=== PATIENT | female | born 1970 | race Caucasian/White ===

== ENCOUNTER 2017-10-10 21:44 | Emergency (ER) | payer MEDICARE, OTHER ==
[~2017-10-10] VITALS: Ht 149.9 cm; Wt 58.1 kg
[~2017-10-10 21:44] MED LIST: AMIODARONE HCL200 MG PO; APRISO0.375 GM PO; BENTYL10 MG PO; DICYCLOMINE HCL10 MG PO; LAMICTAL100 MG PO; LAMOTRIGINE100 MG PO; LASIX20 MG PO; LEVOTHYROXINE75 MCG PO; LEVOTHYROXINE88 MCG PO; METOCLOPRAMIDE10 MG PO; NEXIUM20 MG PO; OMEPRAZOLE40 MG PO; PANTOPRAZOLE SO40 MG PO; ZOFRAN8 MG PO; [UNRECOGNIZED DRUG - REMARK]
--- OUTSIDE RECORDS SUMMARY | 2017-10-10 21:47 | XMS REPORT ---
[facility] Address Unknown Phone Unavailable Care Team Providers Care Pathology Manager Name Role Phone MELODY HASSAN Unavailable Unavailable Problems This patient has no known problems. Allergies, Adverse Reactions, Alerts This patient has no known allergies or adverse reactions. Medications This patient has no known medications. Results Test Description Test Time Test Comments Text Results Atomic Results Result Comments CHEST 2 VIEWS [place] [address] Patient Name: JIGNESH WAYNE MR #: [id number] : 1970 Age/Sex: 47/F Req #: [id number] Adm Physician: Ordered by: MELODY HASSAN MD Report #: [id number] Location: ER Room/Bed: Procedure: [id number] DX/CHEST 2 VIEWS Exam Date: Exam Time: REPORT STATUS: Signed CHEST 2 VIEWS, Technique: CHEST 2 VIEWS Comparison: 11/24/2016 Clinical history: S H/O DOWN'S W/MARTHA DEFECTS REPAIRED , CHF SOB DISCUSSION: See below IMPRESSION: 1. Lines/tubes: Stable left chest wall dual-lead pacer, upper abdominal epicardial device. 2. Stable enlarged cardiomediastinal silhouette post sternotomy. 3. Diffuse opacities, likely edema. No significant effusion. Signed by: Dr Ghada Lara MD on 04/08/2017 12:02 AM Dictated By: GHADA LARA MD Transcribed By: BRETT on 04/08/171 COPY TO: MELODY HASSAN MD CT ABDOMEN/PELVIS WO [place] [address] Patient Name: JIGNESH WAYNE MR #: [id number] : 1970 Age/Sex: 47/F Req # : [id number] Adm Physician: Ordered by: MELODY HASSAN MD Report #: [id number] Location: ER Room/Bed: Procedure: [id number] CT/CT ABDOMEN/PELVIS WO Exam Date: 04/08/17 Exam Time: 2330 REPORT STATUS: Signed EXAM: CT ABDOMEN/PELVIS WO DATE: 9:42 PM INDICATION: S ABD PAIN LLQ H/O CROHN'S/DOWN'S SYND COMPARISON: 09/22/2016 contrast enhanced study TECHNIQUE: The abdomen and pelvis were scanned using a multidetector helical scanner. Coronal and sagittal reformations were obtained. Routine protocol performed. IV Contrast : None FINDINGS: Lack of IV contrast decreases sensitivity in evaluating abdominal and pelvic organs. In addition, image quality mildly degraded by streak artifact from electronic abdominal device. LOWER THORAX: Cardiomegaly with right ventricular lead seen and epicardial lead from intra- abdominal device. Nonspecific groundglass opacity which could be due to edema. Possible mosaic attenuation. LIVER/BILIARY: No masses. No ductal dilatation. GALLBLADDER: Surgically absent SPLEEN: Unremarkable PANCREAS: Unremarkable ADRENALS: No nodules KIDNEYS: No hydronephrosis or stone disease. GI TRACT: No distention, wall thickening or evidence of obstruction. Moderate stool is seen throughout the colon and rectum. VESSELS: No significant atherosclerotic calcification PERITONEUM/ RETROPERITONEUM: No free air or fluid LYMPH NODES: No lymphadenopathy REPRODUCTIVE ORGANS/BLADDER: Unremarkable BONES: No suspicious bone lesions. IMPRESSION: Moderate stool burden. Otherwise negative for acute abnormality to explain symptoms. Signed by: Dr Ghada Lara MD on 04/08 12:20 AM Dictated By: GHADA LARA MD Transcribed By: BRETT on 04/08/1719 COPY TO: MELODY HASSAN MD
== END 2017-10-10 22:01 | disposition home or self-care (01) ==
LOC: ER 21:44
DX: R05 Cough (principal); J20.9 Acute bronchitis, unspecified; K50.90 Crohn's disease, unspecified, without complications; K21.9 Gastro-esophageal reflux disease without esophagitis; Q90.9 Down syndrome, unspecified; Q21.8 Other congenital malformations of cardiac septa
CPT/HCPCS: 99282

== ENCOUNTER 2017-10-17 14:49 | Inpatient (IN) | payer MEDICARE, OTHER ==
[~2017-10-17] VITALS: Ht 129.5 cm; Wt 48.6 kg
--- OUTSIDE RECORDS SUMMARY | 2017-10-17 14:52 | XMS REPORT | Continuity of Care Document ---
Author Author [facility] Organization [facility] Address [address] [place] [address] Phone Unavailable Care Team Providers Care Epic Director Name Role Phone ANASTACIO CARROLL MD PCP Insurance Providers Guarantor Camilo,Jignesh Jorge Address [address] [place] [address] Payer Medicare A & B Policy Number [id number] Subscriber's Name Jignesh Camilo Relationship 18 Self / Same As Patient Group Name [id number] Effective Date 12 Payer Policy Number [id number] Subscriber's Name Jignesh Camilo Relationship 18 Self / Same As Patient Effective Date 09 Advance Directives Directive Response Recorded Date/Time Does the patient have an advance directive? No 11/24/16 4:41pm If yes, is advance directive on file with [facility]? No 11/24/16 4:41pm If not on file with [facility] will patient provide a copy? Yes 04/07/17 10:40pm Problems Medical Problem Onset Date Status CHF (congestive heart failure) Unknown Colitis Unknown Congenital heart defect Unknown Down syndrome Unknown Peripheral cyanosis Unknown UTI (urinary tract infection) Unknown Medications Current Home Medications Medication Dose Units Route Directions Days Qty Instructions Start Date Amiodarone Hcl 200 Mg Tablet 200 Mg Oral Daily Dicyclomine Hcl 10 Mg Capsule 10 Mg Oral Three Times A Day Furosemide (Lasix) 20 Mg Tablet 20 Mg Oral Daily 30 Tab Lamotrigine 100 Mg Tablet 100 Mg Oral Daily 30 Tab Levothyroxine Sodium 88 Mcg Tablet 88 Mcg Oral Daily 30 Tab Metoclopramide Hcl 10 Mg Tablet 10 Mg Oral Four Times Daily for Nausea Pantoprazole Sodium (Protonix) 40 Mg Tablet.dr 40 Mg Oral Daily Past Home Medications Medication Directions Ordered Status Crohns Medications , Discontinued Dicyclomine Hcl (Bentyl) 10 Mg Capsule, 10 Mg Oral As Needed Discontinued Esomeprazole Magnesium (Nexium) 20 Mg Capsule.dr, 20 Mg Oral Daily Discontinued Lamotrigine (Lamictal) 100 Mg Tab, 100 Mg Oral Daily Discontinued Levothyroxine Sodium 75 Mcg Tablet, 75 Mcg Oral Daily Discontinued Ondansetron Hcl (Zofran) 8 Mg Tablet, 8 Mg Oral As Needed Discontinued Social History Social History Problem Response Recorded Date/Time Onset Date Status Hx Psychiatric Problems No 11/24/2016 4:41pm Not Applicable Not Applicable Hx Eating Disorder No 11/24/2016 4:41pm Not Applicable Not Applicable Hx Substance Use Disorder No 11/24/2016 4:41pm Not Applicable Not Applicable Hx Depression No 11/24/2016 4:41pm Not Applicable Not Applicable Hx Alcohol Use No 11/24/2016 4:41pm Not Applicable Not Applicable Hx Substance Use Treatment No 11/24/2016 4:41pm Not Applicable Not Applicable Hx Physical Abuse No 11/24/2016 4:41pm Not Applicable Not Applicable Smoking Status Start Date Stop Date Never Smoker Hospital Discharge Instructions No hospital discharge instruction information available. Plan of Care Discharge Date 10/10/17 10:01pm Disposition HOME, SELF-CARE Condition at Discharge Stable Instructions/Education Provided Bronchitis (Acute) - Adult Forms Provided Work/School Excuse Prescriptions See Medication Section Additional Instructions/Education TAKE ALL MEDICATION PRESCRIBED Functional Status No functional status information available. Allergies, Adverse Reactions, Alerts No known allergies. Immunizations No immunization information available. Vital Signs Acute Vital Signs Vital Response Date/Time Height 4 ft 11 in 10/10/2017 9:48pm Weight 128 lb 10/10/2017 9:48pm Body Mass Index 25.9 kg/m^2 10/10/2017 9:48pm Results Laboratory Results Test Name Result Units Flags Reference Collection Date/Time Result Date/ Time Comments White Blood Count 7.44 x10e3/uL 4.8-10.8 04/07/2017 9:45pm 04/07/2017 9 :58pm Red Blood Count 5.04 x10e6/uL 3.6-5.1 04/07/2017 9:45pm 04/07/2017 9: 58pm Hemoglobin 16.1 g/dL H 12.0-16.0 04/07/2017 9:45pm 04/07/2017 9:58pm Hematocrit 47.2 % H 34.2-44.1 04/07/2017 9:45pm 04/07/2017 9:58pm Mean Corpuscular Volume 93.7 fL 81-99 04/07/2017 9:45pm 04/07/2017 9: 58pm Mean Corpuscular Hemoglobin 31.9 pg 28-32 04/07/2017 9:45pm 04/07/2017 9:58pm Mean Corpuscular Hemoglobin Concent 34.1 g/dL 31-35 04/07/2017 9:45pm 04/07/2017 9:58pm Red Cell Distribution Width 17.0 % H 11.7-14.4 04/07/2017 9:45pm 2016 9:58pm Platelet Count 182 x10e3/uL 140-360 04/07/2017 9:45pm 04/07/2017 9: 58pm Neutrophils (%) (Auto) 83.0 % H 38.7-80.0 04/07/2017 9:45pm 04/07/2017 9 :58pm Lymphocytes (%) (Auto) 9.7 % L 18.0-39.1 04/07/2017 9:45pm 04/07/2017 9: 58pm Monocytes (%) (Auto) 5.5 % 4.4-11.3 04/07/2017 9:45pm 04/07/2017 9: 58pm Eosinophils (%) (Auto) 0.3 % 0.0-6.0 04/07/2017 9:45pm 04/07/2017 9: 58pm Basophils (%) (Auto) 1.2 % H 0.0-1.0 04/07/2017 9:45pm 04/07/2017 9: 58pm IM GRANULOCYTES % 0.3 % 0.0-1.0 04/07/2017 9:45pm 04/07/2017 9:58pm Neutrophils # (Auto) 6.2 2.1-6.9 04/07/2017 9:45pm 04/07/2017 9:58pm Lymphocytes # (Auto) 0.7 L 1.0-3.2 04/07/2017 9:45pm 04/07/2017 9: 58pm Monocytes # (Auto) 0.4 0.2-0.8 04/07/2017 9:45pm 04/07/2017 9:58pm Eosinophils # (Auto) 0.0 0.0-0.4 04/07/2017 9:45pm 04/07/2017 9:58pm Basophils # (Auto) 0.1 0.0-0.1 04/07/2017 9:45pm 04/07/2017 9:58pm Absolute Immature Granulocyte (auto 0.02 x10e3/uL 0-0.1 04/07/2017 9: 45pm 04/07/2017 9:58pm Prothrombin Time 12.9 seconds 11.9-14.5 04/07/2017 9:45pm 04/07/2017 10 :05pm Prothromb Time International Ratio 0.93 04/07/2017 9:45pm 2016 10:05pm Oral Anticoagulant Therapy INR Values: 1. Low Intensity Therapy 1.5 - 2.0 2. Moderate Intensity Therapy 2.0 - 3.0 3. High Intensity Therapy(1) 2.5 - 3.5 4. High Intensity Therapy(2) 3.0 - 4.0 5. Panic Value INR > 5.0 Activated Partial Thromboplast Time 27.7 seconds 23.8-35.5 04/07/2017 9: 45pm 04/07/2017 10:06pm Urine Color YELLOW YELLOW 04/07/2017 8:09pm 04/07/2017 9:39pm Urine Clarity HAZY CLEAR 04/07/2017 8:09pm 04/07/2017 9:39pm Urine Specific Eddy 1.025 1.010-1.025 04/07/2017 8:09pm 2016 9:39pm Urine pH 5 5 - 7 04/07/2017 8:09pm 04/07/2017 9:39pm Urine Leukocyte Esterase TRACE H NEGATIVE 04/07/2017 8:09pm 2016 9:39pm Urine Nitrite NEGATIVE NEGATIVE 04/07/2017 8:0904/07/2017 9:39pm Urine Protein 2+ H NEGATIVE 04/07/2017 8:0904/07/2017 9:39pm Urine Glucose (UA) NEGATIVE NEGATIVE 04/07/2017 8:09pm 04/07/2017 9: 39pm Urine Ketones NEGATIVE NEGATIVE 04/07/2017 8:09pm 04/07/2017 9:39pm Urine Urobilinogen 1 mg/dL 0.2 - 1 04/07/2017 8:09pm 04/07/2017 9:39pm Urine Bilirubin 1+ H NEGATIVE 04/07/2017 8:0904/07/2017 9:39pm Urine Blood 4+ H NEGATIVE 04/07/2017 8:04/07/2017 9:39pm Urine WBC 6-10 /HPF H 0-04/07/2017 8:0904/07/2017 9:42pm Urine RBC >50 /HPF H 0-5 04/07/2017 8:09pm 04/07/2017 9:42pm Urine Bacteria MODERATE /HPF H NONE 04/07/2017 8:0904/07/2017 9:42pm Urine Epithelial Cells FEW /LPF NONE 04/07/2017 8:0904/07/2017 9: 42pm Urine Yeast FEW H NONE 04/07/2017 8:0904/07/2017 9:42pm Sodium Level 139 mmol/L 136-145 04/07/2017 9:45pm 04/07/2017 10:32pm Potassium Level 4.1 mmol/L 3.5-5.1 04/07/2017 9:45pm 04/07/2017 10: 32pm Chloride Level 105 mmol/L 98-107 04/07/2017 9:45pm 04/07/2017 10:32pm Carbon Dioxide Level 23 mmol/L 22-29 04/07/2017 9:45pm 04/07/2017 10: 32pm Anion Gap 15.1 mmol/L 8-04/07/2017 9:45pm 04/07/2017 10:32pm Blood Urea Nitrogen 16 mg/dL 7-04/07/2017 9:45pm 04/07/2017 10:32pm Creatinine 1.54 mg/dL H 0.57-1.11 04/07/2017 9:45pm 04/07/2017 10:32pm BUN/Creatinine Ratio 10 -25 04/07/2017 9:4504/07/2017 10:32pm Estimat Glomerular Filtration Rate 36 ML/MIN L 60- 04/07/2017 9:45 10:32pm Ranges were taken from the National Kidney Disease Education Program and the National Kidney Foundation literature. Reference ranges: 60 or greater: Normal 16-59 (for 3 consecutive months): Chronic kidney disease 15 or less: Kidney failure Glucose Level 128 mg/dL H 74-118 04/07/2017 9:45pm 04/07/2017 10:32pm Calcium Level 9.2 mg/dL 8.4-10.2 04/07/2017 9:4504/07/2017 10:32pm Magnesium Level 2.0 MG/DL 1.3-2.1 04/07/2017 9:4504/07/2017 10:32pm Total Bilirubin 0.5 mg/dL 0.2-1.2 04/07/2017 9:4504/07/2017 10:32pm Aspartate Amino Transf (AST/SGOT) 21 IU/L 5-34 04/07/2017 9:452016 10:32pm Alanine Aminotransferase (ALT/SGPT) 17 IU/L 0-55 04/07/2017 9:45 10:32pm Total Protein 8.8 g/dL H 6.5-8.1 04/07/2017 9:4504/07/2017 10:32pm Albumin 3.5 g/dL 3.5-5.0 04/07/2017 9:4504/07/2017 10:32pm Globulin 5.3 g/dL H 2.3-3.5 04/07/2017 9:4504/07/2017 10:32pm Albumin/Globulin Ratio 0.7 L 0.8-2.0 04/07/2017 9:4504/07/2017 10: 32pm Alkaline Phosphatase 146 IU/L 40-150 04/07/2017 9:45pm 04/07/2017 10: 32pm B-Type Natriuretic Peptide 418.1 pg/mL H 0-100 04/07/2017 9:45pm 2016 10:32pm Creatine Kinase 25 IU/L L 29-168 04/07/2017 9:4504/07/2017 10:32pm Creatine Kinase MB 1.50 ng/mL 0.00-5.00 04/07/2017 9:45pm 04/07/2017 10 :32pm Troponin I 0.047 ng/mL 0-0.300 04/07/2017 9:45pm 04/07/2017 10:32pm Lipase 13 U/L 8-78 04/07/2017 9:45pm 04/07/2017 10:32pm Human Chorionic Gonadotropin, Qual NEGATIVE NEGATIVE 04/07/2017 9: 45pm 04/07/2017 10:09pm Microbiology Results Procedure Source Organism/Result Collection Date/Time Result Date/Time Result Status Blood Culture Blood NO GROWTH AFTER 5 DAYS, FINAL REPORT 04/07/2017 9:45pm 04/12/2017 9:51pm Final Procedures Procedure Status Date Provider(s) X-ray of chest, two views Active 04/07/[address] of abdomen and pelvis without contrast Active 04/07/17 MELODY HASSAN MD Encounters Encounter Location Arrival/Admit Date Discharge/Depart Date Attending Provider Departed Emergency Room [facility] 10/10/17 9:44pm 10:01pm GUI LOVE MD Departed Emergency Room [facility] 04/07/17 7:22pm 1:12am MELODY HASSAN MD
[2017-10-17] MEDS ORDERED: ALBUTEROL/IPRATROPIUM 3 ML NEB NEB ONE (15:30)
[2017-10-17 15:34] LABS: BASOPHILS # (AUTO) 0.1 (0.0-0.1); BASOPHILS % 0.9 % (0.0-1.0); EOSINOPHILS % 0.1 % (0.0-6.0); HEMATOCRIT 43.2 % (34.2-44.1); HEMOGLOBIN 14.7 g/dL (12.0-16.0); LYMPHOCYTES # (AUTO) 0.6 (1.0-3.2); LYMPHOCYTES % 7.2 % (18.0-39.1); MEAN CORPUSCULAR HEMOGLOBIN 32.2 pg (28-32); MEAN CORPUSCULAR VOLUME 94.5 fL (81-99); MONOCYTES # (AUTO) 0.4 (0.2-0.8); MONOCYTES % 4.6 % (4.4-11.3); NEUTROPHILS # (AUTO) 6.7 (2.1-6.9); NEUTROPHILS % 86.2 % (38.7-80.0); PLATELET COUNT 189 x10e3/uL (140-360); RED BLOOD COUNT 4.57 x10e6/uL (3.6-5.1); RED CELL DISTRIBUTION WIDTH 14.7 % (11.7-14.4)
[2017-10-17 15:49] LABS: ALBUMIN/GLOBULIN RATIO 0.7 (0.8-2.0); ANION GAP 17.1 mmol/L (8-16); CALCIUM 8.8 mg/dL (8.4-10.2); CREATININE, SERUM 1.54 mg/dL (0.57-1.11); POTASSIUM 3.1 mmol/L (3.5-5.1)
[2017-10-17] MEDS ORDERED: SODIUM CHLORIDE 0.9% 500ML 500 ML IV ONE (16:15)
--- NOTE | 2017-10-17 16:33 | Diagnostic Imaging Report ---
EXAMINATION: CHEST 2 VIEWS INDICATION: \S\COUGH \[id number] \S\1545 COMPARISON: Chest radiograph 04/07/2017 FINDINGS: PA and lateral views TUBES and LINES: Left chest wall cardiac pacer with lead tips overlying the right atrium and right ventricle. Partially visualized epicardial lead. LUNGS: Lungs are moderately inflated. Interstitial edema. PLEURA: No pleural effusion or pneumothorax. HEART AND MEDIASTINUM: Stable enlargement of the cardiac silhouette. BONES AND SOFT TISSUES: No acute osseous lesion. Median sternotomy wires. The inferior most wire is broken. Soft tissues are unremarkable. UPPER ABDOMEN: No free air under the diaphragm. Cholecystectomy clips. IMPRESSION: Cardiogenic interstitial edema. Signed by: DR. Yuri Virk MD on 10/17/2017 4:30 PM
[2017-10-17 16:39] LABS: BILIRUBIN,URINE 1+ (NEGATIVE); CLARITY,URINE SL CLOUDY (CLEAR); COLOR,URINE YELLOW (YELLOW); KETONES,URINE NEGATIVE (NEGATIVE); LEUKOCYTE ESTERASE ,URINE NEGATIVE (NEGATIVE); NITRITE,URINE NEGATIVE (NEGATIVE); PROTEIN,URINE DIPSTICK 3+ (NEGATIVE); URINE UROBILINOGEN 4 mg/dL (0.2 - 1)
[2017-10-17 16:43] LABS: RBC,URINE 21-50 /HPF (0-5)
[2017-10-17 16:44] LABS: AMORPHOUS SEDIMENT,URINE FEW (FEW); BACTERIA,URINE FEW /HPF; EPITHELIAL CELLS,URINE MODERATE /LPF
[2017-10-17] MEDS ORDERED: POTASSIUM CHLORIDE 20 MEQ TAB CR PO ONE (17:00)
[2017-10-17] MEDS ORDERED: NITROGLYCERIN 0.4 MG SUBL SL ONE (17:15)
[2017-10-17] MEDS ORDERED: FUROSEMIDE INJ 10 MG/ML 4 ML VIAL IV ONE (17:15)
[2017-10-17] MEDS ORDERED: ASPIRIN 81 MG CHEW TAB PO ONE (17:30)
[2017-10-17 18:10] LABS: CREATINE KINASE MB 1.7 ng/mL (0-5.0)
[2017-10-17 18:15] VITALS: BP 118/86
[2017-10-17 19:40] VITALS: BP 118/86
[2017-10-17 20:00] VITALS: BP 111/73
--- NOTE | 2017-10-17 20:50 | History and Physical ---
CHIEF COMPLAINT: Patient had an episode of generalized weakness lasting for few minutes this morning. HISTORY OF PRESENT MEDICAL ILLNESS: History with the help of mother and father at bedside and patient had severe cerebral palsy. As per mother, she was showering patient this morning. At that time, patient had episode of generalized weakness, where she was almost passed out for about 4-5 minutes. Then, patient came back to her baseline. Also, patient was complaining of cough for last almost 5-6 days and hence, patient was brought into emergency room. In the emergency room, patient was evaluated by emergency room doctor and was found to have CHF. Patient was admitted for further care and treatment. At the present, patient lying comfortably in bed at her baseline. PAST MEDICAL HISTORY 1. Down syndrome. 2. VSD and ASD, status post pacemaker placement, congenital heart disease. 3. AFib. 4. CHF. 5. Crohn's disease. 6. Acid reflux. 7. Hypothyroidism. 8. Mood disorder. MEDICATIONS: As listed in chart. ALLERGIES: NO KNOWN DRUG ALLERGIES. SURGICAL HISTORY: Cholecystectomy. SOCIAL HISTORY: No smoking. No alcohol. No illicit drug use. Lives with family. REVIEW OF SYSTEMS: As per HPI. PHYSICAL EXAMINATION GENERAL: Patient is alert, awake, oriented times 2, in no apparent distress, lying in bed. VITALS: Temperature is 97, pulse is 70 per minute, respirations 20, blood pressure 110/70, saturation is 97% on room air. HEENT: No cyanosis, no icterus, no pallor. Normocephalic, atraumatic. PERRLA. NECK: Soft and supple. No JVD. LUNGS: Air entry bilaterally equal. Bibasilar rales. HEART: S1, S2. No gallop. No rub. ABDOMEN: Soft, nontender. Bowel sounds present. MORTGAGE LOAN OFFICER: Alert, awake. EXTREMITIES: Thighs obese . LABS: On admission, white count 7.8, hemoglobin 14.7, hematocrit 43.2, platelets 189,000. Sodium 139, potassium 3.1, chloride 104, bicarb 21, BUN 12, creatinine 1.5, glucose 152. BNP 740. UA shows RBC 21-50, WBC 11-20, bacteria few. Chest x-ray shows cardiogenic interstitial edema. EKG shows electronic ventricular pacemaker. ASSESSMENT 1. Syncope. 2. Urinary tract infection. 3. Congestive heart failure exacerbation. 4. History of down syndrome. 5. Congenital heart disease. 6. Hypothyroidism. PLAN: Admit patient to med/tele. Oxygen, neb treatments. Lasix 40 mg IV q.12. Rocephin 1 g IV daily. Cardiology consultation Dr. Pérez. Ultrasound of renal. Echo. Further care and treatment while the patient is in the hospital. Discussed with family at bedside in detail. Job#: [id number] CQ
[2017-10-17] MEDS: ACETAMINOPHEN 325 MG TAB PO PRN (21:58)
[2017-10-17] MEDS: CEFTRIAXONE SOD 1 GM VIAL IV SCH (21:58)
[2017-10-17 22:02] VITALS: BP 111/73
[2017-10-18] VITALS (8 sets, daily range): BP systolic 110–140; BP diastolic 70–85
[2017-10-18 06:07] LABS: BASOPHILS # (AUTO) 0.1 (0.0-0.1); BASOPHILS % 1.2 % (0.0-1.0); EOSINOPHILS % 0.3 % (0.0-6.0); HEMATOCRIT 43.5 % (34.2-44.1); HEMOGLOBIN 14.4 g/dL (12.0-16.0); LYMPHOCYTES % 12.5 % (18.0-39.1); MEAN CORPUSCULAR HEMOGLOBIN 32.1 pg (28-32); MEAN CORPUSCULAR HGB CONC 33.1 g/dL (31-35); MEAN CORPUSCULAR VOLUME 97.1 fL (81-99); MONOCYTES # (AUTO) 0.5 (0.2-0.8); NEUTROPHILS % 79.3 % (38.7-80.0); PLATELET COUNT 179 x10e3/uL (140-360); RED BLOOD COUNT 4.48 x10e6/uL (3.6-5.1); RED CELL DISTRIBUTION WIDTH 15.1 % (11.7-14.4)
[2017-10-18 06:33] LABS: CREATINE KINASE MB 1.5 ng/mL (0-5.0)
--- NOTE | 2017-10-18 06:33 | Diagnostic Imaging Report ---
EXAM: CHEST SINGLE (PORTABLE), AP 1 view INDICATION: Congestive heart failure COMPARISON: AP view of the chest October 17, 2017 FINDINGS: LINES/TUBES: Stable position of left approach cardiac device. Partially visualized subxiphoid pacer. LUNGS: Pulmonary edema. PLEURA: No effusions or pneumothorax. HEART AND MEDIASTINUM: Stable cardiomegaly and vascular congestion. BONES AND SOFT TISSUES: No acute findings. Stable median sternotomy wires. IMPRESSION: No interval change. Signed by: Dr. Ronda Cervantes M.D. on 10/18/2017 6:29 AM
[2017-10-18 06:34] LABS: ALBUMIN 2.9 g/dL (3.5-5.0); ALBUMIN/GLOBULIN RATIO 0.6 (0.8-2.0); ANION GAP 15.5 mmol/L (8-16); CALCIUM 8.8 mg/dL (8.4-10.2); CREATININE, SERUM 1.35 mg/dL (0.57-1.11); POTASSIUM 3.5 mmol/L (3.5-5.1)
[2017-10-18] MEDS: FUROSEMIDE INJ 10 MG/ML 4 ML VIAL IV SCH ×2 (08:04→16:38)
[2017-10-18] MEDS: LEVOTHYROXINE SODIUM 88 MCG TAB PO SCH (08:04)
[2017-10-18] MEDS: PANTOPRAZOLE SOD 40 MG TABEC PO SCH (08:05)
[2017-10-18] MEDS: LAMOTRIGINE 100 MG TAB PO SCH (08:05)
[2017-10-18] MEDS ORDERED: AMIODARONE HCL 200 MG TAB PO SCH (09:00)
[2017-10-18] MEDS ORDERED: LEVOTHYROXINE SODIUM 88 MCG TAB PO SCH (09:00)
[2017-10-18] MEDS: ACETAMINOPHEN 325 MG TAB PO PRN (11:40)
[2017-10-18] MEDS ORDERED: DIGOXIN INJ 0.25 MG/ML 2 ML AMP IV ONE (13:30)
[2017-10-18] MEDS: BENZONATATE 100 MG CAP PO SCH ×2 (14:00→21:02)
[2017-10-18 14:01] LABS: CREATINE KINASE MB 1.7 ng/mL (0-5.0)
--- NOTE | 2017-10-18 14:02 | Diagnostic Imaging Report ---
Lumbar Spine Radiographs: 3 views HISTORY: Low back pain. COMPARISON: CT abdomen and pelvis 03/28/2017 DISCUSSION: Some of the osseous structures are partially obscured by stool and bowel gas. L2 and L3 are partially obscured by the device pack on the frontal view. There are five non-rib bearing lumbar vertebral bodies. The alignment of the spine is within normal limits. Age-indeterminate mild T12 compression deformity with approximately 15-20% loss of height. No displaced fracture or additional compression deformity is identified. Moderate to large amount stool in the ascending colon. Gaseous distention of colon with the distal transverse colon measuring 8.5 cm in diameter. No abnormally distended air filled loops of small bowel. Cholecystectomy clips. Epicardial lead with intra-abdominal device. A surgical clip projects over the pelvis. Disc Spaces: The disc spaces are well maintained. Facets: The facet joints are unremarkable. IMPRESSION: Age-indeterminate mild T12 compression deformity with approximately 15-20% loss of height. Gaseous distention of colon. Moderate to large amount of stool in the ascending colon. Signed by: DR. Yuri Virk MD on 10/18/2017 1:58 PM
--- NOTE | 2017-10-18 20:01 | Consultation ---
DATE OF CONSULTATION: CARDIOLOGY CONSULTATION ATTENDING PHYSICIAN: Dr. Brennon Carroll. ORE BUYER: Dr. Guzman. CLINICAL HISTORY: This is a 47-year-old white woman with history of Down's syndrome, with tetralogy of Fallot, and AV canal defect, status post permanent pacemaker and with history of atrial fibrillation and atrial flutter, maintained on amiodarone, who was admitted via the emergency room because of possible aspiration and syncope. According to the family, the patient was taking a bath after having had a cough of 5 or 6 days. During the bath, she suddenly became unresponsive straightening her legs and became deadweight. Nevertheless, she was later reported to hear of mother yelling at her. With the help of both parents, she was able to come out of the bathroom, and after 5 or 6 minutes, she returned to baseline, was able to put her clothes on. She was then brought to the emergency room and suspected to have congestive heart failure. According to the mother, she had submerged under the bath water momentarily. The chest x-ray in the emergency room had shown interstitial pulmonary edema. Her previous echocardiogram showed ejection fraction to be in the normal range at around 50%-65%. She has a pacemaker. PAST MEDICAL HISTORY: Also remarkable for hypothyroidism, Crohn's disease, and acid reflux. MEDICATIONS: Medications at home include; 1. Amiodarone 200 mg p.o. daily. 2. Lamotrigine 100 mg p.o. daily. 3. Levothyroxine 88 mcg p.o. daily. 4. Pantoprazole 40 mg p.o. daily. 5. Metoclopramide. 6. Lasix 20 mg p.o. daily. 7. Bentyl. ALLERGIES: NONE KNOWN. PERSONAL/SOCIAL HISTORY: Denies smoking, drinking, or drug abuse. PAST SURGICAL HISTORY: Cholecystectomy. REVIEW OF SYSTEMS: Noncontributory. PHYSICAL EXAMINATION VITAL SIGNS: Stable with blood pressure in the range of 110/70. CARDIAC: Jugular veins were not distended. S1 and S2 were regular. There is a 2/6 systolic murmur. LUNGS: Show minimal crackles. ABDOMEN: Soft. Bowel sounds are present. EXTREMITIES: No cyanosis, clubbing, or edema. IMPRESSION 1. Syncope or near syncope of undetermined etiology, consider cardiac arrhythmias, also consider seizure disorder. 2. Persistent atrial fibrillation and atrial flutter, status post permanent pacemaker, on amiodarone. 3. 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 4. Hypothyroidism. 5. Borderline left ventricular ejection fraction in the range of 50%-65%. 6. History of Crohn's disease. 7. Hypothyroidism. RECOMMENDATION: Review echocardiogram. Treatment for possible aspiration. Consider discontinuing amiodarone since she is not converting to sinus rhythm. She can probably be managed with rate control, particularly since she has a pacemaker. Thank you very much. Job#: [id number] DIANE cc:DR. BRENNON CARROLL
[2017-10-18] MEDS: CEFTRIAXONE SOD 1 GM VIAL IV SCH (21:02)
[2017-10-19] VITALS (7 sets, daily range): BP systolic 107–153; BP diastolic 65–92
[2017-10-19] MEDS: ACETAMINOPHEN 325 MG TAB PO PRN (05:10)
[2017-10-19] MEDS: LEVOTHYROXINE SODIUM 88 MCG TAB PO SCH (05:10)
[2017-10-19] MEDS: FUROSEMIDE INJ 10 MG/ML 4 ML VIAL IV SCH (10:06)
[2017-10-19] MEDS: DIGOXIN 0.125 MG TAB PO SCH (10:08)
[2017-10-19] MEDS: BENZONATATE 100 MG CAP PO SCH ×3 (10:08→21:17)
[2017-10-19] MEDS: PANTOPRAZOLE SOD 40 MG TABEC PO SCH (10:08)
[2017-10-19] MEDS: LAMOTRIGINE 100 MG TAB PO SCH (10:08)
[2017-10-19] MEDS: POLYETHYLENE GLYCOL 3350 17 GM PACK PO SCH (12:07)
[2017-10-19] MEDS: FLUCONAZOLE 100 MG TAB PO SCH (12:07)
[2017-10-19] MEDS ORDERED: POTASSIUM CHLORIDE 20 MEQ TAB CR PO ONE (13:00)
--- NOTE | 2017-10-19 13:00 | Cardiology Report ---
DATE OF STUDY: October 18, 2017 ECHOCARDIOGRAM M-MODE: Dilated left atrium. Normal left ventricular wall thickness and contractility. Sclerosis of the mitral valve annulus. Normal aortic valve. Pacemaker. No pericardial effusion. SECTOR SCAN: Moderately dilated left atrium. Normal left ventricular wall thickness and contractility. Ejection fraction is approximately 60%. Mitral annulus is moderately sclerotic. Pacemaker is present. Normal tricuspid and aortic valves. No pericardial effusion. CARDIAC DOPPLER STUDY WITH COLOR: There is 2+ pulmonic and mitral regurgitation. Trace tricuspid regurgitation. Pulmonary artery systolic pressure estimated at 33 mmHg. CONCLUSIONS 1. Left ventricular ejection fraction is approximately 60%. 2. Moderate mitral regurgitation with dilated left atrium. 3. Pacemaker with trace tricuspid regurgitation and moderate pulmonic regurgitation. 4. Sclerosis of the mitral valve annulus. Job#: [id number] MH cc:ANASTACIO CARROLL M.D.
[2017-10-19] MEDS ORDERED: METOLAZONE 5 MG TAB PO ONE (13:15)
--- NOTE | 2017-10-19 13:26 | Consultation ---
DATE OF CONSULTATION: PULMONARY CONSULTATION REASON FOR CONSULTATION: Cough. HPI: Ms. Camilo is a 47-year-old female, well known to me from previous admission. She has Down syndrome. She has followed up in the office in the past. She is not able to communicate. The source of history is the mother. She has history of cerebral palsy and Down syndrome. According to the mother, she was showering the patient this morning, and she became unresponsive, and her head also went under water. However, she took the head out. She has been complaining of cough for almost 7 to 8 days. It is a dry cough. She denies any nausea, vomiting or diarrhea. REVIEW OF SYSTEMS: Unable to elicit from the patient, as patient has cerebral palsy and Down syndrome and she is unable to communicate. PAST MEDICAL HISTORY: Down syndrome, VSD, ASD, pacemaker, congenital heart disease, AFib, Crohn disease, hypothyroidism. FAMILY AND SOCIAL HISTORY: She lives with her mother. She does not smoke and does not drink. PHYSICAL EXAMINATION VITAL SIGNS: Temperature 96.6, pulse of 60, blood pressure 130/82. Respiratory rate 18. O2 sat 98%. HEENT: Head is atraumatic and normocephalic. NECK: Supple. She has web neck. Oral mucosa is dry. Oropharynx is clear. CHEST: Clear to auscultation bilaterally with no wheezing. HEART: S1, S2 audible. ABDOMEN: Soft. EXTREMITIES: No clubbing, cyanosis or edema. NEUROLOGIC: Awake and alert, but cannot communicate. LABS: White count of 7000, hemoglobin 14.4, platelets 179. Chemistry: Sodium 137, potassium 3.5, chloride 103, BUN 12, creatinine 1.35. Chest x-ray which was done in the emergency room is showing cardiomegaly and increased congestion. No focal infiltrate. ASSESSMENT AND PLAN: Ms. Camilo is a 47-year-old female with cerebral palsy and Down syndrome here with sudden onset of unresponsiveness. Patient's head had been under water, question of aspiration and pulmonary edema. Patient had started having cough before this event as well. Possibly has reactive airway disease as well. PLAN 1. I will start the patient on nebulizer treatment. 2. Also start Pulmicort nebs. 3. Will hold off on the antibiotics for now. I do not think there is any focal infiltrate or pneumonia. 4. Diuretics have been started by cardiology. Case discussed with Dr. Guzman. 5. Also, the case was discussed with the patient's mother at bedside in detail. Job#: [id number] BYRON
[2017-10-19] MEDS: LEVALBUTEROL HCL SOLN NEBU 1.25 MG/3 ML NEB INH SCH ×2 (13:50→19:29)
--- NOTE | 2017-10-19 14:21 | Consultation ---
DATE OF CONSULTATION: NEUROLOGY CONSULTATION HISTORY OF PRESENT ILLNESS: Ms. Camilo is a 47-year-old right hand dominant woman with an extensive past medical history, admitted to [facility] on October 17, 2017 following a possible syncopal event. On October 17, 2017, the patient was standing in the tub while her mother was washing her. Suddenly, the patient dropped to the floor of tub. Her mother described the patient as " weight." Ms. Camilo became cyanotic, and appeared to struggle to breathe. Her eyes had a glazed appearance. Ms. Camilo's mother does not believe the patient fully lost consciousness. Together with her , Ms. Camilo's mother helped her from the bathtub. She lay on the floor for approximately 5 to 6 minutes. After that time past, the patient returned to her neurological baseline. EMS was notified and Ms. Camilo was transported to the emergency center at [facility] for further evaluation. Ms. Sandras mother does not report stiffening or shaking of the extremities associated with the above event. There was no tongue biting, no bladder or bowel incontinence, no foaming saliva. There is no gaze or head deviation. Upon arrival in the emergency Center, the patient was afebrile with a blood pressure of 102/66 mmHg and a pulse of 66 beats per minute. The documentation of the patient's general physical and neurological examinations is unavailable for review at this time. No neuroimaging studies were performed in the emergency center. However, Ms. Camilo was found to have an exacerbation of her underlying congestive heart failure. She was admitted to [facility] under observation status for further evaluation and treatment. Patient's mother does not endorse a history of known seizures. There is no prior history of head trauma or central nervous system infection. There is no family history of seizures. Ms. Camilo's mother does report the patient experienced similar symptoms approximately 2 years ago after her second cataract surgery. At that time, she was told the patient's symptoms were due to sedation. Ms. Camilo has had a cough for the past week. Her mother reports the cough is nonproductive. As far as she knows, there has been no shortness of breath or wheezing. REVIEW OF SYSTEMS: Cough, possible syncopal event. Otherwise 12-point review of systems is negative. 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 PAST SURGICAL HISTORY: Bilateral cataract surgeries, pacemaker placement and battery exchange multiple times, foot surgery, esophagogastroduodenoscopy. PAST HOSPITALIZATIONS: Surgeries and procedures as listed, myocardial infarction, gastritis, multiple other hospitalizations. FAMILY HISTORY: The patient's paternal grandparents are . Both were alcoholics. Their medical histories are unknown. The patient's maternal grandfather is from high blood pressure and heart disease. The patient's maternal grandmother is . She had hypertension. The patient's father is . He was an alcoholic as well. His medical history is unknown. Ms. Camilo's mother is alive. She has high blood pressure and diabetes. Ms. Camilo has 2 siblings, a sister and a brother. Both are alive and healthy. The patient has no children. Multiple maternal relatives (aunts and uncles) have high blood pressure. SOCIAL HISTORY: Ms. Camilo is single. She is a high school graduate (special education). 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 There is no known current or prior tobacco, alcohol, or recreational drug use. HOME MEDICATIONS: Amiodarone 200 mg by mouth daily, dicyclomine 10 mg by mouth three times daily, Lasix 20 mg by mouth daily, lamotrigine 100 mg by mouth daily, levothyroxine 88 mcg by mouth daily, metoclopramide 10 mg by mouth 4 times daily, pantoprazole 40 mg by mouth daily. HOSPITAL MEDICATIONS: Digoxin 0.25 mg by mouth every morning, Tessalon Perles 100 mg by mouth three times daily, pantoprazole 40 mg by mouth daily, lamotrigine 100 mg by mouth daily, levothyroxine 88 mcg by mouth every morning, acetaminophen 650 mg by mouth every 6 hours as needed for pain or fever, ceftriaxone 1 gram IV daily, MiraLAX 17 grams by mouth daily, Colace 100 mg by mouth twice daily, fluconazole 100 mg by mouth daily, Lasix 40 mg intravenously daily. ALLERGIES: Unknown antibiotic. No known food allergies. No known allergies to latex. No known allergies to iodine or other contrast materials. PHYSICAL EXAMINATION VITAL SIGNS: Height 51 inches, weight 107 pounds, BMI 29.0 kg per meter squared. Blood pressure 107/72 mmHg, pulse 60 beats per minute, respiratory rate 20 breaths per minute, oxygen saturation 98% on 2 liters by nasal cannula. GENERAL: The patient is awake and alert, does not appear distressed. HEENT: Normocephalic, atraumatic. Pupils are surgical. Moist mucous membranes. Facial features typical of Down syndrome. NECK: Supple. No appreciable thyromegaly. No appreciable carotid bruits. CARDIOVASCULAR: S1, S2 regular rate and rhythm. Holosystolic murmur. RESPIRATORY: Clear to auscultation bilaterally. No wheezes, rhonchi or rales. EXTREMITIES: The skin is warm and dry. No clubbing, cyanosis or edema. The posterior tibial and dorsalis pedis pulses are 2+ and symmetric. SKIN: No rashes or lesions. NEUROLOGIC: Memory/Attention: The patient is awake and alert. Verbalization is very limited. Cranial Nerves: Cranial nerve 1-not tested. Cranial nerve 2, 3, 4, and 6-pupils are surgical, extraocular movements intact, no nystagmus. Cranial nerve 5-sensation is grossly intact to light touch in the bilateral V1 through V3 distributions. Strength of the temporalis and masseter muscles appears to be within normal limits. Cranial nerve 7-the face is symmetric as are all facial movements. Strength appears to be within normal limits. Cranial nerve 8-hearing is grossly intact to bilaterally. Cranial nerve 9, 10-the soft palate elevates equally and symmetrically. Cranial nerve 11-normal strength of the bilateral sternocleidomastoid and trapezius muscles. Cranial nerve 12-the tongue protrudes midline and moves symmetrically from [id number]. Strength: Bulk is diminished. Normal functional movements of both arms and both legs. Tone is mildly diminished throughout. DTRs: Deep tendon reflexes are 2+ and symmetric at the triceps, biceps, brachioradialis. Deep tendon reflexes cannot be elicited at the patellas and Achilles. Plantar responses are flexor bilaterally. Sensation: Sensation is grossly intact to light touch in both arms and both legs. Cerebellar: Unable to assess due to the patient's inability to follow instructions. Gait: Deferred. Speech: Very limited spontaneous verbalization. Involuntary Movements: None. Pronator Drift: As per motor exam. LABORATORY DATA: Sodium 137, potassium 3.5, chloride 103, dioxide 22, anion gap 15.5, BUN 12, creatinine 1.35, estimated GFR 42, BUN to creatinine ratio 9, glucose 118, calcium 8.8, total bilirubin 0.7, AST 15, ALT 211. Alkaline phosphatase 124, total protein 7.5, albumin 2.9, globulin is 4.6. Albumin to globulin ratio 0.6. Creatinine kinase 53, 54, 49. CK-MB 1.70, 1.50, 1.70. Troponin I 0.035, 0.027, 0.056. B-natriuretic peptide 741.5. Lactic acid 28.2. The CBC with differential and platelets reveals a white blood cell count of 7.61 with 79.3% neutrophils, 12.5% lymphocytes, 6.0% monocytes, 0.3% eosinophils and 1.2% basophils. Hemoglobin and hematocrit are 14.4 and 43.5, respectively. The platelet count is 179. From October 17, 2017, urinalysis revealed a specific gravity 1.030, 3+ protein, 4+ blood, 1+ bilirubin, 4+ urobilinogen, 21 to 50 red blood cells, 11 to 20 white blood cells, moderate epithelials cells, few urine bacteria, 1 to 5 coarse granular casts. Blood cultures drawn on 10/17/2017 show no growth after 24 hours. A urine culture collected on 10/17/2017 reveals a yeast species, 10,000 to 50,000 CFU per mL. DIAGNOSTIC STUDIES: Chest x-ray 10/17/2017: Cardiogenic interstitial edema. Chest x-ray 10/18/2017: No interval change. Lumbar spine x-ray 10/18/2017: Age indeterminate mild T12 compression deformity with approximately 15% to 20% loss of height. Gaseous distention of colon. Moderate to large amount of stool in the ascending colon. ASSESSMENT AND PLAN: Ms. Camilo is a 47-year-old right hand dominant woman with an extensive past medical history as detailed above, admitted to [facility] on October 17, 2017 with syncopal event versus possible generalized atonic seizure (i.e. drop attack). Patient's neurological examination is detailed above. Ms. Camilo's blood work and other diagnostic studies have been reviewed and are documented above. The event described by Ms. Camilo's mother is more compatible with a syncopal event than a seizure. There was no noted stiffening or shaking of the arms or legs, no tongue biting, no bladder or bowel incontinence, no foaming saliva, and no gaze or head deviation. However, Ms. Camilo's mother reports it took approximately 5 to 6 minutes before the patient returned to her neurological baseline and was able to stand with assistance from her parents and dress. This prolonged period is atypical of a syncopal event, but more typical of a seizure. In addition, the patient has had a respiratory illness for the past week. Illness is known to lower the seizure threshold. Lastly, Ms. Camilo has experienced similar symptoms previously. This information in its totality is suspicious for a seizure. RECOMMENDATIONS ARE FOLLOWS 1. The ideal imaging modality for evaluation for seizure is an MRI of the brain without contrast. However, the patient's mother and I feel Ms. Camilo will be unable to tolerate an EMR study. Therefore a CT of the brain without contrast will be ordered to evaluate for structural anomalies of the brain which could predispose the patient to seizures. 2. Routine EEG of the brain to evaluate for abnormal electrical activity which would predispose the patient to seizures. 3. Defer treatment of the remaining medical comorbidities to the primary and other services. Thank you for this consultation. I will continue to follow the patient while she remains in the hospital. TIME SPENT: 70 minutes. Job#: [id number] RAMILA MCGINNIS
--- NOTE | 2017-10-19 15:50 | Diagnostic Imaging Report ---
Exam: Head CT without contrast History: Leg weakness, possible seizure Comparison studies: None Technique: Axial images were obtained from the skull base to the vertex. Coronal and sagittal images reconstructed from the axial data. Intravenous contrast: None Findings: Scalp: No abnormalities. Bones: No fractures, blastic or lytic lesions. Brain sulci: Mildly prominent. Ventricles: Mild compensatory dilatation. No hydrocephalus. Extra-axial spaces: No masses, no fluid collection. Parenchyma: No mass, acute hemorrhage or acute cortical vascular insults. 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 Sellar/suprasellar region: No abnormalities. Craniocervical junction: Patent foramen magnum. No Chiari one malformation. Incidental findings: Nonspecific secretions in the left maxillary sinus. Chronic inflammatory changes in the right mastoids. IMPRESSION: 1. No acute intracranial abnormalities. 2. Mild generalized volume loss. 3. 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 4. Secretions in the left maxillary sinus could be correlated for sinusitis. Signed by: Dr. Hong Van M.D. on 10/19/2017 3:46 PM
[2017-10-19] MEDS: DOCUSATE SODIUM 100 MG CAP PO SCH (17:25)
[2017-10-19] MEDS: BUDESONIDE 0.5MG/2 ML NEB INH SCH (19:29)
[2017-10-19] MEDS: CEFTRIAXONE SOD 1 GM VIAL IV SCH (21:17)
[2017-10-20] VITALS (8 sets, daily range): BP systolic 110–135; BP diastolic 59–88
[2017-10-20] MEDS: LEVALBUTEROL HCL SOLN NEBU 1.25 MG/3 ML NEB INH SCH ×4 (00:20→19:00)
[2017-10-20] MEDS: LEVOTHYROXINE SODIUM 88 MCG TAB PO SCH (06:03)
[2017-10-20] MEDS: GUAIFENESIN 200 MG/10 ML UDC PO PRN ×3 (06:03→23:44)
[2017-10-20 07:19] LABS: BASOPHILS # (AUTO) 0.1 (0.0-0.1); BASOPHILS % 1.1 % (0.0-1.0); EOSINOPHILS # (AUTO) 0.1 (0.0-0.4); EOSINOPHILS % 1.3 % (0.0-6.0); LYMPHOCYTES # (AUTO) 0.7 (1.0-3.2); LYMPHOCYTES % 8.7 % (18.0-39.1); MEAN CORPUSCULAR HEMOGLOBIN 31.3 pg (28-32); MEAN CORPUSCULAR HGB CONC 33.3 g/dL (31-35); MEAN CORPUSCULAR VOLUME 93.8 fL (81-99); MONOCYTES # (AUTO) 0.6 (0.2-0.8); MONOCYTES % 7.3 % (4.4-11.3); NEUTROPHILS # (AUTO) 6.8 (2.1-6.9); NEUTROPHILS % 81.1 % (38.7-80.0); PLATELET COUNT 210 x10e3/uL (140-360); RED BLOOD COUNT 5.12 x10e6/uL (3.6-5.1); RED CELL DISTRIBUTION WIDTH 14.6 % (11.7-14.4)
[2017-10-20 07:47] LABS: ALBUMIN 2.9 g/dL (3.5-5.0); ALBUMIN/GLOBULIN RATIO 0.6 (0.8-2.0); ANION GAP 15.1 mmol/L (8-16); CALCIUM 9.2 mg/dL (8.4-10.2); CREATININE, SERUM 1.51 mg/dL (0.57-1.11); POTASSIUM 4.1 mmol/L (3.5-5.1)
[2017-10-20] MEDS: BUDESONIDE 0.5MG/2 ML NEB INH SCH ×2 (08:17→19:00)
[2017-10-20] MEDS: PANTOPRAZOLE SOD 40 MG TABEC PO SCH (08:54)
[2017-10-20] MEDS: FLUCONAZOLE 100 MG TAB PO SCH (08:54)
[2017-10-20] MEDS: BENZONATATE 100 MG CAP PO SCH ×3 (08:54→20:29)
[2017-10-20] MEDS: LAMOTRIGINE 100 MG TAB PO SCH (08:54)
[2017-10-20] MEDS: DOCUSATE SODIUM 100 MG CAP PO SCH ×2 (08:54→15:04)
[2017-10-20] MEDS: FUROSEMIDE 20 MG TAB PO SCH (08:54)
[2017-10-20] MEDS: POLYETHYLENE GLYCOL 3350 17 GM PACK PO SCH (08:54)
[2017-10-20] MEDS: DIGOXIN 0.125 MG TAB PO SCH (08:54)
[2017-10-20] MEDS ORDERED: FUROSEMIDE INJ 10 MG/ML 4 ML VIAL IV SCH (09:00)
[2017-10-20] MEDS: CEFTRIAXONE SOD 1 GM VIAL IV SCH (20:29)
[2017-10-20] MEDS ORDERED: POLYETHYLENE GLYCOL 3350 17 GM PACK PO ONE (23:00)
[2017-10-21] VITALS: BP 120/80
[2017-10-21] MEDS: LEVALBUTEROL HCL SOLN NEBU 1.25 MG/3 ML NEB INH SCH ×3 (01:00→13:00)
[2017-10-21 04:00] VITALS: BP 118/71
[2017-10-21] MEDS: LEVOTHYROXINE SODIUM 88 MCG TAB PO SCH (06:23)
[2017-10-21 07:24] LABS: ANION GAP 15.9 mmol/L (8-16); CALCIUM 9.4 mg/dL (8.4-10.2); CREATININE, SERUM 1.54 mg/dL (0.57-1.11); POTASSIUM 3.9 mmol/L (3.5-5.1)
[2017-10-21 07:51] VITALS: BP 127/73
[2017-10-21 08:05] VITALS: BP 127/73
[2017-10-21] MEDS: BUDESONIDE 0.5MG/2 ML NEB INH SCH (08:30)
[2017-10-21] MEDS: DIGOXIN 0.125 MG TAB PO SCH (08:50)
[2017-10-21] MEDS: PANTOPRAZOLE SOD 40 MG TABEC PO SCH (08:50)
[2017-10-21] MEDS: FUROSEMIDE 20 MG TAB PO SCH (08:50)
[2017-10-21] MEDS: LAMOTRIGINE 100 MG TAB PO SCH (08:50)
[2017-10-21] MEDS: FLUCONAZOLE 100 MG TAB PO SCH (08:50)
[2017-10-21] MEDS: BENZONATATE 100 MG CAP PO SCH (08:50)
[2017-10-21] MEDS: DOCUSATE SODIUM 100 MG CAP PO SCH (08:50)
[2017-10-21] MEDS ORDERED: POLYETHYLENE GLYCOL 3350 17 GM PACK PO SCH (09:00)
[2017-10-21] MEDS: ACETAMINOPHEN 325 MG TAB PO PRN (11:09)
[2017-10-21 13:24] VITALS: BP 110/62
--- NOTE | 2017-10-21 15:46 | Diagnostic Imaging Report ---
PROCEDURE:X-RAY ABDOMEN - KUB COMPARISON:Patients [facility], CT, CT ABDOMEN/PELVIS WO, 04/07/2017, 23:30. INDICATIONS:CONSTIPATION/COUGH/BACK PAIN FINDINGS: There are no dilated small bowel loops. There is a moderate volume of stool within the rectum. There is moderate dilatation of the descending colon and sigmoid. There are no calcifications projected over the renal shadows, expected course of the ureters or bladder. There are no acute osseous abnormalities. Left-sided pacemaker partially visualized. A battery pack also projected on the midabdomen. CONCLUSION: Moderate dilatation of descending colon and sigmoid may be related to fecal impaction. Christel Jenkins M.D. Dictated by: Christel Jenkins M.D. on 10/21/2017 at 15:49 Electronically approved by: Christel Jenkins M.D. on 10/21/2017 at 15:49
== END 2017-10-21 14:53 | disposition home or self-care (01) | DRG 101 ==
LOC: ER 14:51 → IMCU 17:50 → OBSVTOIN 10-19 12:01 → MED/SURG 10-19 12:46
PROVIDERS: ADMIT Internal Medicine; ATTEND Internal Medicine
DX: R56.9 Unspecified convulsions (principal); I48.1 Persistent atrial fibrillation; K50.90 Crohn's disease, unspecified, without complications; B37.49 Other urogenital candidiasis; I48.92 Unspecified atrial flutter; I50.22 Chronic systolic (congestive) heart failure; Q90.9 Down syndrome, unspecified; E03.9 Hypothyroidism, unspecified; G80.9 Cerebral palsy, unspecified; Z95.0 Presence of cardiac pacemaker; K21.9 Gastro-esophageal reflux disease without esophagitis; Z79.52 Long term (current) use of systemic steroids; E87.6 Hypokalemia; Q24.9 Congenital malformation of heart, unspecified; R07.82 Intercostal pain; K59.00 Constipation, unspecified; I25.2 Old myocardial infarction; R13.12 Dysphagia, oropharyngeal phase
CPT/HCPCS: 36415; 80048; 80053; 85025; 94640; 95812; 99285; G0378; J0696; J1160; J1940; J7040

== ENCOUNTER 2018-03-08 07:48 | Observation (INO) | payer MEDICARE, OTHER ==
[~2018-03-08] VITALS: Ht 160 cm; Wt 44.6 kg
[2018-03-08 09:18] LABS: BASOPHILS % 0.4 % (0.0-1.0); HEMATOCRIT 41.8 % (34.2-44.1); HEMOGLOBIN 14.2 g/dL (12.0-16.0); LYMPHOCYTES # (AUTO) 0.5 (1.0-3.2); LYMPHOCYTES % 10.5 % (18.0-39.1); MEAN CORPUSCULAR HEMOGLOBIN 33.2 pg (28-32); MEAN CORPUSCULAR VOLUME 97.7 fL (81-99); MONOCYTES # (AUTO) 0.3 (0.2-0.8); MONOCYTES % 6.4 % (4.4-11.3); NEUTROPHILS % 82.3 % (38.7-80.0); PLATELET COUNT 111 x10e3/uL (140-360); RED BLOOD COUNT 4.28 x10e6/uL (3.6-5.1); RED CELL DISTRIBUTION WIDTH 14.9 % (11.7-14.4)
[2018-03-08 09:26] LABS: CLARITY,URINE HAZY (CLEAR); COLOR,URINE AMBER (YELLOW); LEUKOCYTE ESTERASE ,URINE NEGATIVE (NEGATIVE); NITRITE,URINE NEGATIVE (NEGATIVE); PROTEIN,URINE DIPSTICK 3+ (NEGATIVE)
[2018-03-08 09:27] LABS: BILIRUBIN,URINE 1+ (NEGATIVE); KETONES,URINE NEGATIVE (NEGATIVE); URINE UROBILINOGEN 1 mg/dL (0.2 - 1)
--- NOTE | 2018-03-08 09:37 | Diagnostic Imaging Report ---
PROCEDURE: X-RAY CHEST, TWO VIEWS COMPARISON: Abdominal radiograph 10/19/2017. INDICATIONS: HEART PALPITATIONS, COUGH FINDINGS: The lungs are reasonably well inflated. Patchy perihilar predominant opacities bilaterally. No large pleural effusion or pneumothorax. Left subclavian approach and pliable cardiac device projects over the left lower chest wall. Leads project over the expected regions of the right atrium and right ventricle. Additional coronary device lead is partially visualized. Median sternotomy wires. Borderline cardiomegaly. No acute osseous abnormality. Interval T12 vertebroplasty with cement. CONCLUSION: Cardiomegaly with perihilar predominant interstitial and alveolar opacities likely reflective of edema, though the differential diagnosis includes multifocal pneumonia in the appropriate clinical setting. Dictated by: Hong Bruce M.D. on 03/08/2018 at 9:46 Electronically approved by: Hong Bruce M.D. on 03/08/2018 at 9:46
[2018-03-08 09:39] LABS: RBC,URINE >50 /HPF (0-5)
[2018-03-08 09:41] LABS: BACTERIA,URINE MODERATE /HPF; EPITHELIAL CELLS,URINE MODERATE /LPF
[2018-03-08 09:43] LABS: PARTIAL THROMBOPLASTIN TIME 32.8 seconds (23.8-35.5)
[2018-03-08 09:49] LABS: ALBUMIN 3.3 g/dL (3.5-5.0); ALBUMIN/GLOBULIN RATIO 0.7 (0.8-2.0); ANION GAP 17.7 mmol/L (8-16); CALCIUM 8.9 mg/dL (8.4-10.2); CREATININE, SERUM 1.35 mg/dL (0.57-1.11); POTASSIUM 3.7 mmol/L (3.5-5.1)
[2018-03-08 09:51] LABS: B-TYPE NATRIURETIC PEPTIDE2 827.3 pg/mL (0-100)
[2018-03-08 09:55] LABS: CREATINE KINASE MB 0.6 ng/mL (0-5.0)
[2018-03-08 10:01] LABS: INR 1.05; PROTHROMBIN TIME 14.6 seconds (11.9-14.5)
[2018-03-08] MEDS ORDERED: FUROSEMIDE INJ 10 MG/ML 4 ML VIAL IV ONE (10:45)
[2018-03-08] MEDS ORDERED: SODIUM CHLORIDE FLUSH 10 ML SYR INJ PRN (11:30)
[2018-03-08] MEDS ORDERED: VITAMIN D400 UNIT PO (11:54)
[2018-03-08] MEDS ORDERED: OMEPRAZOLE40 MG PO (11:54)
[2018-03-08] MEDS: CEFTRIAXONE SOD 1 GM VIAL IV SCH (12:41)
[2018-03-08 14:20] LABS: LYMPHOCYTES % (MANUAL) 4 % (19-48); MONOCYTES % (MANUAL) 1 % (3.4-9.0); NEUTROPHILS % (MANUAL) 94 % (40-74); PLATELET ESTIMATE SLIGHTLY DECREASED; PLATELET MORPHOLOGY COMMENT FEW LARGE; RBC MORPHOLOGY COMMENT NORMAL
[2018-03-08 14:26] VITALS: BP 102/69
[2018-03-08 14:28] VITALS: BP 102/69
[2018-03-08 15:00] VITALS: BP 102/69
[2018-03-08] MEDS: AZITHROMYCIN 250 MG TAB PO SCH (15:02)
--- NOTE | 2018-03-08 15:49 | History and Physical ---
CHIEF COMPLAINT: Cough, chest congestion, trouble breathing since yesterday morning. HISTORY OF PRESENT MEDICAL ILLNESS: History obtained with the help of mother at bedside. Patient has Down syndrome. A 48-year-old pleasant white female with a past medical history of multiple medical problems, was admitted at [facility] this morning with above complaints. As per mother, since yesterday morning, patient started having cough, chest congestion, and trouble breathing and hence, patient was brought in to ER this morning. In the emergency room, patient was seen by emergency room doctor, diagnosed with CHF exacerbation and pneumonia, and admitted for further care and treatment. Patient was given IV Lasix, IV Rocephin in the hospital ER. At present, patient lying comfortably in bed, in no apparent distress. As per mother, no chest pain. No nausea, vomiting, diarrhea. No abdominal pain. No loss of consciousness. No palpitations. No headaches. No hematemesis. No melena. No hematuria. No fever. No witnessed seizures. PAST MEDICAL HISTORY 1. Down syndrome. 2. 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 3. CHF. 4. Acid reflux. 5. Hypothyroidism. 6. Mood disorder. 7. Atrial fibrillation. ALLERGIES: NO KNOWN DRUG ALLERGIES. MEDICATIONS: As listed in chart. FAMILY HISTORY: Noncontributory. PAST SURGICAL HISTORY: Cardiac surgery in childhood. REVIEW OF SYSTEMS: As per HPI. PHYSICAL EXAMINATION GENERAL: Patient is alert, awake, obeys all my commands, in no apparent distress, lying in bed. VITAL SIGNS: Temperature is 98, pulse is 60 per minute, respiratory rate is 18 per minute, blood pressure is 129/86, saturation is 96% on 2 L oxygen. HEENT: No cyanosis, no icterus, no pallor. Normocephalic, atraumatic. PERRLA. NECK: Soft and supple. No JVD or lymphadenopathy. LUNGS: Air entry bilaterally decreased. Bibasilar rales. HEART: S1, S2. No murmur, gallop, rub. ABDOMEN: Soft, nontender. Bowel sounds present. [employer]: Alert, awake, moves extremities. LABS: On admission to ER, white count 4.8, hemoglobin 14.2, hematocrit 41.8, platelets 111. Sodium 137, potassium 3.7, chloride 105, bicarb 18, BUN 15, creatinine 1.35, glucose 112. LFTs noted. Chest x-ray shows cardiomegaly with perihilar predominant interstitial and linear opacities, likely reflective of edema, could be underlying multifocal pneumonia. EKG, paced rhythm. ASSESSMENT 1. Congestive heart failure exacerbation with possible pneumonia. 2. History of Down syndrome. 3. Congenital heart disease. 4. Mood disorder. 5. Hypothyroidism. PLAN: Admit patient to IMCU or [facility] floor. Lasix 40 mg IV b.i.d., Rocephin 1 g IV piggyback daily. Pulmonary consultation, Dr. Tinsley. Cardiology consultation, Dr. Pérez. Echo, oxygen, and neb treatments. Further care and treatment depending on clinical course while the patient is in the hospital. Prognosis and condition, guarded. Discussed with mother at bedside in detail. Job#: [id number] LPA
[2018-03-08 16:50] VITALS: BP 104/66
[2018-03-08] MEDS ORDERED: FUROSEMIDE INJ 10 MG/ML 4 ML VIAL IV SCH (17:00)
[2018-03-08 17:54] LABS: CREATINE KINASE MB 0.6 ng/mL (0-5.0)
--- NOTE | 2018-03-08 18:44 | Consultation ---
DATE OF CONSULTATION: March 08, 2018 PULMONARY CONSULTATION A patient of Dr. Gibson, Dr. Pérez. A charming but unfortunate 48-year-old woman admitted with cough and shortness of breath of several days' duration. History of Down syndrome, history of Tetralogy of Fallot repaired in the past, history of sick sinus syndrome with pacemaker, history of atrial flutter, hypothyroidism, cough. NO KNOWN ALLERGIES. Medications include lamotrigine, vitamin D, Levoxyl and Prilosec. According to record, she has a mood disorder. Nonsmoker, no alcohol. PHYSICAL EXAMINATION GENERAL: She is a slight, small white female with Down facies. HEAD: Normocephalic. LUNGS: Bilateral rales. HEART: Irregular rhythm, systolic murmur. ABDOMEN: Nontender. EXTREMITIES: Nonedematous. Chest x-ray is suggestive of early pulmonary edema. Patient is afebrile. No history of productive cough. T-max is 99.7. There is no history of vomiting. The plan is for diuresis. Continue with therapy of possible atypical infection with Zithromax, therapy of heart failure with diuretics. Defer to Dr. Pérez. Thank you for this kind referral. Job#: [id number] ABNER
[2018-03-08 20:00] VITALS: BP 122/67
[2018-03-08 23:53] VITALS: BP 134/79
[2018-03-09] VITALS (7 sets, daily range): BP systolic 92–118; BP diastolic 57–78
[2018-03-09] MEDS: BENZONATATE 100 MG CAP PO PRN ×2 (00:30→21:31)
[2018-03-09] MEDS: ACETAMINOPHEN 325 MG TAB PO PRN (00:30)
[2018-03-09] MEDS: LEVOTHYROXINE SODIUM 100 MCG TAB PO SCH (05:18)
[2018-03-09 05:30] LABS: BASOPHILS % 0.7 % (0.0-1.0); EOSINOPHILS % 0.2 % (0.0-6.0); HEMATOCRIT 39.7 % (34.2-44.1); HEMOGLOBIN 13.7 g/dL (12.0-16.0); LYMPHOCYTES # (AUTO) 0.8 (1.0-3.2); LYMPHOCYTES % 17.9 % (18.0-39.1); MEAN CORPUSCULAR HEMOGLOBIN 32.9 pg (28-32); MEAN CORPUSCULAR HGB CONC 34.5 g/dL (31-35); MEAN CORPUSCULAR VOLUME 95.4 fL (81-99); MONOCYTES # (AUTO) 0.3 (0.2-0.8); MONOCYTES % 6.9 % (4.4-11.3); NEUTROPHILS # (AUTO) 3.2 (2.1-6.9); NEUTROPHILS % 73.8 % (38.7-80.0); PLATELET COUNT 102 x10e3/uL (140-360); RED BLOOD COUNT 4.16 x10e6/uL (3.6-5.1); RED CELL DISTRIBUTION WIDTH 14.6 % (11.7-14.4)
[2018-03-09 06:16] LABS: CREATINE KINASE MB 0.7 ng/mL (0-5.0)
[2018-03-09 06:32] LABS: ANION GAP 16.8 mmol/L (8-16); CALCIUM 8.6 mg/dL (8.4-10.2); CREATININE, SERUM 1.5 mg/dL (0.57-1.11)
[2018-03-09 06:35] LABS: POTASSIUM 2.8 mmol/L (3.5-5.1)
--- NOTE | 2018-03-09 06:37 | Diagnostic Imaging Report ---
EXAMINATION: CHEST SINGLE (PORTABLE) INDICATION: Congestive heart failure COMPARISON: 03/08/2018 FINDINGS: TUBES and LINES: The pacemaker is intact. LUNGS: Lungs are not well inflated. There is perihilar interstitial opacities, consistent with interstitial edema. PLEURA: No pleural effusion or pneumothorax. HEART AND MEDIASTINUM: Cardiac size is moderately enlarged. Midline sternotomy wires are stable BONES AND SOFT TISSUES: No acute osseous lesion. Soft tissues are unremarkable. UPPER ABDOMEN: No free air under the diaphragm. IMPRESSION: Findings compatible with cardiogenic pulmonary edema Signed by: Dr. Joshua Guzman M.D. on 03/09/2018 6:34 AM
[2018-03-09] MEDS: ALBUTEROL/IPRATROPIUM 3 ML NEB NEB PRN ×2 (07:00)
[2018-03-09] MEDS ORDERED: POTASSIUM CHLORIDE 20MEQ/100ML 100 ML IV ONE ×2 (08:15→10:15)
[2018-03-09] MEDS: HEPARIN SOD (PORCINE) 5,000 UNIT/ML VIAL SC SCH ×2 (08:48→21:30)
[2018-03-09] MEDS: FUROSEMIDE INJ 10 MG/ML 4 ML VIAL IV SCH (08:48)
[2018-03-09] MEDS: LAMOTRIGINE 100 MG TAB PO SCH (08:48)
[2018-03-09] MEDS: FAMOTIDINE 20 MG TAB PO SCH ×2 (08:48→16:30)
[2018-03-09] MEDS: PANTOPRAZOLE SOD 40 MG TABEC PO SCH (08:48)
[2018-03-09] MEDS: AZITHROMYCIN 250 MG TAB PO SCH (08:48)
[2018-03-09] MEDS ORDERED: SODIUM CHLORIDE 0.9% 500ML 500 ML IV ONE (09:00)
[2018-03-09] MEDS ORDERED: SODIUM CHLORIDE 0.9% 1000ML 500 ML IV SCH (09:00)
[2018-03-09] MEDS ORDERED: LEVOTHYROXINE SODIUM 88 MCG TAB PO SCH (09:00)
[2018-03-09 10:03] LABS: LYMPHOCYTES % (MANUAL) 13 % (19-48); MONOCYTES % (MANUAL) 10 % (3.4-9.0); NEUTROPHILS % (MANUAL) 75 % (40-74); PLATELET ESTIMATE SLIGHTLY DECREASED; PLATELET MORPHOLOGY COMMENT NORMAL; RBC MORPHOLOGY COMMENT NORMAL
--- NOTE | 2018-03-09 11:03 | Consultation ---
DATE OF CONSULTATION: CARDIOLOGY CONSULTATION ATTENDING PHYSICIAN: Dr. Vences Thank you so much for asking me to see this nice lady again in consultation. Miss Camilo is a 48-year-old woman with Down's syndrome and repair of tetralogy of Fallot. CHIEF COMPLAINT: She was brought to the emergency room by her mother when she was having cough and low-grade fevers at home. HISTORY OF PRESENT ILLNESS: The patient's mother was suspicious that she might have a reaction to the flu vaccine that she had last week. PAST MEDICAL HISTORY: Significant for trisomy 21 Down's syndrome. She had AV canal defect repair, probably tetralogy of Fallot, in 1977. She had permanent pacemaker implant in 1977. Pacing was converted to dual-chamber pacing in 1998 with generator replacements in 2005 and 2013. Colonoscopy showed Crohn's disease by Dr. Garrett Arnold in July of 2013. She had cataract surgery in March 2016 with an unresponsive episode afterwards likely due to anesthesia. She had EGD and dilatation of an esophageal stricture in September of 2016. MEDICATIONS: Regular medications at home include: 1. Levothyroxine 75 mcg daily. 2. Lamictal 100 mg once a day. 3. Pantoprazole 40 mg twice a day. 4. Amiodarone 400 mg 1/2 tablet once daily. 5. She usually does not use furosemide although has used it in the past. FAMILY HISTORY: Negative. Both parents are alive. PHYSICAL EXAMINATION: GENERAL: Exam at this time shows a short, young lady who looks much younger than her stated age. Awake, wearing a mask and coughing. She is responsive but does not speak. VITALS: Blood pressure is 111/72. Afebrile at this time. HEENT: Relatively unremarkable except for Down's facies. NECK: No jugular venous distention. No bruits. THORAX: Healed midline sternotomy and a 2/6 systolic murmur. LUNGS: Faint crackles. ABDOMEN: Normal bowel sounds. EXTREMITIES: No cyanosis, clubbing or edema. EKG shows ventricular pacing and atrial flutter. BUN 22, creatinine 1.5. Chest x-ray suggests perihilar fullness, but could be a little misleading as the patient does not take a deep breath when asked to do so for imaging. ASSESSMENT 1. Congestive heart failure with previous tetralogy repair and mitral regurgitation, not using furosemide at home. 2. Trisomy 21 Down's syndrome. 3. Urinary tract infection. 4. Crohn's disease. PLAN: Agree with diuresis and broad-spectrum antibiotics. Will follow her closely with you. Thank you for asking me to see her consultation. Job#: [id number] cc:Sarah SPRINGER MD
[2018-03-09] MEDS: CEFTRIAXONE SOD 1 GM VIAL IV SCH (11:30)
[2018-03-09] MEDS ORDERED: POTASSIUM CHLORIDE 20MEQ/15ML UDC NG PRN (13:45)
[2018-03-09 16:39] LABS: CREATINE KINASE MB 1.2 ng/mL (0-5.0)
--- NOTE | 2018-03-09 17:15 | Diagnostic Imaging Report ---
EXAM: CT Chest without contrast 03/09/2018 5:00 AM INDICATION: Pneumonia versus CHF COMPARISON: Chest radiograph 03/09/18 and lumbar spine radiographs 10/18/17. TECHNIQUE: Chest was scanned utilizing a multidetector helical scanner from the lung apex through the level of the adrenal glands without administration of IV contrast. Coronal and sagittal reformations were obtained. Routine protocol was performed. IV CONTRAST: None. RADIATION DOSE: Total DLP: 372.9 mGy*cm Estimated effective dose: (DLP x 0.014 x size factor) mSv COMPLICATIONS: None FINDINGS: LINES/ TUBES: Left sided pacemaker with leads in the right atrium and right ventricle. Epicardial lead is partially seen from an intra-abdominal device. LUNGS AND AIRWAYS: The central airways are patent. Diffuse mild bronchial wall thickening. There are diffuse bilateral groundglass opacities with areas of intralobular septal thickening. Scattered areas are spared from the ground glass opacities. There may be mosaic attenuation. Linear opacities in the middle lobe, likely atelectasis. No evidence of lobar consolidation. Diffuse opacities, streak artifact from pacemaker, and motion artifact limits evaluation for lung nodule. PLEURA: The pleural spaces are clear. HEART AND MEDIASTINUM: The thyroid gland is not well visualized. Subcentimeter mediastinal lymph nodes, without lymphadenopathy. Four chamber cardiomegaly. No pericardial effusion. 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 UPPER ABDOMEN: Limited non-contrast views of the upper abdomen were performed demonstrating post cholecystectomy changes and an upper abdominal pacer device. The partially visualized liver, spleen, adrenal glands and kidneys are unremarkable. BONES: Severe T12 compression deformity with loss of greater than 75 percent of vertebral body height with findings of interval vertebral augmentation at this level. The vertebral body height loss at this level has increased compared to lumbar spine radiograph on 10/18/17 when there was mild height loss. Degenerative changes of the visualized spine. Status post median sternotomy. IMPRESSION: Diffuse ground glass opacities with interlobular septal thickening, suggestive of pulmonary edema in the setting of cardiomegaly. However atypical infection can have a similar appearance. No evidence of lobar pneumonia. Consider follow-up imaging to assess for resolution. Progression of vertebral body height loss at T12 (currently greater than 75% of vertebral body height loss), compared to radiograph on 10/18/17, with interval vertebral augmentation at this level. 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 Signed by: Dr. Talita Lehman MD on 03/09/2018 5:12 PM
[2018-03-09 18:21] LABS: CALCIUM 8.7 mg/dL (8.4-10.2); CREATININE, SERUM 1.62 mg/dL (0.57-1.11)
[2018-03-10] VITALS (7 sets, daily range): BP systolic 104–122; BP diastolic 56–68
[2018-03-10] MEDS: ACETAMINOPHEN 325 MG TAB PO PRN (05:06)
[2018-03-10] MEDS: LEVOTHYROXINE SODIUM 100 MCG TAB PO SCH (05:06)
[2018-03-10 05:35] LABS: ALBUMIN 2.9 g/dL (3.5-5.0); ALBUMIN/GLOBULIN RATIO 0.7 (0.8-2.0); ANION GAP 16.5 mmol/L (8-16); CALCIUM 8.9 mg/dL (8.4-10.2); CREATININE, SERUM 1.45 mg/dL (0.57-1.11); POTASSIUM 3.5 mmol/L (3.5-5.1)
[2018-03-10] MEDS: FAMOTIDINE 20 MG TAB PO SCH ×2 (07:45→16:20)
[2018-03-10] MEDS: HEPARIN SOD (PORCINE) 5,000 UNIT/ML VIAL SC SCH ×2 (08:35→21:55)
[2018-03-10] MEDS: FUROSEMIDE INJ 10 MG/ML 4 ML VIAL IV SCH (08:41)
[2018-03-10] MEDS: AZITHROMYCIN 250 MG TAB PO SCH (08:41)
[2018-03-10] MEDS: LAMOTRIGINE 100 MG TAB PO SCH (08:41)
[2018-03-10] MEDS: PANTOPRAZOLE SOD 40 MG TABEC PO SCH (08:41)
[2018-03-10] MEDS: CEFTRIAXONE SOD 1 GM VIAL IV SCH (11:45)
[2018-03-10] MEDS: BENZONATATE 100 MG CAP PO PRN (21:58)
[2018-03-11] VITALS: BP 106/96
[2018-03-11 04:00] VITALS: BP 114/72
[2018-03-11 04:26] VITALS: BP 114/72
[2018-03-11 05:17] LABS: ANION GAP 18.2 mmol/L (8-16); CALCIUM 8.8 mg/dL (8.4-10.2); CREATININE, SERUM 1.31 mg/dL (0.57-1.11); POTASSIUM 3.2 mmol/L (3.5-5.1)
[2018-03-11] MEDS: LEVOTHYROXINE SODIUM 100 MCG TAB PO SCH (06:00)
[2018-03-11 07:19] VITALS: BP 122/74
[2018-03-11] MEDS ORDERED: POTASSIUM CHLORIDE 20 MEQ TAB CR PO STA (08:05)
[2018-03-11] MEDS: AZITHROMYCIN 250 MG TAB PO SCH (09:08)
[2018-03-11] MEDS: LAMOTRIGINE 100 MG TAB PO SCH (09:08)
[2018-03-11] MEDS: FAMOTIDINE 20 MG TAB PO SCH (09:08)
[2018-03-11] MEDS: FUROSEMIDE INJ 10 MG/ML 4 ML VIAL IV SCH (09:08)
[2018-03-11] MEDS: PANTOPRAZOLE SOD 40 MG TABEC PO SCH (09:08)
[2018-03-11] MEDS: HEPARIN SOD (PORCINE) 5,000 UNIT/ML VIAL SC SCH (09:09)
[2018-03-11] MEDS: CEFTRIAXONE SOD 1 GM VIAL IV SCH (09:30)
--- NOTE | 2018-05-15 02:03 | Discharge Summary ---
CHIEF COMPLAINT: Acute pulmonary edema, hypoxemia. FINAL DIAGNOSES: 1. Congestive heart failure with exacerbation, improving. 2. Pneumonia. 3. Down's syndrome. DISPOSITION: Home. This is a 48-year-old, historian of Down syndrome, seen in the ER due to issues of cough, chest congestion and trouble breathing. The patient was reviewed and evaluated in the emergency room. Diagnostic studies were performed. Findings were showing presence of congestive heart failure with exacerbation along with pneumonia. She does have history of Down syndrome as mentioned. She has also history of congenital heart disease. She does have a pacemaker. She has congestive heart failure, acid reflux, hypothyroidism, mood disorder and atrial fibrillation. As mentioned with evaluation and care in the emergency room, she was admitted for care with issues of congestive heart failure exacerbation with possible pneumonia, history Down syndrome, congenital heart disease, mood disorder, and hypothyroidism. She will be admitted to [facility]. Further cardiac history and presentation, she was being reviewed by Dr. 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 Tinsley regarding issues of possible pneumonia with her cough and shortness of breath and he states that the chest x-rays suggestive of early pulmonary edema, continue diuresis, continue treatment for atypical infection with Zithromax. She was receiving care in [facility]. She was on a cardiac diet, receiving respiratory treatment. She was on Lasix, starting her on ceftriaxone 1 gram IV q.24, Zithromax 500 mg IV daily. Her daily medications were continuing as well. Other chemistries were showing sodium 134, potassium is 2.8, BUN 22, creatinine 1.50, glucose 116, and CBC stable. She was showing urinary tract infection evidence. She was receiving heparin 5000 units q.12, also receiving potassium replenishment. She was responding to treatment. She was in no acute distress. CT of chest was showing evidence consistent with congestive heart failure. It was noted that she does have home O2 as recommended by Dr. Tinsley that when she is discharged as she have followup chest x-ray in 4 to 6 weeks. Followup potassium was 3.5. Continue to make good progress with her medications and care. Discharge planning was being entertained and she was able to be released home on 03/11/2018 in good condition. EKGs just showing pacemaker capture. Echocardiogram reveals an ejection fraction in 50% and 55%. No evidence of pericardial effusion. With her discharge, she will continue on her current diet. No equipment or supplies necessary. No drains or Foleys were needed. Activity level was directed by myself. She will be receiving vitamin D3 daily 400 units, lamotrigine 100 mg daily, levothyroxine sodium 100 mcg daily, omeprazole 40 mg daily. The patient will be following up with me in my office within 3 to 5 days. Mother was instructed to feel free to contact me my office at anytime for any questions or concerns that she might have about her daughter. Dictated by: CHRISTIN Jacobs ANASTACIO CARROLL MD Job#: [id number] FREIDA
== END 2018-03-11 10:02 | disposition home or self-care (01) ==
LOC: ER 07:48 → ERHOLD 11:39 → IMCU 16:50
PROVIDERS: ADMIT Internal Medicine; ATTEND Internal Medicine
DX: I50.9 Heart failure, unspecified (principal); N18.9 Chronic kidney disease, unspecified; Q90.9 Down syndrome, unspecified; Z87.74 Personal history of (corrected) congenital malformations of heart and circulatory system; I08.1 Rheumatic disorders of both mitral and tricuspid valves; I48.91 Unspecified atrial fibrillation; I48.92 Unspecified atrial flutter; K21.9 Gastro-esophageal reflux disease without esophagitis; E03.9 Hypothyroidism, unspecified; F39 Unspecified mood [affective] disorder; Z95.0 Presence of cardiac pacemaker; K50.90 Crohn's disease, unspecified, without complications; N39.0 Urinary tract infection, site not specified; R09.02 Hypoxemia
CPT/HCPCS: 36415 ×4; 71045; 71046; 71250; 80048 ×2; 80053 ×2; 81001; 82550 ×2; 82553 ×2; 83605; 83880; 84484 ×2; 85025 ×2; 85610; 85730; 87040; 87086; 92526 ×2; 92610; 93005; 93306; 94640 ×2; 97116; 97161; 99284; G0378 ×4; G8978; G8979; G8980; G8996; G8997; J0696 ×4; J1644 ×3; J1940 ×4; J3480; J7040; S0164 ×3

== ENCOUNTER 2018-09-20 18:49 | Emergency (ER) | payer OTHER, MEDICARE ==
[~2018-09-20] VITALS: Ht 160 cm; Wt 44.5 kg
[2018-09-20 19:31] LABS: BASOPHILS # (AUTO) 0.1 (0.0-0.1); BASOPHILS % 0.6 % (0.0-1.0); EOSINOPHILS % 0.2 % (0.0-6.0); HEMOGLOBIN 14.6 g/dL (12.0-16.0); LYMPHOCYTES # (AUTO) 0.8 (1.0-3.2); LYMPHOCYTES % 9.2 % (18.0-39.1); MEAN CORPUSCULAR HEMOGLOBIN 31.2 pg (28-32); MEAN CORPUSCULAR VOLUME 91.9 fL (81-99); MONOCYTES # (AUTO) 0.7 (0.2-0.8); MONOCYTES % 8.3 % (4.4-11.3); NEUTROPHILS # (AUTO) 6.6 (2.1-6.9); NEUTROPHILS % 81.3 % (38.7-80.0); PLATELET COUNT 101 x10e3/uL (140-360); RED BLOOD COUNT 4.68 x10e6/uL (3.6-5.1); RED CELL DISTRIBUTION WIDTH 18.1 % (11.7-14.4)
[2018-09-20 19:50] LABS: ALBUMIN 2.5 g/dL (3.5-5.0); ALBUMIN/GLOBULIN RATIO 0.5 (0.8-2.0); CALCIUM 9.1 mg/dL (8.4-10.2); CREATININE, SERUM 1.29 mg/dL (0.57-1.11)
[2018-09-20 20:00] LABS: INR 1.03; PARTIAL THROMBOPLASTIN TIME 31.1 seconds (23.8-35.5)
[2018-09-20] MEDS ORDERED: POTASSIUM CHLORIDE 20MEQ/15ML UDC PO NR (20:30)
[2018-09-20 20:43] VITALS: BP 118/75
== END 2018-09-20 20:55 | disposition home or self-care (01) ==
LOC: ER 18:49
DX: E87.6 Hypokalemia (principal); D69.6 Thrombocytopenia, unspecified; Q90.9 Down syndrome, unspecified; I50.9 Heart failure, unspecified; Z95.810 Presence of automatic (implantable) cardiac defibrillator; Q24.9 Congenital malformation of heart, unspecified; E03.9 Hypothyroidism, unspecified; Z98.1 Arthrodesis status
CPT/HCPCS: 36415; 80053; 85025; 85610; 85730; 86850; 86900; 99283

== ENCOUNTER → 2018-09-20 | Outpatient (CLI) | payer OTHER, MEDICARE ==
[~2018-09-20] MED LIST changes: +VITAMIN D400 UNIT PO
--- NOTE | 2018-09-20 12:41 | Diagnostic Imaging Report ---
EXAM: SINUSES (PARANASAL)MIN 3VIEWS DATE: 09/20/2018 9:47 AM INDICATION:Cough COMPARISON: None FINDINGS: 6 views of the paranasal sinuses shows no opacification or fluid level in the maxillary antra, sphenoid sinus or ethmoid sinuses. Frontal sinuses are hypoplastic. Evaluation is somewhat compromised by inability to position fully. No evidence for bony destruction. IMPRESSION: No sinus opacification or fluid level on the views obtained. Positioning was apparently difficult. If more detailed evaluation is required, CT of the sinuses may be helpful. Signed by: Dr. Nathan Lamas M.D. on 09/20/2018 12:37 PM
--- NOTE | 2018-09-20 13:30 | Diagnostic Imaging Report ---
EXAM: CHEST 2 VIEWS, PA and lateral DATE: 09/20/2018 Time stamp on exam: 10:21 AM INDICATION: Cough COMPARISON: 03/09/2018 FINDINGS: LINES/TUBES: Left chest wall dual lead cardiac device unchanged. There is also an epicardial lead from a generator situated over the anterior abdominal wall. LUNGS: Mild pulmonary vascular congestion is present but improved compared to the prior study PLEURA: No effusions or pneumothorax. HEART AND MEDIASTINUM: Cardiomegaly with diffuse left atrial enlargement. BONES AND SOFT TISSUES: Vertebroplasty cement within a compressed vertebral body segment IMPRESSION: Cardiac enlargement with pulmonary vascular congestion. Signed by: Dr. Iraj Torres DO on 09/20/2018 1:26 PM
== END ==
LOC: RAD 09:21
PROVIDERS: ATTEND Internal Medicine
DX: R05 Cough (principal)
CPT/HCPCS: 70220; 71046

== ENCOUNTER 2019-04-02 13:27 | Inpatient (IN) | payer MEDICARE, OTHER ==
[~2019-04-02] VITALS: Ht 149.9 cm; Wt 44.9 kg
[2019-04-02] MEDS ORDERED: SODIUM CHLORIDE 0.9% 1000ML 1,000 ML IV STA (13:41)
[2019-04-02] MEDS ORDERED: CEFTRIAXONE SOD 1 GM VIAL IV ONE (14:00)
[2019-04-02] MEDS ORDERED: CEFTRIAXONE SOD 1 GM/NS 50 ML 50 ML IV ONE (14:30)
[2019-04-02 14:43] LABS: BASOPHILS # (AUTO) 0.1 (0.0-0.1); BASOPHILS % 1.9 % (0.0-1.0); EOSINOPHILS # (AUTO) 0.1 (0.0-0.4); EOSINOPHILS % 1.7 % (0.0-6.0); HEMATOCRIT 41.1 % (34.2-44.1); HEMOGLOBIN 12.9 g/dL (12.0-16.0); LYMPHOCYTES # (AUTO) 0.6 (1.0-3.2); LYMPHOCYTES % 16.6 % (18.0-39.1); MEAN CORPUSCULAR HEMOGLOBIN 31.3 pg (28-32); MEAN CORPUSCULAR HGB CONC 31.4 g/dL (31-35); MEAN CORPUSCULAR VOLUME 99.8 fL (81-99); MONOCYTES # (AUTO) 0.2 (0.2-0.8); NEUTROPHILS # (AUTO) 2.7 (2.1-6.9); NEUTROPHILS % 74.5 % (38.7-80.0); PLATELET COUNT 157 x10e3/uL (140-360); RED BLOOD COUNT 4.12 x10e6/uL (3.6-5.1); RED CELL DISTRIBUTION WIDTH 19.4 % (11.7-14.4)
[2019-04-02 14:48] LABS: INR 0.95; PARTIAL THROMBOPLASTIN TIME 28.7 seconds (23.8-35.5); PROTHROMBIN TIME 13.2 seconds (11.9-14.5)
[2019-04-02 14:59] LABS: ALBUMIN/GLOBULIN RATIO 0.8 (0.8-2.0); CALCIUM 8.7 mg/dL (8.4-10.2); CREATININE, SERUM 1.31 mg/dL (0.57-1.11)
--- NOTE | 2019-04-02 14:59 | Diagnostic Imaging Report ---
EXAMINATION: CHEST SINGLE (PORTABLE) INDICATION: ^ERMD ORDER ^[id number] ^[id number] ^Y COMPARISON: 09/20/2018 FINDINGS: AP view TUBES and LINES: Stable dual-lead left chest wall cardiac device. Stable stimulator device. LUNGS: Lungs are well inflated. Diffuse opacification of the bilateral lungs. PLEURA: No significant pleural effusion or pneumothorax. HEART AND MEDIASTINUM: The cardiomediastinal silhouette is enlarged. Median sternotomy wires are again seen. BONES AND SOFT TISSUES: No acute osseous lesion. Evidence of vertebroplasty. Soft tissues are unremarkable. UPPER ABDOMEN: No free air under the diaphragm. Right upper quadrant surgical clips. IMPRESSION: Enlarged cardiomediastinal silhouette. Diffuse opacification of the bilateral lungs, representing severe pulmonary edema. Underlying pneumonia cannot be excluded. Signed by: Dr. Jhon Pro MD on 04/02/2019 2:55 PM
[2019-04-02 15:01] LABS: CREATINE KINASE MB 3.7 ng/mL (0-5.0)
[2019-04-02 15:16] LABS: BILIRUBIN,URINE NEGATIVE (NEGATIVE); CLARITY,URINE SL CLOUDY (CLEAR); COLOR,URINE YELLOW (YELLOW); KETONES,URINE NEGATIVE (NEGATIVE); LEUKOCYTE ESTERASE ,URINE NEGATIVE (NEGATIVE); NITRITE,URINE NEGATIVE (NEGATIVE); PROTEIN,URINE DIPSTICK 2+ (NEGATIVE); URINE UROBILINOGEN 0.2 mg/dL (0.2 - 1)
[2019-04-02 15:26] LABS: AMORPHOUS SEDIMENT,URINE FEW (FEW); BACTERIA,URINE MODERATE /HPF; EPITHELIAL CELLS,URINE FEW /LPF; MUCUS,URINE FEW (RARE); RBC,URINE 21-50 /HPF (0-5)
[2019-04-02 17:18] VITALS: BP 122/87
[2019-04-02] MEDS ORDERED: LASIX20 MG PO (17:22)
[2019-04-02 17:30] VITALS: BP 122/87
--- NOTE | 2019-04-02 17:50 | NUR ---
pt arrived to unit resp even and unlabored at this time no distress noted, pt has mother at bedside. pt unable to give history received from mother, pt has 02at 2LNC, bed in lowest position, bed rails up X2, call light in reach. pt and family member oriented to room.
[2019-04-02] MEDS ORDERED: LEVALBUTEROL HCL SOLN NEBU 1.25 MG/3 ML NEB INH PRN (18:15)
[2019-04-02] MEDS ORDERED: DOCUSATE SODIUM 100 MG CAP PO PRN (18:15)
[2019-04-02] MEDS ORDERED: ACETAMINOPHEN 325 MG TAB PO PRN (18:15)
[2019-04-02] MEDS: CEFTRIAXONE SOD 1 GM/NS 50 ML 50 ML IV SCH (18:15)
[2019-04-02] MEDS ORDERED: ONDANSETRON HCL INJ 2MG/ML 2ML 2 MG/ML VIAL IV PRN (18:15)
[2019-04-02] MEDS ORDERED: GUAIFENESIN/DEXTROMETHORPHAN LIQD 5 ML UDC NG PRN (18:15)
--- NOTE | 2019-04-02 19:44 | NUR ---
REPORT GIVEN TO ONCOMING NURSE, PT STABLE AT THIS TIME.
[2019-04-02 19:50] LABS: CREATININE,URINE RANDOM 122.42 mg/dL (47-110)
--- NOTE | 2019-04-02 19:50 | NUR ---
Patient received lying in bed. Mother at bedside. AAO x 1. Patient had no complaints of pain. No signs of respiratory distress. Fall precautions implemented. Patient/mother instructed to call for assistance when needed. Call light within reach.
[2019-04-02 20:04] VITALS: BP 127/62
[2019-04-02] MEDS ORDERED: SODIUM CHLORIDE 0.9% 50ML 50 ML ONE (20:16)
[2019-04-02] MEDS ORDERED: SODIUM CHLORIDE 0.9% 250ML 250 ML ONE (20:17)
[2019-04-02] MEDS: AZITHROMYCIN 500MG/NS 250 ML 250 ML IV SCH (20:20)
--- NOTE | 2019-04-02 20:30 | NUR ---
Purewick placed on patient before Lasix administration.
[2019-04-02] MEDS: FUROSEMIDE INJ 10 MG/ML 4 ML VIAL IV SCH (20:32)
[2019-04-02 21:00] VITALS: BP 127/62
[2019-04-02] MEDS: IPRATROPIUM BROMIDE 0.02% 2.5 ML NEB NEB SCH (21:20)
--- NOTE | 2019-04-02 22:36 | History and Physical ---
PRESENTING COMPLAINT: Worsening shortness of breath for 1 day. HISTORY OF PRESENT ILLNESS: A 49-year-old female with past history of multiple medical problems including congenital heart disease, chronic CHF, and Down syndrome, was admitted from ER. The patient was brought to ER from home. Her mother is at bedside, told that the patient was reasonably well until yesterday. Evening, the patient started worsening shortness of breath. She had mild nonproductive cough. The patient did not have any fever. No yellowish sputum or hemoptysis. The patient also did not have any chest pain or palpitation along with this symptom. The patient felt nasal congestion along with this symptom. She was brought to the ER today by her mother. The patient was recently admitted at [facility] for similar problem as per the patient's mother's statement. The patient was discharged with furosemide, which she was taking at home as per mother's statement. The patient is now lying in bed without any acute distress. She also uses oxygen at home as needed as per the patient's mother's statement. REVIEW OF SYSTEMS: CONSTITUTIONAL: No fever, chills, or rigor. EYES AND ENT: Nasal congestion. No earache. No sore throat. CARDIOVASCULAR: No chest pain. No palpitation. PULMONARY: Shortness of breath and dry cough as per HPI. No hemoptysis. GI: No abdominal pain, nausea, vomiting, passage of bloody stool or black stool. No diarrhea. : No dysuria. No hematuria. MUSCULOSKELETAL/SKIN/LYMPHORETICULAR: No joint pain. Left leg trace ankle edema. No skin rash. No swelling. NEUROLOGICAL: No loss of consciousness, seizure, or headache. PAST MEDICAL HISTORY: 1. 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 2. Atrial fibrillation, status post permanent pacemaker. 3. Chronic diastolic CHF. 4. Down syndrome. 5. Hypertension. 6. Hypothyroidism. 7. Hyperlipidemia. 8. GERD/gastritis. 9. Mood disorder. PAST SURGICAL HISTORY: The patient had surgery in childhood for congenital VSD and ASD as per report, also T12 vertebroplasty at [facility] for vertebral fractures status post fall in 2018. ALLERGIES: NO KNOWN MEDICATION ALLERGIES. HOME MEDICATIONS: As per med reconciliation sheet. SOCIAL HISTORY: The patient lives at home with her mother. Her mother is at bedside. FAMILY HISTORY: No positive family history of CAD or stroke. PHYSICAL EXAMINATION: VITAL SIGNS: Today at presentation, BP 130/103, pulse 87, temp 98.5, respirations 14, SpO2 93% on 2 L of oxygen via nasal cannula. GENERAL: Alert, not in acute distress now. Moderate shortness of breath, better since came to ER today. HEENT: NC/AT. Pupils equally reacting bilaterally. Nasal congestion with scanty, watery discharge. No conjunctival congestion. Oral mucosa moist. NECK: No JVD. No carotid bruit. No lymphadenopathy. HEART: S1, S2, regular. No murmurs. LUNGS: Air entry equal on both sides. Rales present over both bases. No rhonchi. ABDOMEN: Soft, nontender. No palpable mass. Bowel sounds active in all quadrants. EXTREMITIES: Trace ankle edema on left lower extremity. No edema on the right lower extremity. No cyanosis. NEUROLOGICAL: Muscle strength symmetric on both sides. LABORATORY AND DIAGNOSTIC DATA: EKG; atrial fibrillation with ventricular rate of 117 beats per minute, right bundle-branch block, left axis deviation, LVH by voltage criteria, inverted T in lateral leads due to reciprocal change. Intervals within normal limits. X-ray chest, single view, lungs are well inflated, diffuse opacification of the bilateral lungs. No significant pleural effusion or pneumothorax. Mediastinal shadow enlarged. Median sternotomy was noted. No acute osseous lesion. Evidence of vertebroplasty. Soft tissue unremarkable. Upper abdomen free of air under the diaphragm. CBC; WBC 3.6, hemoglobin 12.9, hematocrit 41.1, platelets 157, MCV 99, RDW 19, neutrophils 74, lymphocytes 16. PT 13.2, INR 0.95, PTT 28.7. Chemistry panel; sodium 141, potassium 4.0, chloride 106, CO2 24, anion gap 10, glucose 84, BUN 14, creatinine 1.31, calcium 8.7, total bilirubin 0.9, AST 22, ALT 8, alk phos 129, CK 58. Troponin 0.046. BNP 1049. Total protein 7.0, albumin 3.0, globulin 4.0. Urinalysis; protein 2+, negative for glucose and ketone, blood 3+, nitrite negative, leukocyte esterase negative, rbc's 21 to 50, wbc's 6 to 10. Urine bacteria moderate. Influenza screening negative. Blood culture and urine culture in progress. ASSESSMENT AND PLAN: 1. Shortness of breath, likely secondary to pulmonary edema. The patient has chronic diastolic congestive heart failure. The patient has acute exacerbation likely. She was recently hospitalized at [facility] as per mother's statement. She was compliant with her diuretics. In spite of that, she had this symptom. We will start the patient on IV furosemide. Her BNP level is higher than 1000. We would follow linux network systems administrator's recommendation. Continue the patient on telemetry. 2. Chronic atrial fibrillation with rapid ventricular rate. The patient was not on any anticoagulation. We would continue the patient on aspirin for now. 3. Bilateral lung densities, likely secondary to pulmonary edema. Early pneumonia cannot be excluded. Though the patient is afebrile, she does not have any leukocytosis. The patient was given a dose of ceftriaxone from the ER. We would continue ceftriaxone for now. Follow the culture report or send sputum for culture. Influenza screening is negative. 4. Hypertension. Continue regular medication. 5. Hyperlipidemia. Continue regular medication. 6. Hypothyroidism. Continue regular medication. 7. Left lower extremity asymmetric mild edema. We would ask for a venous Doppler. 8. Down syndrome with mood disorder. Continue the patient on regular medication. 9. Microscopic hematuria. The patient did not have any history of bleeding. We would check the urine culture report. The patient had mild elevation of the creatinine. We would ask for a renal ultrasound and requested Nephrology consult. 10. Deep vein thrombosis prophylaxis. Keep the patient on subcu Lovenox. Discharge plan would depend upon the patient's response to treatment. 11. Advance directive. The patient is full code for now. MD JEOVANY Rust/AFTAB /[id number]
[2019-04-03] VITALS (8 sets, daily range): BP systolic 98–144; BP diastolic 63–88
[2019-04-03] MEDS: IPRATROPIUM BROMIDE 0.02% 2.5 ML NEB NEB SCH ×4 (01:00→19:40)
--- NOTE | 2019-04-03 03:59 | Diagnostic Imaging Report ---
EXAM: CT ABDOMEN/PELVIS WITHOUT CONTRAST INDICATION: Microscopic hematuria, NEEMA. COMPARISON: CT Abdomen/Pelvis 04/07/2017. TECHNIQUE: The abdomen and pelvis were scanned using a multidetector helical scanner. Coronal and sagittal reformations were obtained. Renal stone protocol was performed. IV CONTRAST: None. RADIATION DOSE: Total DLP: 228.9 mGy*cm Estimated effective dose: (DLP x 0.014 x size factor) mSv COMPLICATIONS: None FINDINGS: Lack of IV contrast decreases sensitivity in evaluating abdominal and pelvic organs. In addition, image quality in the upper abdomen is moderately degraded by streak artifact from electronic abdominal device. LOWER THORAX: Cardiomegaly. Partially seen pacemaker leads. Epicardial lead originates from the abdominal pacer. Small right pleural effusion and trace left effusion with multifocal groundglass opacities and smooth interlobular septal thickening. LIVER/BILIARY: No evidence of mass. No ductal dilatation. GALLBLADDER: Status post cholecystectomy. SPLEEN: Unremarkable PANCREAS: Limited evaluation secondary to streak artifact. Fatty atrophy. ADRENALS: No nodules KIDNEYS: No hydronephrosis or stone disease. GI TRACT: Limited evaluation secondary to streak artifact and motion. No evidence of bowel obstruction or wall thickening. The appendix is not clearly visualized, however there are no secondary signs of appendicitis in the right lower quadrant. VESSELS: Unremarkable, limited evaluation. PERITONEUM/RETROPERITONEUM: No free air. Small volume ascites in the pelvis. LYMPH NODES: No lymphadenopathy REPRODUCTIVE ORGANS/BLADDER: Unremarkable BONES/SOFT TISSUES: Severe wedge compression deformity at T12 with vertebral augmentation changes, and associated 3 mm of bony retropulsion. Focal kyphosis centered at T12. Diffuse anasarca. IMPRESSION: No CT evidence of nephrolithiasis. Findings of pulmonary alveolar edema, small right and trace left pleural effusion. Diffuse anasarca. Small volume ascites. Signed by: Dr. Talita Lehman MD on 04/03/2019 3:56 AM
[2019-04-03] MEDS: LEVOTHYROXINE SODIUM 100 MCG TAB PO SCH (05:22)
[2019-04-03 05:57] LABS: BASOPHILS # (AUTO) 0.1 (0.0-0.1); BASOPHILS % 1.2 % (0.0-1.0); EOSINOPHILS % 0.4 % (0.0-6.0); HEMOGLOBIN 13.1 g/dL (12.0-16.0); LYMPHOCYTES # (AUTO) 0.6 (1.0-3.2); LYMPHOCYTES % 11.6 % (18.0-39.1); MEAN CORPUSCULAR HEMOGLOBIN 31.4 pg (28-32); MEAN CORPUSCULAR VOLUME 98.3 fL (81-99); MONOCYTES # (AUTO) 0.3 (0.2-0.8); MONOCYTES % 5.3 % (4.4-11.3); NEUTROPHILS # (AUTO) 4.1 (2.1-6.9); NEUTROPHILS % 80.7 % (38.7-80.0); PLATELET COUNT 141 x10e3/uL (140-360); RED BLOOD COUNT 4.17 x10e6/uL (3.6-5.1); RED CELL DISTRIBUTION WIDTH 19.2 % (11.7-14.4)
[2019-04-03 06:24] LABS: ALBUMIN 2.7 g/dL (3.5-5.0); ALBUMIN/GLOBULIN RATIO 0.7 (0.8-2.0); ANION GAP 14.1 mmol/L (8-16); CALCIUM 8.3 mg/dL (8.4-10.2); CREATININE, SERUM 1.23 mg/dL (0.57-1.11); PHOSPHORUS 3.6 MG/DL (2.3-4.7); POTASSIUM 4.1 mmol/L (3.5-5.1)
--- NOTE | 2019-04-03 07:00 | NUR ---
Shift report given to oncoming nurse.
--- NOTE | 2019-04-03 07:11 | NUR ---
PT ASLEEP RESP TIAN AND UNLABORED A THIS TIME NO DISTRESS NOTED AT THIS TIME, PT FAMILT MEMBER AT BEDSIDE, NO C/O PAIN WHEN ASKED,SPENCER LIGHT IN REACH.
[2019-04-03] MEDS: PANTOPRAZOLE SOD 40 MG TABEC PO SCH (09:48)
[2019-04-03] MEDS: CHOLECALCIFEROL 400 UNIT TAB PO SCH (09:48)
[2019-04-03] MEDS: LAMOTRIGINE 100 MG TAB PO SCH (09:48)
[2019-04-03] MEDS: FUROSEMIDE INJ 10 MG/ML 4 ML VIAL IV SCH ×2 (09:48→20:25)
--- NOTE | 2019-04-03 11:36 | Consultation ---
DATE OF CONSULTATION: Pulmonary Consultation REASON FOR CONSULT: Shortness of breath. HISTORY OF PRESENT ILLNESS: Ms. Camilo is a 49-year-old female. She has a history of congestive heart failure and Down syndrome. She came in with shortness of breath going on for the last few days, progressively getting worse, associated with cough. No fever. No yellow phlegm. The shortness of breath was constant, getting worse on exertion, getting somewhat better with rest. She was recently admitted to [facility] for same problems. She was discharged on Lasix. Currently, the leg swelling is also a concern. REVIEW OF SYSTEMS: GENERAL: Denies any fever or chills. HEAD: Denies any head trauma. ENT: Denies any earache. CVS: Denies any chest pain. RESPIRATORY: Shortness of breath. Rest of the review of systems are negative. [place] [facility] [place] The patient does not give any history. PAST MEDICAL HISTORY: Congenital heart disease, VSD and ASD, history of surgery in the past, chronic heart failure, atrial fibrillation, Down syndrome, hypertension, and hyperlipidemia. PAST SURGICAL HISTORY: Had a surgery in childhood for congenital VSD and ASD. Last echocardiogram was done here in February of 2018 showed LVH, EF 50% to 60%, left atrium markedly dilated, [id number] mitral regurgitation. MEDICATIONS: The patient has received the antibiotics and Lasix has been started. PHYSICAL EXAMINATION: VITAL SIGNS: Temperature 98.9, pulse of 76, blood pressure 136/80, respiratory rate of 18, and O2 saturation 97%. HEENT: Head is atraumatic and normocephalic. NECK: Supple. CHEST: Crackles on the bases. HEART: S1 andS2 audible. ABDOMEN: Soft. EXTREMITIES: Pedal edema, right more than the left. NEUROLOGIC: She is awake, but noncommunicative. LABORATORY DATA: White count of 5,000, hemoglobin 13.1, and platelets 141. Chemistry; sodium 140, potassium 4.1, and creatinine 1.23. BNP was 1049.1. Chest x-ray showed enlarged cardiac silhouette and bilateral infiltrates suggesting pulmonary edema. She also had a CT abdomen and pelvis in the emergency room, which showed anasarca, small volume ascites, and small right effusion. ASSESSMENT/PLAN: Ms. Camilo is a 49-year-old female admitted with shortness of breath. The patient has history of VSD and ASD repair and came in with congestive heart failure. Previous echo showing LA enlargement. BNP is higher. Current problem: 1. Xrnsr-ls-vdniwil heart failure. 2. Chronic atrial fibrillation. 3. Hypertension. 4. Hypothyroidism. 5. Lower extremity edema. PLAN: 1. We will continue the patient on diuretics as ordered. Cardiology consultation. 2. Agree with antibiotics for possibility of infection. 3. Lovenox subcutaneous for DVT prophylaxis. Oxygen as needed to keep the O2 saturation more than or equal to 92%. Venous Dopplers to rule out DVT. Discussed with the patient's mom at bedside. MD MARYLU Avitia/AFTAB /[id number]
--- NOTE | 2019-04-03 13:31 | Consultation ---
DATE OF CONSULTATION: 04/03/2019 Cardiology Consultation Thank you so much for asking me to see this nice lady again in consultation. Ms. Camilo is an unfortunate 49-year-old woman with Down syndrome, severe mental retardation, and congenital heart disease. CHIEF COMPLAINT: She is brought to the hospital with a complaint of shortness of breath. HISTORY OF PRESENT ILLNESS: The patient cannot give me any history of course, both the mother at the bedside says that she was hospitalized at [facility] about a month ago with similar shortness of breath complaints and was re-established on Lasix. She tells me that she had a Cardiolite performed there and evidently did not suggest coronary artery disease, but that she visited the dentist in the last 10 days and then had several teeth removed and has had facial swelling. 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 She had permanent pacemaker implanted at the same time in 1977 that was converted to dual-chamber pacing in 1998, generator replacement in 2005 and January 2014. She had colonoscopy by Dr. Garrett Arnold in 2013 suggesting Crohn disease. She has had problems with anesthesia and she had a cataract surgery in March of 2016. She had a prolonged unresponsive episode. She had dilatation of esophageal stricture in 2016. MEDICATIONS: Recent home medications include levothyroxine 100 mcg daily, Lamictal 100 mg daily, pantoprazole 40 mg twice a day, furosemide, and Toprol-XL 25 mg daily. REVIEW OF SYSTEMS: Not available. PHYSICAL EXAMINATION: GENERAL: At this time shows a very short, mentally retarded woman, reported 4 feet 11 inches tall and 199 pounds. VITAL SIGNS: Blood pressure 120/80, pulse is 100 and irregularly irregular. HEAD, EYES, EARS, NOSE, AND THROAT: Remarkable for Down syndrome facies. THORAX: Healed midline sternotomy. Heart sounds S1 and S2 are equal. Irregularly irregular. There is 1/6 systolic murmur. LUNGS: Relatively clear. ABDOMEN: Protuberant. EXTREMITIES: Have trace edema in the left leg. There is rash in the left arm. PERINENT LABORATORY STUDIES: Show BNP 1049. Creatinine 1.23. Urinalysis shows protein, 21 to 50 red cells, 6 to 10 white cells. Influenza screen is negative. ASSESSMENT: 1. Exacerbation of congestive heart failure. 2. Congenital heart disease, status post repair of tetralogy of Fallot at age 8. 3. Down syndrome with severe mental retardation. 4. Mild renal insufficiency. 5. Chronic atrial fibrillation. PLAN: We will diurese her and review venous Doppler scan of the legs. We did not use anticoagulation in recent years due to her previous GI bleeding and diagnosis of Crohn disease in 2013. Recommended some supportive and comfort care. Thank you for asking me to see her in consultation. MD SARAI Doe/MODL /[id number] cc: MD Don Avitia MD
[2019-04-03] MEDS: CEFTRIAXONE SOD 1 GM/NS 50 ML 50 ML IV SCH (17:06)
[2019-04-03] MEDS: ENOXAPARIN 30 MG/0.3 ML SYR SC SCH (17:06)
--- NOTE | 2019-04-03 19:14 | NUR ---
WALKING ROUNDS PERFORMED, RECEIVED PT LAYING SEMI FOWLERS IN BED, AAOX1, RR EVEN AND NON-LABORED, O2 BY NC AT 2L. NO S/SX OF DISTRESS NOTED. LEFT PT LAYING SEMI FOWLERS IN BED, BED IN LOW LOCKED POSITION, SIDE RAILS UPX2, CALL LIGHT AND PHONE WITHIN REACH. FAMILY AT BEDSIDE.
--- NOTE | 2019-04-03 19:21 | NUR ---
Report given to oncoming nurse, pt stable
--- NOTE | 2019-04-03 19:52 | NUR ---
RT REPORTS THAT PATIENT AND PATIENT FAMILY REFUSING NEB TREATMENTS AT THIS TIME. REPORTS PATIENT FEELS VERY TIRED. WILL ATTEMPT LATER.
--- NOTE | 2019-04-03 20:07 | Consultation ---
DATE OF CONSULTATION: Nephrology Consultation REASON FOR CONSULT: Chronic kidney disease. HISTORY OF PRESENT ILLNESS: Ms. Camilo is a 49-year-old female with Down syndrome and the following problem list: 1. Chronic kidney disease, stage 1 to stage 2. 2. Mental retardation. 3. Congenital heart disease. 4. Atherosclerotic cardiovascular disease. 5. Status post aortocoronary artery bypass. 6. History of tetralogy of Fallot with AV canal defect repair. 7. Status post permanent pacemaker implantable device, converted to dual-chamber pacemaker. 8. Complications of anesthesia. 9. History of dilatation of esophageal stricture. The patient is barely verbal, not a historian. She was interviewed in the room in the presence of her stepfather. MEDICATIONS: Per medication list noted and reviewed. Levothyroxine, Lamictal, pantoprazole, furosemide, and Toprol. REVIEW OF SYSTEMS: Unobtainable. The patient is very sleepy, apparently had a large meal and is falling asleep. She did not obey commands or response to any questions. PHYSICAL FINDINGS: GENERAL: Female with Down syndrome features, on oxygen, in no acute distress. VITAL SIGNS: Blood pressure 120/87 and heart rate 98 per minute. SHEENT: Features of Down syndrome. She is petite. Head is normocephalic and atraumatic. Conjunctiva anicteric. NECK: Short. Supple. LUNGS: Bilaterally clear to auscultation. HEART: Normal heart sounds. No additional sounds. ABDOMEN: Soft and nontender. EXTREMITIES: No edema. LABORATORY FINDINGS: Noted and reviewed. ASSESSMENT AND PLAN: 1. Acute kidney injury on chronic kidney disease, stage 1 to stage 2. The patient's serum creatinine is table, probably in her baseline range, possibly secondary to nephrosclerosis. The patient had a recent admission to [facility] and had probably undergone workup over there that can be reviewed. She had a CAT scan of the abdomen that did not show any renal abnormality at this point in time. 2. Volume overload, further management per Cardiology. 3. Disposition. Discussed in detail with the patient's stepfather. All his questions were answered to his satisfaction until he had none. We will follow this patient with you. MD ABBEY Lomeli/MODL /[id number]
[2019-04-03] MEDS: AZITHROMYCIN 500MG/NS 250 ML 250 ML IV SCH (20:25)
[2019-04-04] VITALS (7 sets, daily range): BP systolic 105–175; BP diastolic 62–74
[2019-04-04] MEDS: IPRATROPIUM BROMIDE 0.02% 2.5 ML NEB NEB SCH ×4 (01:07→19:40)
[2019-04-04] MEDS: IPRATROPIUM BROMIDE 0.06% 42 MCG NASPR NS SCH ×3 (04:50→17:00)
[2019-04-04 05:58] LABS: ANION GAP 12.5 mmol/L (8-16); CALCIUM 8.1 mg/dL (8.4-10.2); CREATININE, SERUM 1.35 mg/dL (0.57-1.11); POTASSIUM 3.5 mmol/L (3.5-5.1)
[2019-04-04 06:12] LABS: THYROID STIMULATING HORMONE 27.758 uIU/mL (0.350-4.940)
[2019-04-04] MEDS: LEVOTHYROXINE SODIUM 100 MCG TAB PO SCH (06:27)
--- NOTE | 2019-04-04 07:15 | NUR ---
The pt. was received form the off-going nurse asleep and in no apparent distress. The parent is art the bedside.
[2019-04-04] MEDS: PANTOPRAZOLE SOD 40 MG TABEC PO SCH (07:30)
[2019-04-04] MEDS: FUROSEMIDE INJ 10 MG/ML 4 ML VIAL IV SCH ×2 (09:24→21:18)
[2019-04-04] MEDS: LAMOTRIGINE 100 MG TAB PO SCH (09:24)
[2019-04-04] MEDS: CHOLECALCIFEROL 400 UNIT TAB PO SCH (09:24)
--- NOTE | 2019-04-04 10:52 | Diagnostic Imaging Report ---
Chest, 1 view, 04/04/2019. History: CHF. Comparison: 04/02/2019. Findings: The cardiomediastinal silhouette and pulmonary vasculature are prominent with hazy bilateral pulmonary opacities, slightly decreased compared to prior exam. Left subclavian dual-lead pacer is unchanged in position. There are no acute osseous or soft tissue abnormalities. Impression: Slight improvement in CHF. Signed by: Gustavo Mosher on 04/04/2019 10:48 AM
[2019-04-04] MEDS ORDERED: ONDANSETRON HCL 4 MG ORAL DISINTEGRATING TAB PO PRN (15:00)
[2019-04-04] MEDS ORDERED: POTASSIUM CHLORIDE 20 MEQ TAB CR PO ONE (16:58)
--- NOTE | 2019-04-04 17:31 | NUR ---
RD Recommendation for Physician: -Recommend cardiac diet Plan of Care: RD following, monitoring for tolerance and adequacy Nutrition reason for involvement: Diagnosis - CHF Primary Diagnose(s): CHF exacerbation PMH: CHF, congenital heart disease, afib, Down Syndrome with mental retardation, HTN, hypothyroid, HLD, GERD Ht: 59 in Wt:99 lb BMI: 19.99 kg/m2 IBW:[address] Assessment: (04/04/19) Chart reviewed. Labs and meds reviewed. Pt is a 49 year old female admitted with CHF exacerbation. Spoke to family member who stated that pt has a good appetite and has been eating >50% of her meals. Per documentation, pt consumed 50% of breakfast, 0% lunch, and 100% of dinner yesterday. No N/V/D/C reported and no chewing/swallowing issues. Will continue to monitor. Current Diet: Renal Diet Malnutrition Evaluation (04/04/19) The patient does not meet criteria for a specified degree of malnutrition at this time. Will re-evaluate at follow-up as appropriate. Diet Education Needs Assessment: Family member was not interested in receiving diet education for the patient. Nutrition Care Level: Low Signed: Sarah Selby, RD, LD
[2019-04-04] MEDS: CEFTRIAXONE SOD 1 GM/NS 50 ML 50 ML IV SCH (17:54)
[2019-04-04] MEDS: ENOXAPARIN 30 MG/0.3 ML SYR SC SCH (17:54)
[2019-04-04] MEDS ORDERED: SODIUM CHLORIDE 0.9% 250ML 250 ML ONE (18:50)
[2019-04-04] MEDS: AZITHROMYCIN 500MG/NS 250 ML 250 ML IV SCH (21:00)
[2019-04-05] MEDS: IPRATROPIUM BROMIDE 0.02% 2.5 ML NEB NEB SCH ×2 (01:15→07:00)
[2019-04-05 04:00] VITALS: BP 137/84
[2019-04-05] MEDS: LEVOTHYROXINE SODIUM 100 MCG TAB PO SCH (05:21)
[2019-04-05 05:39] LABS: ALBUMIN 2.9 g/dL (3.5-5.0); ALBUMIN/GLOBULIN RATIO 0.8 (0.8-2.0); ANION GAP 14.8 mmol/L (8-16); CALCIUM 8.6 mg/dL (8.4-10.2); CREATININE, SERUM 1.47 mg/dL (0.57-1.11); POTASSIUM 3.8 mmol/L (3.5-5.1)
[2019-04-05 06:40] LABS: BASOPHILS # (AUTO) 0.1 (0.0-0.1); BASOPHILS % 1.4 % (0.0-1.0); EOSINOPHILS % 0.9 % (0.0-6.0); HEMATOCRIT 40.4 % (34.2-44.1); HEMOGLOBIN 12.7 g/dL (12.0-16.0); LYMPHOCYTES # (AUTO) 0.7 (1.0-3.2); MEAN CORPUSCULAR HEMOGLOBIN 31.1 pg (28-32); MEAN CORPUSCULAR HGB CONC 31.4 g/dL (31-35); MONOCYTES # (AUTO) 0.2 (0.2-0.8); MONOCYTES % 5.6 % (4.4-11.3); NEUTROPHILS # (AUTO) 3.3 (2.1-6.9); NEUTROPHILS % 76.9 % (38.7-80.0); PLATELET COUNT 139 x10e3/uL (140-360); RED BLOOD COUNT 4.08 x10e6/uL (3.6-5.1); RED CELL DISTRIBUTION WIDTH 18.7 % (11.7-14.4)
--- NOTE | 2019-04-05 07:15 | NUR ---
PT ASLEEP RESP EVEN AND UNLABORED A THIS TIME NO DISTRESS NOTED AT THIS TIME, PT FAMILY MEMBER AT BEDSIDE, PT AROUSAL TO TOUCH, NO C/O PAIN WHEN ASKED,CALL LIGHT IN REACH.
--- NOTE | 2019-04-05 07:16 | NUR ---
BEDSIDE SHIFT REPORT GIVEN TO ONCOMING NURSE.PT RESTING IN BED WITH NO S/S OF DISTRESS.CALL LIGHT WITHIN EASY REACH.
[2019-04-05] MEDS: PANTOPRAZOLE SOD 40 MG TABEC PO SCH (07:30)
[2019-04-05 08:20] VITALS: BP 101/71
[2019-04-05] MEDS: LAMOTRIGINE 100 MG TAB PO SCH (09:00)
[2019-04-05] MEDS: CHOLECALCIFEROL 400 UNIT TAB PO SCH (09:00)
[2019-04-05 11:46] VITALS: BP 101/71
[2019-04-05 12:36] VITALS: BP 108/66
[2019-04-05] MEDS ORDERED: FUROSEMIDE 40 MG TAB PO SCH (18:00)
== END 2019-04-05 13:17 | disposition home or self-care (01) | DRG 291 ==
LOC: ER 13:27 → ERHOLD 15:52 → MED/SURG2 17:05
PROVIDERS: ADMIT Internal Medicine; ATTEND Internal Medicine
DX: I13.0 Hypertensive heart and chronic kidney disease with heart failure and stage 1 through stage 4 chronic kidney disease, or unspecified chronic kidney disease (principal); J18.9 Pneumonia, unspecified organism; J96.01 Acute respiratory failure with hypoxia; I50.33 Acute on chronic diastolic (congestive) heart failure; I48.20 Chronic atrial fibrillation, unspecified; F72 Severe intellectual disabilities; N17.9 Acute kidney failure, unspecified; N39.0 Urinary tract infection, site not specified; Q28.9 Congenital malformation of circulatory system, unspecified; K50.90 Crohn's disease, unspecified, without complications; E03.9 Hypothyroidism, unspecified; R31.29 Other microscopic hematuria; N18.2 Chronic kidney disease, stage 2 (mild); Q90.9 Down syndrome, unspecified; K21.9 Gastro-esophageal reflux disease without esophagitis; F39 Unspecified mood [affective] disorder; Z95.810 Presence of automatic (implantable) cardiac defibrillator; K44.9 Diaphragmatic hernia without obstruction or gangrene; Z95.1 Presence of aortocoronary bypass graft; Z98.890 Other specified postprocedural states
CPT/HCPCS: 36415; 71045; 74176; 80048; 80053; 81001; 81025; 82550; 82553; 82570; 83605; 83735; 83880; 83935; 84100; 84300; 84443; 84484; 85025; 85379; 85610; 85730; 87040; 87086; 87400; 93005; 93970; 94640; 99284; J0456; J0696; J1650; J1940; J7030; J7050

== ENCOUNTER 2019-12-23 18:30 | Emergency (ER) | payer MEDICARE, OTHER ==
[~2019-12-23] VITALS: Ht 132.1 cm; Wt 42.2 kg
[2019-12-23] MEDS ORDERED: AZITHROMYCIN250 MG PO (19:22)
[2019-12-23] MEDS ORDERED: DECADRON6 MG PO (19:24)
[2019-12-23] MEDS ORDERED: ACETAMINOPHEN 325 MG TAB PO ONE (19:30)
[2019-12-23 20:33] VITALS: BP 113/58
--- OUTSIDE RECORDS SUMMARY | 2019-12-23 21:39 | XMS REPORT | Continuity of Care Document ---
Author Author [facility] t Organization [facility] Address [address] [place] [address] Phone Unavailable Care Team Providers Care Carbonation Tester Name Role Phone ANASTACIO VENCES MD PCP ANASTACIO VENCES Attphys Unavailable SWEET, A LAIRD Attphys Unavailable ANASTACIO VENCES Admphys Unavailable Payers Payer Name Policy Type Policy Number Effective Date Expiration Date Jorge Smyth [id number] 2018 00:00:00 [facility] Medicare A & B [id number] 2012 00:00:00 [facility] Problems Condition Name Condition Details Condition Category Status Onset Date Resolution Date Last Treatment Date Treating Clinician Comments Source Congestive heart failure CHF (congestive heart failure) Problem Active [facility] Non-specific colitis Colitis Problem Active 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 Down syndrome Down syndrome Problem Active [facility] Peripheral cyanosis Peripheral cyanosis Problem Active [facility] Urinary tract infection UTI (urinary tract infection) Problem Active [facility] Back pain Back pain Problem Active [facility] Allergies, Adverse Reactions, Alerts Allergy Name Allergy Type Status Severity Reaction(s) Onset Date Inacti ve Date Treating Clinician Comments Source No Known Allergies DA Active U 2018-10-19 00:00:00 [facility] No Known Allergies DA Active U 2017-11-16 00:00:00 [facility] Medications Ordered Medication Name Filled Medication Name Start Date Stop Da te Current Medication? Ordering Clinician Indication Dosage Frequency Signature (SIG) Comments Components Source Cholecalciferol (Vitamin D3) (Vitamin D) 400 Unit Caps ule Cholecalciferol (Vitamin D3) (Vitamin D) 400 Unit Capsule Yes [address] [facility] Furosemide (Lasix) 20 Mg Tablet Furosemide (Lasix) 20 Mg Tablet Yes [address] [facility] Lamotrigine 100 Mg Tablet Lamotrigine 100 Mg Tablet Yes [address] [facility] Levothyroxine Sodium 88 Mcg Tablet Levothyroxine Sodium 88 Mcg Tablet Yes [address] [facility] Omeprazole 40 Mg Capsule. Omeprazole 40 Mg Capsule. Yes 40 Daily [facility] Amiodarone Hcl 200 Mg Tablet, 200 Mg Oral Amiodarone H cl 200 Mg Tablet, 200 Mg Oral 2018-03-08 00:00:[address] [facility] Dicyclomine Hcl 10 Mg Capsule, 10 Mg Oral Dicyclomine Hcl 10 Mg Capsule, 10 Mg Oral 2018-03-08 00:00:00 No [address] [facility] Furosemide (Lasix) 20 Mg Tablet, 20 Mg Oral Furosemide (Lasix) 20 Mg Tablet, 20 Mg Oral 2018-03-08 00:00:[address] [facility] Metoclopramide Hcl 10 Mg Tablet, 10 Mg Oral Metoclopra mide Hcl 10 Mg Tablet, 10 Mg Oral 2018-03-08 00:00:00 No 10 Four Times Daily for Nausea [facility] Pantoprazole Sodium (Protonix) 40 Mg Tablet., 40 Mg Oral Pantoprazole Sodium (Protonix) 40 Mg Tablet., 40 Mg Oral 2018-03-08 00:00:00 No 40 Daily [facility] Crohns Medications , Crohns Medications , 2016-11-25 00:00:00 No [facility] Dicyclomine Hcl (Bentyl) 10 Mg Capsule, 10 Mg Oral Dic yclomine Hcl (Bentyl) 10 Mg Capsule, 10 Mg Oral 2016-03-13 00:00:00 No [address] [facility] Lamotrigine (Lamictal) 100 Mg Tab, 100 Mg Oral Lamotri gine (Lamictal) 100 Mg Tab, 100 Mg Oral 2016-03-13 00:00:[address] [facility] Levothyroxine Sodium 75 Mcg Tablet, 75 Mcg Oral Levoth yroxine Sodium 75 Mcg Tablet, 75 Mcg Oral 2016-03-13 00:00:[address] No [address] [facility] Ondansetron Hcl (Zofran) 8 Mg Tablet, 8 Mg Oral Ondans etron Hcl (Zofran) 8 Mg Tablet, 8 Mg Oral 2016-03-13 00:00:00 No [address] [facility] Esomeprazole Magnesium (Nexium) 20 Mg Capsule., 20 M g Oral Esomeprazole Magnesium (Nexium) 20 Mg Capsule., 20 Mg Oral 2014-04-26 00:00:[address] [facility] Procedures Procedure Date / Time Performed Performing Clinician [facility] e [facility] of abdomen and pelvis without contrast 2019-04-02 00:00:[address] [facility] X-ray of chest, two views 2018-09-20 00:00:00 ANASTACIO VENCES [facility] Encounters Start Date/Time End Date/Time Encounter Type Admission Type Attendi [facility] Facility Care Department Encounter ID Source 2019-04-02 15:52:00 2019-04-05 13:17:00 Discharged Inpatient 1 ANASTACIO VENCES [facility] [id number] [facility] 2018-09-20 18:49:00 2018-09-20 20:55:00 Departed Emergency Room [facility] [id number] [facility] 2018-09-20 09:21:00 2018-09-20 09:21:00 Registered Clinic 3 ANASTACIO CARRILLO [facility] [id number] [facility] 2018-03-08 11:39:00 2018-03-11 10:02:00 Discharged Inpatient (obs) 1 GLEN, ANASTACIO [facility] [id number] [facility] 2017-10-19 12:01:00 2017-10-21 14:53:00 Discharged Inpatient 1 ANASTACIO VENCES [facility] [id number] [facility] 2017-10-10 21:44:00 2017-10-10 22:01:00 Departed Emergency Room [facility] [id number] [facility] 2017-04-07 19:22:00 2017-04-08 01:12:00 Departed Emergency Room ER MELODY HASSAN [facility] [id number] [facility] Results Test Description Test Time Test Comments Results Result Comments Source GLUBED 2019-06-01 12:08:00 Test Item GLUBED (test code = GLUBED) 146 mg/dL 74-106 H Performed by certified abrasive coating machine operator at [facility] CBC W/AUTO [id number] 10:30:00* Test Item Value Reference Range Interpretation Comments WHITE BLOOD CELL (test code = WBC) 6.9 K/mm3 4.5-12.5 N RED BLOOD CELL (test code = RBC) 3.98 mill/mm3 3.7-5.2 N HEMOGLOBIN (test code = HGB) 12.5 gram/dL 11.5-15.5 N HEMATOCRIT (test code = HCT) 39.4 % 36.0-46.0 N MEAN CELL VOLUME (test code = MCV) 99.0 fL 80-98 H MEAN CELL HGB (test code = MCH) 31.4 picogram 27.0-33.0 N MEAN CELL HGB CONCETRATION (test code = MCHC) 31.7 gram/dL 33.0-36. 0 L RED CELL DISTRIBUTION WIDTH (test code = RDW) 18.8 % 11.6-16. 2 H RED CELL DISTRIBUTION WIDTH SD (test code = RDW-SD) 68.5 fL 37 .0-51.0 H PLATELET COUNT (test code = PLT) 189 K/mm3 150-450 N MEAN PLATELET VOLUME (test code = MPV) 12.2 fL 6.7-11.0 H NEUTROPHIL % (test code = NT%) 84.5 % 39.0-69.0 H IMMATURE GRANULOCYTE % (test code = IG%) 0.4 % 0.0-5.0 N LYMPHOCYTE % (test code = LY%) 7.6 % 25.0-55.0 L MONOCYTE % (test code = MO%) 5.3 % 0.0-10.0 N EOSINOPHIL % (test code = EO%) 0.9 % 0.0-5.0 N BASOPHIL % (test code = BA%) 1.3 % 0.0-1.0 H NUCLEATED RBC % (test code = NRBC%) 0.0 % 0-0 N NEUTROPHIL # (test code = NT#) 5.79 K/mm3 1.8-7.7 N IMMATURE GRANULOCYTE # (test code = IG#) 0.03 x10 3/uL 0-0.03 N LYMPHOCYTE # (test code = LY#) 0.52 K/mm3 1.0-5.0 L MONOCYTE # (test code = MO#) 0.36 K/mm3 0-0.8 N EOSINOPHIL # (test code = EO#) 0.06 K/mm3 0.0-0.5 N BASOPHIL # (test code = BA#) 0.09 K/mm3 0.0-0.2 N NUCLEATED RBC # (test code = NRBC#) 0.00 K/mm3 0.0-0.1 N - XR ABDOMEN AP 1 [id number] 09:04:00 FAX: Anastacio Puckett MD [phone] [place]: St: [facility] FAX: Liliana Moon MD FAX: Elly Duncan NP [phone] Name: JIGNESH WAYNE [facility] : 1970 Age/S: 49/F [address] Unit #: [id number] Loc: V.[address] [place] [place] [address] Phys: Elly To CARDING MACHINE FEEDER Acct: [id number] Dis Date: Status: ADM IN PH ONE #: [phone] Exam Date: 06/01/2019 0839 FAX #: [phone] Reason: n/v EXAMS: CPT CODE: [id number] XR ABDOMEN AP 1 V 36873 HISTORY: n/v TECHNIQUE: AP abdomen x-ray COMPARISON: Abdominal radiograph May 25, 2019 FINDINGS: There is a copious am ount of stool in the ascending and transverse colon which may represent co nstipation. No abnormal intra-abdominal calcifications or mass eff ect. Postsurgical changes of cholecystectomy are noted. There is a lso a gastric pacemaker which is stable in position. Vertebr oplasty changes in the spine appears similar to the previous study. IMPRESSION: Constipation. Locati on: [facility] at 090 4 Reported and signed by: Sekou Alanis MD C C: Anastacio Vences MD; Liliana Lyons MD; Elly To NP Technologist: Dorota Solis(R); RT GUMARO(R) [facility] Date/Time/By: 06/01/2019 (903) : By: [email or web address] Orig Print D/T: S: 06/01/2019 (0908) PAGE 1 Signed Report [id number] 08:56:00* Test Item Value Reference Range Interpretation Comments GLUBED (test code = GLUBED) 97 mg/dL 74-106 N Performed by certified abrasive coating machine operator at [facility] BASIC METABOLIC [id number] 05:04:00* Test Item Value Reference Range Interpretation Comments SODIUM (test code = NA) 137 mmol/L 136-145 N POTASSIUM (test code = K) 3.6 mmol/L 3.5-5.1 N CHLORIDE (test code = CL) 96.0 mmol/L 98-107 L CARBON DIOXIDE (test code = CO2) 35.0 mmol/L 21-32 H ANION GAP (test code = GAP) 9.6 10-20 L GLUCOSE (test code = GLU) 101 mg/dL 74-106 N BLOOD UREA NITROGEN (test code = BUN) 22 mg/dL 7-18 H GLOMERULAR FILTRATION RATE (test code = GFR) 53 mL/min >=60 Estimated GFR by using Modified MDRD formula.Chronic kidney disease is defined as either kidney damageor GFR <60 mL/min/1.73 m2 for >3 months. CREATININE (test code = CREAT) 1.10 mg/dL 0.55-1.02 H Note change in reference range due to change in reagent. BUN/CREATININE RATIO (test code = BUN/CREA) 20.0 10-20 N CALCIUM (test code = CA) 9.4 mg/dL 8.5-10.1 N [id number] 03:26:00* Test Item Value Reference Range Interpretation Comments GLUBED (test code = GLUBED) 102 mg/dL 74-106 N Performed by certified abrasive coating machine operator at [facility] [id number] 20:01:00* Test Item Value Reference Range Interpretation Comments GLUBED (test code = GLUBED) 126 mg/dL 74-106 H Performed by certified abrasive coating machine operator at [facility] [id number] 16:18:00* Test Item Value Reference Range Interpretation Comments GLUBED (test code = GLUBED) 118 mg/dL 74-106 H Performed by certified abrasive coating machine operator [facility]~ - XR CHEST 1 [id number] 13:15:00 FAX: Anastacio Puckett MD [phone] [place]: B St: [facility] FAX: Liliana Moon MD FAX: Elly Duncan NP [phone] Name: JIGNESH WAYNE [facility] : 1970 Age/S: 49/F [address] [facility] Unit #: [id number] Loc: [address] [place] [address] Phys: Elly To NP Acct: [id number] Dis Date: Status: ADM IN PH ONE #: [phone] Exam Date: 05/31/2019 1214 FAX #: [phone] Reason: pulm edema EXAMS: CPT CODE: [id number] XR CHEST 1 V [id number] REASON FOR EXAM: pulm edema Exam Order Date: 05/31/2019 10:54 AM Ordering M.DLisa: Elly To NP PROCEDURE: - XR CHEST 1 V COMPARISON: Chest x-ray May 30, 2019 FINDINGS: Airspace opacities are once again seen in both lungs. These opacities appear to have slightly improved from the prior exam. Sternotomy wires, cardiomegaly, and left subclavian dual-lead pacemaker are unchanged from the previous exam. Vertebroplasty changes are again seen in the lum bar spine. Gastric pacemaker is present. IMPRESSION: Cardiomegaly with pulmonary edema may represent CHF. Compared to the prior exam the lungs are better aerated. Location: [facility]. at 1315 Reported and signed by: Sekou Alanis MD CC: Anastacio Vences MD; Liliana Lyons MD; Elly To NP Technologist: RT MUSA(Katarina) Trnscrd Date/Time/By: 05/31/2019 (3843) : By: [email or web address] Orig Print D/T: S: 05/31/2019 (3643) PAGE 1 Signed Report GLUBED 2019-05-31 11:33:00* Test Item Value Reference Range Interpretation Comments GLUBED (test code = GLUBED) 127 mg/dL 74-106 H Performed by certified abrasive coating machine operator [facility]~ [id number] 08:09:00* Test Item Value Reference Range Interpretation Comments GLUBED (test code = GLUBED) 101 mg/dL 74-106 N Performed by certified abrasive coating machine operator [facility] [id number] 01:58:00* Test Item Value Reference Range Interpretation Comments GLUBED (test code = GLUBED) 83 mg/dL 74-106 N Performed by certified abrasive coating machine operator at [facility] [id number] 22:20:00* Test Item Value Reference Range Interpretation Comments GLUBED (test code = GLUBED) 116 mg/dL 74-106 H Performed by certified abrasive coating machine operator at [facility] [id number] 22:19:00* Test Item Value Reference Range Interpretation Comments GLUBED (test code = GLUBED) 104 mg/dL 74-106 N Performed by certified abrasive coating machine operator at [facility] [id number] 20:36:00* Test Item Value Reference Range Interpretation Comments GLUBED (test code = GLUBED) 108 mg/dL 74-106 H Performed by certified abrasive coating machine operator at [facility] - XR CHEST 1 [id number] 15:44:00 FAX: Anastacio Puckett MD [phone] [place]: St: ADM FAX: Liliana Moon MD FAX: Elly Duncan NP [phone] Name: JIGNESH WAYNE [facility] : 1970 Age/S: 49/F [address] [facility] Unit #: [id number] Loc: V.[address] [place] [address] Phys: Elly To NP Acct: [id number] Dis Date: Status: ADM IN ONE #: [phone] Exam Date: 05/30/2019 1505 FAX #: [phone] Reason: sob EXAMS: CPT CODE: [id number] XR CHEST 1 V 26788 REASON FOR EXAM: sob EXAM ORDER DATE: 05/30/2019 12:00 AM Or dering: Elly To NP Attending:Liliana Lyons MD Location:[facility] PROCEDURE: - XR CHEST 1 V COMPARISON: 05/26/2019 FINDINGS: Portable AP frontal view of the chest obtained at 3:05 PM shows diffuse airspace opacity. There is no evidence of effusion. The heart size is minimally enlarged. Pulmonary vasculatures are mildly conge sted. Stable appearance of the left subclavian pacemaker. IMPRE SSION: Persistent congestive heart failure with pulmonary edema Elec tronically Signed by Sarah Marie on 05/30/2019 at 1544 Reported and signed by: Omid Marie M.D. CC: Anastacio Vences MD; Liliana Klein MD; Elly To NP Technologist: KRISTIN HADLEY, RT(R); Madeline MARTINEZ Trnscrd Date/Time/By: 05/30/2019 (1980) : By: Raine Orig Print D/T: S: 05/30/2019 (4032) PAGE 1 Signed Report MAGNESIUM 2019-05-30 11:20:00* Test Item Value Reference Range Interpretation Comments MAGNESIUM (test code = MAG) 1.8 mg/dL 1.8-2.4 N [id number] 08:17:00* Test Item Value Reference Range Interpretation Comments GLUBED (test code = GLUBED) 96 mg/dL 74-106 N Performed by certified abrasive coating machine operator at [facility] BASIC METABOLIC [id number] 07:41:00* Test Item Value Reference Range Interpretation Comments SODIUM (test code = NA) 140 mmol/L 136-145 N POTASSIUM (test code = K) 3.4 mmol/L 3.5-5.1 L CHLORIDE (test code = CL) 103.0 mmol/L 98-107 N CARBON DIOXIDE (test code = CO2) 28.0 mmol/L 21-32 N ANION GAP (test code = GAP) 12.4 10-20 N GLUCOSE (test code = GLU) 113 mg/dL 74-106 H BLOOD UREA NITROGEN (test code = BUN) 20 mg/dL 7-18 H GLOMERULAR FILTRATION RATE (test code = GFR) 59 mL/min >=60 Estimated GFR by using Modified MDRD formula.Chronic kidney disease is defined as either kidney damageor GFR <60 mL/min/1.73 m2 for >3 months. CREATININE (test code = CREAT) 1.00 mg/dL 0.55-1.02 N Note change in reference range due to change in reagent. BUN/CREATININE RATIO (test code = BUN/CREA) 20.0 10-20 N CALCIUM (test code = CA) 9.2 mg/dL 8.5-10.1 N [id number] 07:41:00* Test Item Value Reference Range Interpretation Comments DIGOXIN (test code = DIG) 0.9 ng/mL 0.90-2.0 N NO TE: Spironolactone interference may cause a decrease inreported Digoxin results of 11-30 %. BASIC METABOLIC [id number] 07:27:00* Test Item Value Reference Range Interpretation Comments SODIUM (test code = NA) 140 mmol/L 136-145 N POTASSIUM (test code = K) 3.4 mmol/L 3.5-5.1 L CHLORIDE (test code = CL) 103.0 mmol/L 98-107 N CARBON DIOXIDE (test code = CO2) mmol/L 21-32 ANION GAP (test code = GAP) 10-20 GLUCOSE (test code = GLU) mg/dL 74-106 BLOOD UREA NITROGEN (test code = BUN) mg/dL 7-18 GLOMERULAR FILTRATION RATE (test code = GFR) mL/min >=60 CREATININE (test code = CREAT) mg/dL 0.55-1.02 BUN/CREATININE RATIO (test code = BUN/CREA) 10-20 CALCIUM (test code = CA) mg/dL 8.5-10.1 [id number] 07:27:00* Test Item Value Reference Range Interpretation Comments DIGOXIN (test code = DIG) ng/mL 0.90-2.0 CBC W/AUTO [id number] 06:52:00* Test Item Value Reference Range Interpretation Comments WHITE BLOOD CELL (test code = WBC) 8.5 K/mm3 4.5-12.5 N RED BLOOD CELL (test code = RBC) 3.97 mill/mm3 3.7-5.2 N HEMOGLOBIN (test code = HGB) 12.5 gram/dL 11.5-15.5 N HEMATOCRIT (test code = HCT) 38.5 % 36.0-46.0 N MEAN CELL VOLUME (test code = MCV) 97.0 fL 80-98 N MEAN CELL HGB (test code = MCH) 31.5 picogram 27.0-33.0 N MEAN CELL HGB CONCETRATION (test code = MCHC) 32.5 gram/dL 33.0-36. 0 L RED CELL DISTRIBUTION WIDTH (test code = RDW) 19.1 % 11.6-16. 2 H RED CELL DISTRIBUTION WIDTH SD (test code = RDW-SD) 67.7 fL 37 .0-51.0 H PLATELET COUNT (test code = PLT) 172 K/mm3 150-450 N MEAN PLATELET VOLUME (test code = MPV) 11.6 fL 6.7-11.0 H NEUTROPHIL % (test code = NT%) 84.2 % 39.0-69.0 H IMMATURE GRANULOCYTE % (test code = IG%) 0.4 % 0.0-5.0 N LYMPHOCYTE % (test code = LY%) 5.9 % 25.0-55.0 L MONOCYTE % (test code = MO%) 7.0 % 0.0-10.0 N EOSINOPHIL % (test code = EO%) 1.8 % 0.0-5.0 N BASOPHIL % (test code = BA%) 0.7 % 0.0-1.0 N NUCLEATED RBC % (test code = NRBC%) 0.0 % 0-0 N NEUTROPHIL # (test code = NT#) 7.13 K/mm3 1.8-7.7 N IMMATURE GRANULOCYTE # (test code = IG#) 0.03 x10 3/uL 0-0.03 N LYMPHOCYTE # (test code = LY#) 0.50 K/mm3 1.0-5.0 L MONOCYTE # (test code = MO#) 0.59 K/mm3 0-0.8 N EOSINOPHIL # (test code = EO#) 0.15 K/mm3 0.0-0.5 N BASOPHIL # (test code = BA#) 0.06 K/mm3 0.0-0.2 N NUCLEATED RBC # (test code = NRBC#) 0.00 K/mm3 0.0-0.1 N MANUAL DIFF REQUIRED (test code = MDIFF) NO CBC W/AUTO [id number] 06:51:00* Test Item Value Reference Range Interpretation Comments WHITE BLOOD CELL (test code = WBC) K/mm3 4.5-12.5 RED BLOOD CELL (test code = RBC) mill/mm3 3.7-5.2 HEMOGLOBIN (test code = HGB) 12.5 gram/dL 11.5-15.5 N HEMATOCRIT (test code = HCT) 38.5 % 36.0-46.0 N MEAN CELL VOLUME (test code = MCV) fL 80-98 MEAN CELL HGB (test code = MCH) picogram 27.0-33.0 MEAN CELL HGB CONCETRATION (test code = MCHC) gram/dL 33.0-36. 0 RED CELL DISTRIBUTION WIDTH (test code = RDW) % 11.6-16. 2 RED CELL DISTRIBUTION WIDTH SD (test code = RDW-SD) fL 37 .0-51.0 PLATELET COUNT (test code = PLT) K/mm3 150-450 MEAN PLATELET VOLUME (test code = MPV) fL 6.7-11.0 NEUTROPHIL % (test code = NT%) % 39.0-69.0 IMMATURE GRANULOCYTE % (test code = IG%) % 0.0-5.0 LYMPHOCYTE % (test code = LY%) % 25.0-55.0 MONOCYTE % (test code = MO%) % 0.0-10.0 EOSINOPHIL % (test code = EO%) % 0.0-5.0 BASOPHIL % (test code = BA%) % 0.0-1.0 NEUTROPHIL # (test code = NT#) K/mm3 1.8-7.7 LYMPHOCYTE # (test code = LY#) K/mm3 1.0-5.0 MONOCYTE # (test code = MO#) K/mm3 0-0.8 EOSINOPHIL # (test code = EO#) K/mm3 0.0-0.5 BASOPHIL # (test code = BA#) K/mm3 0.0-0.2 [id number] 03:49:00* Test Item Value Reference Range Interpretation Comments GLUBED (test code = GLUBED) 110 mg/dL 74-106 H Performed by certified abrasive coating machine operator at [facility] [id number] 19:36:00* Test Item Value Reference Range Interpretation Comments GLUBED (test code = GLUBED) 111 mg/dL 74-106 H Performed by certified abrasive coating machine operator at [facility] [id number] 16:40:00* Test Item Value Reference Range Interpretation Comments GLUBED (test code = GLUBED) 109 mg/dL 74-106 H Performed by certified abrasive coating machine operator at [facility] [id number] 12:12:00* Test Item Value Reference Range Interpretation Comments GLUBED (test code = GLUBED) 132 mg/dL 74-106 H Performed by certified abrasive coating machine operator at [facility] [id number] 08:16:00* Test Item Value Reference Range Interpretation Comments GLUBED (test code = GLUBED) 112 mg/dL 74-106 H Performed by certified abrasive coating machine operator [facility]~ [id number] 05:42:00* Test Item Value Reference Range Interpretation Comments GLUBED (test code = GLUBED) 94 mg/dL 74-106 N Performed by certified abrasive coating machine operator at [facility] BASIC METABOLIC [id number] 05:40:00* Test Item Value Reference Range Interpretation Comments SODIUM (test code = NA) 141 mmol/L 136-145 N POTASSIUM (test code = K) 3.6 mmol/L 3.5-5.1 N CHLORIDE (test code = CL) 104.0 mmol/L 98-107 N CARBON DIOXIDE (test code = CO2) 29.0 mmol/L 21-32 N ANION GAP (test code = GAP) 11.6 10-20 N GLUCOSE (test code = GLU) 107 mg/dL 74-106 H BLOOD UREA NITROGEN (test code = BUN) 24 mg/dL 7-18 H GLOMERULAR FILTRATION RATE (test code = GFR) 44 mL/min >=60 Estimated GFR by using Modified MDRD formula.Chronic kidney disease is defined as either kidney damageor GFR <60 mL/min/1.73 m2 for >3 months. CREATININE (test code = CREAT) 1.30 mg/dL 0.55-1.02 H Note change in reference range due to change in reagent. BUN/CREATININE RATIO (test code = BUN/CREA) 18.5 10-20 N CALCIUM (test code = CA) 9.1 mg/dL 8.5-10.1 N BASIC METABOLIC [id number] 05:34:00* Test Item Value Reference Range Interpretation Comments SODIUM (test code = NA) 141 mmol/L 136-145 N POTASSIUM (test code = K) 3.6 mmol/L 3.5-5.1 N CHLORIDE (test code = CL) 104.0 mmol/L 98-107 N CARBON DIOXIDE (test code = CO2) mmol/L 21-32 ANION GAP (test code = GAP) 10-20 GLUCOSE (test code = GLU) mg/dL 74-106 BLOOD UREA NITROGEN (test code = BUN) mg/dL 7-18 GLOMERULAR FILTRATION RATE (test code = GFR) mL/min >=60 CREATININE (test code = CREAT) mg/dL 0.55-1.02 BUN/CREATININE RATIO (test code = BUN/CREA) 10-20 CALCIUM (test code = CA) mg/dL 8.5-10.1 CBC W/AUTO [id number] 05:11:00* Test Item Value Reference Range Interpretation Comments WHITE BLOOD CELL (test code = WBC) 5.9 K/mm3 4.5-12.5 N RED BLOOD CELL (test code = RBC) 3.85 mill/mm3 3.7-5.2 N HEMOGLOBIN (test code = HGB) 12.2 gram/dL 11.5-15.5 N HEMATOCRIT (test code = HCT) 37.4 % 36.0-46.0 N MEAN CELL VOLUME (test code = MCV) 97.1 fL 80-98 N MEAN CELL HGB (test code = MCH) 31.7 picogram 27.0-33.0 N MEAN CELL HGB CONCETRATION (test code = MCHC) 32.6 gram/dL 33.0-36. 0 L RED CELL DISTRIBUTION WIDTH (test code = RDW) 18.8 % 11.6-16. 2 H RED CELL DISTRIBUTION WIDTH SD (test code = RDW-SD) 66.4 fL 37 .0-51.0 H PLATELET COUNT (test code = PLT) 152 K/mm3 150-450 N MEAN PLATELET VOLUME (test code = MPV) 11.2 fL 6.7-11.0 H NEUTROPHIL % (test code = NT%) 78.1 % 39.0-69.0 H IMMATURE GRANULOCYTE % (test code = IG%) 0.7 % 0.0-5.0 N LYMPHOCYTE % (test code = LY%) 7.8 % 25.0-55.0 L MONOCYTE % (test code = MO%) 10.0 % 0.0-10.0 N EOSINOPHIL % (test code = EO%) 2.4 % 0.0-5.0 N BASOPHIL % (test code = BA%) 1.0 % 0.0-1.0 N NUCLEATED RBC % (test code = NRBC%) 0.0 % 0-0 N NEUTROPHIL # (test code = NT#) 4.59 K/mm3 1.8-7.7 N IMMATURE GRANULOCYTE # (test code = IG#) 0.04 x10 3/uL 0-0.03 H LYMPHOCYTE # (test code = LY#) 0.46 K/mm3 1.0-5.0 L MONOCYTE # (test code = MO#) 0.59 K/mm3 0-0.8 N EOSINOPHIL # (test code = EO#) 0.14 K/mm3 0.0-0.5 N BASOPHIL # (test code = BA#) 0.06 K/mm3 0.0-0.2 N NUCLEATED RBC # (test code = NRBC#) 0.00 K/mm3 0.0-0.1 N MANUAL DIFF REQUIRED (test code = MDIFF) NO CBC W/AUTO [id number] 05:10:00* Test Item Value Reference Range Interpretation Comments WHITE BLOOD CELL (test code = WBC) K/mm3 4.5-12.5 RED BLOOD CELL (test code = RBC) mill/mm3 3.7-5.2 HEMOGLOBIN (test code = HGB) 12.2 gram/dL 11.5-15.5 N HEMATOCRIT (test code = HCT) 37.4 % 36.0-46.0 N MEAN CELL VOLUME (test code = MCV) fL 80-98 MEAN CELL HGB (test code = MCH) picogram 27.0-33.0 MEAN CELL HGB CONCETRATION (test code = MCHC) gram/dL 33.0-36. 0 RED CELL DISTRIBUTION WIDTH (test code = RDW) % 11.6-16. 2 RED CELL DISTRIBUTION WIDTH SD (test code = RDW-SD) fL 37 .0-51.0 PLATELET COUNT (test code = PLT) K/mm3 150-450 MEAN PLATELET VOLUME (test code = MPV) fL 6.7-11.0 NEUTROPHIL % (test code = NT%) % 39.0-69.0 IMMATURE GRANULOCYTE % (test code = IG%) % 0.0-5.0 LYMPHOCYTE % (test code = LY%) % 25.0-55.0 MONOCYTE % (test code = MO%) % 0.0-10.0 EOSINOPHIL % (test code = EO%) % 0.0-5.0 BASOPHIL % (test code = BA%) % 0.0-1.0 NEUTROPHIL # (test code = NT#) K/mm3 1.8-7.7 LYMPHOCYTE # (test code = LY#) K/mm3 1.0-5.0 MONOCYTE # (test code = MO#) K/mm3 0-0.8 EOSINOPHIL # (test code = EO#) K/mm3 0.0-0.5 BASOPHIL # (test code = BA#) K/mm3 0.0-0.2 [id number] 19:42:00* Test Item Value Reference Range Interpretation Comments GLUBED (test code = GLUBED) 123 mg/dL 74-106 H Performed by certified abrasive coating machine operator at [facility] [id number] 18:51:00* Test Item Value Reference Range Interpretation Comments GLUBED (test code = GLUBED) 153 mg/dL 74-106 H Performed by certified abrasive coating machine operator at [facility] [id number] 18:40:00* Test Item Value Reference Range Interpretation Comments GLUBED (test code = GLUBED) 134 mg/dL 74-106 H Performed by certified abrasive coating machine operator at [facility] [id number] 15:42:00* Test Item Value Reference Range Interpretation Comments MAGNESIUM (test code = MAG) 2.3 mg/dL 1.8-2.4 N JOHN ADVISED NURSE [id number] V.LAB.RAVEN 05/28/19 [id number] 08:39:00 * Test Item Value Reference Range Interpretation Comments GLUBED (test code = GLUBED) 125 mg/dL 74-106 H Performed by certified abrasive coating machine operator at [facility] BASIC METABOLIC [id number] 05:12:00* Test Item Value Reference Range Interpretation Comments SODIUM (test code = NA) 140 mmol/L 136-145 N POTASSIUM (test code = K) 3.3 mmol/L 3.5-5.1 L CHLORIDE (test code = CL) 102.0 mmol/L 98-107 N CARBON DIOXIDE (test code = CO2) 29.0 mmol/L 21-32 N ANION GAP (test code = GAP) 12.3 10-20 N GLUCOSE (test code = GLU) 108 mg/dL 74-106 H BLOOD UREA NITROGEN (test code = BUN) 32 mg/dL 7-18 H GLOMERULAR FILTRATION RATE (test code = GFR) 30 mL/min >=60 Estimated GFR by using Modified MDRD formula.Chronic kidney disease is defined as either kidney damageor GFR <60 mL/min/1.73 m2 for >3 months. CREATININE (test code = CREAT) 1.80 mg/dL 0.55-1.02 H Note change in reference range due to change in reagent. BUN/CREATININE RATIO (test code = BUN/CREA) 17.8 10-20 N CALCIUM (test code = CA) 9.4 mg/dL 8.5-10.1 N BASIC METABOLIC [id number] 04:56:00* Test Item Value Reference Range Interpretation Comments SODIUM (test code = NA) 140 mmol/L 136-145 N POTASSIUM (test code = K) 3.3 mmol/L 3.5-5.1 L CHLORIDE (test code = CL) 102.0 mmol/L 98-107 N CARBON DIOXIDE (test code = CO2) mmol/L 21-32 ANION GAP (test code = GAP) 10-20 GLUCOSE (test code = GLU) mg/dL 74-106 BLOOD UREA NITROGEN (test code = BUN) mg/dL 7-18 GLOMERULAR FILTRATION RATE (test code = GFR) mL/min >=60 CREATININE (test code = CREAT) mg/dL 0.55-1.02 BUN/CREATININE RATIO (test code = BUN/CREA) 10-20 CALCIUM (test code = CA) mg/dL 8.5-10.1 CBC W/AUTO [id number] 04:52:00* Test Item Value Reference Range Interpretation Comments WHITE BLOOD CELL (test code = WBC) 7.2 K/mm3 4.5-12.5 N RED BLOOD CELL (test code = RBC) 4.27 mill/mm3 3.7-5.2 N HEMOGLOBIN (test code = HGB) 13.4 gram/dL 11.5-15.5 N HEMATOCRIT (test code = HCT) 41.1 % 36.0-46.0 N MEAN CELL VOLUME (test code = MCV) 96.3 fL 80-98 N MEAN CELL HGB (test code = MCH) 31.4 picogram 27.0-33.0 N MEAN CELL HGB CONCETRATION (test code = MCHC) 32.6 gram/dL 33.0-36. 0 L RED CELL DISTRIBUTION WIDTH (test code = RDW) 18.6 % 11.6-16. 2 H RED CELL DISTRIBUTION WIDTH SD (test code = RDW-SD) 66.1 fL 37 .0-51.0 H PLATELET COUNT (test code = PLT) 163 K/mm3 150-450 N MEAN PLATELET VOLUME (test code = MPV) 11.3 fL 6.7-11.0 H NEUTROPHIL % (test code = NT%) 80.1 % 39.0-69.0 H IMMATURE GRANULOCYTE % (test code = IG%) 0.4 % 0.0-5.0 N LYMPHOCYTE % (test code = LY%) 7.2 % 25.0-55.0 L MONOCYTE % (test code = MO%) 9.4 % 0.0-10.0 N EOSINOPHIL % (test code = EO%) 1.8 % 0.0-5.0 N BASOPHIL % (test code = BA%) 1.1 % 0.0-1.0 H NUCLEATED RBC % (test code = NRBC%) 0.0 % 0-0 N NEUTROPHIL # (test code = NT#) 5.77 K/mm3 1.8-7.7 N IMMATURE GRANULOCYTE # (test code = IG#) 0.03 x10 3/uL 0-0.03 N LYMPHOCYTE # (test code = LY#) 0.52 K/mm3 1.0-5.0 L MONOCYTE # (test code = MO#) 0.68 K/mm3 0-0.8 N EOSINOPHIL # (test code = EO#) 0.13 K/mm3 0.0-0.5 N BASOPHIL # (test code = BA#) 0.08 K/mm3 0.0-0.2 N NUCLEATED RBC # (test code = NRBC#) 0.00 K/mm3 0.0-0.1 N CBC W/AUTO [id number] 04:51:00* Test Item Value Reference Range Interpretation Comments WHITE BLOOD CELL (test code = WBC) K/mm3 4.5-12.5 RED BLOOD CELL (test code = RBC) mill/mm3 3.7-5.2 HEMOGLOBIN (test code = HGB) 13.4 gram/dL 11.5-15.5 N HEMATOCRIT (test code = HCT) 41.1 % 36.0-46.0 N MEAN CELL VOLUME (test code = MCV) fL 80-98 MEAN CELL HGB (test code = MCH) picogram 27.0-33.0 MEAN CELL HGB CONCETRATION (test code = MCHC) gram/dL 33.0-36. 0 RED CELL DISTRIBUTION WIDTH (test code = RDW) % 11.6-16. 2 RED CELL DISTRIBUTION WIDTH SD (test code = RDW-SD) fL 37 .0-51.0 PLATELET COUNT (test code = PLT) K/mm3 150-450 MEAN PLATELET VOLUME (test code = MPV) fL 6.7-11.0 NEUTROPHIL % (test code = NT%) % 39.0-69.0 IMMATURE GRANULOCYTE % (test code = IG%) % 0.0-5.0 LYMPHOCYTE % (test code = LY%) % 25.0-55.0 MONOCYTE % (test code = MO%) % 0.0-10.0 EOSINOPHIL % (test code = EO%) % 0.0-5.0 BASOPHIL % (test code = BA%) % 0.0-1.0 NEUTROPHIL # (test code = NT#) K/mm3 1.8-7.7 LYMPHOCYTE # (test code = LY#) K/mm3 1.0-5.0 MONOCYTE # (test code = MO#) K/mm3 0-0.8 EOSINOPHIL # (test code = EO#) K/mm3 0.0-0.5 BASOPHIL # (test code = BA#) K/mm3 0.0-0.2 [id number] 03:09:00* Test Item Value Reference Range Interpretation Comments GLUBED (test code = GLUBED) 98 mg/dL 74-106 N Performed by certified abrasive coating machine operator at [facility] [id number] 21:11:00* Test Item Value Reference Range Interpretation Comments GLUBED (test code = GLUBED) 93 mg/dL 74-106 N Performed by certified abrasive coating machine operator at [facility] [id number] 15:51:00* Test Item Value Reference Range Interpretation Comments GLUBED (test code = GLUBED) 64 mg/dL 74-106 L Performed by certified abrasive coating machine operator at [facility] - XR SWLW MARY W/C [id number] 14:17:00 FAX: Anastacio Puckett MD [phone] [place]: St: ADM FAX: Bhumika Forbes MD [phone] FAX: Titus Saucedo Name: JIGNESH WAYNE [facility] : 1970 Age/S: 49/F [address] [facility] Unit #: [id number] Loc: V.S17 [place] [address] Phys: Titus Saucedo Acct: [id number] Dis Date: Status: ADM IN ONE #: [phone] Exam Date: 05/27/2019 1155 FAX #: [phone] Reason: DYSPHASIA EXAMS: CPT CODE: [id number] XR SWLW FUNC W/C V 03536 HISTORY: Dysph agia. Location: [facility]. This study was performed in con cert with the speech pathologist. Varying grades of barium were ad ministered. Aspiration with thin liquids. IMPRESSI ON: Aspiration with thin liquids. For detail ed evaluation please see the accompanying sheet provided by the speech t herapist. Fluoroscopy time utilized was 86.4 seconds and 10 images obtai ondina. at 141 7 Reported and signed by: Rell Sahni M.D. CC: Anastacio Vences MD; Bhumika Adame MD; Titus Saucedo Technologist: Gretel Araiza RT(R) Trnscrd Date/Time/By: 05/27/2019 (1924) : By: [email or web address] Orig Print D/T: S: 05/27/2019 (9433) PAGE 1 Signed Report [id number] 13:05:00* Test Item Value Reference Range Interpretation Comments GLUBED (test code = GLUBED) 76 mg/dL 74-106 N Performed by certified abrasive coating machine operator at [facility] [id number] 09:48:00* Test Item Value Reference Range Interpretation Comments GLUBED (test code = GLUBED) 70 mg/dL 74-106 L Performed by certified abrasive coating machine operator at [facility] [id number] 09:48:00* Test Item Value Reference Range Interpretation Comments GLUBED (test code = GLUBED) 65 mg/dL 74-106 L Performed by certified abrasive coating machine operator at [facility] COMPREHENSIVE METABOLIC [id number] 04:23:00* Test Item Value Reference Range Interpretation Comments SODIUM (test code = NA) 136 mmol/L 136-145 N POTASSIUM (test code = K) 3.6 mmol/L 3.5-5.1 N CHLORIDE (test code = CL) 98.0 mmol/L 98-107 N CARBON DIOXIDE (test code = CO2) 28.0 mmol/L 21-32 N ANION GAP (test code = GAP) 13.6 10-20 N GLUCOSE (test code = GLU) 64 mg/dL 74-106 L BLOOD UREA NITROGEN (test code = BUN) 28 mg/dL 7-18 H GLOMERULAR FILTRATION RATE (test code = GFR) 30 mL/min >=60 Estimated GFR by using Modified MDRD formula.Chronic kidney disease is defined as either kidney damageor GFR <60 mL/min/1.73 m2 for >3 months. CREATININE (test code = CREAT) 1.80 mg/dL 0.55-1.02 H Note change in reference range due to change in reagent. BUN/CREATININE RATIO (test code = BUN/CREA) 15.6 10-20 N TOTAL PROTEIN (test code = PROT) 7.0 gram/dL 6.4-8.2 N ALBUMIN (test code = ALB) 2.8 g/dL 3.4-5.0 L GLOBULIN (test code = GLOB) 4.2 gram/dL 2.7-4.2 N ALBUMIN/GLOBULIN RATIO (test code = A/G) 0.7 0.75-1.50 L CALCIUM (test code = CA) 9.1 mg/dL 8.5-10.1 N BILIRUBIN TOTAL (test code = BILT) 1.50 mg/dL 0.0-1.0 H SGOT/AST (test code = AST) 21 IUnit/L 15-37 N SGPT/ALT (test code = ALT) 14 IUnit/L 12-78 N ALKALINE PHOSPHATASE TOTAL (test code = ALKP) 154 IUnit/L 45-117 H Note change in reference range due to change in reagent. [id number] 04:23:00* Test Item Value Reference Range Interpretation Comments PHOSPHORUS (test code = PHOS) 3.0 mg/dL 2.5-4.9 N [id number] 04:23:00* Test Item Value Reference Range Interpretation Comments MAGNESIUM (test code = MAG) 2.4 mg/dL 1.8-2.4 N CALCIUM [id number] 04:23:00* Test Item Value Reference Range Interpretation Comments CALCIUM IONIZED (test code = CARYN) 1.20 mmol/L 1.12-1.32 N COMPREHENSIVE METABOLIC [id number] 04:18:00* Test Item Value Reference Range Interpretation Comments SODIUM (test code = NA) 136 mmol/L 136-145 N POTASSIUM (test code = K) 3.6 mmol/L 3.5-5.1 N CHLORIDE (test code = CL) 98.0 mmol/L 98-107 N CARBON DIOXIDE (test code = CO2) mmol/L 21-32 ANION GAP (test code = GAP) 10-20 GLUCOSE (test code = GLU) mg/dL 74-106 BLOOD UREA NITROGEN (test code = BUN) mg/dL 7-18 GLOMERULAR FILTRATION RATE (test code = GFR) mL/min >=60 CREATININE (test code = CREAT) mg/dL 0.55-1.02 BUN/CREATININE RATIO (test code = BUN/CREA) 10-20 TOTAL PROTEIN (test code = PROT) gram/dL 6.4-8.2 ALBUMIN (test code = ALB) 2.8 g/dL 3.4-5.0 L GLOBULIN (test code = GLOB) gram/dL 2.7-4.2 ALBUMIN/GLOBULIN RATIO (test code = A/G) 0.75-1.50 CALCIUM (test code = CA) mg/dL 8.5-10.1 BILIRUBIN TOTAL (test code = BILT) mg/dL 0.0-1.0 SGOT/AST (test code = AST) IUnit/L 15-37 SGPT/ALT (test code = ALT) IUnit/L 12-78 ALKALINE PHOSPHATASE TOTAL (test code = ALKP) IUnit/L 45-117 [id number] 04:18:00* Test Item Value Reference Range Interpretation Comments PHOSPHORUS (test code = PHOS) mg/dL 2.5-4.9 [id number] 04:18:00* Test Item Value Reference Range Interpretation Comments MAGNESIUM (test code = MAG) mg/dL 1.8-2.4 CALCIUM [id number] 04:18:00* Test Item Value Reference Range Interpretation Comments CALCIUM IONIZED (test code = CARYN) 1.20 mmol/L 1.12-1.32 N COMPREHENSIVE METABOLIC [id number] 04:17:00* Test Item Value Reference Range Interpretation Comments SODIUM (test code = NA) mmol/L 136-145 POTASSIUM (test code = K) mmol/L 3.5-5.1 CHLORIDE (test code = CL) mmol/L 98-107 CARBON DIOXIDE (test code = CO2) mmol/L 21-32 ANION GAP (test code = GAP) 10-20 GLUCOSE (test code = GLU) mg/dL 74-106 BLOOD UREA NITROGEN (test code = BUN) mg/dL 7-18 GLOMERULAR FILTRATION RATE (test code = GFR) mL/min >=60 CREATININE (test code = CREAT) mg/dL 0.55-1.02 BUN/CREATININE RATIO (test code = BUN/CREA) 10-20 TOTAL PROTEIN (test code = PROT) gram/dL 6.4-8.2 ALBUMIN (test code = ALB) g/dL 3.4-5.0 GLOBULIN (test code = GLOB) gram/dL 2.7-4.2 ALBUMIN/GLOBULIN RATIO (test code = A/G) 0.75-1.50 CALCIUM (test code = CA) mg/dL 8.5-10.1 BILIRUBIN TOTAL (test code = BILT) mg/dL 0.0-1.0 SGOT/AST (test code = AST) IUnit/L 15-37 SGPT/ALT (test code = ALT) IUnit/L 12-78 ALKALINE PHOSPHATASE TOTAL (test code = ALKP) IUnit/L 45-117 [id number] 04:17:00* Test Item Value Reference Range Interpretation Comments PHOSPHORUS (test code = PHOS) mg/dL 2.5-4.9 [id number] 04:17:00* Test Item Value Reference Range Interpretation Comments MAGNESIUM (test code = MAG) mg/dL 1.8-2.4 CALCIUM [id number] 04:17:00* Test Item Value Reference Range Interpretation Comments CALCIUM IONIZED (test code = CARYN) 1.20 mmol/L 1.12-1.32 N CBC W/AUTO [id number] 04:11:00* Test Item Value Reference Range Interpretation Comments WHITE BLOOD CELL (test code = WBC) 6.8 K/mm3 4.5-12.5 N RED BLOOD CELL (test code = RBC) 4.02 mill/mm3 3.7-5.2 N HEMOGLOBIN (test code = HGB) 12.6 gram/dL 11.5-15.5 N HEMATOCRIT (test code = HCT) 40.2 % 36.0-46.0 N MEAN CELL VOLUME (test code = MCV) 100.0 fL 80-98 H MEAN CELL HGB (test code = MCH) 31.3 picogram 27.0-33.0 N MEAN CELL HGB CONCETRATION (test code = MCHC) 31.3 gram/dL 33.0-36. 0 L RED CELL DISTRIBUTION WIDTH (test code = RDW) 18.9 % 11.6-16. 2 H RED CELL DISTRIBUTION WIDTH SD (test code = RDW-SD) 69.6 fL 37 .0-51.0 H PLATELET COUNT (test code = PLT) 141 K/mm3 150-450 L MEAN PLATELET VOLUME (test code = MPV) 11.7 fL 6.7-11.0 H NEUTROPHIL % (test code = NT%) 86.0 % 39.0-69.0 H IMMATURE GRANULOCYTE % (test code = IG%) 0.3 % 0.0-5.0 N LYMPHOCYTE % (test code = LY%) 4.9 % 25.0-55.0 L MONOCYTE % (test code = MO%) 6.3 % 0.0-10.0 N EOSINOPHIL % (test code = EO%) 1.6 % 0.0-5.0 N BASOPHIL % (test code = BA%) 0.9 % 0.0-1.0 N NUCLEATED RBC % (test code = NRBC%) 0.0 % 0-0 N NEUTROPHIL # (test code = NT#) 5.85 K/mm3 1.8-7.7 N IMMATURE GRANULOCYTE # (test code = IG#) 0.02 x10 3/uL 0-0.03 N LYMPHOCYTE # (test code = LY#) 0.33 K/mm3 1.0-5.0 L MONOCYTE # (test code = MO#) 0.43 K/mm3 0-0.8 N EOSINOPHIL # (test code = EO#) 0.11 K/mm3 0.0-0.5 N BASOPHIL # (test code = BA#) 0.06 K/mm3 0.0-0.2 N NUCLEATED RBC # (test code = NRBC#) 0.00 K/mm3 0.0-0.1 N MANUAL DIFF REQUIRED (test code = MDIFF) NO [id number] 03:24:00* Test Item Value Reference Range Interpretation Comments GLUBED (test code = GLUBED) 71 mg/dL 74-106 L Performed by certified abrasive coating machine operator at [facility] [id number] 21:07:00* Test Item Value Reference Range Interpretation Comments GLUBED (test code = GLUBED) 68 mg/dL 74-106 L Performed by certified abrasive coating machine operator at [facility] [id number] 18:01:00* Test Item Value Reference Range Interpretation Comments GLUBED (test code = GLUBED) 66 mg/dL 74-106 L Performed by certified abrasive coating machine operator at [facility] - XR CHEST 1 [id number] 07:49:00 FAX: Anastacio Puckett MD [phone] [place]: B St: ADM FAX: Bhumika Forbes MD [phone] FAX: Titus Saucedo Name: JIGNESH WAYNENAHOMIMadeline [facility] : 1970 Age/S: 49/F [address] Unit #: [id number] Loc: V.S17 [place] [address] Phys: Titus Saucedo Acct: [id number] Dis Date: Status: ADM IN PH ONE #: [phone] Exam Date: 05/26/2019 0559 FAX #: [phone] Reason: pulmonary edema, resp failure EXAMS: CPT CODE: [id number] XR CHEST 1 V 02125 CLINICAL HISTO RY: pulmonary edema, respiratory failure TECHNIQUE: AP chest x-ray COMPARISON: Previous day IMPRESSION: No significant interval change. Right chest tube with without pneu mothorax. Patchy bibasilar airspace consolidation. No pleural effusion. Cardiomegaly. Cardiac pacemaker. ET and NG tubes have been removed. Righ t central venous catheter remains in place. LOCATION: [facility] Electronical ly Signed by Daniela Maria D.O. on 05/26/2019 at 0749 Report ed and signed by: Daniela Maria D.O. CC: Anastacio Vences MD; Imer Adame MD; Titus Saucedo Technologist: VICKY Wu Trnscrd Date/Time/By: 05/26/2019 (0749) : By: [email or web address] Orig Print D/T: S: 05/26/2019 (0752) PAGE 1 Signed Report [id number] 07:25:00* Test Item Value Reference Range Interpretation Comments VANCOMYCIN (test code = VANCO) 12.3 UG/ML 5.0-45.0 N COMPREHENSIVE METABOLIC [id number] 02:56:00* Test Item Value Reference Range Interpretation Comments SODIUM (test code = NA) 130 mmol/L 136-145 L POTASSIUM (test code = K) 4.7 mmol/L 3.5-5.1 N CHLORIDE (test code = CL) 91.0 mmol/L 98-107 L CARBON DIOXIDE (test code = CO2) 31.0 mmol/L 21-32 N ANION GAP (test code = GAP) 12.7 10-20 N GLUCOSE (test code = GLU) 127 mg/dL 74-106 H BLOOD UREA NITROGEN (test code = BUN) 28 mg/dL 7-18 H GLOMERULAR FILTRATION RATE (test code = GFR) 25 mL/min >=60 Estimated GFR by using Modified MDRD formula.Chronic kidney disease is defined as either kidney damageor GFR <60 mL/min/1.73 m2 for >3 months. CREATININE (test code = CREAT) 2.10 mg/dL 0.55-1.02 H Note change in reference range due to change in reagent. BUN/CREATININE RATIO (test code = BUN/CREA) 13.3 10-20 N TOTAL PROTEIN (test code = PROT) 7.3 gram/dL 6.4-8.2 N ALBUMIN (test code = ALB) 3.1 g/dL 3.4-5.0 L GLOBULIN (test code = GLOB) 4.2 gram/dL 2.7-4.2 N ALBUMIN/GLOBULIN RATIO (test code = A/G) 0.7 0.75-1.50 L CALCIUM (test code = CA) 9.1 mg/dL 8.5-10.1 N BILIRUBIN TOTAL (test code = BILT) 1.70 mg/dL 0.0-1.0 H SGOT/AST (test code = AST) 23 IUnit/L 15-37 N SGPT/ALT (test code = ALT) 17 IUnit/L 12-78 N ALKALINE PHOSPHATASE TOTAL (test code = ALKP) 165 IUnit/L 45-117 H Note change in reference range due to change in reagent. [id number] 02:56:00* Test Item Value Reference Range Interpretation Comments PHOSPHORUS (test code = PHOS) 5.5 mg/dL 2.5-4.9 H [id number] 02:56:00* Test Item Value Reference Range Interpretation Comments MAGNESIUM (test code = MAG) 2.8 mg/dL 1.8-2.4 H CALCIUM [id number] 02:56:00* Test Item Value Reference Range Interpretation Comments CALCIUM IONIZED (test code = CARYN) 1.16 mmol/L 1.12-1.32 N COMPREHENSIVE METABOLIC [id number] 02:47:00* Test Item Value Reference Range Interpretation Comments SODIUM (test code = NA) 130 mmol/L 136-145 L POTASSIUM (test code = K) 4.7 mmol/L 3.5-5.1 N CHLORIDE (test code = CL) 91.0 mmol/L 98-107 L CARBON DIOXIDE (test code = CO2) 31.0 mmol/L 21-32 N ANION GAP (test code = GAP) 12.7 10-20 N GLUCOSE (test code = GLU) 127 mg/dL 74-106 H BLOOD UREA NITROGEN (test code = BUN) 28 mg/dL 7-18 H GLOMERULAR FILTRATION RATE (test code = GFR) 25 mL/min >=60 Estimated GFR by using Modified MDRD formula.Chronic kidney disease is defined as either kidney damageor GFR <60 mL/min/1.73 m2 for >3 months. CREATININE (test code = CREAT) 2.10 mg/dL 0.55-1.02 H Note change in reference range due to change in reagent. BUN/CREATININE RATIO (test code = BUN/CREA) 13.3 10-20 N TOTAL PROTEIN (test code = PROT) 7.3 gram/dL 6.4-8.2 N ALBUMIN (test code = ALB) 3.1 g/dL 3.4-5.0 L GLOBULIN (test code = GLOB) 4.2 gram/dL 2.7-4.2 N ALBUMIN/GLOBULIN RATIO (test code = A/G) 0.7 0.75-1.50 L CALCIUM (test code = CA) 9.1 mg/dL 8.5-10.1 N BILIRUBIN TOTAL (test code = BILT) 1.70 mg/dL 0.0-1.0 H SGOT/AST (test code = AST) 23 IUnit/L 15-37 N SGPT/ALT (test code = ALT) 17 IUnit/L 12-78 N ALKALINE PHOSPHATASE TOTAL (test code = ALKP) 165 IUnit/L 45-117 H Note change in reference range due to change in reagent. [id number] 02:47:00* Test Item Value Reference Range Interpretation Comments PHOSPHORUS (test code = PHOS) 5.5 mg/dL 2.5-4.9 H [id number] 02:47:00* Test Item Value Reference Range Interpretation Comments MAGNESIUM (test code = MAG) 2.8 mg/dL 1.8-2.4 H CALCIUM [id number] 02:47:00* Test Item Value Reference Range Interpretation Comments CALCIUM IONIZED (test code = CARYN) mmol/L 1.12-1.32 COMPREHENSIVE METABOLIC [id number] 02:35:00* Test Item Value Reference Range Interpretation Comments SODIUM (test code = NA) 130 mmol/L 136-145 L POTASSIUM (test code = K) 4.7 mmol/L 3.5-5.1 N CHLORIDE (test code = CL) 91.0 mmol/L 98-107 L CARBON DIOXIDE (test code = CO2) mmol/L 21-32 ANION GAP (test code = GAP) 10-20 GLUCOSE (test code = GLU) mg/dL 74-106 BLOOD UREA NITROGEN (test code = BUN) mg/dL 7-18 GLOMERULAR FILTRATION RATE (test code = GFR) mL/min >=60 CREATININE (test code = CREAT) mg/dL 0.55-1.02 BUN/CREATININE RATIO (test code = BUN/CREA) 10-20 TOTAL PROTEIN (test code = PROT) gram/dL 6.4-8.2 ALBUMIN (test code = ALB) g/dL 3.4-5.0 GLOBULIN (test code = GLOB) gram/dL 2.7-4.2 ALBUMIN/GLOBULIN RATIO (test code = A/G) 0.75-1.50 CALCIUM (test code = CA) mg/dL 8.5-10.1 BILIRUBIN TOTAL (test code = BILT) mg/dL 0.0-1.0 SGOT/AST (test code = AST) IUnit/L 15-37 SGPT/ALT (test code = ALT) IUnit/L 12-78 ALKALINE PHOSPHATASE TOTAL (test code = ALKP) IUnit/L 45-117 [id number] 02:35:00* Test Item Value Reference Range Interpretation Comments PHOSPHORUS (test code = PHOS) mg/dL 2.5-4.9 [id number] 02:35:00* Test Item Value Reference Range Interpretation Comments MAGNESIUM (test code = MAG) mg/dL 1.8-2.4 CALCIUM [id number] 02:35:00* Test Item Value Reference Range Interpretation Comments CALCIUM IONIZED (test code = CARYN) mmol/L 1.12-1.32 CBC W/AUTO [id number] 02:22:00* Test Item Value Reference Range Interpretation Comments WHITE BLOOD CELL (test code = WBC) 5.6 K/mm3 4.5-12.5 N RED BLOOD CELL (test code = RBC) 3.55 mill/mm3 3.7-5.2 L HEMOGLOBIN (test code = HGB) 11.3 gram/dL 11.5-15.5 L HEMATOCRIT (test code = HCT) 35.2 % 36.0-46.0 L MEAN CELL VOLUME (test code = MCV) 99.2 fL 80-98 H MEAN CELL HGB (test code = MCH) 31.8 picogram 27.0-33.0 N MEAN CELL HGB CONCETRATION (test code = MCHC) 32.1 gram/dL 33.0-36. 0 L RED CELL DISTRIBUTION WIDTH (test code = RDW) 18.8 % 11.6-16. 2 H RED CELL DISTRIBUTION WIDTH SD (test code = RDW-SD) 69.0 fL 37 .0-51.0 H PLATELET COUNT (test code = PLT) 106 K/mm3 150-450 L MEAN PLATELET VOLUME (test code = MPV) 11.6 fL 6.7-11.0 H NEUTROPHIL % (test code = NT%) 86.9 % 39.0-69.0 H IMMATURE GRANULOCYTE % (test code = IG%) 0.4 % 0.0-5.0 N LYMPHOCYTE % (test code = LY%) 6.2 % 25.0-55.0 L MONOCYTE % (test code = MO%) 4.4 % 0.0-10.0 N EOSINOPHIL % (test code = EO%) 1.2 % 0.0-5.0 N BASOPHIL % (test code = BA%) 0.9 % 0.0-1.0 N NUCLEATED RBC % (test code = NRBC%) 0.0 % 0-0 N NEUTROPHIL # (test code = NT#) 4.89 K/mm3 1.8-7.7 N IMMATURE GRANULOCYTE # (test code = IG#) 0.02 x10 3/uL 0-0.03 N LYMPHOCYTE # (test code = LY#) 0.35 K/mm3 1.0-5.0 L MONOCYTE # (test code = MO#) 0.25 K/mm3 0-0.8 N EOSINOPHIL # (test code = EO#) 0.07 K/mm3 0.0-0.5 N BASOPHIL # (test code = BA#) 0.05 K/mm3 0.0-0.2 N NUCLEATED RBC # (test code = NRBC#) 0.00 K/mm3 0.0-0.1 N [id number] 21:25:00* Test Item Value Reference Range Interpretation Comments GLUBED (test code = GLUBED) 110 mg/dL 74-106 H Performed by certified abrasive coating machine operator at [facility] [id number] 18:00:00* Test Item Value Reference Range Interpretation Comments GLUBED (test code = GLUBED) 118 mg/dL 74-106 H Performed by certified abrasive coating machine operator at [facility] ARTERIAL BLOOD [id number] 17:12:00* Test Item Value Reference Range Interpretation Comments ARTERIAL BLOOD GAS PH (test code = PHA) 7.44 7.35-7.45 N ARTERIAL BLOOD GAS PCO2 (test code = PCO2A) 38.9 mm Hg 35-45 N ARTERIAL BLOOD GAS PO2 (test code = PO2A) 131.8 mmHg 80-100 H BICARBONATE TOTAL HCO3 (test code = HCO3) 25.5 mmol/L 23.0-27.0 N BASE EXCESS (test code = MATEO) 1.3 mmol/L -3.0-5.0 N ABG O2 SATURATION (test code = SATA) 98.6 % 90.0-98.0 H ABG TYPE (test code = TYPEA) Arterial FIO2 (test code = FIO2A) 40.0 ABG VENT MODE (test code = MODEA) CPAP ABG PEEP (test code = PEEPA) 5.0 cmH2O ABG PRESSURE SUPPORT (test code = PSABG) 10 cmH2O ABG SITE (test code = SITEA) ARTERIAL LINE MODIFIED ALLENS (test code = MODALL) Unable CHECK PERFORMED HEMATOCRIT (test code = HCT/ABG) 35 % 35-47 N TOTAL HGB (test code = THB) 11.8 gram/dL 11.5-15.5 N HGB O2 SAT (test code = HBOSAT) 97.7 % 94.00-98.00 N CARBOXYHEMOGLOBIN (test code = HOHGBT) 0.7 %totalHg 0.5-1.5 N METHEMOGLOBIN (test code = METHGB) 0.2 % 0.0-1.50 N O2 CONTENT (test code = O2CT) 16.4 % vol 18.0-22.0 L CORTISOL [id number] 14:41:00* Test Item Value Reference Range Interpretation Comments CORTISOL BASELINE (test code = CORTBA) 9.04 mcg/dL The Baseline cortisol level should exceed 5 ug/dL. - XR CHEST 1 [id number] 14:28:00 FAX: Anastacio Puckett MD [phone] [place]: St: ADM FAX: Bhumika Forbes MD [phone] FAX: Kae Maria MD Name: JIGNESH WAYNE [facility] : 1970 Age/S: 49/F [address] Unit #: [id number] Loc: V.7 [place] [address] Phys: Kae Maria MD Acct: [id number] Dis Date: Status: ADM IN ONE #: [phone] Exam Date: 05/25/2019 1354 FAX #: [phone] Reason: EVALUATE CHEST TUBE REMOVAL EXAMS: CPT CODE: [id number] XR CHEST 1 V 94457 CLINICAL HISTO RY: Respiratory failure, EVALUATE CHEST TUBE REMOVAL TECHNIQUE: A P chest x-ray COMPARISON: Same date, 8 hours earlier. IMPRESSION: No significant interval change. Right chest tu be with without pneumothorax. Patchy bibasilar airspace consolidation. N o pleural effusion. Cardiomegaly. Cardiac pacemaker. ET tube, NG tube, a nd right central venous catheter. LOCATION: [place] at 1428 Reported and signed by: Daniela Maria D.O. CC: Anastacio Vences MD; Bhumika Adame MD; Kae Maria MD Technologist: Dorota Solis(R); Gretel ODONNELL(R) Trnscrd Date/Time/By: 05/25/2019 (3170) : By: [email or web address] Orig P rint D/T: S: 05/25/2019 (4341) PAGE 1 Signed Report [id number] 11:58:00* Test Item Value Reference Range Interpretation Comments GLUBED (test code = GLUBED) 137 mg/dL 74-106 H Performed by certified abrasive coating machine operator at [facility] [id number] 11:58:00* Test Item Value Reference Range Interpretation Comments GLUBED (test code = GLUBED) 141 mg/dL 74-106 H Performed by certified abrasive coating machine operator at [facility] - XR ABDOMEN AP 1 [id number] 10:13:00 FAX: Anastacio Puckett MD [phone] [place]: St: ADM FAX: Bhumika Forbes MD [phone] FAX: Titus Saucedo Name: JIGNESH WAYNE [facility] : 1970 Age/S: 49/F [address] Unit #: [id number] Loc: V.S[address] [place] [address] Phys: Titus Saucedo Acct: [id number] Dis Date: Status: ADM IN ONE #: [phone] Exam Date: 05/25/2019 1011 FAX #: [phone] Reason: constipation EXAMS: CPT CODE: [id number] XR ABDOMEN AP 1 V 67101 HISTORY: cons tipation TECHNIQUE: AP abdomen x-ray COMPARISON: N one FINDINGS: Proximal colon fecal retention. Nonobstructed bowel gas pattern. No intra-abdominal mass effect. No abnormal calcifications are observed. Right upper quadrant surgical clips. T12 vertebroplasty. IMPRESSION: Proximal colon fecal retention. Nonobstructive bowel gas pattern. LOCA TION: LP at 1013 Reported and signed by: Dainela aguilar D.O. CC: Anastacio Vences MD; Bhumika Adame MD; Titus Saucedo Technologist: Dorota Solis(R); Gretel Araiza RT(R) Trnscrd Date/Time/By: 05/25/2019 (1013) : By: [email or web address] Orig Print D/T: S: (1016) PAGE 1 Signed Rep ort - XR CHEST 1 [id number] 08:06:00 FAX: Anastacio Puckett MD [phone] [place]: St: ADM FAX: Bhumika Forbes MD [phone] FAX: Titus Saucedo --------- Name: JIGNESH WAYNE [facility] : 1970 Age/S: 49/F [address] it #: [id number] Loc: V.S17 [place] [address] Phys: Titus Saucedo Acct: [id number] Dis Date: Status: ADM IN PH ONE #: [phone] Exam Date: 05/25/2019 0515 FAX #: [phone] Reason: pulmonary edema, resp failure EXAMS: CPT CODE: [id number] XR CHEST 1 V 13167 CLINICAL HISTO RY: pulmonary edema, respiratory failure TECHNIQUE: AP chest x-ray COMPARISON: Previous day. IMPRESSION: No significant interval change. Right chest tube with without pne umothorax. Patchy bibasilar airspace consolidation. No pleural effusion. Cardiomegaly. Cardiac pacemaker. ET tube, NG tube, and right central ve nous catheter. LOCATION: LP at 0806 Reported and signed by: Daniela Maria D.O. CC: Anastacio Vences MD; Bhumika Adame MD; Titus Saucedo Technologist: [facility] KIRK LEONIE RT(R) Trnscrd Date/Time/By: 2019 (0806) : By: [email or web address] Orig Print D/T: S: 05/25/2019 (0810) PAGE 1 Signed Report [id number] 05:29:00* Test Item Value Reference Range Interpretation Comments GLUBED (test code = GLUBED) 75 mg/dL 74-106 N Performed by certified abrasive coating machine operator at [facility] [id number] 05:29:00* Test Item Value Reference Range Interpretation Comments GLUBED (test code = GLUBED) 69 mg/dL 74-106 L Performed by certified abrasive coating machine operator at [facility] ARTERIAL BLOOD [id number] 05:19:00* Test Item Value Reference Range Interpretation Comments ARTERIAL BLOOD GAS PH (test code = PHA) 7.54 7.35-7.45 H ARTERIAL BLOOD GAS PCO2 (test code = PCO2A) 30.8 mm Hg 35-45 L ARTERIAL BLOOD GAS PO2 (test code = PO2A) 92.5 mmHg 80-100 N BICARBONATE TOTAL HCO3 (test code = HCO3) 25.7 mmol/L 23.0-27.0 N BASE EXCESS (test code = MATEO) 3.7 mmol/L -3.0-5.0 N ABG O2 SATURATION (test code = SATA) 97.1 % 90.0-98.0 N ABG TYPE (test code = TYPEA) Arterial FIO2 (test code = FIO2A) 40.0 ABG VENT MODE (test code = MODEA) Assist Control ABG VENT RESP RATE (test code = RRA) 16.0 per min ABG TIDAL VOLUME (test code = TVA) 300.0 mL ABG PEEP (test code = PEEPA) 5.0 cmH2O ABG SITE (test code = SITEA) ARTERIAL LINE MODIFIED ALLENS (test code = MODALL) Unable CHECK PERFORMED SODIUM (test code = NA/ABG) 126.0 mEq/L 135-148 L POTASSIUM (test code = K/ABG) 3.5 mEq/L 3.5-4.5 N CHLORIDE (test code = CL/ABG) 88 mEq/L 98-106 L GLUCOSE (test code = GLU/ABG) 181 mg/dL 74-99 H HEMATOCRIT (test code = HCT/ABG) 36 % 35-47 N IONIZED CALCIUM (test code = CAIABG) 1.08 mmol/L 1.1-1.37 L TOTAL HGB (test code = THB) 12.4 gram/dL 11.5-15.5 N HGB O2 SAT (test code = HBOSAT) 95.8 % 94.00-98.00 N CARBOXYHEMOGLOBIN (test code = HOHGBT) 1.0 %totalHg 0.5-1.5 N METHEMOGLOBIN (test code = METHGB) 0.3 % 0.0-1.50 N O2 CONTENT (test code = O2CT) 16.8 % vol 18.0-22.0 L FLUID [id number] 02:05:00* Test Item Value Reference Range Interpretation Comments FLUID LDH (test code = LDHFL) 241 IUnit/L SPECIMEN COMMENTS: send from pleural fluidPLEURAL FLD TOTAL [id number] 02:05:00* Test Item Value Reference Range Interpretation Comments PLEURAL FLD TOTAL PROTEIN (test code = PROTPL) 4.2 gram/dL SPECIMEN COMMENTS: send from pleural fluidCOMPREHENSIVE METABOLIC PANEL 2019-05-25 01:53:00* Test Item Value Reference Range Interpretation Comments SODIUM (test code = NA) 132 mmol/L 136-145 L POTASSIUM (test code = K) 3.7 mmol/L 3.5-5.1 N CHLORIDE (test code = CL) 88.0 mmol/L 98-107 L CARBON DIOXIDE (test code = CO2) mmol/L 21-32 ANION GAP (test code = GAP) 10-20 GLUCOSE (test code = GLU) mg/dL 74-106 BLOOD UREA NITROGEN (test code = BUN) mg/dL 7-18 GLOMERULAR FILTRATION RATE (test code = GFR) mL/min >=60 CREATININE (test code = CREAT) mg/dL 0.55-1.02 BUN/CREATININE RATIO (test code = BUN/CREA) 10-20 TOTAL PROTEIN (test code = PROT) gram/dL 6.4-8.2 ALBUMIN (test code = ALB) g/dL 3.4-5.0 GLOBULIN (test code = GLOB) gram/dL 2.7-4.2 ALBUMIN/GLOBULIN RATIO (test code = A/G) 0.75-1.50 CALCIUM (test code = CA) mg/dL 8.5-10.1 BILIRUBIN TOTAL (test code = BILT) mg/dL 0.0-1.0 SGOT/AST (test code = AST) IUnit/L 15-37 SGPT/ALT (test code = ALT) IUnit/L 12-78 ALKALINE PHOSPHATASE TOTAL (test code = ALKP) IUnit/L 45-117 [id number] 01:53:00* Test Item Value Reference Range Interpretation Comments PHOSPHORUS (test code = PHOS) mg/dL 2.5-4.9 [id number] 01:53:00* Test Item Value Reference Range Interpretation Comments MAGNESIUM (test code = MAG) mg/dL 1.8-2.4 CALCIUM [id number] 01:53:00* Test Item Value Reference Range Interpretation Comments CALCIUM IONIZED (test code = CARYN) 1.17 mmol/L 1.12-1.32 N COMPREHENSIVE METABOLIC [id number] 01:53:00* Test Item Value Reference Range Interpretation Comments SODIUM (test code = NA) 132 mmol/L 136-145 L POTASSIUM (test code = K) 3.7 mmol/L 3.5-5.1 N CHLORIDE (test code = CL) 88.0 mmol/L 98-107 L CARBON DIOXIDE (test code = CO2) 34.0 mmol/L 21-32 H ANION GAP (test code = GAP) 13.7 10-20 N GLUCOSE (test code = GLU) 110 mg/dL 74-106 H BLOOD UREA NITROGEN (test code = BUN) 29 mg/dL 7-18 H GLOMERULAR FILTRATION RATE (test code = GFR) 28 mL/min >=60 Estimated GFR by using Modified MDRD formula.Chronic kidney disease is defined as either kidney damageor GFR <60 mL/min/1.73 m2 for >3 months. CREATININE (test code = CREAT) 1.90 mg/dL 0.55-1.02 H Note change in reference range due to change in reagent. BUN/CREATININE RATIO (test code = BUN/CREA) 15.3 10-20 N TOTAL PROTEIN (test code = PROT) 6.9 gram/dL 6.4-8.2 N ALBUMIN (test code = ALB) 3.1 g/dL 3.4-5.0 L GLOBULIN (test code = GLOB) 3.8 gram/dL 2.7-4.2 N ALBUMIN/GLOBULIN RATIO (test code = A/G) 0.8 0.75-1.50 N CALCIUM (test code = CA) 8.9 mg/dL 8.5-10.1 N BILIRUBIN TOTAL (test code = BILT) 1.40 mg/dL 0.0-1.0 H SGOT/AST (test code = AST) 17 IUnit/L 15-37 N SGPT/ALT (test code = ALT) 19 IUnit/L 12-78 N ALKALINE PHOSPHATASE TOTAL (test code = ALKP) 168 IUnit/L 45-117 H Note change in reference range due to change in reagent. [id number] 01:53:00* Test Item Value Reference Range Interpretation Comments PHOSPHORUS (test code = PHOS) 6.5 mg/dL 2.5-4.9 H [id number] 01:53:00* Test Item Value Reference Range Interpretation Comments MAGNESIUM (test code = MAG) 2.4 mg/dL 1.8-2.4 N CALCIUM [id number] 01:53:00* Test Item Value Reference Range Interpretation Comments CALCIUM IONIZED (test code = CARYN) 1.17 mmol/L 1.12-1.32 N COMPREHENSIVE METABOLIC [id number] 01:46:00* Test Item Value Reference Range Interpretation Comments SODIUM (test code = NA) mmol/L 136-145 POTASSIUM (test code = K) mmol/L 3.5-5.1 CHLORIDE (test code = CL) mmol/L 98-107 CARBON DIOXIDE (test code = CO2) mmol/L 21-32 ANION GAP (test code = GAP) 10-20 GLUCOSE (test code = GLU) mg/dL 74-106 BLOOD UREA NITROGEN (test code = BUN) mg/dL 7-18 GLOMERULAR FILTRATION RATE (test code = GFR) mL/min >=60 CREATININE (test code = CREAT) mg/dL 0.55-1.02 BUN/CREATININE RATIO (test code = BUN/CREA) 10-20 TOTAL PROTEIN (test code = PROT) gram/dL 6.4-8.2 ALBUMIN (test code = ALB) g/dL 3.4-5.0 GLOBULIN (test code = GLOB) gram/dL 2.7-4.2 ALBUMIN/GLOBULIN RATIO (test code = A/G) 0.75-1.50 CALCIUM (test code = CA) mg/dL 8.5-10.1 BILIRUBIN TOTAL (test code = BILT) mg/dL 0.0-1.0 SGOT/AST (test code = AST) IUnit/L 15-37 SGPT/ALT (test code = ALT) IUnit/L 12-78 ALKALINE PHOSPHATASE TOTAL (test code = ALKP) IUnit/L 45-117 [id number] 01:46:00* Test Item Value Reference Range Interpretation Comments PHOSPHORUS (test code = PHOS) mg/dL 2.5-4.9 [id number] 01:46:00* Test Item Value Reference Range Interpretation Comments MAGNESIUM (test code = MAG) mg/dL 1.8-2.4 CALCIUM [id number] 01:46:00* Test Item Value Reference Range Interpretation Comments CALCIUM IONIZED (test code = CARYN) 1.17 mmol/L 1.12-1.32 N CBC W/AUTO [id number] 01:37:00* Test Item Value Reference Range Interpretation Comments WHITE BLOOD CELL (test code = WBC) 5.5 K/mm3 4.5-12.5 N RED BLOOD CELL (test code = RBC) 3.59 mill/mm3 3.7-5.2 L HEMOGLOBIN (test code = HGB) 11.3 gram/dL 11.5-15.5 L HEMATOCRIT (test code = HCT) 34.6 % 36.0-46.0 L MEAN CELL VOLUME (test code = MCV) 96.4 fL 80-98 N MEAN CELL HGB (test code = MCH) 31.5 picogram 27.0-33.0 N MEAN CELL HGB CONCETRATION (test code = MCHC) 32.7 gram/dL 33.0-36. 0 L RED CELL DISTRIBUTION WIDTH (test code = RDW) 18.4 % 11.6-16. 2 H RED CELL DISTRIBUTION WIDTH SD (test code = RDW-SD) 64.8 fL 37 .0-51.0 H PLATELET COUNT (test code = PLT) 103 K/mm3 150-450 L MEAN PLATELET VOLUME (test code = MPV) 11.7 fL 6.7-11.0 H NEUTROPHIL % (test code = NT%) 82.8 % 39.0-69.0 H IMMATURE GRANULOCYTE % (test code = IG%) 0.5 % 0.0-5.0 N LYMPHOCYTE % (test code = LY%) 8.9 % 25.0-55.0 L MONOCYTE % (test code = MO%) 5.6 % 0.0-10.0 N EOSINOPHIL % (test code = EO%) 1.1 % 0.0-5.0 N BASOPHIL % (test code = BA%) 1.1 % 0.0-1.0 H NUCLEATED RBC % (test code = NRBC%) 0.0 % 0-0 N NEUTROPHIL # (test code = NT#) 4.54 K/mm3 1.8-7.7 N IMMATURE GRANULOCYTE # (test code = IG#) 0.03 x10 3/uL 0-0.03 N LYMPHOCYTE # (test code = LY#) 0.49 K/mm3 1.0-5.0 L MONOCYTE # (test code = MO#) 0.31 K/mm3 0-0.8 N EOSINOPHIL # (test code = EO#) 0.06 K/mm3 0.0-0.5 N BASOPHIL # (test code = BA#) 0.06 K/mm3 0.0-0.2 N NUCLEATED RBC # (test code = NRBC#) 0.00 K/mm3 0.0-0.1 N [id number] 20:43:00* Test Item Value Reference Range Interpretation Comments GLUBED (test code = GLUBED) 162 mg/dL 74-106 H Performed by certified abrasive coating machine operator at [facility] BASIC METABOLIC [id number] 19:07:00* Test Item Value Reference Range Interpretation Comments SODIUM (test code = NA) 133 mmol/L 136-145 L POTASSIUM (test code = K) 3.7 mmol/L 3.5-5.1 N CHLORIDE (test code = CL) 89.0 mmol/L 98-107 L CARBON DIOXIDE (test code = CO2) 34.0 mmol/L 21-32 H ANION GAP (test code = GAP) 13.7 10-20 N GLUCOSE (test code = GLU) 176 mg/dL 74-106 H BLOOD UREA NITROGEN (test code = BUN) 27 mg/dL 7-18 H GLOMERULAR FILTRATION RATE (test code = GFR) 26 mL/min >=60 Estimated GFR by using Modified MDRD formula.Chronic kidney disease is defined as either kidney damageor GFR <60 mL/min/1.73 m2 for >3 months. CREATININE (test code = CREAT) 2.00 mg/dL 0.55-1.02 H Note change in reference range due to change in reagent. BUN/CREATININE RATIO (test code = BUN/CREA) 13.5 10-20 N CALCIUM (test code = CA) 9.3 mg/dL 8.5-10.1 N [id number] 19:07:00* Test Item Value Reference Range Interpretation Comments PHOSPHORUS (test code = PHOS) 6.1 mg/dL 2.5-4.9 H [id number] 19:07:00* Test Item Value Reference Range Interpretation Comments MAGNESIUM (test code = MAG) 2.3 mg/dL 1.8-2.4 N BASIC METABOLIC [id number] 18:58:00* Test Item Value Reference Range Interpretation Comments SODIUM (test code = NA) 133 mmol/L 136-145 L POTASSIUM (test code = K) 3.7 mmol/L 3.5-5.1 N CHLORIDE (test code = CL) 89.0 mmol/L 98-107 L CARBON DIOXIDE (test code = CO2) mmol/L 21-32 ANION GAP (test code = GAP) 10-20 GLUCOSE (test code = GLU) mg/dL 74-106 BLOOD UREA NITROGEN (test code = BUN) mg/dL 7-18 GLOMERULAR FILTRATION RATE (test code = GFR) mL/min >=60 CREATININE (test code = CREAT) mg/dL 0.55-1.02 BUN/CREATININE RATIO (test code = BUN/CREA) 10-20 CALCIUM (test code = CA) mg/dL 8.5-10.1 [id number] 18:58:00* Test Item Value Reference Range Interpretation Comments PHOSPHORUS (test code = PHOS) mg/dL 2.5-4.9 [id number] 18:58:00* Test Item Value Reference Range Interpretation Comments MAGNESIUM (test code = MAG) mg/dL 1.8-2.4 [id number] 16:52:00* Test Item Value Reference Range Interpretation Comments GLUBED (test code = GLUBED) 205 mg/dL 74-106 H Performed by certified abrasive coating machine operator at [facility] TOTAL [id number] 13:24:00* Test Item Value Reference Range Interpretation Comments TOTAL PROTEIN (test code = PROT) 7.2 gram/dL 6.4-8.2 N LACTIC DEHYDROGENASE(LDH)2019-05-24 13:24:00* Test Item Value Reference Range Interpretation Comments LACTIC DEHYDROGENASE(LDH) (test code = LDH) 247 IUnit/L 84-246 H COMPREHENSIVE METABOLIC [id number] 12:58:00* Test Item Value Reference Range Interpretation Comments SODIUM (test code = NA) 132 mmol/L 136-145 L POTASSIUM (test code = K) 3.9 mmol/L 3.5-5.1 N CHLORIDE (test code = CL) 87.0 mmol/L 98-107 L CARBON DIOXIDE (test code = CO2) 34.0 mmol/L 21-32 H ANION GAP (test code = GAP) 14.9 10-20 N GLUCOSE (test code = GLU) 129 mg/dL 74-106 H BLOOD UREA NITROGEN (test code = BUN) 28 mg/dL 7-18 H GLOMERULAR FILTRATION RATE (test code = GFR) 25 mL/min >=60 Estimated GFR by using Modified MDRD formula.Chronic kidney disease is defined as either kidney damageor GFR <60 mL/min/1.73 m2 for >3 months. CREATININE (test code = CREAT) 2.10 mg/dL 0.55-1.02 H Note change in reference range due to change in reagent. BUN/CREATININE RATIO (test code = BUN/CREA) 13.3 10-20 N TOTAL PROTEIN (test code = PROT) 7.2 gram/dL 6.4-8.2 N ALBUMIN (test code = ALB) 3.6 g/dL 3.4-5.0 N GLOBULIN (test code = GLOB) 3.6 gram/dL 2.7-4.2 N ALBUMIN/GLOBULIN RATIO (test code = A/G) 1.0 0.75-1.50 N CALCIUM (test code = CA) 9.3 mg/dL 8.5-10.1 N BILIRUBIN TOTAL (test code = BILT) 1.70 mg/dL 0.0-1.0 H SGOT/AST (test code = AST) 24 IUnit/L 15-37 N SGPT/ALT (test code = ALT) 20 IUnit/L 12-78 N ALKALINE PHOSPHATASE TOTAL (test code = ALKP) 173 IUnit/L 45-117 H Note change in reference range due to change in reagent. BILIRUBIN [id number] 12:58:00* Test Item Value Reference Range Interpretation Comments BILIRUBIN DIRECT (test code = BILD) 0.93 mg/dL 0.0-0.20 H COMPREHENSIVE METABOLIC [id number] 12:44:00* Test Item Value Reference Range Interpretation Comments SODIUM (test code = NA) 132 mmol/L 136-145 L POTASSIUM (test code = K) 3.9 mmol/L 3.5-5.1 N CHLORIDE (test code = CL) 87.0 mmol/L 98-107 L CARBON DIOXIDE (test code = CO2) mmol/L 21-32 ANION GAP (test code = GAP) 10-20 GLUCOSE (test code = GLU) mg/dL 74-106 BLOOD UREA NITROGEN (test code = BUN) mg/dL 7-18 GLOMERULAR FILTRATION RATE (test code = GFR) mL/min >=60 CREATININE (test code = CREAT) mg/dL 0.55-1.02 BUN/CREATININE RATIO (test code = BUN/CREA) 10-20 TOTAL PROTEIN (test code = PROT) gram/dL 6.4-8.2 ALBUMIN (test code = ALB) g/dL 3.4-5.0 GLOBULIN (test code = GLOB) gram/dL 2.7-4.2 ALBUMIN/GLOBULIN RATIO (test code = A/G) 0.75-1.50 CALCIUM (test code = CA) mg/dL 8.5-10.1 BILIRUBIN TOTAL (test code = BILT) mg/dL 0.0-1.0 SGOT/AST (test code = AST) 24 IUnit/L 15-37 N SGPT/ALT (test code = ALT) IUnit/L 12-78 ALKALINE PHOSPHATASE TOTAL (test code = ALKP) IUnit/L 45-117 BILIRUBIN [id number] 12:44:00* Test Item Value Reference Range Interpretation Comments BILIRUBIN DIRECT (test code = BILD) mg/dL 0.0-0.20 [id number] 12:35:00* Test Item Value Reference Range Interpretation Comments VANCOMYCIN (test code = VANCO) 7.5 UG/ML 5.0-45.0 N COMPREHENSIVE METABOLIC [id number] 12:31:00* Test Item Value Reference Range Interpretation Comments SODIUM (test code = NA) 132 mmol/L 136-145 L POTASSIUM (test code = K) 3.9 mmol/L 3.5-5.1 N CHLORIDE (test code = CL) 87.0 mmol/L 98-107 L CARBON DIOXIDE (test code = CO2) mmol/L 21-32 ANION GAP (test code = GAP) 10-20 GLUCOSE (test code = GLU) mg/dL 74-106 BLOOD UREA NITROGEN (test code = BUN) mg/dL 7-18 GLOMERULAR FILTRATION RATE (test code = GFR) mL/min >=60 CREATININE (test code = CREAT) mg/dL 0.55-1.02 BUN/CREATININE RATIO (test code = BUN/CREA) 10-20 TOTAL PROTEIN (test code = PROT) gram/dL 6.4-8.2 ALBUMIN (test code = ALB) g/dL 3.4-5.0 GLOBULIN (test code = GLOB) gram/dL 2.7-4.2 ALBUMIN/GLOBULIN RATIO (test code = A/G) 0.75-1.50 CALCIUM (test code = CA) mg/dL 8.5-10.1 BILIRUBIN TOTAL (test code = BILT) mg/dL 0.0-1.0 SGOT/AST (test code = AST) IUnit/L 15-37 SGPT/ALT (test code = ALT) IUnit/L 12-78 ALKALINE PHOSPHATASE TOTAL (test code = ALKP) IUnit/L 45-117 BILIRUBIN [id number] 12:31:00* Test Item Value Reference Range Interpretation Comments BILIRUBIN DIRECT (test code = BILD) mg/dL 0.0-0.20 [id number] 10:07:00* Test Item Value Reference Range Interpretation Comments GLUBED (test code = GLUBED) 146 mg/dL 74-106 H Performed by certified abrasive coating machine operator at [facility] ACUTE HEPATITIS [id number] 06:49:00* Test Item Value Reference Range Interpretation Comments AB HEPATITIS A IGM (test code = HAVMAB) Negative Negative AG HEPAT B SURF (test code = HBSAG) Negative Negative HEPATITIS B CORE ANTIBODY,IGM (test code = HBCMAB) Negative Neg ative AB HEPATITIS C (test code = HCVAB) 0.1 0.0-0.9 INFCE Result Units: s/co ratio Negative: < 0.8 Indeterminate: 0.8 - 0.9 Positive: > 0.9 The CDC recommends that a positive HCV antibody result be followed up with a HCV Nucleic Acid Amplification test (825714).Performed At: [facility] [address] [id number] Ron Corona MD Ph:[phone] RECOLLECTING SPECIMEN DUE TO NOT BEING LABELEDRETICULOCYTE [id number] 06:49:00* Test Item Value Reference Range Interpretation Comments RETICULOCYTE COUNT (test code = RETICT) 2.3 % 0.5-2.0 H RETIC COUNT ABSOLUTE (test code = RET#) 0.079 mill/mm3 0.016-0.095 N IMMATURE RETICULOCYTE FRACTION (test code = IRF) 33.0 % 3.0-1 5.9 H Values above normal range indicate an increase in RBCcellular response from bone marrow. RETICULOCYTE HGB EQUIVALENT (test code = RETHE) 36.0 pg 28.2-3 5.7 H RET-He is a direct estimate of recent functionalavailability of iron in the cell, therefore, decreasedRET-He is indicative of iron deficiency. [id number] 06:49:00* Test Item Value Reference Range Interpretation Comments HAPTOGLOBIN (test code = HAPT) 39 mg/dL 42-296 A Please note reference interval changePerformed At: [facility] [address] [id number] Echevarria MD Ph:[phone] - XR CHEST 1 [id number] 06:21:00 FAX: Anastacio Puckett MD [phone] [place]: [address] St: ADM FAX: Bhumika Forbes MD [phone] FAX: Titus Saucedo Name: JIGNESH WAYNE [facility] : 1970 Age/S: 49/F [address] [facility] Unit #: [id number] Loc: V.S17 [place] [address] Phys: Titus Saucedo Acct: [id number] Dis Date: Status: ADM IN ONE #: [phone] Exam Date: 05/24/2019520 FAX #: [phone] Reason: pulmonary edema, resp failure EXAMS: CPT CODE: [id number] XR CHEST 1 V 02142 CLINICAL HISTO RY: pulmonary edema, respiratory failure TECHNIQUE: AP chest x-ray COMPARISON: Previous day. IMPRESSION: No significant interval change. Right chest tube with tiny apical pneumothorax. Patchy bibasilar airspace consolidation. No pleural effus ion. Cardiomegaly. Cardiac pacemaker. ET tube, NG tube, and right centra l venous catheter. LOCATION: LP at 0621 Reported and signed by: Daniela Maria D.O. CC: Anastacio Vences MD; Bhumika Adame MD; Titus Saucedo Technologist: VICKY Wu Trnscrd Date/Time/By: 05/24/2019 (06) : By: [email or web address] Orig Print D/T: S: 05/24/2019 (99) PAGE 1 Signed Report B-TYPE NATRIURETIC [id number] 06:09:00* Test Item Value Reference Range Interpretation Comments B-TYPE NATRIURETIC PEPTIDE (test code = BNP) 450.54 pgram/mL 0-100 H Has Patient received Natrecor? NOT3 [id number] 06:09:00* Test Item Value Reference Range Interpretation Comments T3 FREE (test code = T3F) 1.1 pg/mL 2.0-4.4 L Pe rformed At: [facility] [address] [place], [place] [id number] Ron Corona MD Ph:[phone] CBC W/AUTO [id number] 05:40:00* Test Item Value Reference Range Interpretation Comments WHITE BLOOD CELL (test code = WBC) 7.5 K/mm3 4.5-12.5 N RED BLOOD CELL (test code = RBC) 4.08 mill/mm3 3.7-5.2 N HEMOGLOBIN (test code = HGB) 12.9 gram/dL 11.5-15.5 N HEMATOCRIT (test code = HCT) 38.8 % 36.0-46.0 N MEAN CELL VOLUME (test code = MCV) 95.1 fL 80-98 N MEAN CELL HGB (test code = MCH) 31.6 picogram 27.0-33.0 N MEAN CELL HGB CONCETRATION (test code = MCHC) 33.2 gram/dL 33.0-36. 0 N RED CELL DISTRIBUTION WIDTH (test code = RDW) 17.8 % 11.6-16. 2 H RED CELL DISTRIBUTION WIDTH SD (test code = RDW-SD) 61.2 fL 37 .0-51.0 H PLATELET COUNT (test code = PLT) 122 K/mm3 150-450 L MEAN PLATELET VOLUME (test code = MPV) 11.8 fL 6.7-11.0 H NEUTROPHIL % (test code = NT%) 85.0 % 39.0-69.0 H IMMATURE GRANULOCYTE % (test code = IG%) 0.5 % 0.0-5.0 N LYMPHOCYTE % (test code = LY%) 8.3 % 25.0-55.0 L MONOCYTE % (test code = MO%) 4.8 % 0.0-10.0 N EOSINOPHIL % (test code = EO%) 0.5 % 0.0-5.0 N BASOPHIL % (test code = BA%) 0.9 % 0.0-1.0 N NUCLEATED RBC % (test code = NRBC%) 0.0 % 0-0 N NEUTROPHIL # (test code = NT#) 6.38 K/mm3 1.8-7.7 N IMMATURE GRANULOCYTE # (test code = IG#) 0.04 x10 3/uL 0-0.03 H LYMPHOCYTE # (test code = LY#) 0.62 K/mm3 1.0-5.0 L MONOCYTE # (test code = MO#) 0.36 K/mm3 0-0.8 N EOSINOPHIL # (test code = EO#) 0.04 K/mm3 0.0-0.5 N BASOPHIL # (test code = BA#) 0.07 K/mm3 0.0-0.2 N NUCLEATED RBC # (test code = NRBC#) 0.00 K/mm3 0.0-0.1 N [id number] 03:32:00* Test Item Value Reference Range Interpretation Comments GLUBED (test code = GLUBED) 143 mg/dL 74-106 H Performed by certified abrasive coating machine operator at [facility] AB HEPATITIS [id number] 03:06:00* Test Item Value Reference Range Interpretation Comments AB HEPATITIS C (test code = HCVAB) 0.1 0.0-0.9 INFCE Result Units: s/co ratio Negative: < 0.8 Indeterminate: 0.8 - 0.9 Positive: > 0.9 The CDC recommends that a positive HCV antibody result be followed up with a HCV Nucleic Acid Amplification test ([id number]).Performed At: [facility] [id number] Kyle L MD Ph:[phone] COMPREHENSIVE METABOLIC [id number] 01:46:00* Test Item Value Reference Range Interpretation Comments SODIUM (test code = NA) 136 mmol/L 136-145 N POTASSIUM (test code = K) 3.4 mmol/L 3.5-5.1 L CHLORIDE (test code = CL) 90.0 mmol/L 98-107 L CARBON DIOXIDE (test code = CO2) 35.0 mmol/L 21-32 H ANION GAP (test code = GAP) 14.4 10-20 N GLUCOSE (test code = GLU) 116 mg/dL 74-106 H BLOOD UREA NITROGEN (test code = BUN) 30 mg/dL 7-18 H GLOMERULAR FILTRATION RATE (test code = GFR) 25 mL/min >=60 Estimated GFR by using Modified MDRD formula.Chronic kidney disease is defined as either kidney damageor GFR <60 mL/min/1.73 m2 for >3 months. CREATININE (test code = CREAT) 2.10 mg/dL 0.55-1.02 H Note change in reference range due to change in reagent. BUN/CREATININE RATIO (test code = BUN/CREA) 14.3 10-20 N TOTAL PROTEIN (test code = PROT) 7.2 gram/dL 6.4-8.2 N ALBUMIN (test code = ALB) 3.4 g/dL 3.4-5.0 N GLOBULIN (test code = GLOB) 3.8 gram/dL 2.7-4.2 N ALBUMIN/GLOBULIN RATIO (test code = A/G) 0.9 0.75-1.50 N CALCIUM (test code = CA) 9.5 mg/dL 8.5-10.1 N BILIRUBIN TOTAL (test code = BILT) 1.80 mg/dL 0.0-1.0 H SGOT/AST (test code = AST) 35 IUnit/L 15-37 N SGPT/ALT (test code = ALT) 25 IUnit/L 12-78 N ALKALINE PHOSPHATASE TOTAL (test code = ALKP) 200 IUnit/L 45-117 H Note change in reference range due to change in reagent. [id number] 01:46:00* Test Item Value Reference Range Interpretation Comments PHOSPHORUS (test code = PHOS) 4.4 mg/dL 2.5-4.9 N [id number] 01:46:00* Test Item Value Reference Range Interpretation Comments MAGNESIUM (test code = MAG) 2.1 mg/dL 1.8-2.4 N CALCIUM [id number] 01:46:00* Test Item Value Reference Range Interpretation Comments CALCIUM IONIZED (test code = CARYN) 1.20 mmol/L 1.12-1.32 N COMPREHENSIVE METABOLIC [id number] 01:45:00* Test Item Value Reference Range Interpretation Comments SODIUM (test code = NA) 136 mmol/L 136-145 N POTASSIUM (test code = K) 3.4 mmol/L 3.5-5.1 L CHLORIDE (test code = CL) 90.0 mmol/L 98-107 L CARBON DIOXIDE (test code = CO2) 35.0 mmol/L 21-32 H ANION GAP (test code = GAP) 14.4 10-20 N GLUCOSE (test code = GLU) 116 mg/dL 74-106 H BLOOD UREA NITROGEN (test code = BUN) 30 mg/dL 7-18 H GLOMERULAR FILTRATION RATE (test code = GFR) 25 mL/min >=60 Estimated GFR by using Modified MDRD formula.Chronic kidney disease is defined as either kidney damageor GFR <60 mL/min/1.73 m2 for >3 months. CREATININE (test code = CREAT) 2.10 mg/dL 0.55-1.02 H Note change in reference range due to change in reagent. BUN/CREATININE RATIO (test code = BUN/CREA) 14.3 10-20 N TOTAL PROTEIN (test code = PROT) 7.2 gram/dL 6.4-8.2 N ALBUMIN (test code = ALB) 3.4 g/dL 3.4-5.0 N GLOBULIN (test code = GLOB) 3.8 gram/dL 2.7-4.2 N ALBUMIN/GLOBULIN RATIO (test code = A/G) 0.9 0.75-1.50 N CALCIUM (test code = CA) 9.5 mg/dL 8.5-10.1 N BILIRUBIN TOTAL (test code = BILT) 1.80 mg/dL 0.0-1.0 H SGOT/AST (test code = AST) 35 IUnit/L 15-37 N SGPT/ALT (test code = ALT) 25 IUnit/L 12-78 N ALKALINE PHOSPHATASE TOTAL (test code = ALKP) 200 IUnit/L 45-117 H Note change in reference range due to change in reagent. [id number] 01:45:00* Test Item Value Reference Range Interpretation Comments PHOSPHORUS (test code = PHOS) 4.4 mg/dL 2.5-4.9 N [id number] 01:45:00* Test Item Value Reference Range Interpretation Comments MAGNESIUM (test code = MAG) 2.1 mg/dL 1.8-2.4 N CALCIUM [id number] 01:45:00* Test Item Value Reference Range Interpretation Comments CALCIUM IONIZED (test code = CARYN) mmol/L 1.12-1.32 COMPREHENSIVE METABOLIC [id number] 01:35:00* Test Item Value Reference Range Interpretation Comments SODIUM (test code = NA) 136 mmol/L 136-145 N POTASSIUM (test code = K) 3.4 mmol/L 3.5-5.1 L CHLORIDE (test code = CL) 90.0 mmol/L 98-107 L CARBON DIOXIDE (test code = CO2) mmol/L 21-32 ANION GAP (test code = GAP) 10-20 GLUCOSE (test code = GLU) mg/dL 74-106 BLOOD UREA NITROGEN (test code = BUN) mg/dL 7-18 GLOMERULAR FILTRATION RATE (test code = GFR) mL/min >=60 CREATININE (test code = CREAT) mg/dL 0.55-1.02 BUN/CREATININE RATIO (test code = BUN/CREA) 10-20 TOTAL PROTEIN (test code = PROT) gram/dL 6.4-8.2 ALBUMIN (test code = ALB) g/dL 3.4-5.0 GLOBULIN (test code = GLOB) gram/dL 2.7-4.2 ALBUMIN/GLOBULIN RATIO (test code = A/G) 0.75-1.50 CALCIUM (test code = CA) mg/dL 8.5-10.1 BILIRUBIN TOTAL (test code = BILT) mg/dL 0.0-1.0 SGOT/AST (test code = AST) IUnit/L 15-37 SGPT/ALT (test code = ALT) IUnit/L 12-78 ALKALINE PHOSPHATASE TOTAL (test code = ALKP) IUnit/L 45-117 [id number] 01:35:00* Test Item Value Reference Range Interpretation Comments PHOSPHORUS (test code = PHOS) mg/dL 2.5-4.9 [id number] 01:35:00* Test Item Value Reference Range Interpretation Comments MAGNESIUM (test code = MAG) mg/dL 1.8-2.4 CALCIUM [id number] 01:35:00* Test Item Value Reference Range Interpretation Comments CALCIUM IONIZED (test code = CARYN) mmol/L 1.12-1.32 CBC W/AUTO [id number] 01:20:00* Test Item Value Reference Range Interpretation Comments WHITE BLOOD CELL (test code = WBC) 7.3 K/mm3 4.5-12.5 N RED BLOOD CELL (test code = RBC) 4.15 mill/mm3 3.7-5.2 N HEMOGLOBIN (test code = HGB) 13.0 gram/dL 11.5-15.5 N HEMATOCRIT (test code = HCT) 38.1 % 36.0-46.0 N MEAN CELL VOLUME (test code = MCV) 91.8 fL 80-98 N MEAN CELL HGB (test code = MCH) 31.3 picogram 27.0-33.0 N MEAN CELL HGB CONCETRATION (test code = MCHC) 34.1 gram/dL 33.0-36. 0 N RED CELL DISTRIBUTION WIDTH (test code = RDW) 18.1 % 11.6-16. 2 H RED CELL DISTRIBUTION WIDTH SD (test code = RDW-SD) 60.2 fL 37 .0-51.0 H PLATELET COUNT (test code = PLT) 123 K/mm3 150-450 L MEAN PLATELET VOLUME (test code = MPV) 12.0 fL 6.7-11.0 H NEUTROPHIL % (test code = NT%) 84.1 % 39.0-69.0 H IMMATURE GRANULOCYTE % (test code = IG%) 0.4 % 0.0-5.0 N LYMPHOCYTE % (test code = LY%) 8.4 % 25.0-55.0 L MONOCYTE % (test code = MO%) 5.9 % 0.0-10.0 N EOSINOPHIL % (test code = EO%) 0.4 % 0.0-5.0 N BASOPHIL % (test code = BA%) 0.8 % 0.0-1.0 N NUCLEATED RBC % (test code = NRBC%) 0.0 % 0-0 N NEUTROPHIL # (test code = NT#) 6.14 K/mm3 1.8-7.7 N IMMATURE GRANULOCYTE # (test code = IG#) 0.03 x10 3/uL 0-0.03 N LYMPHOCYTE # (test code = LY#) 0.61 K/mm3 1.0-5.0 L MONOCYTE # (test code = MO#) 0.43 K/mm3 0-0.8 N EOSINOPHIL # (test code = EO#) 0.03 K/mm3 0.0-0.5 N BASOPHIL # (test code = BA#) 0.06 K/mm3 0.0-0.2 N NUCLEATED RBC # (test code = NRBC#) 0.00 K/mm3 0.0-0.1 N MANUAL DIFF REQUIRED (test code = MDIFF) NO [id number] 21:09:00* Test Item Value Reference Range Interpretation Comments GLUBED (test code = GLUBED) 124 mg/dL 74-106 H Performed by certified abrasive coating machine operator at [facility] [id number] 15:48:00* Test Item Value Reference Range Interpretation Comments GLUBED (test code = GLUBED) 180 mg/dL 74-106 H Performed by certified abrasive coating machine operator at [facility] - XR CHEST 1 [id number] 14:58:00 FAX: Anastacio Puckett MD [phone] [place]: St: ADM FAX: Bhumika Forbes MD [phone] FAX: Kae Maria MD Name: JIGNESH WAYNE [facility] : 1970 Age/S: 49/F [address] [facility] Unit #: [id number] Loc: [address] [address] Phys: Kae Maria MD Acct: [id number] Dis Date: Status: ADM IN [facility] #: [phone] Exam Date: 05/23/2019 1434 FAX #: [phone] Reason: CHEST TUEB PLACEMENT EXAMS: CPT CODE: [id number] XR CHEST 1 V 29444 REASON FOR EXAM: CHEST TUEB PLACEMENT Exam Order Date: 05/23/2019 12:00 AM Ordering MCandace: Kae Maria MD PROCEDURE: - XR CHEST 1 V COMPARISON: Chest x-ray earlier today at 5:23 AM FINDINGS/ IMPRESSION: Interval placement of right sided chest tube. The right lung is better aerated from the previous exam and the right hemidiaphragm is now able to be visualized. Remaining lines and tubes and hardware are unchanged. Left lung and enlarged cardiac me diastinal silhouette are unchanged. Musculoskeletal findings are stable in appearance. Prior cholecystectomy. Location: [facility] at 1458 Reported and signed by: Sekou Alanis MD CC: Anastacio Vences MD; Bhumika Adame MD; Kae Maria MD Technologist: Shana Solis(R) Trnscrd Date/Time/By: 05/23/2019 (6877) : By: [email or web address] Orig Print D/T: S: 05/23/2019 (1503) PAGE 1 Signed Report [id number] 09:03:00* Test Item Value Reference Range Interpretation Comments GLUBED (test code = GLUBED) 130 mg/dL 74-106 H Performed by certified abrasive coating machine operator at [facility] - XR CHEST 1 [id number] 06:40:00 FAX: Anastacio Puckett MD [phone] [place]: St: ADM FAX: Bhumika Forbes MD [phone] FAX: Titus Saucedo Name: JIGNESH WAYNE [facility] : 1970 Age/S: 49/F [address] [facility] Unit #: [id number] Loc: V.[address] [place] [address] Phys: Titus Saucedo Acct: [id number] Dis Date: Status: ADM IN ONE #: [phone] Exam Date: 05/23/2019522 FAX #: [phone] Reason: pulmonary edema, resp failure EXAMS: CPT CODE: [id number] XR CHEST 1 V 73911 CLINICAL HISTO RY: pulmonary edema, respiratory failure TECHNIQUE: AP chest x-ray COMPARISON: Previous day. IMPRESSION: No significant interval change. Patchy bilateral airspace consoli dation and pleural effusion, greater on the right. Cardiomegaly. Cardiac pacemaker. ET tube, NG tube, and right central venous catheter. LOCATION: [facility] at 0640 Reported and signed by: Daniela Maria D.O. CC: Anastacio Vences MD; Jorge Adame MD; Titus Saucedo Technologist: VICKY GARCIA JR Trnscrd Date/Time/By: 05/23/2019 (0640) : By: [email or web address] Orig Print D/T: S: 05/23/2019 (0643) PAGE 1 Signed Report CBC W/AUTO DIFF 2019-05-23 04:40:00* Test Item Value Reference Range Interpretation Comments WHITE BLOOD CELL (test code = WBC) 7.6 K/mm3 4.5-12.5 N RED BLOOD CELL (test code = RBC) 4.01 mill/mm3 3.7-5.2 N HEMOGLOBIN (test code = HGB) 12.8 gram/dL 11.5-15.5 N HEMATOCRIT (test code = HCT) 38.4 % 36.0-46.0 N MEAN CELL VOLUME (test code = MCV) 96.0 fL 80-98 N MEAN CELL HGB (test code = MCH) 31.4 picogram 27.0-33.0 N MEAN CELL HGB CONCETRATION (test code = MCHC) 32.7 gram/dL 33.0-36. 0 L RED CELL DISTRIBUTION WIDTH (test code = RDW) 18.4 % 11.6-16. 2 H RED CELL DISTRIBUTION WIDTH SD (test code = RDW-SD) 63.1 fL 37 .0-51.0 H PLATELET COUNT (test code = PLT) 116 K/mm3 150-450 L MEAN PLATELET VOLUME (test code = MPV) 11.8 fL 6.7-11.0 H NEUTROPHIL % (test code = NT%) 84.2 % 39.0-69.0 H IMMATURE GRANULOCYTE % (test code = IG%) 0.3 % 0.0-5.0 N LYMPHOCYTE % (test code = LY%) 8.3 % 25.0-55.0 L MONOCYTE % (test code = MO%) 5.4 % 0.0-10.0 N EOSINOPHIL % (test code = EO%) 0.7 % 0.0-5.0 N BASOPHIL % (test code = BA%) 1.1 % 0.0-1.0 H NUCLEATED RBC % (test code = NRBC%) 0.3 % 0-0 H NEUTROPHIL # (test code = NT#) 6.39 K/mm3 1.8-7.7 N IMMATURE GRANULOCYTE # (test code = IG#) 0.02 x10 3/uL 0-0.03 N LYMPHOCYTE # (test code = LY#) 0.63 K/mm3 1.0-5.0 L MONOCYTE # (test code = MO#) 0.41 K/mm3 0-0.8 N EOSINOPHIL # (test code = EO#) 0.05 K/mm3 0.0-0.5 N BASOPHIL # (test code = BA#) 0.08 K/mm3 0.0-0.2 N NUCLEATED RBC # (test code = NRBC#) 0.02 K/mm3 0.0-0.1 N MANUAL DIFF REQUIRED (test code = MDIFF) NO COMPREHENSIVE METABOLIC [id number] 04:36:00* Test Item Value Reference Range Interpretation Comments SODIUM (test code = NA) 136 mmol/L 136-145 RESU LT VERIFIED BY REPEAT ANALYSIS POTASSIUM (test code = K) 3.2 mmol/L 3.5-5.1 L CHLORIDE (test code = CL) 95.0 mmol/L 98-107 L CARBON DIOXIDE (test code = CO2) 29.0 mmol/L 21-32 N ANION GAP (test code = GAP) 15.2 10-20 N GLUCOSE (test code = GLU) 102 mg/dL 74-106 N BLOOD UREA NITROGEN (test code = BUN) 31 mg/dL 7-18 H GLOMERULAR FILTRATION RATE (test code = GFR) 24 mL/min >=60 Estimated GFR by using Modified MDRD formula.Chronic kidney disease is defined as either kidney damageor GFR <60 mL/min/1.73 m2 for >3 months. CREATININE (test code = CREAT) 2.20 mg/dL 0.55-1.02 H Note change in reference range due to change in reagent. BUN/CREATININE RATIO (test code = BUN/CREA) 14.1 10-20 N TOTAL PROTEIN (test code = PROT) 6.4 gram/dL 6.4-8.2 N ALBUMIN (test code = ALB) 3.0 g/dL 3.4-5.0 L GLOBULIN (test code = GLOB) 3.4 gram/dL 2.7-4.2 N ALBUMIN/GLOBULIN RATIO (test code = A/G) 0.9 0.75-1.50 N CALCIUM (test code = CA) 8.8 mg/dL 8.5-10.1 N BILIRUBIN TOTAL (test code = BILT) 2.30 mg/dL 0.0-1.0 H SGOT/AST (test code = AST) 56 IUnit/L 15-37 H SGPT/ALT (test code = ALT) 30 IUnit/L 12-78 N ALKALINE PHOSPHATASE TOTAL (test code = ALKP) 165 IUnit/L 45-117 H Note change in reference range due to change in reagent. [id number] 04:36:00* Test Item Value Reference Range Interpretation Comments PHOSPHORUS (test code = PHOS) 3.6 mg/dL 2.5-4.9 N [id number] 04:36:00* Test Item Value Reference Range Interpretation Comments MAGNESIUM (test code = MAG) 2.0 mg/dL 1.8-2.4 N CALCIUM [id number] 04:36:00* Test Item Value Reference Range Interpretation Comments CALCIUM IONIZED (test code = CARYN) 1.17 mmol/L 1.12-1.32 N COMPREHENSIVE METABOLIC [id number] 04:35:00* Test Item Value Reference Range Interpretation Comments SODIUM (test code = NA) 136 mmol/L 136-145 RESU LT VERIFIED BY REPEAT ANALYSIS POTASSIUM (test code = K) 3.2 mmol/L 3.5-5.1 L CHLORIDE (test code = CL) 95.0 mmol/L 98-107 L CARBON DIOXIDE (test code = CO2) mmol/L 21-32 ANION GAP (test code = GAP) 10-20 GLUCOSE (test code = GLU) mg/dL 74-106 BLOOD UREA NITROGEN (test code = BUN) mg/dL 7-18 GLOMERULAR FILTRATION RATE (test code = GFR) mL/min >=60 CREATININE (test code = CREAT) mg/dL 0.55-1.02 BUN/CREATININE RATIO (test code = BUN/CREA) 10-20 TOTAL PROTEIN (test code = PROT) gram/dL 6.4-8.2 ALBUMIN (test code = ALB) g/dL 3.4-5.0 GLOBULIN (test code = GLOB) gram/dL 2.7-4.2 ALBUMIN/GLOBULIN RATIO (test code = A/G) 0.75-1.50 CALCIUM (test code = CA) mg/dL 8.5-10.1 BILIRUBIN TOTAL (test code = BILT) mg/dL 0.0-1.0 SGOT/AST (test code = AST) IUnit/L 15-37 SGPT/ALT (test code = ALT) IUnit/L 12-78 ALKALINE PHOSPHATASE TOTAL (test code = ALKP) IUnit/L 45-117 [id number] 04:35:00* Test Item Value Reference Range Interpretation Comments PHOSPHORUS (test code = PHOS) mg/dL 2.5-4.9 [id number] 04:35:00* Test Item Value Reference Range Interpretation Comments MAGNESIUM (test code = MAG) mg/dL 1.8-2.4 CALCIUM [id number] 04:35:00* Test Item Value Reference Range Interpretation Comments CALCIUM IONIZED (test code = CARYN) 1.17 mmol/L 1.12-1.32 N COMPREHENSIVE METABOLIC [id number] 04:23:00* Test Item Value Reference Range Interpretation Comments SODIUM (test code = NA) mmol/L 136-145 POTASSIUM (test code = K) mmol/L 3.5-5.1 CHLORIDE (test code = CL) mmol/L 98-107 CARBON DIOXIDE (test code = CO2) mmol/L 21-32 ANION GAP (test code = GAP) 10-20 GLUCOSE (test code = GLU) mg/dL 74-106 BLOOD UREA NITROGEN (test code = BUN) mg/dL 7-18 GLOMERULAR FILTRATION RATE (test code = GFR) mL/min >=60 CREATININE (test code = CREAT) mg/dL 0.55-1.02 BUN/CREATININE RATIO (test code = BUN/CREA) 10-20 TOTAL PROTEIN (test code = PROT) gram/dL 6.4-8.2 ALBUMIN (test code = ALB) g/dL 3.4-5.0 GLOBULIN (test code = GLOB) gram/dL 2.7-4.2 ALBUMIN/GLOBULIN RATIO (test code = A/G) 0.75-1.50 CALCIUM (test code = CA) mg/dL 8.5-10.1 BILIRUBIN TOTAL (test code = BILT) mg/dL 0.0-1.0 SGOT/AST (test code = AST) IUnit/L 15-37 SGPT/ALT (test code = ALT) IUnit/L 12-78 ALKALINE PHOSPHATASE TOTAL (test code = ALKP) IUnit/L 45-117 [id number] 04:23:00* Test Item Value Reference Range Interpretation Comments PHOSPHORUS (test code = PHOS) mg/dL 2.5-4.9 [id number] 04:23:00* Test Item Value Reference Range Interpretation Comments MAGNESIUM (test code = MAG) mg/dL 1.8-2.4 CALCIUM [id number] 04:23:00* Test Item Value Reference Range Interpretation Comments CALCIUM IONIZED (test code = CARYN) 1.17 mmol/L 1.12-1.32 N CBC W/AUTO [id number] 04:20:00* Test Item Value Reference Range Interpretation Comments WHITE BLOOD CELL (test code = WBC) K/mm3 4.5-12.5 RED BLOOD CELL (test code = RBC) mill/mm3 3.7-5.2 HEMOGLOBIN (test code = HGB) 12.8 gram/dL 11.5-15.5 N HEMATOCRIT (test code = HCT) 38.4 % 36.0-46.0 N MEAN CELL VOLUME (test code = MCV) fL 80-98 MEAN CELL HGB (test code = MCH) picogram 27.0-33.0 MEAN CELL HGB CONCETRATION (test code = MCHC) gram/dL 33.0-36. 0 RED CELL DISTRIBUTION WIDTH (test code = RDW) % 11.6-16. 2 RED CELL DISTRIBUTION WIDTH SD (test code = RDW-SD) fL 37 .0-51.0 PLATELET COUNT (test code = PLT) K/mm3 150-450 MEAN PLATELET VOLUME (test code = MPV) fL 6.7-11.0 NEUTROPHIL % (test code = NT%) % 39.0-69.0 IMMATURE GRANULOCYTE % (test code = IG%) % 0.0-5.0 LYMPHOCYTE % (test code = LY%) % 25.0-55.0 MONOCYTE % (test code = MO%) % 0.0-10.0 EOSINOPHIL % (test code = EO%) % 0.0-5.0 BASOPHIL % (test code = BA%) % 0.0-1.0 NEUTROPHIL # (test code = NT#) K/mm3 1.8-7.7 LYMPHOCYTE # (test code = LY#) K/mm3 1.0-5.0 MONOCYTE # (test code = MO#) K/mm3 0-0.8 EOSINOPHIL # (test code = EO#) K/mm3 0.0-0.5 BASOPHIL # (test code = BA#) K/mm3 0.0-0.2 [id number] 04:04:00* Test Item Value Reference Range Interpretation Comments GLUBED (test code = GLUBED) 100 mg/dL 74-106 N Performed by certified abrasive coating machine [facility]~ - CT CHEST W/O [id number] 03:08:00 Name: JIGNESH WAYNE [facility] : 1970 Age/S: 49 / F [address] Unit #: [id number] [place] [address] Phys: Taylor Altamirano [employer] Acct: [id number] Dis Date: Status: ADM IN PHONE #: [phone] Exam Date: 05/23/2019 0214 FAX #: [phone] Reason: SOB EXAMS: CPT CODE: [id number] CT CHEST W/O CONTRAST 43571 LOCATION: T18 EXAM: CT CHEST WITHOUT CONTRAST INDICATION: SOB COMPARISON: Chest x-ray May 22, 2019 TECHNIQUE: Helically acquired axial CT images of the chest were obtained. No intravenous contrast was given. Up-to-date CT equipment and radiation dose reduction techniques were utilized. Automatic exposure control was utilized. FINDINGS: Limited views of the inferior neck soft tissues are normal. Mild cardiomegaly is noted. No pericardial effusion is seen. No mediastinal or hilar adenopathy is seen. Endotracheal tube in place with tip above the calderon. NG tube tip and side port within stomach. Mild interstitial pulmonary edema present. There is moderate right pleural e ffusion with compressive atelectasis. Extensive subcutaneous edema throughout the peripheral soft tissues present. Bones are intact. IMPRESSION: Fluid overload with moderate dependent right pleural effusion, mild interstitial edema and subcutaneous edema throughout the peripheral soft tissues. ET and NG tube in satisfactory position. B ibasilar subsegmental atelectasis with right lower lobe compressive atel ectasis. a t 0308 Reported and signed by: Fady Fisher M.D. CC: Anastacio Vences MD; Bhumika Adame MD; Taylor Altamirano NP Technologist:Umesh Reed, RT(R)(CT) CTDI: DLP: Trnscb Date/Time: 05/23/2019 ( 307) [email or web address] Orig Print D/T: S: 05/23/2019 (0311) PAGE 1 Signed Report GLUBED 2019-05-22 21:36:00* Test Item Value Reference Range Interpretation Comments GLUBED (test code = GLUBED) 86 mg/dL 74-106 N Performed by certified abrasive coating machine [facility] T[facility] SPEC~ [id number] 15:46:00* Test Item Value Reference Range Interpretation Comments GLUBED (test code = GLUBED) 75 mg/dL 74-106 N Performed by certified abrasive coating machine operator at [facility] - US ABDOMEN [id number] 13:25:00 Name: JIGNESH WAYNE [facility] : 1970 Age/S: 49 / F [address] Unit #: [id number] Loc: [facility] [place] [address] Phys: Alana Cardona MD Acct: [id number] Dis Date: Status: ADM IN PHONE #: [phone] Exam Date: 05/22/2019 1242 FAX #: [phone] Reason: thrmobocytopenia r/o cirrhosis/splenomegaly EXAMS: CPT CODE: [id number] US ABDOMEN COMPLETE 13127 HISTORY: Thrombocytopenia. COMPARISON: CT scan from November 16, 2017. Location: TH. The liver is normal in echogenicity and texture. No discrete parenchymal mass or lesions. The liver measured 12 cm in length. The contour appears smooth. No mass. Small perihepatic fluid. No intra or extrahepatic biliary ductal dilatation. CBD is normal at 6.7 mm Main portal vein is patent with hepatopedal flow and normal spectral waveform. Patient is post cholecystectomy. No ascites. Kidneys are free from hydronephrosis and calyceal stones. Normal echogenicity and texture. Right kidney measured 8.5 cm in length. Left kidney measured 9.6 cm in length. Spleen is not enlarged at 9.2 cm in length. Visualized portions of the IVC, aorta and pancreas are normal however imaged incompletely. IMPRESSION: The liver does not appear cirrhotic. Echogenicity and texture is normal. No parenchymal mass. No splenomegaly at 9.2 cm in length. No large ascites. Small perihepatic fluid. Patient is post cholecystectomy. Unremarkable kidneys. at 1323 Reported and signed by: Rell Sahni M.D. CC: Jorge Vences MD; Bhumika Adame MD; Alana Cardona MD Technologist: ADRIENNE SOLORZANO [facility] Date/Time: 05/22/2019 (8714) t.SDR. TH4 Orig Print D/T: S: 05/22/2019 (1365) Probe: PAGE 1 Signed Report BILIRUBIN DIRECT AND [id number] 11:09:00* Test Item Value Reference Range Interpretation Comments BILIRUBIN TOTAL (test code = BILT) 1.70 mg/dL 0.0-1.0 H BILIRUBIN DIRECT (test code = BILD) 0.92 mg/dL 0.0-0.20 H BILIRUBIN INDIRECT (test code = BILIND) 0.78 mg/dL LACTIC DEHYDROGENASE(LDH)2019-05-22 11:09:00* Test Item Value Reference Range Interpretation Comments LACTIC DEHYDROGENASE(LDH) (test code = LDH) 249 IUnit/L 84-246 H FE W/TOTAL IRON BINDING CAP.2019-05-22 11:09:00* Test Item Value Reference Range Interpretation Comments SERUM IRON (test code = IRON) 43 ug/dL 50-175 L TOTAL IRON BINDING CAPACITY (test code = TIBC) 250 mcg/dL 250-450 N IRON SATURATION (test code = FESAT) 17.20 % 13-45 N VITAMIN [id number] 11:09:00* Test Item Value Reference Range Interpretation Comments VITAMIN B12 (test code = VITB12) 358 pg/mL 193-986 N FOLIC [id number] 11:09:00* Test Item Value Reference Range Interpretation Comments FOLIC ACID (test code = FOL) 7.8 ng/mL 3.10-17.50 N [id number] 11:09:00* Test Item Value Reference Range Interpretation Comments FERRITIN (test code = MICHELLE) 31 ng/mL 8-388 N BILIRUBIN DIRECT AND [id number] 11:01:00* Test Item Value Reference Range Interpretation Comments BILIRUBIN TOTAL (test code = BILT) 1.70 mg/dL 0.0-1.0 H BILIRUBIN DIRECT (test code = BILD) 0.92 mg/dL 0.0-0.20 H BILIRUBIN INDIRECT (test code = BILIND) 0.78 mg/dL LACTIC DEHYDROGENASE(LDH)2019-05-22 11:01:00* Test Item Value Reference Range Interpretation Comments LACTIC DEHYDROGENASE(LDH) (test code = LDH) 249 IUnit/L 84-246 H FE W/TOTAL IRON BINDING CAP.2019-05-22 11:01:00* Test Item Value Reference Range Interpretation Comments SERUM IRON (test code = IRON) 43 ug/dL 50-175 L TOTAL IRON BINDING CAPACITY (test code = TIBC) 250 mcg/dL 250-450 N IRON SATURATION (test code = FESAT) 17.20 % 13-45 N VITAMIN [id number] 11:01:00* Test Item Value Reference Range Interpretation Comments VITAMIN B12 (test code = VITB12) pg/mL 193-986 FOLIC [id number] 11:01:00* Test Item Value Reference Range Interpretation Comments FOLIC ACID (test code = FOL) 7.8 ng/mL 3.10-17.50 N [id number] 11:01:00* Test Item Value Reference Range Interpretation Comments FERRITIN (test code = MICHELLE) 31 ng/mL 8-388 N RETICULOCYTE [id number] 09:59:00* Test Item Value Reference Range Interpretation Comments RETICULOCYTE COUNT (test code = RETICT) 2.3 % 0.5-2.0 H RETIC COUNT ABSOLUTE (test code = RET#) 0.079 mill/mm3 0.016-0.095 N IMMATURE RETICULOCYTE FRACTION (test code = IRF) 33.0 % 3.0-1 5.9 H Values above normal range indicate an increase in RBCcellular response from bone marrow. RETICULOCYTE HGB EQUIVALENT (test code = RETHE) 36.0 pg 28.2-3 5.7 H RET-He is a direct estimate of recent functionalavailability of iron in the cell, therefore, decreasedRET-He is indicative of iron deficiency. [id number] 09:59:00* Test Item Value Reference Range Interpretation Comments HAPTOGLOBIN (test code = HAPT) mg/dL CBC W/AUTO [id number] 09:47:00* Test Item Value Reference Range Interpretation Comments WHITE BLOOD CELL (test code = WBC) 3.7 K/mm3 4.5-12.5 L RED BLOOD CELL (test code = RBC) 3.66 mill/mm3 3.7-5.2 L HEMOGLOBIN (test code = HGB) 11.6 gram/dL 11.5-15.5 N HEMATOCRIT (test code = HCT) 36.0 % 36.0-46.0 N MEAN CELL VOLUME (test code = MCV) 98.4 fL 80-98 H MEAN CELL HGB (test code = MCH) 31.7 picogram 27.0-33.0 N MEAN CELL HGB CONCETRATION (test code = MCHC) 32.2 gram/dL 33.0-36. 0 L RED CELL DISTRIBUTION WIDTH (test code = RDW) 18.6 % 11.6-16. 2 H RED CELL DISTRIBUTION WIDTH SD (test code = RDW-SD) 66.2 fL 37 .0-51.0 H PLATELET COUNT (test code = PLT) 101 K/mm3 150-450 L MEAN PLATELET VOLUME (test code = MPV) 11.4 fL 6.7-11.0 H NEUTROPHIL % (test code = NT%) 71.7 % 39.0-69.0 H IMMATURE GRANULOCYTE % (test code = IG%) 0.5 % 0.0-5.0 N LYMPHOCYTE % (test code = LY%) 20.5 % 25.0-55.0 L MONOCYTE % (test code = MO%) 4.9 % 0.0-10.0 N EOSINOPHIL % (test code = EO%) 0.8 % 0.0-5.0 N BASOPHIL % (test code = BA%) 1.6 % 0.0-1.0 H NUCLEATED RBC % (test code = NRBC%) 1.1 % 0-0 H NEUTROPHIL # (test code = NT#) 2.66 K/mm3 1.8-7.7 N IMMATURE GRANULOCYTE # (test code = IG#) 0.02 x10 3/uL 0-0.03 N LYMPHOCYTE # (test code = LY#) 0.76 K/mm3 1.0-5.0 L MONOCYTE # (test code = MO#) 0.18 K/mm3 0-0.8 N EOSINOPHIL # (test code = EO#) 0.03 K/mm3 0.0-0.5 N BASOPHIL # (test code = BA#) 0.06 K/mm3 0.0-0.2 N NUCLEATED RBC # (test code = NRBC#) 0.04 K/mm3 0.0-0.1 N MANUAL DIFF REQUIRED (test code = MDIFF) NO, ONLY SCAN NEEDED DIFFERENTIAL [id number] 09:47:00* Test Item Value Reference Range Interpretation Comments STAIN ACCEPTABILITY (test code = STN ACCEPTABLE) STAIN ACCEPTABLE ANISOCYTOSIS (test code = ANISO) 1+ MACROCYTOSIS (test code = MACR) 1+ PLATELET ESTIMATE (test code = PLTEST) DECREASED PLATELET MORPHOLOGY (test code = PLTMORPH) NORMAL [id number] 08:55:00* Test Item Value Reference Range Interpretation Comments PHOSPHORUS (test code = PHOS) 3.3 mg/dL 2.5-4.9 N [id number] 08:55:00* Test Item Value Reference Range Interpretation Comments MAGNESIUM (test code = MAG) 2.2 mg/dL 1.8-2.4 N B-TYPE NATRIURETIC [id number] 08:51:00* Test Item Value Reference Range Interpretation Comments B-TYPE NATRIURETIC PEPTIDE (test code = BNP) 1602.08 pgram/mL 0-100 H [id number] 08:50:00* Test Item Value Reference Range Interpretation Comments PHOSPHORUS (test code = PHOS) mg/dL 2.5-4.9 [id number] 08:50:00* Test Item Value Reference Range Interpretation Comments MAGNESIUM (test code = MAG) 2.2 mg/dL 1.8-2.4 N T3 [id number] 08:40:00* Test Item Value Reference Range Interpretation Comments T3 UPTAKE (test code = T3UP) 39.0 % 30.0-40.0 N T4 [id number] 08:40:00* Test Item Value Reference Range Interpretation Comments T4 FREE (test code = T4F) 1.20 ng/dL 0.76-1.46 N BASIC METABOLIC [id number] 08:34:00* Test Item Value Reference Range Interpretation Comments SODIUM (test code = NA) 141 mmol/L 136-145 N POTASSIUM (test code = K) 3.1 mmol/L 3.5-5.1 L CHLORIDE (test code = CL) 98.0 mmol/L 98-107 N CARBON DIOXIDE (test code = CO2) 33.0 mmol/L 21-32 H ANION GAP (test code = GAP) 13.1 10-20 N GLUCOSE (test code = GLU) 80 mg/dL 74-106 N BLOOD UREA NITROGEN (test code = BUN) 31 mg/dL 7-18 H GLOMERULAR FILTRATION RATE (test code = GFR) 26 mL/min >=60 Estimated GFR by using Modified MDRD formula.Chronic kidney disease is defined as either kidney damageor GFR <60 mL/min/1.73 m2 for >3 months. CREATININE (test code = CREAT) 2.00 mg/dL 0.55-1.02 H Note change in reference range due to change in reagent. BUN/CREATININE RATIO (test code = BUN/CREA) 15.5 10-20 N CALCIUM (test code = CA) 8.7 mg/dL 8.5-10.1 N BILIRUBIN [id number] 08:34:00* Test Item Value Reference Range Interpretation Comments BILIRUBIN DIRECT (test code = BILD) 0.96 mg/dL 0.0-0.20 H [id number] 08:34:00* Test Item Value Reference Range Interpretation Comments LIPASE (test code = LIP) 39 U/L 73.0-393.0 L BASIC METABOLIC [id number] 08:33:00* Test Item Value Reference Range Interpretation Comments SODIUM (test code = NA) 141 mmol/L 136-145 N POTASSIUM (test code = K) 3.1 mmol/L 3.5-5.1 L CHLORIDE (test code = CL) 98.0 mmol/L 98-107 N CARBON DIOXIDE (test code = CO2) mmol/L 21-32 ANION GAP (test code = GAP) 10-20 GLUCOSE (test code = GLU) mg/dL 74-106 BLOOD UREA NITROGEN (test code = BUN) mg/dL 7-18 GLOMERULAR FILTRATION RATE (test code = GFR) mL/min >=60 CREATININE (test code = CREAT) mg/dL 0.55-1.02 BUN/CREATININE RATIO (test code = BUN/CREA) 10-20 CALCIUM (test code = CA) mg/dL 8.5-10.1 BILIRUBIN [id number] 08:33:00* Test Item Value Reference Range Interpretation Comments BILIRUBIN DIRECT (test code = BILD) mg/dL 0.0-0.20 [id number] 08:33:00* Test Item Value Reference Range Interpretation Comments LIPASE (test code = LIP) U/L 73.0-393.0 CBC W/AUTO [id number] 08:11:00* Test Item Value Reference Range Interpretation Comments WHITE BLOOD CELL (test code = WBC) 3.7 K/mm3 4.5-12.5 L RED BLOOD CELL (test code = RBC) 3.66 mill/mm3 3.7-5.2 L HEMOGLOBIN (test code = HGB) 11.6 gram/dL 11.5-15.5 N HEMATOCRIT (test code = HCT) 36.0 % 36.0-46.0 N MEAN CELL VOLUME (test code = MCV) 98.4 fL 80-98 H MEAN CELL HGB (test code = MCH) 31.7 picogram 27.0-33.0 N MEAN CELL HGB CONCETRATION (test code = MCHC) 32.2 gram/dL 33.0-36. 0 L RED CELL DISTRIBUTION WIDTH (test code = RDW) 18.6 % 11.6-16. 2 H RED CELL DISTRIBUTION WIDTH SD (test code = RDW-SD) 66.2 fL 37 .0-51.0 H PLATELET COUNT (test code = PLT) 101 K/mm3 150-450 L MEAN PLATELET VOLUME (test code = MPV) 11.4 fL 6.7-11.0 H NEUTROPHIL % (test code = NT%) 71.7 % 39.0-69.0 H IMMATURE GRANULOCYTE % (test code = IG%) 0.5 % 0.0-5.0 N LYMPHOCYTE % (test code = LY%) 20.5 % 25.0-55.0 L MONOCYTE % (test code = MO%) 4.9 % 0.0-10.0 N EOSINOPHIL % (test code = EO%) 0.8 % 0.0-5.0 N BASOPHIL % (test code = BA%) 1.6 % 0.0-1.0 H NUCLEATED RBC % (test code = NRBC%) 1.1 % 0-0 H NEUTROPHIL # (test code = NT#) 2.66 K/mm3 1.8-7.7 N IMMATURE GRANULOCYTE # (test code = IG#) 0.02 x10 3/uL 0-0.03 N LYMPHOCYTE # (test code = LY#) 0.76 K/mm3 1.0-5.0 L MONOCYTE # (test code = MO#) 0.18 K/mm3 0-0.8 N EOSINOPHIL # (test code = EO#) 0.03 K/mm3 0.0-0.5 N BASOPHIL # (test code = BA#) 0.06 K/mm3 0.0-0.2 N NUCLEATED RBC # (test code = NRBC#) 0.04 K/mm3 0.0-0.1 N MANUAL DIFF REQUIRED (test code = MDIFF) NO, ONLY SCAN NEEDED DIFFERENTIAL [id number] 08:11:00* Test Item Value Reference Range Interpretation Comments STAIN ACCEPTABILITY (test code = STN ACCEPTABLE) CABOT RINGS (test code = CAB) MORPHOLOGY COMMENT (test code = MOC) PLATELET ESTIMATE (test code = PLTEST) PLATELET MORPHOLOGY (test code = PLTMORPH) CBC W/AUTO [id number] 08:11:00* Test Item Value Reference Range Interpretation Comments WHITE BLOOD CELL (test code = WBC) 3.7 K/mm3 4.5-12.5 L RED BLOOD CELL (test code = RBC) 3.66 mill/mm3 3.7-5.2 L HEMOGLOBIN (test code = HGB) 11.6 gram/dL 11.5-15.5 N HEMATOCRIT (test code = HCT) 36.0 % 36.0-46.0 N MEAN CELL VOLUME (test code = MCV) 98.4 fL 80-98 H MEAN CELL HGB (test code = MCH) 31.7 picogram 27.0-33.0 N MEAN CELL HGB CONCETRATION (test code = MCHC) 32.2 gram/dL 33.0-36. 0 L RED CELL DISTRIBUTION WIDTH (test code = RDW) 18.6 % 11.6-16. 2 H RED CELL DISTRIBUTION WIDTH SD (test code = RDW-SD) 66.2 fL 37 .0-51.0 H PLATELET COUNT (test code = PLT) 101 K/mm3 150-450 L MEAN PLATELET VOLUME (test code = MPV) 11.4 fL 6.7-11.0 H NEUTROPHIL % (test code = NT%) 71.7 % 39.0-69.0 H IMMATURE GRANULOCYTE % (test code = IG%) 0.5 % 0.0-5.0 N LYMPHOCYTE % (test code = LY%) 20.5 % 25.0-55.0 L MONOCYTE % (test code = MO%) 4.9 % 0.0-10.0 N EOSINOPHIL % (test code = EO%) 0.8 % 0.0-5.0 N BASOPHIL % (test code = BA%) 1.6 % 0.0-1.0 H NUCLEATED RBC % (test code = NRBC%) 1.1 % 0-0 H NEUTROPHIL # (test code = NT#) 2.66 K/mm3 1.8-7.7 N IMMATURE GRANULOCYTE # (test code = IG#) 0.02 x10 3/uL 0-0.03 N LYMPHOCYTE # (test code = LY#) 0.76 K/mm3 1.0-5.0 L MONOCYTE # (test code = MO#) 0.18 K/mm3 0-0.8 N EOSINOPHIL # (test code = EO#) 0.03 K/mm3 0.0-0.5 N BASOPHIL # (test code = BA#) 0.06 K/mm3 0.0-0.2 N NUCLEATED RBC # (test code = NRBC#) 0.04 K/mm3 0.0-0.1 N MANUAL DIFF REQUIRED (test code = MDIFF) NO, ONLY SCAN NEEDED DIFFERENTIAL [id number] 08:11:00* Test Item Value Reference Range Interpretation Comments STAIN ACCEPTABILITY (test code = STN ACCEPTABLE) CABOT RINGS (test code = CAB) MORPHOLOGY COMMENT (test code = MOC) PLATELET ESTIMATE (test code = PLTEST) PLATELET MORPHOLOGY (test code = PLTMORPH) CBC W/AUTO [id number] 08:11:00* Test Item Value Reference Range Interpretation Comments WHITE BLOOD CELL (test code = WBC) 3.7 K/mm3 4.5-12.5 L RED BLOOD CELL (test code = RBC) 3.66 mill/mm3 3.7-5.2 L HEMOGLOBIN (test code = HGB) 11.6 gram/dL 11.5-15.5 N HEMATOCRIT (test code = HCT) 36.0 % 36.0-46.0 N MEAN CELL VOLUME (test code = MCV) 98.4 fL 80-98 H MEAN CELL HGB (test code = MCH) 31.7 picogram 27.0-33.0 N MEAN CELL HGB CONCETRATION (test code = MCHC) 32.2 gram/dL 33.0-36. 0 L RED CELL DISTRIBUTION WIDTH (test code = RDW) 18.6 % 11.6-16. 2 H RED CELL DISTRIBUTION WIDTH SD (test code = RDW-SD) 66.2 fL 37 .0-51.0 H PLATELET COUNT (test code = PLT) 101 K/mm3 150-450 L MEAN PLATELET VOLUME (test code = MPV) 11.4 fL 6.7-11.0 H NEUTROPHIL % (test code = NT%) 71.7 % 39.0-69.0 H IMMATURE GRANULOCYTE % (test code = IG%) 0.5 % 0.0-5.0 N LYMPHOCYTE % (test code = LY%) 20.5 % 25.0-55.0 L MONOCYTE % (test code = MO%) 4.9 % 0.0-10.0 N EOSINOPHIL % (test code = EO%) 0.8 % 0.0-5.0 N BASOPHIL % (test code = BA%) 1.6 % 0.0-1.0 H NUCLEATED RBC % (test code = NRBC%) 1.1 % 0-0 H NEUTROPHIL # (test code = NT#) 2.66 K/mm3 1.8-7.7 N IMMATURE GRANULOCYTE # (test code = IG#) 0.02 x10 3/uL 0-0.03 N LYMPHOCYTE # (test code = LY#) 0.76 K/mm3 1.0-5.0 L MONOCYTE # (test code = MO#) 0.18 K/mm3 0-0.8 N EOSINOPHIL # (test code = EO#) 0.03 K/mm3 0.0-0.5 N BASOPHIL # (test code = BA#) 0.06 K/mm3 0.0-0.2 N NUCLEATED RBC # (test code = NRBC#) 0.04 K/mm3 0.0-0.1 N MANUAL DIFF REQUIRED (test code = MDIFF) NO, ONLY SCAN NEEDED DIFFERENTIAL [id number] 08:11:00* Test Item Value Reference Range Interpretation Comments STAIN ACCEPTABILITY (test code = STN ACCEPTABLE) MORPHOLOGY COMMENT (test code = MOC) PLATELET ESTIMATE (test code = PLTEST) PLATELET MORPHOLOGY (test code = PLTMORPH) CBC W/AUTO [id number] 08:11:00* Test Item Value Reference Range Interpretation Comments WHITE BLOOD CELL (test code = WBC) 3.7 K/mm3 4.5-12.5 L RED BLOOD CELL (test code = RBC) 3.66 mill/mm3 3.7-5.2 L HEMOGLOBIN (test code = HGB) 11.6 gram/dL 11.5-15.5 N HEMATOCRIT (test code = HCT) 36.0 % 36.0-46.0 N MEAN CELL VOLUME (test code = MCV) 98.4 fL 80-98 H MEAN CELL HGB (test code = MCH) 31.7 picogram 27.0-33.0 N MEAN CELL HGB CONCETRATION (test code = MCHC) 32.2 gram/dL 33.0-36. 0 L RED CELL DISTRIBUTION WIDTH (test code = RDW) 18.6 % 11.6-16. 2 H RED CELL DISTRIBUTION WIDTH SD (test code = RDW-SD) 66.2 fL 37 .0-51.0 H PLATELET COUNT (test code = PLT) 101 K/mm3 150-450 L MEAN PLATELET VOLUME (test code = MPV) 11.4 fL 6.7-11.0 H NEUTROPHIL % (test code = NT%) 71.7 % 39.0-69.0 H IMMATURE GRANULOCYTE % (test code = IG%) 0.5 % 0.0-5.0 N LYMPHOCYTE % (test code = LY%) 20.5 % 25.0-55.0 L MONOCYTE % (test code = MO%) 4.9 % 0.0-10.0 N EOSINOPHIL % (test code = EO%) 0.8 % 0.0-5.0 N BASOPHIL % (test code = BA%) 1.6 % 0.0-1.0 H NUCLEATED RBC % (test code = NRBC%) 1.1 % 0-0 H NEUTROPHIL # (test code = NT#) 2.66 K/mm3 1.8-7.7 N IMMATURE GRANULOCYTE # (test code = IG#) 0.02 x10 3/uL 0-0.03 N LYMPHOCYTE # (test code = LY#) 0.76 K/mm3 1.0-5.0 L MONOCYTE # (test code = MO#) 0.18 K/mm3 0-0.8 N EOSINOPHIL # (test code = EO#) 0.03 K/mm3 0.0-0.5 N BASOPHIL # (test code = BA#) 0.06 K/mm3 0.0-0.2 N NUCLEATED RBC # (test code = NRBC#) 0.04 K/mm3 0.0-0.1 N MANUAL DIFF REQUIRED (test code = MDIFF) NO, ONLY SCAN NEEDED DIFFERENTIAL [id number] 08:11:00* Test Item Value Reference Range Interpretation Comments STAIN ACCEPTABILITY (test code = STN ACCEPTABLE) CABOT RINGS (test code = CAB) MORPHOLOGY COMMENT (test code = MOC) PLATELET ESTIMATE (test code = PLTEST) PLATELET MORPHOLOGY (test code = PLTMORPH) CBC W/AUTO [id number] 08:10:00* Test Item Value Reference Range Interpretation Comments WHITE BLOOD CELL (test code = WBC) K/mm3 4.5-12.5 RED BLOOD CELL (test code = RBC) mill/mm3 3.7-5.2 HEMOGLOBIN (test code = HGB) 11.6 gram/dL 11.5-15.5 N HEMATOCRIT (test code = HCT) 36.0 % 36.0-46.0 N MEAN CELL VOLUME (test code = MCV) fL 80-98 MEAN CELL HGB (test code = MCH) picogram 27.0-33.0 MEAN CELL HGB CONCETRATION (test code = MCHC) gram/dL 33.0-36. 0 RED CELL DISTRIBUTION WIDTH (test code = RDW) % 11.6-16. 2 RED CELL DISTRIBUTION WIDTH SD (test code = RDW-SD) fL 37 .0-51.0 PLATELET COUNT (test code = PLT) K/mm3 150-450 MEAN PLATELET VOLUME (test code = MPV) fL 6.7-11.0 NEUTROPHIL % (test code = NT%) % 39.0-69.0 IMMATURE GRANULOCYTE % (test code = IG%) % 0.0-5.0 LYMPHOCYTE % (test code = LY%) % 25.0-55.0 MONOCYTE % (test code = MO%) % 0.0-10.0 EOSINOPHIL % (test code = EO%) % 0.0-5.0 BASOPHIL % (test code = BA%) % 0.0-1.0 NEUTROPHIL # (test code = NT#) K/mm3 1.8-7.7 LYMPHOCYTE # (test code = LY#) K/mm3 1.0-5.0 MONOCYTE # (test code = MO#) K/mm3 0-0.8 EOSINOPHIL # (test code = EO#) K/mm3 0.0-0.5 BASOPHIL # (test code = BA#) K/mm3 0.0-0.2 - XR CHEST 1 [id number] 07:16:00 FAX: Anastacio Puckett MD [phone] [place]: St: ADM FAX: Bhumika Forbes MD [phone] FAX: Titus Saucedo Name: JIGNESH WAYNE [facility] : 1970 Age/S: 49/F [address] Unit #: [id number] Loc: [facility] [address] Phys: Titus Saucedo Acct: [id number] Dis Date: Status: ADM IN ONE #: [phone] Exam Date: 05/22/2019 0505 FAX #: [phone] Reason: pulmonary edema, resp failure EXAMS: CPT CODE: [id number] XR CHEST 1 V 45019 HISTORY: Pulmo nary edema and respiratory failure. COMPARISON: Previous day. Location: TH. ET tube is low-lying but above the calderon. NG tube is in good position within the gastric antrum. Left ICD is unch anged. Right central line is unchanged with tip projected over the SVC. Dense right lung infiltrate. Left lung is clear with dependent changes. Cardiomegaly. IMPRESSION: Dense right natalia ng infiltrate is unchanged. Bibasal dependent changes. Electronical ly Signed by Sarah Sahni on 05/22/2019 at 0716 Rep orted and signed by: Rell Sahni M.D. CC: Anastacio Vences MD; Bhumika Adame MD; Titus Saucedo Technologist: Maurilio Armijo RT(R); TRICE SWIFT RT(R) Trnscrd Date/Time/By: 05/22/2019 (0716) : By: tBonifacio [email or web address] Orig Print D/T: S: 05/22/2019 (0719) BRADLEY PETERSON 1 Signed Report LACTIC [id number] 06:16:00* Test Item Value Reference Range Interpretation Comments LACTIC ACID (test code = LACT) 0.9 mmol/L 0.4-1.9 N [id number] 04:08:00* Test Item Value Reference Range Interpretation Comments GLUBED (test code = GLUBED) 61 mg/dL 74-106 L Performed by certified abrasive coating machine operator at [facility] LACTIC [id number] 02:36:00* Test Item Value Reference Range Interpretation Comments LACTIC ACID (test code = LACT) 2.4 mmol/L 0.4-1.9 HH Results called to [id number] by [email or web address] 05/22/19 0236Critical results verified and read back by Nurse? Y URINALYSIS [id number] 01:56:00* Test Item Value Reference Range Interpretation Comments UA COLOR (test code = COLU) Light-Yellow YELLOW UA APPEARANCE (test code = APPU) CLEAR CLEAR UA GLUCOSE DIPSTICK (test code = DGLUU) NEGATIVE mg/dL NEGATIVE UA BILIRUBIN DIPSTICK (test code = BILU) NEGATIVE mg/dL NEGATIVE UA KETONE DIPSTICK (test code = KETU) NEGATIVE mg/dL NEGATIVE UA SPECIFIC GRAVITY (test code = SGU) 1.007 1.001-1.035 UA BLOOD DIPSTICK (test code = MANJU) 0.2 mg/dL (2+) mg/dL NEGATIVE A UA PH DIPSTICK (test code = JESSIE) 6.0 5.0-8.0 UA PROTEIN DIPSTICK (test code = PROU) 30 (1+) mg/dL NEGATIVE A UA UROBILINIOGEN DIPSTICK (test code = URO) Normal mg/dL NEGATIVE UA NITRITE DIPSTICK (test code = NAVDEEP) NEGATIVE NEGATIVE UA LEUKOCYTE ESTERASE W REFLEX (test code = LEUUR) NEGATIVE Dino/uL NEGATIVE UA WBC (test code = WBCU) 6-10 per HPF 0-5 A UA RBC (test code = RBCU) 11-20 #/HPF 0-5 A UA EPITHELIAL CELLS (test code = EPIU) FEW per HPF FEW UA BACTERIA (test code = BACU) MODERATE #/HPF NONE A UA HYALINE CAST (test code = HYALU) 11-20 #/LPF 0-5 A UA MUCUS (test code = MUCU) FEW #/LPF FEW Urine Source? CatheterB-TYPE NATRIURETIC [id number] 00:08:00* Test Item Value Reference Range Interpretation Comments B-TYPE NATRIURETIC PEPTIDE (test code = BNP) 2544.20 pgram/mL 0-100 H Has Patient received Natrecor? NO- XR CHEST 1 [id number] 23:55:00 FAX: Anastacio Puckett MD [phone] [place]: St: ADM FAX: Bhumika Forbes MD [phone] FAX: Titus Saucedo --------- Name: JIGNESH WAYNE [facility] : 1970 Age/S: 49/F [address] it #: [id number] Loc: [id number] [place] [address] Phys: Titus Saucedo Acct: [id number] Dis Date: Status: ADM IN ONE #: [phone] Exam Date: 05/21/2019 2340 FAX #: [phone] Reason: S/P INTUBATION AND IJ AND NG EXAMS: CPT CODE: [id number] XR CHEST 1 V 60120 LOCATION: Q15 HISTORY: 49-year-old female who is status post intubation, and nikia tral line placement. COMMENT: A frontal chest radiograph is obtained at 11:34 p.m., and compared to study of earlier thi s evening. Since prior study the patient has been intubated. The e ndotracheal tube tip lies just above the calderon, and could be pulled back 2 cm. Nasogastric tube is well within the stomach. R ight IJ central line is in the superior vena cava. Otherwise the a ppearance of the chest is unchanged. IMPRESSION: This patient's endotracheal tube is in the airway but just above the calderon, and could be pulled back 2 cm. The right IJ central li ne is in the superior vena cava, and the nasogastric tube is well within the stomach. at 2559 Reported and signed by: Danielito Villalta M.D. CC: Anastacio Vences MD; Bhumika Adame MD; Titus Saucedo Technologist: Maurilio Armijo RT(R); TRICE SWIFT RT(R) Trnscrd Date/Time/By: 05/21/2019 (8379) : By: Jens [email or web address] Orig Print D/T: S: 05/21/2019 (0797) PAG E 1 Signed Report ARTERIAL BLOOD [id number] 23:47:00* Test Item Value Reference Range Interpretation Comments ARTERIAL BLOOD GAS PH (test code = PHA) 7.31 7.35-7.45 L ARTERIAL BLOOD GAS PCO2 (test code = PCO2A) 49.5 mm Hg 35-45 H ARTERIAL BLOOD GAS PO2 (test code = PO2A) 101.6 mmHg 80-100 H BICARBONATE TOTAL HCO3 (test code = HCO3) 24.4 mmol/L 23.0-27.0 N BASE EXCESS (test code = MATEO) -2.3 mmol/L -3.0-5.0 N ABG O2 SATURATION (test code = SATA) 96.6 % 90.0-98.0 N ABG TYPE (test code = TYPEA) Arterial FIO2 (test code = FIO2A) 100.0 ABG VENT MODE (test code = MODEA) Assist Control ABG VENT RESP RATE (test code = RRA) 16.0 per min ABG TIDAL VOLUME (test code = TVA) 240.0 mL ABG PEEP (test code = PEEPA) 10.0 cmH2O ABG SITE (test code = SITEA) ARTERIAL LINE MODIFIED ALLENS (test code = MODALL) Unable CHECK PERFORMED SODIUM (test code = NA/ABG) 136.0 mEq/L 135-148 N POTASSIUM (test code = K/ABG) 3.0 mEq/L 3.5-4.5 L CHLORIDE (test code = CL/ABG) 97 mEq/L 98-106 L GLUCOSE (test code = GLU/ABG) 180 mg/dL 74-99 H HEMATOCRIT (test code = HCT/ABG) 43 % 35-47 N IONIZED CALCIUM (test code = CAIABG) 1.10 mmol/L 1.1-1.37 N TOTAL HGB (test code = THB) 14.6 gram/dL 11.5-15.5 N HGB O2 SAT (test code = HBOSAT) 94.9 % 94.00-98.00 N CARBOXYHEMOGLOBIN (test code = HOHGBT) 1.3 %totalHg 0.5-1.5 N METHEMOGLOBIN (test code = METHGB) 0.5 % 0.0-1.50 N O2 CONTENT (test code = O2CT) 19.6 % vol 18.0-22.0 N PROTHROMBIN [id number] 23:44:00* Test Item Value Reference Range Interpretation Comments PROTHROMBIN TIME PATIENT (test code = PTP) 15.6 seconds 9.0-14.0 H INTERNATIONAL NORMAL RATIO (test code = INR) 1.3 0.8-1.2 H The therapeutic range for oral anticoagulant therapy formost indications is an international normalized ratio (INR)of between 2.0 and 3.0. The recommended therapeutic INRrange for various clinical situations is listed below: Clinical Situation INR range Pulmonary e mbolism treatment (2.0-3.0)Venous thrombosis treatmentVenous thrombosis prophylaxis (high risk surgery)Prevention of systemic embolism from: Acute myocardial infarction Valvular heart disease Atrial fibrillation Mechanical prosthetic heart valves (2.5-3.5) IS PATIENT ON ANTICOAGULANTS? NTHROMBOPLASTIN TIME [id number] 23:44:00* Test Item Value Reference Range Interpretation Comments THROMBOPLASTIN TIME PARTIAL (test code = PTT) 27.5 seconds 25.0-36. 5 N IS PATIENT ON ANTICOAGULANTS? NBASIC METABOLIC [id number] 23:44:00* Test Item Value Reference Range Interpretation Comments SODIUM (test code = NA) 138 mmol/L 136-145 N POTASSIUM (test code = K) 4.0 mmol/L 3.5-5.1 N CHLORIDE (test code = CL) 96.0 mmol/L 98-107 L CARBON DIOXIDE (test code = CO2) 27.0 mmol/L 21-32 N ANION GAP (test code = GAP) 19.0 10-20 N GLUCOSE (test code = GLU) 214 mg/dL 74-106 H BLOOD UREA NITROGEN (test code = BUN) 32 mg/dL 7-18 H RESULT VERIFIED BY REPEAT ANALYSIS GLOMERULAR FILTRATION RATE (test code = GFR) 21 mL/min >=60 Estimated GFR by using Modified MDRD formula.Chronic kidney disease is defined as either kidney damageor GFR <60 mL/min/1.73 m2 for >3 months. CREATININE (test code = CREAT) 2.40 mg/dL 0.55-1.02 H Note change in reference range due to change in reagent. BUN/CREATININE RATIO (test code = BUN/CREA) 13.3 10-20 N CALCIUM (test code = CA) 8.5 mg/dL 8.5-10.1 N [id number] 23:44:00* Test Item Value Reference Range Interpretation Comments PHOSPHORUS (test code = PHOS) 6.3 mg/dL 2.5-4.9 H [id number] 23:44:00* Test Item Value Reference Range Interpretation Comments MAGNESIUM (test code = MAG) 2.6 mg/dL 1.8-2.4 H CALCIUM [id number] 23:44:00* Test Item Value Reference Range Interpretation Comments CALCIUM IONIZED (test code = CARYN) 1.16 mmol/L 1.12-1.32 N CBC W/AUTO [id number] 23:41:00* Test Item Value Reference Range Interpretation Comments WHITE BLOOD CELL (test code = WBC) 5.0 K/mm3 4.5-12.5 N RED BLOOD CELL (test code = RBC) 4.33 mill/mm3 3.7-5.2 N HEMOGLOBIN (test code = HGB) 13.5 gram/dL 11.5-15.5 N HEMATOCRIT (test code = HCT) 44.9 % 36.0-46.0 N MEAN CELL VOLUME (test code = MCV) 103.7 fL 80-98 H MEAN CELL HGB (test code = MCH) 31.2 picogram 27.0-33.0 N MEAN CELL HGB CONCETRATION (test code = MCHC) 30.1 gram/dL 33.0-36. 0 L RED CELL DISTRIBUTION WIDTH (test code = RDW) 19.7 % 11.6-16. 2 H RED CELL DISTRIBUTION WIDTH SD (test code = RDW-SD) 75.1 fL 37 .0-51.0 H PLATELET COUNT (test code = PLT) 123 K/mm3 150-450 L MEAN PLATELET VOLUME (test code = MPV) 11.5 fL 6.7-11.0 H NEUTROPHIL % (test code = NT%) 73.1 % 39.0-69.0 H IMMATURE GRANULOCYTE % (test code = IG%) 1.2 % 0.0-5.0 N LYMPHOCYTE % (test code = LY%) 17.3 % 25.0-55.0 L MONOCYTE % (test code = MO%) 5.8 % 0.0-10.0 N EOSINOPHIL % (test code = EO%) 0.8 % 0.0-5.0 N BASOPHIL % (test code = BA%) 1.8 % 0.0-1.0 H NUCLEATED RBC % (test code = NRBC%) 0.8 % 0-0 H NEUTROPHIL # (test code = NT#) 3.63 K/mm3 1.8-7.7 N IMMATURE GRANULOCYTE # (test code = IG#) 0.06 x10 3/uL 0-0.03 H LYMPHOCYTE # (test code = LY#) 0.86 K/mm3 1.0-5.0 L MONOCYTE # (test code = MO#) 0.29 K/mm3 0-0.8 N EOSINOPHIL # (test code = EO#) 0.04 K/mm3 0.0-0.5 N BASOPHIL # (test code = BA#) 0.09 K/mm3 0.0-0.2 N NUCLEATED RBC # (test code = NRBC#) 0.04 K/mm3 0.0-0.1 N MANUAL DIFF REQUIRED (test code = MDIFF) NO BASIC METABOLIC [id number] 23:38:00* Test Item Value Reference Range Interpretation Comments SODIUM (test code = NA) 138 mmol/L 136-145 N POTASSIUM (test code = K) 4.0 mmol/L 3.5-5.1 N CHLORIDE (test code = CL) 96.0 mmol/L 98-107 L CARBON DIOXIDE (test code = CO2) 27.0 mmol/L 21-32 N ANION GAP (test code = GAP) 19.0 10-20 N GLUCOSE (test code = GLU) 214 mg/dL 74-106 H BLOOD UREA NITROGEN (test code = BUN) 32 mg/dL 7-18 H RESULT VERIFIED BY REPEAT ANALYSIS GLOMERULAR FILTRATION RATE (test code = GFR) 21 mL/min >=60 Estimated GFR by using Modified MDRD formula.Chronic kidney disease is defined as either kidney damageor GFR <60 mL/min/1.73 m2 for >3 months. CREATININE (test code = CREAT) 2.40 mg/dL 0.55-1.02 H Note change in reference range due to change in reagent. BUN/CREATININE RATIO (test code = BUN/CREA) 13.3 10-20 N CALCIUM (test code = CA) 8.5 mg/dL 8.5-10.1 N [id number] 23:38:00* Test Item Value Reference Range Interpretation Comments PHOSPHORUS (test code = PHOS) 6.3 mg/dL 2.5-4.9 H [id number] 23:38:00* Test Item Value Reference Range Interpretation Comments MAGNESIUM (test code = MAG) 2.6 mg/dL 1.8-2.4 H CALCIUM [id number] 23:38:00* Test Item Value Reference Range Interpretation Comments CALCIUM IONIZED (test code = CARYN) mmol/L 1.12-1.32 LACTIC [id number] 23:36:00* Test Item Value Reference Range Interpretation Comments LACTIC ACID (test code = LACT) 6.3 mmol/L 0.4-1.9 HH Results called to [id number] by [email or web address] 05/21/19 2336Critical results verified and read back by Nurse? Y BASIC METABOLIC [id number] 23:25:00* Test Item Value Reference Range Interpretation Comments SODIUM (test code = NA) 138 mmol/L 136-145 N POTASSIUM (test code = K) 4.0 mmol/L 3.5-5.1 N CHLORIDE (test code = CL) 96.0 mmol/L 98-107 L CARBON DIOXIDE (test code = CO2) mmol/L 21-32 ANION GAP (test code = GAP) 10-20 GLUCOSE (test code = GLU) mg/dL 74-106 BLOOD UREA NITROGEN (test code = BUN) mg/dL 7-18 GLOMERULAR FILTRATION RATE (test code = GFR) mL/min >=60 CREATININE (test code = CREAT) mg/dL 0.55-1.02 BUN/CREATININE RATIO (test code = BUN/CREA) 10-20 CALCIUM (test code = CA) 8.5 mg/dL 8.5-10.1 N [id number] 23:25:00* Test Item Value Reference Range Interpretation Comments PHOSPHORUS (test code = PHOS) mg/dL 2.5-4.9 [id number] 23:25:00* Test Item Value Reference Range Interpretation Comments MAGNESIUM (test code = MAG) mg/dL 1.8-2.4 CALCIUM [id number] 23:25:00* Test Item Value Reference Range Interpretation Comments CALCIUM IONIZED (test code = CARYN) mmol/L 1.12-1.32 CBC W/AUTO [id number] 23:23:00* Test Item Value Reference Range Interpretation Comments WHITE BLOOD CELL (test code = WBC) K/mm3 4.5-12.5 RED BLOOD CELL (test code = RBC) mill/mm3 3.7-5.2 HEMOGLOBIN (test code = HGB) 13.5 gram/dL 11.5-15.5 N HEMATOCRIT (test code = HCT) 44.9 % 36.0-46.0 N MEAN CELL VOLUME (test code = MCV) fL 80-98 MEAN CELL HGB (test code = MCH) picogram 27.0-33.0 MEAN CELL HGB CONCETRATION (test code = MCHC) gram/dL 33.0-36. 0 RED CELL DISTRIBUTION WIDTH (test code = RDW) % 11.6-16. 2 RED CELL DISTRIBUTION WIDTH SD (test code = RDW-SD) fL 37 .0-51.0 PLATELET COUNT (test code = PLT) K/mm3 150-450 MEAN PLATELET VOLUME (test code = MPV) fL 6.7-11.0 NEUTROPHIL % (test code = NT%) % 39.0-69.0 IMMATURE GRANULOCYTE % (test code = IG%) % 0.0-5.0 LYMPHOCYTE % (test code = LY%) % 25.0-55.0 MONOCYTE % (test code = MO%) % 0.0-10.0 EOSINOPHIL % (test code = EO%) % 0.0-5.0 BASOPHIL % (test code = BA%) % 0.0-1.0 NEUTROPHIL # (test code = NT#) K/mm3 1.8-7.7 LYMPHOCYTE # (test code = LY#) K/mm3 1.0-5.0 MONOCYTE # (test code = MO#) K/mm3 0-0.8 EOSINOPHIL # (test code = EO#) K/mm3 0.0-0.5 BASOPHIL # (test code = BA#) K/mm3 0.0-0.2 - [facility] [id number] 16:12:00 Name: JIGNESH WAYNE [facility] : 1970 Age/S: 49 / F [address] Unit #: [id number] Loc: [place] [address] Phys: Bhumika Adame MD Acct: [id number] Dis Date: Status: ADM IN PHONE #: [phone] Exam Date: 05/21/2019 1500 FAX #: [phone] Reason: NEEMA EXAMS: CPT CODE: [id number] US RETROPERITONEAL COM 16116 HISTORY: Acute kidney insufficiency. COMPARISON: CT abdomen and pelvis from November 16, 2017. Bilateral renal ultrasound: Location: [facility]. Both kidneys are free from hydronephrosis and calyceal stones with normal echogenicity and texture. Global atrophy on the right. No perinephric collections. Right kidney measured 7.8 x 2.8 x 3 cm. Left kidney measured 9.2 x 4 x 4.1 cm. Decompressed urinary bladder is nondiagnostic. IMPRESSION: No hydronephrosis or calyceal stones on either side. Normal echogenicity and texture. Global cortical atrophy on the right. Decompressed urinary bladder is nondiagnostic. Electronically Signed by Sarah Sahni on at 1612 Reported and signed by: Pato Grubbs CC: Anastacio Vences MD; Bhumika Adame MD T echnologist: ADRIENNE SOLORZANO Trnscb Date/ Time: 05/21/2019 (1612) [email or web address] Orig Print D/T: S: 04/25 (5394) Probe: PAGE 1 Sig ondina Report URINALYSIS [id number] 11:06:00 * Test Item Value Reference Range Interpretation Comments UA COLOR (test code = COLU) YELLOW YELLOW UA APPEARANCE (test code = APPU) Cloudy CLEAR A UA GLUCOSE DIPSTICK (test code = DGLUU) NEGATIVE mg/dL NEGATIVE UA BILIRUBIN DIPSTICK (test code = BILU) NEGATIVE mg/dL NEGATIVE UA KETONE DIPSTICK (test code = KETU) NEGATIVE mg/dL NEGATIVE UA SPECIFIC GRAVITY (test code = SGU) 1.008 1.001-1.035 UA BLOOD DIPSTICK (test code = MANJU) 0.5 mg/dL (2+) mg/dL NEGATIVE A UA PH DIPSTICK (test code = JESSIE) 6.5 5.0-8.0 UA PROTEIN DIPSTICK (test code = PROU) 50 (1+) mg/dL NEGATIVE A UA UROBILINIOGEN DIPSTICK (test code = URO) 2.0 (1+) mg/dL NEGATIVE A UA NITRITE DIPSTICK (test code = NAVDEEP) NEGATIVE NEGATIVE UA LEUKOCYTE ESTERASE W REFLEX (test code = LEUUR) 75 Dino/uL (1+) Dino/uL NEGATIVE A UA WBC (test code = WBCU) 6-10 per HPF 0-5 A UA RBC (test code = RBCU) 21-50 #/HPF 0-5 UA EPITHELIAL CELLS (test code = EPIU) FEW per HPF FEW UA BACTERIA (test code = BACU) MANY #/HPF NONE A UA MUCUS (test code = MUCU) FEW #/LPF FEW Urine Source? Clean CatchSAMPLE TO BE COLLECTED BY NURSEURINALYSIS COMPLETE 2019-05-21 10:54:00* Test Item Value Reference Range Interpretation Comments UA COLOR (test code = COLU) YELLOW YELLOW UA APPEARANCE (test code = APPU) Cloudy CLEAR A UA GLUCOSE DIPSTICK (test code = DGLUU) NEGATIVE mg/dL NEGATIVE UA BILIRUBIN DIPSTICK (test code = BILU) NEGATIVE mg/dL NEGATIVE UA KETONE DIPSTICK (test code = KETU) NEGATIVE mg/dL NEGATIVE UA SPECIFIC GRAVITY (test code = SGU) 1.008 1.001-1.035 UA BLOOD DIPSTICK (test code = MANJU) 0.5 mg/dL (2+) mg/dL NEGATIVE A UA PH DIPSTICK (test code = JESSIE) 6.5 5.0-8.0 UA PROTEIN DIPSTICK (test code = PROU) 50 (1+) mg/dL NEGATIVE A UA UROBILINIOGEN DIPSTICK (test code = URO) 2.0 (1+) mg/dL NEGATIVE A UA NITRITE DIPSTICK (test code = NAVDEEP) NEGATIVE NEGATIVE UA LEUKOCYTE ESTERASE W REFLEX (test code = LEUUR) 75 Dino/uL (1+) Dino/uL NEGATIVE A UA WBC (test code = WBCU) per HPF 0-5 UA RBC (test code = RBCU) per HPF 0-5 UA EPITHELIAL CELLS (test code = EPIU) per HPF Few UA BACTERIA (test code = BACU) per HPF NONE Urine Source? Clean CatchSAMPLE TO BE COLLECTED BY NURSECPK-MB [id number] 09:50:00* Test Item Value Reference Range Interpretation Comments CREATINE KINASE (CK) (test code = CK) 59 IUnit/L 26-208 N CKMB (test code = CKMBT) 1.7 ng/mL 0-6.0 N RELATIVE % INDEX (test code = REL%) 2.88 % 0.00-2.50 H "If the total CK is elevated, the CKMB Fraction must beinterpreted as a Relative % Index, Normal is less than 2.5%"NOTE: Relative % Index is not valid with a normal total CK. - XR CHEST 1 [id number] 08:43:00 FAX: Anastacio Puckett MD [phone] [place]: St: ADM FAX: Bhumika Forbes MD [phone] FAX: Tyrel Escobar MD [phone] Name: JIGNESH WAYNE [facility] : 1970 Age/S: 49/F [address] Unit #: [id number] Loc: [place] [address] Phys: Tyrel Guzman MD Acct: [id number] Dis Date: Status: ADM IN PH ONE #: [phone] Exam Date: 05/21/2019 0738 FAX #: [phone] Reason: chf EXAMS: CPT CODE: [id number] XR CHEST 1 V 84822 EXAM: Chest x- ray, one view; INFORMATION: CHF; elevated troponin, shortness of b reath; IMPRESSION: 1. No significant change compared wi yesterday's study. 2. Persistent pulmonary edema, right worse than l eft. 3. Persistent moderate cardiomegaly. Location [facility]: at 0843 Reported and signed by: Ari Flores M.D. CC: Anastacio Irvin MD; Bhumika Adame MD; Tyrel Guzman MD Technologist: April Bray T(R); Danielito ODONNELL(R) Trnscrd Date/Time/By: 05/21/2019 (0843) : By: LanaGRW Orig Print D/T: S: 05/21/2019 (0846) PAGE 1 Signed Report COMPREHENSIVE METABOLIC [id number] 06:58:00* Test Item Value Reference Range Interpretation Comments SODIUM (test code = NA) 139 mmol/L 136-145 N POTASSIUM (test code = K) 4.2 mmol/L 3.5-5.1 CHLORIDE (test code = CL) 101.0 mmol/L 98-107 N CARBON DIOXIDE (test code = CO2) 27.0 mmol/L 21-32 N ANION GAP (test code = GAP) 15.2 10-20 N GLUCOSE (test code = GLU) 117 mg/dL 74-106 H BLOOD UREA NITROGEN (test code = BUN) 26 mg/dL 7-18 H GLOMERULAR FILTRATION RATE (test code = GFR) 30 mL/min >=60 Estimated GFR by using Modified MDRD formula.Chronic kidney disease is defined as either kidney damageor GFR <60 mL/min/1.73 m2 for >3 months. CREATININE (test code = CREAT) 1.80 mg/dL 0.55-1.02 H Note change in reference range due to change in reagent. BUN/CREATININE RATIO (test code = BUN/CREA) 14.4 10-20 N TOTAL PROTEIN (test code = PROT) 7.6 gram/dL 6.4-8.2 N ALBUMIN (test code = ALB) 3.8 g/dL 3.4-5.0 N GLOBULIN (test code = GLOB) 3.8 gram/dL 2.7-4.2 N ALBUMIN/GLOBULIN RATIO (test code = A/G) 1.0 0.75-1.50 N CALCIUM (test code = CA) 8.8 mg/dL 8.5-10.1 N BILIRUBIN TOTAL (test code = BILT) 1.20 mg/dL 0.0-1.0 H SGOT/AST (test code = AST) 22 IUnit/L 15-37 N SGPT/ALT (test code = ALT) 17 IUnit/L 12-78 N ALKALINE PHOSPHATASE TOTAL (test code = ALKP) 159 IUnit/L 45-117 H Note change in reference range due to change in reagent. LIPID PROFILE (CORONARY RISK)2019-05-21 06:58:00* Test Item Value Reference Range Interpretation Comments TRIGLYCERIDES (test code = TRIG) 82 mg/dL 20-150 N CHOLESTEROL (test code = CHOL) 123 mg/dL 0-200 N CHOLESTEROL/HDL RATIO (test code = CHOLHDL) 3.0 RATIO 0-4.9 N RISK ASSOCIATED WITH CHOL/HDL RATIOS: Risk Male Female1/2 AVERAGE 3.43 3.27AVERAGE 4.97 4.442X AVERAGE 9.55 7.053X AVERAGE 23.39 11.04 REFERENCE VALUE IS RELATED TO RISK LEVELS ASRECOMMENDED BY THE ANGEL. HEART, LUNG, AND BLOOD INST. HDL CHOLESTEROL (test code = HDL) 34 mg/dL 40-60 L LIPOPROTEIN LDL (test code = LDL) 80 mg/dL 100-129 L Reference Interval: mg/dL mmol/L Optimal <100 <2.6Near/above optimal 100-129 2.6- 3.3Borderline High 130-159 3.4-4.1High 160-189 4.1-4.9Very High >=190 >=4.9========= This LDL result is a direct measurement.========= [id number] 06:58:00* Test Item Value Reference Range Interpretation Comments PHOSPHORUS (test code = PHOS) 4.2 mg/dL 2.5-4.9 N [id number] 06:58:00* Test Item Value Reference Range Interpretation Comments MAGNESIUM (test code = MAG) 2.4 mg/dL 1.8-2.4 N THYROID STIMULATING [id number] 06:58:00* Test Item Value Reference Range Interpretation Comments THYROID STIMULATING HORMONE (test code = TSH) 30.700 uIU/mL 0.36-3. 74 H TSH REFERENCE RANGES: EUTHYROID: 0.35 - 4.3 mIU/mL HYPO : > 5.5 mIU/mL HYPER : < 0.35 mIU/mL [id number] 06:58:00* Test Item Value Reference Range Interpretation Comments TROPONIN-I (test code = TROPI) 0.148 ng/mL 0-0.045 HH PROTHROMBIN [id number] 06:21:00* Test Item Value Reference Range Interpretation Comments PROTHROMBIN TIME PATIENT (test code = PTP) 14.9 seconds 9.0-14.0 H INTERNATIONAL NORMAL RATIO (test code = INR) 1.3 0.8-1.2 H The therapeutic range for oral anticoagulant therapy formost indications is an international normalized ratio (INR)of between 2.0 and 3.0. The recommended therapeutic INRrange for various clinical situations is listed below: Clinical Situation INR range Pulmonary e mbolism treatment (2.0-3.0)Venous thrombosis treatmentVenous thrombosis prophylaxis (high risk surgery)Prevention of systemic embolism from: Acute myocardial infarction Valvular heart disease Atrial fibrillation Mechanical prosthetic heart valves (2.5-3.5) IS PATIENT ON ANTICOAGULANTS? NCBC W/AUTO [id number] 06:15:00* Test Item Value Reference Range Interpretation Comments WHITE BLOOD CELL (test code = WBC) 4.6 K/mm3 4.5-12.5 N RED BLOOD CELL (test code = RBC) 3.95 mill/mm3 3.7-5.2 N HEMOGLOBIN (test code = HGB) 12.5 gram/dL 11.5-15.5 N HEMATOCRIT (test code = HCT) 38.8 % 36.0-46.0 N MEAN CELL VOLUME (test code = MCV) 98.2 fL 80-98 H MEAN CELL HGB (test code = MCH) 31.6 picogram 27.0-33.0 N MEAN CELL HGB CONCETRATION (test code = MCHC) 32.2 gram/dL 33.0-36. 0 L RED CELL DISTRIBUTION WIDTH (test code = RDW) 19.3 % 11.6-16. 2 H RED CELL DISTRIBUTION WIDTH SD (test code = RDW-SD) 68.4 fL 37 .0-51.0 H PLATELET COUNT (test code = PLT) 115 K/mm3 150-450 L MEAN PLATELET VOLUME (test code = MPV) 11.8 fL 6.7-11.0 H NEUTROPHIL % (test code = NT%) 76.4 % 39.0-69.0 H IMMATURE GRANULOCYTE % (test code = IG%) 0.4 % 0.0-5.0 N LYMPHOCYTE % (test code = LY%) 13.9 % 25.0-55.0 L MONOCYTE % (test code = MO%) 6.9 % 0.0-10.0 N EOSINOPHIL % (test code = EO%) 1.3 % 0.0-5.0 N BASOPHIL % (test code = BA%) 1.1 % 0.0-1.0 H NUCLEATED RBC % (test code = NRBC%) 0.4 % 0-0 H NEUTROPHIL # (test code = NT#) 3.52 K/mm3 1.8-7.7 N IMMATURE GRANULOCYTE # (test code = IG#) 0.02 x10 3/uL 0-0.03 N LYMPHOCYTE # (test code = LY#) 0.64 K/mm3 1.0-5.0 L MONOCYTE # (test code = MO#) 0.32 K/mm3 0-0.8 N EOSINOPHIL # (test code = EO#) 0.06 K/mm3 0.0-0.5 N BASOPHIL # (test code = BA#) 0.05 K/mm3 0.0-0.2 N NUCLEATED RBC # (test code = NRBC#) 0.02 K/mm3 0.0-0.1 N MANUAL DIFF REQUIRED (test code = MDIFF) NO CBC W/AUTO [id number] 06:12:00* Test Item Value Reference Range Interpretation Comments WHITE BLOOD CELL (test code = WBC) K/mm3 4.5-12.5 RED BLOOD CELL (test code = RBC) mill/mm3 3.7-5.2 HEMOGLOBIN (test code = HGB) 12.5 gram/dL 11.5-15.5 N HEMATOCRIT (test code = HCT) 38.8 % 36.0-46.0 N MEAN CELL VOLUME (test code = MCV) fL 80-98 MEAN CELL HGB (test code = MCH) picogram 27.0-33.0 MEAN CELL HGB CONCETRATION (test code = MCHC) gram/dL 33.0-36. 0 RED CELL DISTRIBUTION WIDTH (test code = RDW) % 11.6-16. 2 RED CELL DISTRIBUTION WIDTH SD (test code = RDW-SD) fL 37 .0-51.0 PLATELET COUNT (test code = PLT) K/mm3 150-450 MEAN PLATELET VOLUME (test code = MPV) fL 6.7-11.0 NEUTROPHIL % (test code = NT%) % 39.0-69.0 IMMATURE GRANULOCYTE % (test code = IG%) % 0.0-5.0 LYMPHOCYTE % (test code = LY%) % 25.0-55.0 MONOCYTE % (test code = MO%) % 0.0-10.0 EOSINOPHIL % (test code = EO%) % 0.0-5.0 BASOPHIL % (test code = BA%) % 0.0-1.0 NEUTROPHIL # (test code = NT#) K/mm3 1.8-7.7 LYMPHOCYTE # (test code = LY#) K/mm3 1.0-5.0 MONOCYTE # (test code = MO#) K/mm3 0-0.8 EOSINOPHIL # (test code = EO#) K/mm3 0.0-0.5 BASOPHIL # (test code = BA#) K/mm3 0.0-0.2 [id number] 03:32:00* Test Item Value Reference Range Interpretation Comments TROPONIN-I (test code = TROPI) 0.128 ng/mL 0-0.045 HH COMMENTS TO RADIOLOGY CT TECHNOLOGIST: COLLECT 3 HOURS AFTER PREVIOUS SAMPLECOMPREHENSIVE METABOLIC [id number] 23:59:00* Test Item Value Reference Range Interpretation Comments SODIUM (test code = NA) 142 mmol/L 136-145 N POTASSIUM (test code = K) 3.0 mmol/L 3.5-5.1 L CHLORIDE (test code = CL) 103.0 mmol/L 98-107 N CARBON DIOXIDE (test code = CO2) 29.0 mmol/L 21-32 N ANION GAP (test code = GAP) 13.0 10-20 N GLUCOSE (test code = GLU) 102 mg/dL 74-106 N BLOOD UREA NITROGEN (test code = BUN) 23 mg/dL 7-18 H GLOMERULAR FILTRATION RATE (test code = GFR) 32 mL/min >=60 Estimated GFR by using Modified MDRD formula.Chronic kidney disease is defined as either kidney damageor GFR <60 mL/min/1.73 m2 for >3 months. CREATININE (test code = CREAT) 1.70 mg/dL 0.55-1.02 H Note change in reference range due to change in reagent. BUN/CREATININE RATIO (test code = BUN/CREA) 13.5 10-20 N TOTAL PROTEIN (test code = PROT) 6.7 gram/dL 6.4-8.2 N ALBUMIN (test code = ALB) 2.5 g/dL 3.4-5.0 L GLOBULIN (test code = GLOB) 4.2 gram/dL 2.7-4.2 N ALBUMIN/GLOBULIN RATIO (test code = A/G) 0.6 0.75-1.50 L CALCIUM (test code = CA) 8.2 mg/dL 8.5-10.1 L BILIRUBIN TOTAL (test code = BILT) 1.00 mg/dL 0.0-1.0 N SGOT/AST (test code = AST) 22 IUnit/L 15-37 N SGPT/ALT (test code = ALT) 14 IUnit/L 12-78 N ALKALINE PHOSPHATASE TOTAL (test code = ALKP) 163 IUnit/L 45-117 H Note change in reference range due to change in reagent. COMPREHENSIVE METABOLIC [id number] 23:53:00* Test Item Value Reference Range Interpretation Comments SODIUM (test code = NA) 142 mmol/L 136-145 N POTASSIUM (test code = K) 3.0 mmol/L 3.5-5.1 L CHLORIDE (test code = CL) 103.0 mmol/L 98-107 N CARBON DIOXIDE (test code = CO2) mmol/L 21-32 ANION GAP (test code = GAP) 10-20 GLUCOSE (test code = GLU) mg/dL 74-106 BLOOD UREA NITROGEN (test code = BUN) mg/dL 7-18 GLOMERULAR FILTRATION RATE (test code = GFR) mL/min >=60 CREATININE (test code = CREAT) mg/dL 0.55-1.02 BUN/CREATININE RATIO (test code = BUN/CREA) 10-20 TOTAL PROTEIN (test code = PROT) gram/dL 6.4-8.2 ALBUMIN (test code = ALB) g/dL 3.4-5.0 GLOBULIN (test code = GLOB) gram/dL 2.7-4.2 ALBUMIN/GLOBULIN RATIO (test code = A/G) 0.75-1.50 CALCIUM (test code = CA) mg/dL 8.5-10.1 BILIRUBIN TOTAL (test code = BILT) mg/dL 0.0-1.0 SGOT/AST (test code = AST) IUnit/L 15-37 SGPT/ALT (test code = ALT) IUnit/L 12-78 ALKALINE PHOSPHATASE TOTAL (test code = ALKP) IUnit/L 45-117 CPK-MB [id number] 23:39:00* Test Item Value Reference Range Interpretation Comments CREATINE KINASE (CK) (test code = CK) 58 IUnit/L 26-208 N CKMB (test code = CKMBT) 2.3 ng/mL 0-6.0 N RELATIVE % INDEX (test code = REL%) 3.97 % 0.00-2.50 H "If the total CK is elevated, the CKMB Fraction must beinterpreted as a Relative % Index, Normal is less than 2.5%"NOTE: Relative % Index is not valid with a normal total CK. [id number] 23:35:00* Test Item Value Reference Range Interpretation Comments TROPONIN-I (test code = TROPI) 0.136 ng/mL 0-0.[address] TECHNOLOGIST: COLLECT 3 HOURS AFTER PREVIOUS SAMPLEB-TYPE NATRIURETIC [id number] 17:27:00* Test Item Value Reference Range Interpretation Comments B-TYPE NATRIURETIC PEPTIDE (test code = BNP) 1198.04 pgram/mL 0-100 H BASIC METABOLIC [id number] 17:11:00* Test Item Value Reference Range Interpretation Comments SODIUM (test code = NA) 142 mmol/L 136-145 N POTASSIUM (test code = K) 3.5 mmol/L 3.5-5.1 N CHLORIDE (test code = CL) 104.0 mmol/L 98-107 N CARBON DIOXIDE (test code = CO2) 29.0 mmol/L 21-32 N ANION GAP (test code = GAP) 12.5 10-20 N GLUCOSE (test code = GLU) 97 mg/dL 74-106 N BLOOD UREA NITROGEN (test code = BUN) 23 mg/dL 7-18 H GLOMERULAR FILTRATION RATE (test code = GFR) 34 mL/min >=60 Estimated GFR by using Modified MDRD formula.Chronic kidney disease is defined as either kidney damageor GFR <60 mL/min/1.73 m2 for >3 months. CREATININE (test code = CREAT) 1.60 mg/dL 0.55-1.02 H Note change in reference range due to change in reagent. BUN/CREATININE RATIO (test code = BUN/CREA) 14.4 10-20 N CALCIUM (test code = CA) 8.3 mg/dL 8.5-10.1 L [id number] 17:11:00* Test Item Value Reference Range Interpretation Comments TROPONIN-I (test code = TROPI) 0.141 ng/mL 0-0.045 Results called to [id number] by [facility]. 05/20/19 1710Critical results verified and read back by Nurse? Y BASIC METABOLIC [id number] 16:53:00* Test Item Value Reference Range Interpretation Comments SODIUM (test code = NA) 142 mmol/L 136-145 N POTASSIUM (test code = K) 3.5 mmol/L 3.5-5.1 N CHLORIDE (test code = CL) 104.0 mmol/L 98-107 N CARBON DIOXIDE (test code = CO2) mmol/L 21-32 ANION GAP (test code = GAP) 10-20 GLUCOSE (test code = GLU) mg/dL 74-106 BLOOD UREA NITROGEN (test code = BUN) mg/dL 7-18 GLOMERULAR FILTRATION RATE (test code = GFR) mL/min >=60 CREATININE (test code = CREAT) mg/dL 0.55-1.02 BUN/CREATININE RATIO (test code = BUN/CREA) 10-20 CALCIUM (test code = CA) mg/dL 8.5-10.1 [id number] 16:53:00* Test Item Value Reference Range Interpretation Comments TROPONIN-I (test code = TROPI) ng/mL 0-0.045 CBC W/O [id number] 16:48:00* Test Item Value Reference Range Interpretation Comments WHITE BLOOD CELL (test code = WBC) 5.6 K/mm3 4.5-12.5 N RED BLOOD CELL (test code = RBC) 4.36 mill/mm3 3.7-5.2 N HEMOGLOBIN (test code = HGB) 13.6 gram/dL 11.5-15.5 N HEMATOCRIT (test code = HCT) 43.0 % 36.0-46.0 N MEAN CELL VOLUME (test code = MCV) 98.6 fL 80-98 H MEAN CELL HGB (test code = MCH) 31.2 picogram 27.0-33.0 N MEAN CELL HGB CONCETRATION (test code = MCHC) 31.6 gram/dL 33.0-36. 0 L RED CELL DISTRIBUTION WIDTH (test code = RDW) 18.9 % 11.6-16. 2 H PLATELET COUNT (test code = PLT) 122 K/mm3 150-450 L RESULT VERIFIED BY REPEAT ANALYSIS MEAN PLATELET VOLUME (test code = MPV) 11.7 fL 6.7-11.0 H CBC W/O [id number] 16:46:00* Test Item Value Reference Range Interpretation Comments WHITE BLOOD CELL (test code = WBC) K/mm3 4.5-12.5 RED BLOOD CELL (test code = RBC) mill/mm3 3.7-5.2 HEMOGLOBIN (test code = HGB) 13.6 gram/dL 11.5-15.5 N HEMATOCRIT (test code = HCT) 43.0 % 36.0-46.0 N MEAN CELL VOLUME (test code = MCV) fL 80-98 MEAN CELL HGB (test code = MCH) picogram 27.0-33.0 MEAN CELL HGB CONCETRATION (test code = MCHC) gram/dL 33.0-36. 0 RED CELL DISTRIBUTION WIDTH (test code = RDW) % 11.6-16. 2 PLATELET COUNT (test code = PLT) K/mm3 150-450 MEAN PLATELET VOLUME (test code = MPV) fL 6.7-11.0 - XR CHEST 1 [id number] 16:29:00 FAX: Anastacio Puckett MD [phone] [place]: St: PRE FAX: Doc Morris DO Name: JIGNESH WAYNE [facility] : 1970 Age/S: 49/F [address] Unit #: [id number] Loc: [place] [address] Phys: Doc Morris DO Acct: [id number] Dis Date: Status: PRE ER PHONE #: [phone] Exam Date: 05/20/2019 1621 FAX #: [phone] Reason: Shortness of Breath EXAMS: CPT CODE: [id number] XR CHEST 1 V 70654 HISTORY: Shortness of breath. COMPARISON: March 10, 2019. Location: [facility]. Left ICD is unchanged. Mild congestion. Moderate cardiomegaly. IMPRESSION: Mild congestion with no significant effusion. Dependent changes. at 6810 Reported and signed by: Rell Sahni M.D. CC: Anastacio Vences MD; Doc Morris DO Technologist: RT DILSHAD(Katarina) Trnscdelilah Date/Time/By: 05/20/2019 (8539) : By: [email or web address] Orig Print D/T: S: 05/20/2019 (4673) PAGE 1 Signed Report White Blood [id number] 06:41:00* Test Item Value Reference Range Interpretation Comments White Blood Count (test code = 6690-2) 4.32 4.8-10.[address] [facility] [id number] 06:41:00* Test Item Value Reference Range Interpretation Comments Red Blood Count (test code = 789-8) 4.08 3.6-5.1 [facility]2019-[facility] 06:41:00* Test Item Value Reference Range Interpretation Comments Hemoglobin (test code = 71479-3) 12.7 12.0-16.0 [facility]2019-11-12 06:41:00* Test Item Value Reference Range Interpretation Comments Hematocrit (test code = 4544-3) 40.4 34.2-44.1 [facility] Center[facility] Corpuscular [id number] 06:41:00* Test Item Value Reference Range Interpretation Comments Mean Corpuscular Volume (test code = 787-2) 99.0 81-99 [facility] Corpuscular [id number] 06:41:00* Test Item Value Reference Range Interpretation Comments Mean Corpuscular Hemoglobin (test code = 785-6) 31.1 28-32 [facility] CenterMean Corpuscular Hemoglobin Concent 2019-04-05 06:41:00* Test Item Value Reference Range Interpretation Comments Mean Corpuscular Hemoglobin Concent (test code = 786-4) 31.4 31-35 [facility] CenterRed Cell Distribution Oocdn0887-14-16 06:41:00* Test Item Value Reference Range Interpretation Comments Red Cell Distribution Width (test code = 89006-9) 18.7 11.7 -14.[address] [facility] CenterPlatelet Cndqt2501-25-68 06:41:00* Test Item Value Reference Range Interpretation Comments Platelet Count (test code = 777-3) 139 140-[address] [facility] CenterNeutrophils (%) (Auto)2019-04-05 06:41:00 * Test Item Value Reference Range Interpretation Comments Neutrophils (%) (Auto) (test code = 80807-0) 76.9 38.7-80.0 [facility] CenterLymphocytes (%) (Auto)2019-04-05 06:41:00 * Test Item Value Reference Range Interpretation Comments Lymphocytes (%) (Auto) (test code = 736-9) 15.0 18.0-39.[address] [facility] CenterMonocytes (%) (Auto)2019-04-05 06:41:00* Test Item Value Reference Range Interpretation Comments Monocytes (%) (Auto) (test code = 5905-5) 5.6 4.4-11.3 [facility] CenterEosinophils (%) (Auto)2019-04-05 06:41:00 * Test Item Value Reference Range Interpretation Comments Eosinophils (%) (Auto) (test code = 713-8) 0.9 0.0-6.0 [facility] CenterBasophils (%) (Auto)2019-04-05 06:41:00* Test Item Value Reference Range Interpretation Comments Basophils (%) (Auto) (test code = 706-2) 1.4 0.0-1.[address] [facility] CenterIM GRANULOCYTES %2019-04-05 06:41:00* Test Item Value Reference Range Interpretation Comments IM GRANULOCYTES % (test code = IM GRANULOCYTES %) 0.2 0.0- 1.0 [facility] CenterNeutrophils # (Auto)2019-04-05 06:41:00* Test Item Value Reference Range Interpretation Comments Neutrophils # (Auto) (test code = 751-8) 3.3 2.1-6.9 [facility] CenterLymphocytes # (Auto)2019-04-05 06:41:00* Test Item Value Reference Range Interpretation Comments Lymphocytes # (Auto) (test code = 83299-4) 0.7 1.0-3.[address] [facility] CenterMonocytes # (Auto)2019-04-05 06:41:00* Test Item Value Reference Range Interpretation Comments Monocytes # (Auto) (test code = 742-7) 0.2 0.2-0.8 [facility] CenterEosinophils # (Auto)2019-04-05 06:41:00* Test Item Value Reference Range Interpretation Comments Eosinophils # (Auto) (test code = 711-2) 0.0 0.0-0.4 [facility] CenterBasophils # (Auto)2019-04-05 06:41:00* Test Item Value Reference Range Interpretation Comments Basophils # (Auto) (test code = 704-7) 0.1 0.0-0.1 [facility] CenterAbsolute Immature Granulocyte (auto 2019-04-05 06:41:00* Test Item Value Reference Range Interpretation Comments Absolute Immature Granulocyte (auto (eduar t code = Absolute Immature Granulocyte (auto) 0.01 0-0.1 [facility] CenterB-Type Natriuretic Gjcvddf6296-04-20 06:01:00* Test Item Value Reference Range Interpretation Comments B-Type Natriuretic Peptide (test code = 40442-9) 558.6 0-100 [facility] Fstrc0196-51-59 05:40:00* Test Item Value Reference Range Interpretation Comments Sodium Level (test code = 2951-2) 140 136-145 [facility] CenterPotassium Lbalc6806-06-05 05:40:00* Test Item Value Reference Range Interpretation Comments Potassium Level (test code = 2823-3) 3.8 3.5-5.1 [facility] CenterChloride Oovts4200-95-85 05:40:00* Test Item Value Reference Range Interpretation Comments Chloride Level (test code = 2075-0) 100 98-107 [facility] CenterCarbon Dioxide Kjxes2280-13-86 05:40:00* Test Item Value Reference Range Interpretation Comments Carbon Dioxide Level (test code = 2028-9) 29 22-29 [facility] CenterAnion Xml6678-33-03 05:40:00* Test Item Value Reference Range Interpretation Comments Anion Gap (test code = 95890-7) 14.8 8-16 [facility] CenterBlood Urea Anyughek9424-49-13 05:40:00* Test Item Value Reference Range Interpretation Comments Blood Urea Nitrogen (test code = 3094-0) 18 7-26 [facility] CenterCreatinine2019-11-12 05:40:00* Test Item Value Reference Range Interpretation Comments Creatinine (test code = 2160-0) 1.47 0.57-1.[address] [facility] CenterBUN/Creatinine Gyurf4908-14-06 05:40:00* Test Item Value Reference Range Interpretation Comments BUN/Creatinine Ratio (test code = 3097-3) 12 6-25 [facility] CenterEstimat Glomerular Filtration Rate 2019-04-05 05:40:00* Test Item Value Reference Range Interpretation Comments Estimat Glomerular Filtration Rate (test code = 853395400) 38 >60 L Ranges were taken from the National Kidney Disease Education Program and the [facility] [employer] literature.Reference ranges:60 or greater: Mqpmdz02-78 ( for 3 consecutive months): Chronic kidney disease 15 or less: Kidney failureSt. [facility] CenterGlucose Cslfd4744-08-80 05:40:00* Test Item Value Reference Range Interpretation Comments Glucose Level (test code = VKR2280) 92 74-118 [facility] CenterCalcium Lqdui9752-85-55 05:40:00* Test Item Value Reference Range Interpretation Comments Calcium Level (test code = 21483-3) 8.6 8.4-10.2 [facility] CenterTotal Grkcidydd1107-79-46 05:40:00* Test Item Value Reference Range Interpretation Comments Total Bilirubin (test code = 1975-2) 0.5 0.2-1.2 [facility] CenterAspartate Amino Transf (AST/SGOT) 2019-04-05 05:40:00* Test Item Value Reference Range Interpretation Comments Aspartate Amino Transf (AST/SGOT) (test code = Aspartate Amino Transf (AST/SGOT)) 18 5-34 [facility] CenterAlanine Aminotransferase (ALT/SGPT) 2019-04-05 05:40:00* Test Item Value Reference Range Interpretation Comments Alanine Aminotransferase (ALT/SGPT) (test code = 1742-6) 6 0-55 [facility] CenterTotal Wmbozmf2844-79-91 05:40:00* Test Item Value Reference Range Interpretation Comments Total Protein (test code = 2885-2) 6.7 6.5-8.1 [facility] CenterAlbumin2019-11-12 05:40:00* Test Item Value Reference Range Interpretation Comments Albumin (test code = 1751-7) 2.9 3.5-5.[address] [facility] CenterGlobulin2019-11-12 05:40:00* Test Item Value Reference Range Interpretation Comments Globulin (test code = 64177-0) 3.8 2.3-3.[address] [facility] CenterAlbumin/Globulin Rzeqn2187-52-69 05:40:00 * Test Item Value Reference Range Interpretation Comments Albumin/Globulin Ratio (test code = 1759-0) 0.8 0.8-2.0 [facility] CenterAlkaline Umkygtsyglu0106-74-25 05:40:00* Test Item Value Reference Range Interpretation Comments Alkaline Phosphatase (test code = 6768-6) 115 40-150 [facility] CenterBlood Crleqnw8952-73-54 14:40:00* Test Item Value Reference Range Interpretation Comments Blood Culture (test code = 41520900) NO GROWTH AFTER [address] [facility] CenterCHEST SINGLE (PORTABLE)2019-04-04 10:47:00 [facility] [address] [place] [address] Patient Name: JIGNESH WAYNE MR #: [id number] : 1970 Age/Sex: 49/F Req #: [id number] Adm Physician: ANASTACIO VENCES MD Ordered by: DEISY CEBALLOS MD Report #: [id number] Location: MED/SURG2 Room/Bed: [facility] Procedure: [id number] DX/CHEST SINGLE (PORTABLE) Exam Date: 04/04/19 Exam Time: 10 00 REPORT STATUS: Signed Chest, 1 view, 04/04/2019. History: CHF. Comparison: 04/02/2019. Findings: The cardiomediastinal silhouette and pulmonary vasculature are promi nent with hazy bilateral pulmonary opacities, slightly decreased compared to p rior exam. Left subclavian dual-lead pacer is unchanged in position. There are no acute osseous or soft tissue abnormalities. Impression: Slight impr ovement in CHF. Signed by: Gustavo Vargas on 04/04/2019 10:48 AM Dic tated By: GUSTAVO VARGAS MD 1048 COPY TO: DEISY CEBALLOS Thyroid Stimulating Hormone (TSH)2019-04-04 06:12:00* Test Item Value Reference Range Interpretation Comments Thyroid Stimulating Hormone (TSH) (test code = 07310-3) 27.758 0.350-4.[address] [facility] CenterD-Dimer Quantitative (PE/DVT)2019-04-03 06:37:00* Test Item Value Reference Range Interpretation Comments D-Dimer Quantitative (PE/DVT) (test code = 34309-5) 470 0- 400 H As with all in vitro diagnostic tests, the test results should be interpreted by the physician in conjunction with clinical findings and other test results.Test results are reported in NEW D-dimer units(ug/mLFEU).[facility] CenterPhosphorus Rsgcc2335-49-52 06:27:00* Test Item Value Reference Range Interpretation Comments Phosphorus Level (test code = PYR2200) 3.6 2.3-4.7 [facility] CenterMagnesium Rphck7537-78-76 06:27:00* Test Item Value Reference Range Interpretation Comments Magnesium Level (test code = 24608-8) 2.0 1.3-2.1 [facility] CenterLactic Acid Ethzt6273-81-42 06:14:00* Test Item Value Reference Range Interpretation Comments Lactic Acid Level (test code = Lactic Acid Level) 1.0 0.5- 2.0 [facility] CenterCT ABDOMEN/PELVIS VW0022-99-64 03:46:00 [facility] [address] [address] Patient Name: JIGNESH WAYNE MR #: [id number] : 1970 Age/Sex: 49/F Req #: [id number] Adm Physician: ANASTACIO VENCES MD Ordered by: BHUMIKA ADAME MD Report #: [id number] Location: [facility] Room/Bed: [facility] Procedure: [id number] CT/CT ABDOMEN/PELVIS WO Exam Date: 04/02/19 Exam Time: 220 0 REPORT STATUS: Signed EXAM: CT ABDOMEN/PELVIS WITHOUT CONTRAST INDICATION: Microscopic hematuria, NEEMA. COMPARISON: CT Abdomen/Pelvis 04/07/2017. TECHNIQUE: The abdomen and pelvis were scanned using a multidetector helical scanner. Coronal and sagitta l reformations were obtained. Renal stone protocol was performed. IV CONTRAST: None. RADIATION DOSE: Total DLP: 228.9 mGy*cm Estimated effective dose: (DLP x 0.014 x size factor) mSv CO MPLICATIONS: None FINDINGS: Lack of IV contrast decreases sensitivity in evaluating abdominal and pelvic organs. In addition, image quality in the uppe r abdomen is moderately degraded by streak artifact from electronic abdominal device. LOWER THORAX: Cardiomegaly. Partially seen pacemaker leads. Epicard ial lead originates from the abdominal pacer. Small right pleural effusi on and trace left effusion with multifocal groundglass opacities and smooth in terlobular septal thickening. LIVER/BILIARY: No evidence of mass. No samuel patria dilatation. GALLBLADDER: Status post cholecystectomy. SPLEEN: Unremar kable PANCREAS: Limited evaluation secondary to streak artifact. Fatty atrophy . ADRENALS: No nodules KIDNEYS: No hydronephrosis or stone disease. GI TRACT: Limited evaluation secondary to streak artifact and motion. No evide nce of bowel obstruction or wall thickening. The appendix is not clearly visua lized, however there are no secondary signs of appendicitis in the right lower quadrant. VESSELS: Unremarkable, limited evaluation. PERITONEUM/RETROPER ITONEUM: No free air. Small volume ascites in the pelvis. LYMPH NODES: No lymp hadenopathy REPRODUCTIVE ORGANS/BLADDER: Unremarkable BONES/SOFT TISSU ES: Severe wedge compression deformity at T12 with vertebral augmentation valverde ges, and associated 3 mm of bony retropulsion. Focal kyphosis centered at T12. Diffuse anasarca. IMPRESSION: No CT evidence of nephrolithiasis. Fi ndings of pulmonary alveolar edema, small right and trace left pleural effusio n. Diffuse anasarca. Small volume ascites. Signed by: Dr. Brigette Ortega MD on 04/03/2019 3:56 AM Dictated By: BRIGETTE ORTEGA MD Electronically Haydee d By: BRIGETTE ORTEGA MD on 04/03/19355 Transcribed By: BRETT on 04/03/19355 COPY TO: BHUMIKA ADAME MD Urine Lzlm7183-73-78 21:31:00 * Test Item Value Reference Range Interpretation Comments Urine Test (test code = 2106-3) NEGATIVE NEGATIVE [facility] CenterUrine Random Htaefh3175-80-17 19:55:00* Test Item Value Reference Range Interpretation Comments Urine Random Sodium (test code = 2955-3) 63 [facility] CenterUrine Clckabbpha3821-39-26 19:55:00* Test Item Value Reference Range Interpretation Comments Urine Creatinine (test code = 2161-8) 122.42 47-[address] [facility] CenterUrine MJK7097-32-89 15:27:00* Test Item Value Reference Range Interpretation Comments Urine WBC (test code = 5821-4) 6-10 0-[address] [facility] CenterUrine DXS3745-24-49 15:27:00* Test Item Value Reference Range Interpretation Comments Urine RBC (test code = 85098-8) 21-50 0-[address] [facility] CenterUrine Nnuuxtzl7102-75-94 15:27:00* Test Item Value Reference Range Interpretation Comments Urine Bacteria (test code = 43380-0) MODERATE NONE H [facility] CenterUrine Epithelial Hejwr3938-82-67 15:27:00 * Test Item Value Reference Range Interpretation Comments Urine Epithelial Cells (test code = 42538-3) FEW NONE [facility] Amorphous Sgqzwmhp2792-90-42 15:27:00* Test Item Value Reference Range Interpretation Comments Urine Amorphous Sediment (test code = 8246-1) FEW FEW [facility] CenterUrine Fine Granular Ncnfh3686-24-73 15:27:00* Test Item Value Reference Range Interpretation Comments Urine Fine Granular Casts (test code = 84806-7) 1-[address] [facility] CenterUrine Sqimc2364-96-78 15:27:00* Test Item Value Reference Range Interpretation Comments Urine Mucus (test code = 8247-9) FEW RARE H [facility] CenterUrine Emklr2191-32-15 15:17:00* Test Item Value Reference Range Interpretation Comments Urine Color (test code = 5778-6) YELLOW YELLOW [facility] CenterUrine Rxggnje7251-78-92 15:17:00* Test Item Value Reference Range Interpretation Comments Urine Clarity (test code = 81978-9) SL CLOUDY CLEAR [facility] CenterUrine Specific Uvrfpkg6131-91-04 15:17:00 * Test Item Value Reference Range Interpretation Comments Urine Specific [employer] (test code = 5811-5) >=1.030 1.010-1.[address] [facility] CenterUrine aF2838-97-25 15:17:00* Test Item Value Reference Range Interpretation Comments Urine pH (test code = 67553-7) 5.5 5-7 [facility] CenterUrine Leukocyte Ngcitxfk8926-18-13 15:17:00* Test Item Value Reference Range Interpretation Comments Urine Leukocyte Esterase (test code = 56672-2) NEGATIVE NEGATIV E [facility] CenterUrine Lqyoftv0055-19-97 15:17:00* Test Item Value Reference Range Interpretation Comments Urine Nitrite (test code = 31445-0) NEGATIVE NEGATIVE [facility] CenterUrine Kxnxaoi3446-43-57 15:17:00* Test Item Value Reference Range Interpretation Comments Urine Protein (test code = 01291-8) 2+ NEGATIVE H [facility] CenterUrine Glucose (UA)2019-04-02 15:17:00* Test Item Value Reference Range Interpretation Comments Urine Glucose (UA) (test code = 04981-9) NEGATIVE NEGATIVE [facility] CenterUrine Hqqekrw7256-83-54 15:17:00* Test Item Value Reference Range Interpretation Comments Urine Ketones (test code = 54102-8) NEGATIVE NEGATIVE [facility] CenterUrine Gpkeznrosyis9370-30-97 15:17:00* Test Item Value Reference Range Interpretation Comments Urine Urobilinogen (test code = 02437-9) 0.2 0.2-1 [facility] CenterUrine Qgzoxmsdo4569-24-48 15:17:00* Test Item Value Reference Range Interpretation Comments Urine Bilirubin (test code = 1977-8) NEGATIVE NEGATIVE [facility] CenterUrine Qdhdg5397-03-07 15:17:00* Test Item Value Reference Range Interpretation Comments Urine Blood (test code = 55802-8) 3+ NEGATIVE [facility] CenterInfluenza Virus Types A,B Antigen 2019-04-02 15:08:00* Test Item Value Reference Range Interpretation Comments Influenza Virus Types A,B Antigen (test code = 37024-7) NEGATIVE NEGATIVE [facility] CenterCreatine Lfiuqg8333-70-43 15:01:00* Test Item Value Reference Range Interpretation Comments Creatine Kinase (test code = 2157-6) 58 29-168 [facility] CenterCreatine Kinase [id number] 15:01:00* Test Item Value Reference Range Interpretation Comments Creatine Kinase MB (test code = 72145-4) 3.70 0-5.0 [facility] CenterTropoesn F7176-95-62 15:01:00* Test Item Value Reference Range Interpretation Comments Troponin I (test code = RGQ6970) 0.046 0-0.300 [facility] CenterCHEST SINGLE (PORTABLE)2019-04-02 14:52:00 [facility] [address] [place] [address] Patient Name: JIGNESH WAYNE MR #: [id number] : 1970 Age/Sex: 49/F Req #: [id number] Adm Physician: Ordered by: GUSTAVO FU NP Report #: [id number] Location: ER Room/Bed: Procedure: [id number] DX/C HEST SINGLE (PORTABLE) Exam Date: 04/02/19 Exam Time : 1427 REPORT STATUS: Signed EXA MINATION: CHEST SINGLE (PORTABLE) INDICATION: ERMD ORDER 2 [id number] 1427 Y COMPARISON: 09/20/2018 FINDINGS: AP view TUBES and LINES: Stable dual-lead left chest wall cardiac device. Stable stimulator device. LUNGS: Lungs are well inflated. Diffuse opacification of the bilateral lungs. PLEURA: No significant pleural effusion or pneum othorax. HEART AND MEDIASTINUM: The cardiomediastinal silhouette is enlarg ed. Median sternotomy wires are again seen. BONES AND SOFT TISSUES: No a cute osseous lesion. Evidence of vertebroplasty. Soft tissues are unremarkable . UPPER ABDOMEN: No free air under the diaphragm. Right upper quadrant surg ical clips. IMPRESSION: Enlarged cardiomediastinal silhouette. Diffu se opacification of the bilateral lungs, representing severe pulmonary edema. Underlying pneumonia cannot be excluded. Signed by: Gurmeet Jimenez on 04/02/2019 2:55 PM Dictated By: RAKESH KOWALSKI MD Electronically Sign ed By: RAKESH KOWALSKI MD on 04/02/19 1455 Transcribed By: BRETT on 04/02/19 14 55 COPY TO: GUSTAVO FU CARDING MACHINE FEEDER Prothrombin Goyy7526-55-25 14:50:00* Test Item Value Reference Range Interpretation Comments Prothrombin Time (test code = 5902-2) 13.2 11.9-14.5 [facility] CenterProthromb Time International Ratio 2019-04-02 14:50:00* Test Item Value Reference Range Interpretation Comments Prothromb Time International Ratio (test code = 6301-6) 0.95 Oral Anticoagulant Therapy INR Values:1. Low Intensity Therapy 1.5 - 2.02 . Moderate Intensity Therapy 2.0 - 3.03. High Intensity Therapy(1) 2.5 - 3. 54. High Intensity Therapy(2) 3.0 - 4.05. Panic Value INR > 5.0 [facility] CenterActivated Partial Thromboplast Time 2019-04-02 14:50:00* Test Item Value Reference Range Interpretation Comments Activated Partial Thromboplast Time (test code = 60835-1) 28.7 23.8-35.5 [facility] CenterBASIC METABOLIC [id number] 07:33:00 * Test Item Value Reference Range Interpretation Comments SODIUM (test code = NA) 137 mmol/L 136-145 N POTASSIUM (test code = K) 3.3 mmol/L 3.5-5.1 L CHLORIDE (test code = CL) 98.0 mmol/L 98-107 N CARBON DIOXIDE (test code = CO2) 31.0 mmol/L 21-32 N ANION GAP (test code = GAP) 11.3 10-20 N GLUCOSE (test code = GLU) 93 mg/dL 74-106 N BLOOD UREA NITROGEN (test code = BUN) 31 mg/dL 7-18 H GLOMERULAR FILTRATION RATE (test code = GFR) 37 mL/min >=60 Estimated GFR by using Modified MDRD formula.Chronic kidney disease is defined as either kidney damageor GFR <60 mL/min/1.73 m2 for >3 months. CREATININE (test code = CREAT) 1.50 mg/dL 0.55-1.02 H Note change in reference range due to change in reagent. BUN/CREATININE RATIO (test code = BUN/CREA) 20.4 10-20 H CALCIUM (test code = CA) 8.3 mg/dL 8.5-10.1 L BASIC METABOLIC [id number] 07:29:00* Test Item Value Reference Range Interpretation Comments SODIUM (test code = NA) 137 mmol/L 136-145 N POTASSIUM (test code = K) 3.3 mmol/L 3.5-5.1 L CHLORIDE (test code = CL) 98.0 mmol/L 98-107 N CARBON DIOXIDE (test code = CO2) mmol/L 21-32 ANION GAP (test code = GAP) 10-20 GLUCOSE (test code = GLU) mg/dL 74-106 BLOOD UREA NITROGEN (test code = BUN) mg/dL 7-18 GLOMERULAR FILTRATION RATE (test code = GFR) mL/min >=60 CREATININE (test code = CREAT) mg/dL 0.55-1.02 BUN/CREATININE RATIO (test code = BUN/CREA) 10-20 CALCIUM (test code = CA) mg/dL 8.5-10.1 - XR CHEST 1 [id number] 09:44:00 FAX: Anastacio Puckett MD [phone] [place]: B St: ADM Name: JIGNESH FOX [facility] : [birth year] Age/S: 49/F [address] [facility] Unit #: [id number] Loc: V.[address] [place] [address] Phys: Anastacio Vences MD Acct: [id number] Dis Date: Status: ADM IN PHONE #: [phone] Exam Date: 02/28/2019914 FAX #: [phone] Reason: CHF FOLLOW UP EXAMS: CPT CODE: [id number] XR CHEST 1 V 01921 HISTORY: CHF follow-up. COMPARISON: February 26, 2019. Left ICD is unchanged. ICD in the upper abdomen as well with the lead extending along the left side. No con gestion is now noted. No infiltrates or effusions. Mild cardiomegaly. IMPRESSION: Resolved congestion. Elect ronically Signed by Sarah Sahni on 02/28/2019 at 0944 Reported and signed by: Rell Sahni M.D. CC: Anastacio Garcia MD Technologist: STUDENT JUDAH HNOLOGIST; Shana Solis(R) Trnscrd Date/Time/By: 02/28/2019 (09 44) : By: [email or web address] Orig Print D/T: S: 02/28/2019 (0953) PAGE 1 Signed Report BASIC METABOLIC [id number] 07:22:00* Test Item Value Reference Range Interpretation Comments SODIUM (test code = NA) 137 mmol/L 136-145 N POTASSIUM (test code = K) 3.5 mmol/L 3.5-5.1 N CHLORIDE (test code = CL) 99.0 mmol/L 98-107 N CARBON DIOXIDE (test code = CO2) 30.0 mmol/L 21-32 N ANION GAP (test code = GAP) 11.5 10-20 N GLUCOSE (test code = GLU) 87 mg/dL 74-106 N BLOOD UREA NITROGEN (test code = BUN) 34 mg/dL 7-18 H GLOMERULAR FILTRATION RATE (test code = GFR) 30 mL/min >=60 Estimated GFR by using Modified MDRD formula.Chronic kidney disease is defined as either kidney damageor GFR <60 mL/min/1.73 m2 for >3 months. CREATININE (test code = CREAT) 1.80 mg/dL 0.55-1.02 H Note change in reference range due to change in reagent. BUN/CREATININE RATIO (test code = BUN/CREA) 19.4 10-20 N CALCIUM (test code = CA) 8.1 mg/dL 8.5-10.1 L BASIC METABOLIC [id number] 07:14:00* Test Item Value Reference Range Interpretation Comments SODIUM (test code = NA) 137 mmol/L 136-145 N POTASSIUM (test code = K) 3.5 mmol/L 3.5-5.1 N CHLORIDE (test code = CL) 99.0 mmol/L 98-107 N CARBON DIOXIDE (test code = CO2) mmol/L 21-32 ANION GAP (test code = GAP) 10-20 GLUCOSE (test code = GLU) mg/dL 74-106 BLOOD UREA NITROGEN (test code = BUN) mg/dL 7-18 GLOMERULAR FILTRATION RATE (test code = GFR) mL/min >=60 CREATININE (test code = CREAT) mg/dL 0.55-1.02 BUN/CREATININE RATIO (test code = BUN/CREA) 10-20 CALCIUM (test code = CA) mg/dL 8.5-10.1 URINALYSIS [id number] 13:22:00* Test Item Value Reference Range Interpretation Comments UA COLOR (test code = COLU) COLORLESS YELLOW A UA APPEARANCE (test code = APPU) CLEAR CLEAR UA GLUCOSE DIPSTICK (test code = DGLUU) NEGATIVE mg/dL NEGATIVE UA BILIRUBIN DIPSTICK (test code = BILU) NEGATIVE mg/dL NEGATIVE UA KETONE DIPSTICK (test code = KETU) NEGATIVE mg/dL NEGATIVE UA SPECIFIC GRAVITY (test code = SGU) 1.007 1.001-1.035 UA BLOOD DIPSTICK (test code = MANJU) 0.2 mg/dL (2+) mg/dL NEGATIVE A UA PH DIPSTICK (test code = JESSIE) 6.5 5.0-8.0 UA PROTEIN DIPSTICK (test code = PROU) NEGATIVE mg/dL NEGATIVE UA UROBILINIOGEN DIPSTICK (test code = URO) Normal mg/dL NEGATIVE UA NITRITE DIPSTICK (test code = NAVDEEP) NEGATIVE NEGATIVE UA LEUKOCYTE ESTERASE W REFLEX (test code = LEUUR) 25 Dino/uL (Trace) Dino/uL NEGATIVE A UA WBC (test code = WBCU) 11-20 per HPF 0-5 A UA RBC (test code = RBCU) 51-100 #/HPF 0-5 UA EPITHELIAL CELLS (test code = EPIU) FEW per HPF FEW UA BACTERIA (test code = BACU) FEW #/HPF NONE A UA HYALINE CAST (test code = HYALU) 0-2 #/LPF 0-5 UA MUCUS (test code = MUCU) FEW #/LPF FEW UA AMORPHOUS SEDIMENT (test code = AMORU) FEW #/LPF NONE Urine Source? CatheterURINALYSIS [id number] 13:19:00* Test Item Value Reference Range Interpretation Comments UA COLOR (test code = COLU) COLORLESS YELLOW A UA APPEARANCE (test code = APPU) CLEAR CLEAR UA GLUCOSE DIPSTICK (test code = DGLUU) NEGATIVE mg/dL NEGATIVE UA BILIRUBIN DIPSTICK (test code = BILU) NEGATIVE mg/dL NEGATIVE UA KETONE DIPSTICK (test code = KETU) NEGATIVE mg/dL NEGATIVE UA SPECIFIC GRAVITY (test code = SGU) 1.007 1.001-1.035 UA BLOOD DIPSTICK (test code = MANJU) 0.2 mg/dL (2+) mg/dL NEGATIVE A UA PH DIPSTICK (test code = JESSIE) 6.5 5.0-8.0 UA PROTEIN DIPSTICK (test code = PROU) NEGATIVE mg/dL NEGATIVE UA UROBILINIOGEN DIPSTICK (test code = URO) Normal mg/dL NEGATIVE UA NITRITE DIPSTICK (test code = NAVDEEP) NEGATIVE NEGATIVE UA LEUKOCYTE ESTERASE W REFLEX (test code = LEUUR) 25 Dino/uL (Trace) Dino/uL NEGATIVE A UA WBC (test code = WBCU) per HPF 0-5 UA RBC (test code = RBCU) per HPF 0-5 UA EPITHELIAL CELLS (test code = EPIU) per HPF Few UA BACTERIA (test code = BACU) per HPF NONE Urine Source? CatheterCBC W/AUTO [id number] 06:53:00* Test Item Value Reference Range Interpretation Comments WHITE BLOOD CELL (test code = WBC) 7.4 K/mm3 4.5-12.5 N RED BLOOD CELL (test code = RBC) 4.06 mill/mm3 3.7-5.2 N HEMOGLOBIN (test code = HGB) 13.0 gram/dL 11.5-15.5 N HEMATOCRIT (test code = HCT) 39.1 % 36.0-46.0 N MEAN CELL VOLUME (test code = MCV) 96.3 fL 80-98 N MEAN CELL HGB (test code = MCH) 32.0 picogram 27.0-33.0 N MEAN CELL HGB CONCETRATION (test code = MCHC) 33.2 gram/dL 33.0-36. 0 N RED CELL DISTRIBUTION WIDTH (test code = RDW) 17.8 % 11.6-16. 2 H RED CELL DISTRIBUTION WIDTH SD (test code = RDW-SD) 62.4 fL 37 .0-51.0 H PLATELET COUNT (test code = PLT) 95 K/mm3 150-450 L RESULT VERIFIED BY REPEAT ANALYSIS MEAN PLATELET VOLUME (test code = MPV) 11.7 fL 6.7-11.0 H NEUTROPHIL % (test code = NT%) 89.0 % 39.0-69.0 H IMMATURE GRANULOCYTE % (test code = IG%) 0.5 % 0.0-5.0 N LYMPHOCYTE % (test code = LY%) 6.5 % 25.0-55.0 L MONOCYTE % (test code = MO%) 3.9 % 0.0-10.0 N EOSINOPHIL % (test code = EO%) 0.0 % 0.0-5.0 N BASOPHIL % (test code = BA%) 0.1 % 0.0-1.0 N NUCLEATED RBC % (test code = NRBC%) 0.3 % 0-0 H NEUTROPHIL # (test code = NT#) 6.53 K/mm3 1.8-7.7 N IMMATURE GRANULOCYTE # (test code = IG#) 0.04 x10 3/uL 0-0.03 H LYMPHOCYTE # (test code = LY#) 0.48 K/mm3 1.0-5.0 L MONOCYTE # (test code = MO#) 0.29 K/mm3 0-0.8 N EOSINOPHIL # (test code = EO#) 0.00 K/mm3 0.0-0.5 N BASOPHIL # (test code = BA#) 0.01 K/mm3 0.0-0.2 N NUCLEATED RBC # (test code = NRBC#) 0.02 K/mm3 0.0-0.1 N MANUAL DIFF REQUIRED (test code = MDIFF) NO, ONLY SCAN NEEDED DIFFERENTIAL [id number] 06:53:00* Test Item Value Reference Range Interpretation Comments STAIN ACCEPTABILITY (test code = STN ACCEPTABLE) STAIN ACCEPTABLE MORPHOLOGY COMMENT (test code = MOC) NORMAL PLATELET ESTIMATE (test code = PLTEST) DECREASED PLATELET MORPHOLOGY (test code = PLTMORPH) NORMAL CBC W/AUTO [id number] 06:23:00* Test Item Value Reference Range Interpretation Comments WHITE BLOOD CELL (test code = WBC) 7.4 K/mm3 4.5-12.5 N RED BLOOD CELL (test code = RBC) 4.06 mill/mm3 3.7-5.2 N HEMOGLOBIN (test code = HGB) 13.0 gram/dL 11.5-15.5 N HEMATOCRIT (test code = HCT) 39.1 % 36.0-46.0 N MEAN CELL VOLUME (test code = MCV) 96.3 fL 80-98 N MEAN CELL HGB (test code = MCH) 32.0 picogram 27.0-33.0 N MEAN CELL HGB CONCETRATION (test code = MCHC) 33.2 gram/dL 33.0-36. 0 N RED CELL DISTRIBUTION WIDTH (test code = RDW) 17.8 % 11.6-16. 2 H RED CELL DISTRIBUTION WIDTH SD (test code = RDW-SD) 62.4 fL 37 .0-51.0 H PLATELET COUNT (test code = PLT) 95 K/mm3 150-450 L RESULT VERIFIED BY REPEAT ANALYSIS MEAN PLATELET VOLUME (test code = MPV) 11.7 fL 6.7-11.0 H NEUTROPHIL % (test code = NT%) 89.0 % 39.0-69.0 H IMMATURE GRANULOCYTE % (test code = IG%) 0.5 % 0.0-5.0 N LYMPHOCYTE % (test code = LY%) 6.5 % 25.0-55.0 L MONOCYTE % (test code = MO%) 3.9 % 0.0-10.0 N EOSINOPHIL % (test code = EO%) 0.0 % 0.0-5.0 N BASOPHIL % (test code = BA%) 0.1 % 0.0-1.0 N NUCLEATED RBC % (test code = NRBC%) 0.3 % 0-0 H NEUTROPHIL # (test code = NT#) 6.53 K/mm3 1.8-7.7 N IMMATURE GRANULOCYTE # (test code = IG#) 0.04 x10 3/uL 0-0.03 H LYMPHOCYTE # (test code = LY#) 0.48 K/mm3 1.0-5.0 L MONOCYTE # (test code = MO#) 0.29 K/mm3 0-0.8 N EOSINOPHIL # (test code = EO#) 0.00 K/mm3 0.0-0.5 N BASOPHIL # (test code = BA#) 0.01 K/mm3 0.0-0.2 N NUCLEATED RBC # (test code = NRBC#) 0.02 K/mm3 0.0-0.1 N MANUAL DIFF REQUIRED (test code = MDIFF) NO, ONLY SCAN NEEDED DIFFERENTIAL [id number] 06:23:00* Test Item Value Reference Range Interpretation Comments STAIN ACCEPTABILITY (test code = STN ACCEPTABLE) CABOT RINGS (test code = CAB) MORPHOLOGY COMMENT (test code = MOC) PLATELET ESTIMATE (test code = PLTEST) PLATELET MORPHOLOGY (test code = PLTMORPH) CBC W/AUTO [id number] 06:23:00* Test Item Value Reference Range Interpretation Comments WHITE BLOOD CELL (test code = WBC) 7.4 K/mm3 4.5-12.5 N RED BLOOD CELL (test code = RBC) 4.06 mill/mm3 3.7-5.2 N HEMOGLOBIN (test code = HGB) 13.0 gram/dL 11.5-15.5 N HEMATOCRIT (test code = HCT) 39.1 % 36.0-46.0 N MEAN CELL VOLUME (test code = MCV) 96.3 fL 80-98 N MEAN CELL HGB (test code = MCH) 32.0 picogram 27.0-33.0 N MEAN CELL HGB CONCETRATION (test code = MCHC) 33.2 gram/dL 33.0-36. 0 N RED CELL DISTRIBUTION WIDTH (test code = RDW) 17.8 % 11.6-16. 2 H RED CELL DISTRIBUTION WIDTH SD (test code = RDW-SD) 62.4 fL 37 .0-51.0 H PLATELET COUNT (test code = PLT) 95 K/mm3 150-450 L RESULT VERIFIED BY REPEAT ANALYSIS MEAN PLATELET VOLUME (test code = MPV) 11.7 fL 6.7-11.0 H NEUTROPHIL % (test code = NT%) 89.0 % 39.0-69.0 H IMMATURE GRANULOCYTE % (test code = IG%) 0.5 % 0.0-5.0 N LYMPHOCYTE % (test code = LY%) 6.5 % 25.0-55.0 L MONOCYTE % (test code = MO%) 3.9 % 0.0-10.0 N EOSINOPHIL % (test code = EO%) 0.0 % 0.0-5.0 N BASOPHIL % (test code = BA%) 0.1 % 0.0-1.0 N NUCLEATED RBC % (test code = NRBC%) 0.3 % 0-0 H NEUTROPHIL # (test code = NT#) 6.53 K/mm3 1.8-7.7 N IMMATURE GRANULOCYTE # (test code = IG#) 0.04 x10 3/uL 0-0.03 H LYMPHOCYTE # (test code = LY#) 0.48 K/mm3 1.0-5.0 L MONOCYTE # (test code = MO#) 0.29 K/mm3 0-0.8 N EOSINOPHIL # (test code = EO#) 0.00 K/mm3 0.0-0.5 N BASOPHIL # (test code = BA#) 0.01 K/mm3 0.0-0.2 N NUCLEATED RBC # (test code = NRBC#) 0.02 K/mm3 0.0-0.1 N MANUAL DIFF REQUIRED (test code = MDIFF) NO, ONLY SCAN NEEDED DIFFERENTIAL [id number] 06:23:00* Test Item Value Reference Range Interpretation Comments STAIN ACCEPTABILITY (test code = STN ACCEPTABLE) CABOT RINGS (test code = CAB) MORPHOLOGY COMMENT (test code = MOC) PLATELET ESTIMATE (test code = PLTEST) PLATELET MORPHOLOGY (test code = PLTMORPH) CBC W/AUTO [id number] 06:23:00* Test Item Value Reference Range Interpretation Comments WHITE BLOOD CELL (test code = WBC) 7.4 K/mm3 4.5-12.5 N RED BLOOD CELL (test code = RBC) 4.06 mill/mm3 3.7-5.2 N HEMOGLOBIN (test code = HGB) 13.0 gram/dL 11.5-15.5 N HEMATOCRIT (test code = HCT) 39.1 % 36.0-46.0 N MEAN CELL VOLUME (test code = MCV) 96.3 fL 80-98 N MEAN CELL HGB (test code = MCH) 32.0 picogram 27.0-33.0 N MEAN CELL HGB CONCETRATION (test code = MCHC) 33.2 gram/dL 33.0-36. 0 N RED CELL DISTRIBUTION WIDTH (test code = RDW) 17.8 % 11.6-16. 2 H RED CELL DISTRIBUTION WIDTH SD (test code = RDW-SD) 62.4 fL 37 .0-51.0 H PLATELET COUNT (test code = PLT) 95 K/mm3 150-450 L RESULT VERIFIED BY REPEAT ANALYSIS MEAN PLATELET VOLUME (test code = MPV) 11.7 fL 6.7-11.0 H NEUTROPHIL % (test code = NT%) 89.0 % 39.0-69.0 H IMMATURE GRANULOCYTE % (test code = IG%) 0.5 % 0.0-5.0 N LYMPHOCYTE % (test code = LY%) 6.5 % 25.0-55.0 L MONOCYTE % (test code = MO%) 3.9 % 0.0-10.0 N EOSINOPHIL % (test code = EO%) 0.0 % 0.0-5.0 N BASOPHIL % (test code = BA%) 0.1 % 0.0-1.0 N NUCLEATED RBC % (test code = NRBC%) 0.3 % 0-0 H NEUTROPHIL # (test code = NT#) 6.53 K/mm3 1.8-7.7 N IMMATURE GRANULOCYTE # (test code = IG#) 0.04 x10 3/uL 0-0.03 H LYMPHOCYTE # (test code = LY#) 0.48 K/mm3 1.0-5.0 L MONOCYTE # (test code = MO#) 0.29 K/mm3 0-0.8 N EOSINOPHIL # (test code = EO#) 0.00 K/mm3 0.0-0.5 N BASOPHIL # (test code = BA#) 0.01 K/mm3 0.0-0.2 N NUCLEATED RBC # (test code = NRBC#) 0.02 K/mm3 0.0-0.1 N MANUAL DIFF REQUIRED (test code = MDIFF) NO, ONLY SCAN NEEDED DIFFERENTIAL [id number] 06:23:00* Test Item Value Reference Range Interpretation Comments STAIN ACCEPTABILITY (test code = STN ACCEPTABLE) MORPHOLOGY COMMENT (test code = MOC) PLATELET ESTIMATE (test code = PLTEST) PLATELET MORPHOLOGY (test code = PLTMORPH) CBC W/AUTO [id number] 06:23:00* Test Item Value Reference Range Interpretation Comments WHITE BLOOD CELL (test code = WBC) 7.4 K/mm3 4.5-12.5 N RED BLOOD CELL (test code = RBC) 4.06 mill/mm3 3.7-5.2 N HEMOGLOBIN (test code = HGB) 13.0 gram/dL 11.5-15.5 N HEMATOCRIT (test code = HCT) 39.1 % 36.0-46.0 N MEAN CELL VOLUME (test code = MCV) 96.3 fL 80-98 N MEAN CELL HGB (test code = MCH) 32.0 picogram 27.0-33.0 N MEAN CELL HGB CONCETRATION (test code = MCHC) 33.2 gram/dL 33.0-36. 0 N RED CELL DISTRIBUTION WIDTH (test code = RDW) 17.8 % 11.6-16. 2 H RED CELL DISTRIBUTION WIDTH SD (test code = RDW-SD) 62.4 fL 37 .0-51.0 H PLATELET COUNT (test code = PLT) 95 K/mm3 150-450 L RESULT VERIFIED BY REPEAT ANALYSIS MEAN PLATELET VOLUME (test code = MPV) 11.7 fL 6.7-11.0 H NEUTROPHIL % (test code = NT%) 89.0 % 39.0-69.0 H IMMATURE GRANULOCYTE % (test code = IG%) 0.5 % 0.0-5.0 N LYMPHOCYTE % (test code = LY%) 6.5 % 25.0-55.0 L MONOCYTE % (test code = MO%) 3.9 % 0.0-10.0 N EOSINOPHIL % (test code = EO%) 0.0 % 0.0-5.0 N BASOPHIL % (test code = BA%) 0.1 % 0.0-1.0 N NUCLEATED RBC % (test code = NRBC%) 0.3 % 0-0 H NEUTROPHIL # (test code = NT#) 6.53 K/mm3 1.8-7.7 N IMMATURE GRANULOCYTE # (test code = IG#) 0.04 x10 3/uL 0-0.03 H LYMPHOCYTE # (test code = LY#) 0.48 K/mm3 1.0-5.0 L MONOCYTE # (test code = MO#) 0.29 K/mm3 0-0.8 N EOSINOPHIL # (test code = EO#) 0.00 K/mm3 0.0-0.5 N BASOPHIL # (test code = BA#) 0.01 K/mm3 0.0-0.2 N NUCLEATED RBC # (test code = NRBC#) 0.02 K/mm3 0.0-0.1 N MANUAL DIFF REQUIRED (test code = MDIFF) NO, ONLY SCAN NEEDED DIFFERENTIAL [id number] 06:23:00* Test Item Value Reference Range Interpretation Comments STAIN ACCEPTABILITY (test code = STN ACCEPTABLE) CABOT RINGS (test code = CAB) MORPHOLOGY COMMENT (test code = MOC) PLATELET ESTIMATE (test code = PLTEST) PLATELET MORPHOLOGY (test code = PLTMORPH) COMPREHENSIVE METABOLIC [id number] 06:06:00* Test Item Value Reference Range Interpretation Comments SODIUM (test code = NA) 142 mmol/L 136-145 N POTASSIUM (test code = K) 3.7 mmol/L 3.5-5.1 N CHLORIDE (test code = CL) 105.0 mmol/L 98-107 N CARBON DIOXIDE (test code = CO2) 28.0 mmol/L 21-32 N ANION GAP (test code = GAP) 12.7 10-20 N GLUCOSE (test code = GLU) 98 mg/dL 74-106 N BLOOD UREA NITROGEN (test code = BUN) 23 mg/dL 7-18 H GLOMERULAR FILTRATION RATE (test code = GFR) 37 mL/min >=60 Estimated GFR by using Modified MDRD formula.Chronic kidney disease is defined as either kidney damageor GFR <60 mL/min/1.73 m2 for >3 months. CREATININE (test code = CREAT) 1.50 mg/dL 0.55-1.02 H Note change in reference range due to change in reagent. BUN/CREATININE RATIO (test code = BUN/CREA) 15.3 10-20 N TOTAL PROTEIN (test code = PROT) 6.6 gram/dL 6.4-8.2 N ALBUMIN (test code = ALB) 2.3 g/dL 3.4-5.0 L GLOBULIN (test code = GLOB) 4.3 gram/dL 2.7-4.2 H ALBUMIN/GLOBULIN RATIO (test code = A/G) 0.5 0.75-1.50 L CALCIUM (test code = CA) 8.1 mg/dL 8.5-10.1 L BILIRUBIN TOTAL (test code = BILT) 0.80 mg/dL 0.0-1.0 N SGOT/AST (test code = AST) 14 IUnit/L 15-37 L SGPT/ALT (test code = ALT) 8 IUnit/L 12-78 L ALKALINE PHOSPHATASE TOTAL (test code = ALKP) 150 IUnit/L 45-117 H Note change in reference range due to change in reagent. COMPREHENSIVE METABOLIC [id number] 06:04:00* Test Item Value Reference Range Interpretation Comments SODIUM (test code = NA) 142 mmol/L 136-145 N POTASSIUM (test code = K) 3.7 mmol/L 3.5-5.1 N CHLORIDE (test code = CL) 105.0 mmol/L 98-107 N CARBON DIOXIDE (test code = CO2) mmol/L 21-32 ANION GAP (test code = GAP) 10-20 GLUCOSE (test code = GLU) mg/dL 74-106 BLOOD UREA NITROGEN (test code = BUN) mg/dL 7-18 GLOMERULAR FILTRATION RATE (test code = GFR) mL/min >=60 CREATININE (test code = CREAT) mg/dL 0.55-1.02 BUN/CREATININE RATIO (test code = BUN/CREA) 10-20 TOTAL PROTEIN (test code = PROT) gram/dL 6.4-8.2 ALBUMIN (test code = ALB) g/dL 3.4-5.0 GLOBULIN (test code = GLOB) gram/dL 2.7-4.2 ALBUMIN/GLOBULIN RATIO (test code = A/G) 0.75-1.50 CALCIUM (test code = CA) mg/dL 8.5-10.1 BILIRUBIN TOTAL (test code = BILT) mg/dL 0.0-1.0 SGOT/AST (test code = AST) IUnit/L 15-37 SGPT/ALT (test code = ALT) IUnit/L 12-78 ALKALINE PHOSPHATASE TOTAL (test code = ALKP) IUnit/L 45-117 [id number] 23:51:00* Test Item Value Reference Range Interpretation Comments TROPONIN-I (test code = TROPI) 0.186 ng/mL 0-0.045 HH RESULT VERIFIED BY REPEAT ANALYSIS 1541COMMENTS TO RADIOLOGY CT TECHNOLOGIST: COLLECT 3 HOURS AFTER PREVIOUS [id number] 22:12:00* Test Item Value Reference Range Interpretation Comments TROPONIN-I (test code = TROPI) 0.161 ng/mL 0-0.045 HH PREVIOUSLY CALLED 1539COMMENTS TO RADIOLOGY CT TECHNOLOGIST: COLLECT 3 HOURS AFTER PREVIOUS SAMPLECPK-MB [id number] 22:09:00* Test Item Value Reference Range Interpretation Comments CREATINE KINASE (CK) (test code = CK) 63 IUnit/L 26-208 N CKMB (test code = CKMBT) 3.4 ng/mL 0-6.0 N RELATIVE % INDEX (test code = REL%) 5.40 % 0.00-2.50 H "If the total CK is elevated, the CKMB Fraction must beinterpreted as a Relative % Index, Normal is less than 2.5%"NOTE: Relative % Index is not valid with a normal total CK. COMPREHENSIVE METABOLIC [id number] 18:22:00* Test Item Value Reference Range Interpretation Comments SODIUM (test code = NA) 146 mmol/L 136-145 H RESU LT VERIFIED BY REPEAT ANALYSIS POTASSIUM (test code = K) 3.4 mmol/L 3.5-5.1 L CHLORIDE (test code = CL) 110.0 mmol/L 98-107 H CARBON DIOXIDE (test code = CO2) 23.0 mmol/L 21-32 N ANION GAP (test code = GAP) 16.4 10-20 N GLUCOSE (test code = GLU) 141 mg/dL 74-106 H BLOOD UREA NITROGEN (test code = BUN) 22 mg/dL 7-18 H GLOMERULAR FILTRATION RATE (test code = GFR) 34 mL/min >=60 Estimated GFR by using Modified MDRD formula.Chronic kidney disease is defined as either kidney damageor GFR <60 mL/min/1.73 m2 for >3 months. CREATININE (test code = CREAT) 1.60 mg/dL 0.55-1.02 H Note change in reference range due to change in reagent. BUN/CREATININE RATIO (test code = BUN/CREA) 13.9 10-20 N TOTAL PROTEIN (test code = PROT) 7.0 gram/dL 6.4-8.2 N ALBUMIN (test code = ALB) 2.5 g/dL 3.4-5.0 L GLOBULIN (test code = GLOB) 4.5 gram/dL 2.7-4.2 H ALBUMIN/GLOBULIN RATIO (test code = A/G) 0.6 0.75-1.50 L CALCIUM (test code = CA) 8.2 mg/dL 8.5-10.1 L BILIRUBIN TOTAL (test code = BILT) 1.00 mg/dL 0.0-1.0 N SGOT/AST (test code = AST) 12 IUnit/L 15-37 L SGPT/ALT (test code = ALT) 9 IUnit/L 12-78 L ALKALINE PHOSPHATASE TOTAL (test code = ALKP) 152 IUnit/L 45-117 H Note change in reference range due to change in reagent. 1540LACTIC [id number] 18:16:00* Test Item Value Reference Range Interpretation Comments LACTIC ACID (test code = LACT) 3.5 mmol/L 0.4-1.9 HH Results called to DOROTA/[id number] V.LAB.KP1 02/26/19 1816Critical results verified and read back by Nurse? Y 1540THYROID PROFILE [id number] 18:16:00* Test Item Value Reference Range Interpretation Comments T3 UPTAKE (test code = T3UP) 42.0 % 30.0-40.0 H T4 (THYROXINE) (test code = T4) 6.2 ug/dL 4.5-13.9 N T7 (FREE THYROXINE INDEX) (test code = T7) 2.60 FTI 1.3-5.1 N THYROID STIMULATING HORMONE (test code = TSH) 1.930 uIU/mL 0.36-3.7 4 N TSH REFERENCE RANGES: EUTHYROID: 0.35 - 4.3 mIU/mL HYPO : > 5.5 mIU/mL HYPER : < 0.35 mIU/mL HARD SHANTE PHILLIP ([id number]) IS AWARE V.LAB.1 5CPK-MB PROFILE 2019-02-26 18:12:00* Test Item Value Reference Range Interpretation Comments CREATINE KINASE (CK) (test code = CK) 50 IUnit/L 26-208 N CKMB (test code = CKMBT) 3.0 ng/mL 0-6.0 N RELATIVE % INDEX (test code = REL%) 6.00 % 0.00-2.50 H "If the total CK is elevated, the CKMB Fraction must beinterpreted as a Relative % Index, Normal is less than 2.5%"NOTE: Relative % Index is not valid with a normal total CK. SHANTE JIMENEZ ([id number]) IS AWARE V.LAB.1 [id number] 2019-02-26 18:12:00* Test Item Value Reference Range Interpretation Comments TROPONIN-I (test code = TROPI) 0.168 ng/mL 0-0.045 HH PREVIOUSLY CALLED SHANTE JIMENEZ ([id number]) IS AWARE V.LAB.1 [id number] ACID 2019-02-26 11:35:00* Test Item Value Reference Range Interpretation Comments LACTIC ACID (test code = LACT) 2.5 mmol/L 0.4-1.9 HH Results called to [id number] by [employer].LABLAWSON 02/26/19 1135Critical results verified and read back by Nurse? Y B-TYPE NATRIURETIC [id number] 10:54:00* Test Item Value Reference Range Interpretation Comments B-TYPE NATRIURETIC PEPTIDE (test code = BNP) 1764.07 pgram/mL 0-100 H LACTIC [id number] 09:27:00* Test Item Value Reference Range Interpretation Comments LACTIC ACID (test code = LACT) 5.7 mmol/L 0.4-1.9 HH Results called to [id number] by [employer].LABSHERON 02/26/19 0925Critical results verified and read back by Nurse? Y BASIC METABOLIC [id number] 09:27:00* Test Item Value Reference Range Interpretation Comments SODIUM (test code = NA) 139 mmol/L 136-145 N POTASSIUM (test code = K) 4.4 mmol/L 3.5-5.1 N CHLORIDE (test code = CL) 105.0 mmol/L 98-107 N CARBON DIOXIDE (test code = CO2) 20.0 mmol/L 21-32 L ANION GAP (test code = GAP) 18.4 10-20 N GLUCOSE (test code = GLU) 134 mg/dL 74-106 H BLOOD UREA NITROGEN (test code = BUN) 23 mg/dL 7-18 H GLOMERULAR FILTRATION RATE (test code = GFR) 34 mL/min >=60 Estimated GFR by using Modified MDRD formula.Chronic kidney disease is defined as either kidney damageor GFR <60 mL/min/1.73 m2 for >3 months. CREATININE (test code = CREAT) 1.60 mg/dL 0.55-1.02 H Note change in reference range due to change in reagent. BUN/CREATININE RATIO (test code = BUN/CREA) 14.4 10-20 N CALCIUM (test code = CA) 8.4 mg/dL 8.5-10.1 L [id number] 09:27:00* Test Item Value Reference Range Interpretation Comments TROPONIN-I (test code = TROPI) 0.261 ng/mL 0-0.045 Results called to [id number] by V.LAB.LDB 02/26/19 0924Critical results verified and read back by Nurse? Y - XR CHEST 1 [id number] 09:26:00 FAX: Anastacio Puckett MD [phone] [place]: St: [facility] FAX: Saul Cuellar MD [phone] Name: JIGNESH WAYNE [facility] : 1970 Age/S: 49/F [address] Unit #: [id number] Loc: ANAM Rahman [address] Phys: Saul Cuellar MD Acct: [id number] Dis Date: Status: REG ER PHONE #: [phone] Exam Date: 02/26/2019 0850 FAX #: [phone] Reason: Shortness of Breath EXAMS: CPT CODE: [id number] XR CHEST 1 V [id number] EXAM: Chest x-ray, one view; INFORMATION: Shortness of breath; FINDINGS: The heart is enlarged. There are increased vascular markings, increased interstitial markings as well as patchy alveolar densities in the right lung base. No obvious effusions; no pneumothorax. 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 IMPRESSION: Cardiomegaly and evidence of left heart failure with interstitial and right basilar alveolar pulmonary edema. Mild deterioration compared with a study from October 19, 2018. at 09 Reported and signed by: Ari Flores M.D. CC: Anastacio Vences MD; Saul Cuellar MD Technologist: Maurilio Armijo RT(R); JAMA LUCIO RT(R) Trnscrd Date/Time/By: 02/26/2019 (925) : By: [email or web address] Orig Print D/T: S: 02/26/2019 (928) PAGE 1 Signed Report VENOUS BLOOD [id number] 09:20:00* Test Item Value Reference Range Interpretation Comments IONIZED CALCIUM (test code = CAIABG) 1.16 mmol/L 1.1-1.37 N VENOUS BLOOD GAS PH (test code = PHV) 7.31 7.30-7.40 N VENOUS BLOOD GAS PCO2 (test code = PCO2V) 41.4 mm Hg 39.0-51.0 N VENOUS BLOOD GAS PO2 (test code = PO2V) < 43.5 mm Hg 30.0-50.0 N VBG HCO3 (test code = HCO3V) 20.5 mmol/L 17.0-30.0 N VBG BASE EXCESS (test code = CRISTHIAN) -5.4 mmol/L -5.0-5.0 LL Results called to and read back by Jamar 09:19 - 02/26/2019; by [id number] VENOUS BLOOD GAS O2 SAT. (test code = O2SATV) 57 % 94-98 LL VENOUS BLOOD GAS FIO2 (test code = FIO2V) 80.0 VENOUS BLOOD GAS PEEP (test code = PEEPV) 6.0 cmH2O PT. HGB (test code = PHGBVBG) 14.1 gram/dL 11.5-15.5 N VENOUS BLOOD GAS SITE (test code = SITEV) RR SODIUM (test code = NA/VBG) 138.0 mEq/L 135-148 N POTASSIUM (test code = K/VBG) 3.7 mEq/L 3.4-4.4 N CHLORIDE (test code = CL/VBG) 104 mEq/L 98-106 N GLUCOSE (test code = GLU/VBG) 118 mg/dL 74-99 H HEMATOCRIT (test code = HCT/VBG) 41 % 42-52 L HGB O2 SAT (test code = HBOSAT) 56.6 % 94.00-98.00 LL CARBOXYHEMOGLOBIN (test code = HOHGBT) 0.7 %totalHg 0.5-1.5 N METHEMOGLOBIN (test code = METHGB) 0.6 % 0.0-1.50 N BASIC METABOLIC [id number] 09:11:00* Test Item Value Reference Range Interpretation Comments SODIUM (test code = NA) 139 mmol/L 136-145 N POTASSIUM (test code = K) 4.4 mmol/L 3.5-5.1 N CHLORIDE (test code = CL) 105.0 mmol/L 98-107 N CARBON DIOXIDE (test code = CO2) mmol/L 21-32 ANION GAP (test code = GAP) 10-20 GLUCOSE (test code = GLU) mg/dL 74-106 BLOOD UREA NITROGEN (test code = BUN) mg/dL 7-18 GLOMERULAR FILTRATION RATE (test code = GFR) mL/min >=60 CREATININE (test code = CREAT) mg/dL 0.55-1.02 BUN/CREATININE RATIO (test code = BUN/CREA) 10-20 CALCIUM (test code = CA) mg/dL 8.5-10.1 [id number] 09:11:00* Test Item Value Reference Range Interpretation Comments TROPONIN-I (test code = TROPI) ng/mL 0-0.045 CBC W/O [id number] 09:03:00* Test Item Value Reference Range Interpretation Comments WHITE BLOOD CELL (test code = WBC) K/mm3 4.5-12.5 RED BLOOD CELL (test code = RBC) mill/mm3 3.7-5.2 HEMOGLOBIN (test code = HGB) 13.7 gram/dL 11.5-15.5 N HEMATOCRIT (test code = HCT) 43.9 % 36.0-46.0 N MEAN CELL VOLUME (test code = MCV) fL 80-98 MEAN CELL HGB (test code = MCH) picogram 27.0-33.0 MEAN CELL HGB CONCETRATION (test code = MCHC) gram/dL 33.0-36. 0 RED CELL DISTRIBUTION WIDTH (test code = RDW) % 11.6-16. 2 PLATELET COUNT (test code = PLT) K/mm3 150-450 MEAN PLATELET VOLUME (test code = MPV) fL 6.7-11.0 CBC W/O [id number] 09:03:00* Test Item Value Reference Range Interpretation Comments WHITE BLOOD CELL (test code = WBC) 5.8 K/mm3 4.5-12.5 N RED BLOOD CELL (test code = RBC) 4.40 mill/mm3 3.7-5.2 N HEMOGLOBIN (test code = HGB) 13.7 gram/dL 11.5-15.5 N HEMATOCRIT (test code = HCT) 43.9 % 36.0-46.0 N MEAN CELL VOLUME (test code = MCV) 99.8 fL 80-98 H MEAN CELL HGB (test code = MCH) 31.1 picogram 27.0-33.0 N MEAN CELL HGB CONCETRATION (test code = MCHC) 31.2 gram/dL 33.0-36. 0 L RED CELL DISTRIBUTION WIDTH (test code = RDW) 18.5 % 11.6-16. 2 H PLATELET COUNT (test code = PLT) 73 K/mm3 150-450 L MEAN PLATELET VOLUME (test code = MPV) 12.0 fL 6.7-11.0 H [id number] 15:54:00* Test Item Value Reference Range Interpretation Comments GLUBED (test code = GLUBED) 177 mg/dL 74-106 H Performed by certified abrasive coating machine operator at [facility] [id number] 15:54:00* Test Item Value Reference Range Interpretation Comments GLUBED (test code = GLUBED) 86 mg/dL 74-106 N Performed by certified abrasive coating machine operator at [facility] [id number] 15:54:00* Test Item Value Reference Range Interpretation Comments GLUBED (test code = GLUBED) 97 mg/dL 74-106 N Performed by certified abrasive coating machine operator at [facility] [id number] 07:57:00* Test Item Value Reference Range Interpretation Comments GLUBED (test code = GLUBED) 120 mg/dL 74-106 H Performed by certified abrasive coating machine operator at [facility] B-TYPE NATRIURETIC [id number] 07:52:00* Test Item Value Reference Range Interpretation Comments B-TYPE NATRIURETIC PEPTIDE (test code = BNP) 655.95 pgram/mL 0-100 H BASIC METABOLIC [id number] 07:36:00* Test Item Value Reference Range Interpretation Comments SODIUM (test code = NA) 141 mmol/L 136-145 N POTASSIUM (test code = K) 3.8 mmol/L 3.5-5.1 N CHLORIDE (test code = CL) 106.0 mmol/L 98-107 N CARBON DIOXIDE (test code = CO2) 28.0 mmol/L 21-32 N ANION GAP (test code = GAP) 10.8 10-20 N GLUCOSE (test code = GLU) 101 mg/dL 74-106 N BLOOD UREA NITROGEN (test code = BUN) 13 mg/dL 7-18 N GLOMERULAR FILTRATION RATE (test code = GFR) 40 mL/min >=60 Estimated GFR by using Modified MDRD formula.Chronic kidney disease is defined as either kidney damageor GFR <60 mL/min/1.73 m2 for >3 months. CREATININE (test code = CREAT) 1.40 mg/dL 0.55-1.02 H Note change in reference range due to change in reagent. BUN/CREATININE RATIO (test code = BUN/CREA) 9.3 10-20 L CALCIUM (test code = CA) 8.8 mg/dL 8.5-10.1 N [id number] 07:36:00* Test Item Value Reference Range Interpretation Comments MAGNESIUM (test code = MAG) 2.3 mg/dL 1.8-2.4 N BASIC METABOLIC [id number] 07:32:00* Test Item Value Reference Range Interpretation Comments SODIUM (test code = NA) 141 mmol/L 136-145 N POTASSIUM (test code = K) 3.8 mmol/L 3.5-5.1 N CHLORIDE (test code = CL) 106.0 mmol/L 98-107 N CARBON DIOXIDE (test code = CO2) mmol/L 21-32 ANION GAP (test code = GAP) 10-20 GLUCOSE (test code = GLU) mg/dL 74-106 BLOOD UREA NITROGEN (test code = BUN) mg/dL 7-18 GLOMERULAR FILTRATION RATE (test code = GFR) mL/min >=60 CREATININE (test code = CREAT) mg/dL 0.55-1.02 BUN/CREATININE RATIO (test code = BUN/CREA) 10-20 CALCIUM (test code = CA) mg/dL 8.5-10.1 [id number] 07:32:00* Test Item Value Reference Range Interpretation Comments MAGNESIUM (test code = MAG) mg/dL 1.8-2.4 [id number] 22:30:00* Test Item Value Reference Range Interpretation Comments GLUBED (test code = GLUBED) 105 mg/dL 74-106 N Performed by certified abrasive coating machine operator at [facility] B-TYPE NATRIURETIC [id number] 19:37:00* Test Item Value Reference Range Interpretation Comments B-TYPE NATRIURETIC PEPTIDE (test code = BNP) 874.23 pgram/mL 0-100 H BASIC METABOLIC [id number] 18:25:00* Test Item Value Reference Range Interpretation Comments SODIUM (test code = NA) 141 mmol/L 136-145 N POTASSIUM (test code = K) 3.2 mmol/L 3.5-5.1 L CHLORIDE (test code = CL) 105.0 mmol/L 98-107 N CARBON DIOXIDE (test code = CO2) 31.0 mmol/L 21-32 N ANION GAP (test code = GAP) 8.2 10-20 L GLUCOSE (test code = GLU) 93 mg/dL 74-106 N BLOOD UREA NITROGEN (test code = BUN) 12 mg/dL 7-18 N GLOMERULAR FILTRATION RATE (test code = GFR) 40 mL/min >=60 Estimated GFR by using Modified MDRD formula.Chronic kidney disease is defined as either kidney damageor GFR <60 mL/min/1.73 m2 for >3 months. CREATININE (test code = CREAT) 1.40 mg/dL 0.55-1.02 H Note change in reference range due to change in reagent. BUN/CREATININE RATIO (test code = BUN/CREA) 8.6 10-20 L CALCIUM (test code = CA) 8.6 mg/dL 8.5-10.1 N BASIC METABOLIC [id number] 18:00:00* Test Item Value Reference Range Interpretation Comments SODIUM (test code = NA) 141 mmol/L 136-145 N POTASSIUM (test code = K) 3.2 mmol/L 3.5-5.1 L CHLORIDE (test code = CL) 105.0 mmol/L 98-107 N CARBON DIOXIDE (test code = CO2) mmol/L 21-32 ANION GAP (test code = GAP) 10-20 GLUCOSE (test code = GLU) mg/dL 74-106 BLOOD UREA NITROGEN (test code = BUN) mg/dL 7-18 GLOMERULAR FILTRATION RATE (test code = GFR) mL/min >=60 CREATININE (test code = CREAT) mg/dL 0.55-1.02 BUN/CREATININE RATIO (test code = BUN/CREA) 10-20 CALCIUM (test code = CA) 8.6 mg/dL 8.5-10.1 N [id number] 17:05:00* Test Item Value Reference Range Interpretation Comments GLUBED (test code = GLUBED) 103 mg/dL 74-106 N Performed by certified abrasive coating machine operator at [facility] [id number] 05:30:00* Test Item Value Reference Range Interpretation Comments TROPONIN-I (test code = TROPI) 0.057 ng/mL 0-0.[address] TECHNOLOGIST: COLLECT 3 HOURS AFTER PREVIOUS SAMPLET4 (THYROXINE)2018-10-20 02:44:00* Test Item Value Reference Range Interpretation Comments T4 (THYROXINE) (test code = T4) 12.6 ug/dL 4.5-13.9 N [id number] 01:49:00* Test Item Value Reference Range Interpretation Comments TROPONIN-I (test code = TROPI) 0.067 ng/mL 0-0.045 Results called to [id number] by V.[email or web address].AG1 10/20/18 0148Critical results verified and read back by Nurse? Y COMMENTS TO RADIOLOGY CT TECHNOLOGIST: COLLECT 3 HOURS AFTER PREVIOUS SAMPLEARTERIAL BLOOD [id number] 21:08:00* Test Item Value Reference Range Interpretation Comments ARTERIAL BLOOD GAS PH (test code = PHA) 7.46 7.35-7.45 H ARTERIAL BLOOD GAS PCO2 (test code = PCO2A) 37.9 mm Hg 35-45 N ARTERIAL BLOOD GAS PO2 (test code = PO2A) 151.6 mmHg 80-100 H BICARBONATE TOTAL HCO3 (test code = HCO3) 26.2 mmol/L 23.0-27.0 N BASE EXCESS (test code = MATEO) 2.3 mmol/L -3.0-5.0 N ABG O2 SATURATION (test code = SATA) 98.4 % 90.0-98.0 H ABG TYPE (test code = TYPEA) Arterial FIO2 (test code = FIO2A) 32.0 ABG SITE (test code = SITEA) Rt RADIAL ARTERY MODIFIED ALLENS (test code = MODALL) Yes CHECK PERFORMED HEMATOCRIT (test code = HCT/ABG) 37 % 35-47 N TOTAL HGB (test code = THB) 12.5 gram/dL 11.5-15.5 N HGB O2 SAT (test code = HBOSAT) 98.1 % 94.00-98.00 H CARBOXYHEMOGLOBIN (test code = HOHGBT) 0.0 %totalHg 0.5-1.5 LL Results called to and read back by dr byrne 21:05 - 10/19/2018; by [id number] METHEMOGLOBIN (test code = METHGB) 0.3 % 0.0-1.50 N O2 CONTENT (test code = O2CT) 17.5 % vol 18.0-22.0 L BASIC METABOLIC [id number] 20:43:00* Test Item Value Reference Range Interpretation Comments SODIUM (test code = NA) 141 mmol/L 136-145 N POTASSIUM (test code = K) 2.3 mmol/L 3.5-5.1 Re sults called to [id number] by VLisaLAB. 10/19/18 2043Critical results verified and read back by Nurse? Y CHLORIDE (test code = CL) 105.0 mmol/L 98-107 N CARBON DIOXIDE (test code = CO2) 26.0 mmol/L 21-32 N ANION GAP (test code = GAP) 12.3 10-20 N GLUCOSE (test code = GLU) 115 mg/dL 74-106 H BLOOD UREA NITROGEN (test code = BUN) 10 mg/dL 7-18 N GLOMERULAR FILTRATION RATE (test code = GFR) 48 mL/min >=60 Estimated GFR by using Modified MDRD formula.Chronic kidney disease is defined as either kidney damageor GFR <60 mL/min/1.73 m2 for >3 months. CREATININE (test code = CREAT) 1.20 mg/dL 0.55-1.02 H Note change in reference range due to change in reagent. BUN/CREATININE RATIO (test code = BUN/CREA) 8.3 10-20 L CALCIUM (test code = CA) 8.3 mg/dL 8.5-10.1 L HEPATIC FUNCTION [id number] 20:43:00* Test Item Value Reference Range Interpretation Comments TOTAL PROTEIN (test code = PROT) 7.4 gram/dL 6.4-8.2 N ALBUMIN (test code = ALB) 3.0 g/dL 3.4-5.0 L GLOBULIN (test code = GLOB) 4.4 gram/dL 2.7-4.2 H ALBUMIN/GLOBULIN RATIO (test code = A/G) 0.7 0.75-1.50 L BILIRUBIN TOTAL (test code = BILT) 0.80 mg/dL 0.0-1.0 N BILIRUBIN DIRECT (test code = BILD) 0.36 mg/dL 0.0-0.20 H SGOT/AST (test code = AST) 26 IUnit/L 15-37 N SGPT/ALT (test code = ALT) 16 IUnit/L 12-78 N ALKALINE PHOSPHATASE TOTAL (test code = ALKP) 145 IUnit/L 45-117 H Note change in reference range due to change in reagent. [id number] 20:43:00* Test Item Value Reference Range Interpretation Comments MAGNESIUM (test code = MAG) 2.1 mg/dL 1.8-2.4 N HCG SERUM [id number] 20:43:00* Test Item Value Reference Range Interpretation Comments HCG SERUM QUAL (test code = HCGQL) NEGATIVE NEGATIVE This HCGQL test is NOT applicable for MALE patients.Check with nurse about probable order error.If Tumor Marker Test needed, nurse should order test "HCGTU"(Test #550.62100) THYROID STIMULATING [id number] 20:43:00* Test Item Value Reference Range Interpretation Comments THYROID STIMULATING HORMONE (test code = TSH) 0.041 uIU/mL 0.36-3.7 4 L TSH REFERENCE RANGES: EUTHYROID: 0.35 - 4.3 mIU/mL HYPO : > 5.5 mIU/mL HYPER : < 0.35 mIU/mL [id number] 20:43:00* Test Item Value Reference Range Interpretation Comments TROPONIN-I (test code = TROPI) 0.022 ng/mL 0-0.045 N B-TYPE NATRIURETIC [id number] 20:39:00* Test Item Value Reference Range Interpretation Comments B-TYPE NATRIURETIC PEPTIDE (test code = BNP) 811.49 pgram/mL 0-100 H BASIC METABOLIC [id number] 20:22:00* Test Item Value Reference Range Interpretation Comments SODIUM (test code = NA) mmol/L 136-145 POTASSIUM (test code = K) mmol/L 3.5-5.1 CHLORIDE (test code = CL) mmol/L 98-107 CARBON DIOXIDE (test code = CO2) mmol/L 21-32 ANION GAP (test code = GAP) 10-20 GLUCOSE (test code = GLU) mg/dL 74-106 BLOOD UREA NITROGEN (test code = BUN) mg/dL 7-18 GLOMERULAR FILTRATION RATE (test code = GFR) mL/min >=60 CREATININE (test code = CREAT) mg/dL 0.55-1.02 BUN/CREATININE RATIO (test code = BUN/CREA) 10-20 CALCIUM (test code = CA) mg/dL 8.5-10.1 HEPATIC FUNCTION [id number] 20:22:00* Test Item Value Reference Range Interpretation Comments TOTAL PROTEIN (test code = PROT) gram/dL 6.4-8.2 ALBUMIN (test code = ALB) g/dL 3.4-5.0 GLOBULIN (test code = GLOB) gram/dL 2.7-4.2 ALBUMIN/GLOBULIN RATIO (test code = A/G) 0.75-1.50 BILIRUBIN TOTAL (test code = BILT) mg/dL 0.0-1.0 BILIRUBIN DIRECT (test code = BILD) mg/dL 0.0-0.20 SGOT/AST (test code = AST) IUnit/L 15-37 SGPT/ALT (test code = ALT) IUnit/L 12-78 ALKALINE PHOSPHATASE TOTAL (test code = ALKP) IUnit/L 45-117 [id number] 20:22:00* Test Item Value Reference Range Interpretation Comments MAGNESIUM (test code = MAG) mg/dL 1.8-2.4 HCG SERUM [id number] 20:22:00* Test Item Value Reference Range Interpretation Comments HCG SERUM QUAL (test code = HCGQL) NEGATIVE NEGATIVE This HCGQL test is NOT applicable for MALE patients.Check with nurse about probable order error.If Tumor Marker Test needed, nurse should order test "HCGTU"(Test #550.82719) THYROID STIMULATING [id number] 20:22:00* Test Item Value Reference Range Interpretation Comments THYROID STIMULATING HORMONE (test code = TSH) uIU/mL 0.36-3.7 4 [id number] 20:22:00* Test Item Value Reference Range Interpretation Comments TROPONIN-I (test code = TROPI) ng/mL 0-0.045 PROTHROMBIN [id number] 20:02:00* Test Item Value Reference Range Interpretation Comments PROTHROMBIN TIME PATIENT (test code = PTP) 12.6 seconds 9.0-14.0 N INTERNATIONAL NORMAL RATIO (test code = INR) 1.1 0.8-1.2 N The therapeutic range for oral anticoagulant therapy formost indications is an international normalized ratio (INR)of between 2.0 and 3.0. The recommended therapeutic INRrange for various clinical situations is listed below: Clinical Situation INR range Pulmonary e mbolism treatment (2.0-3.0)Venous thrombosis treatmentVenous thrombosis prophylaxis (high risk surgery)Prevention of systemic embolism from: Acute myocardial infarction Valvular heart disease Atrial fibrillation Mechanical prosthetic heart valves (2.5-3.5) IS PATIENT ON ANTICOAGULANTS? NTHROMBOPLASTIN TIME [id number] 20:02:00* Test Item Value Reference Range Interpretation Comments THROMBOPLASTIN TIME PARTIAL (test code = PTT) 29.7 seconds 25.0-36. 5 N IS PATIENT ON ANTICOAGULANTS? N- CT HEAD/BRAIN W/O [id number] 19:57:00 Name: JIGNESH WAYNE [facility] : 1970 Age/S: 48 / F [address] [facility] Unit #: [id number] Loc: [place] [address] Phys: LETTY ALAN MD Acct: [id number] Di s Date: Status: PRE ER PHONE #: Exam Date: 10/19/2018 1950 FAX #: Reason: Syncope EXAMS: CPT CODE: [id number] CT HEAD/BRAIN W/O CONT [id number] REASON FOR EXAM: Syncope EXAM ORDER DATE: 10/19/2018 7:09 PM Ordering M.Sanjiv.: AMALIA ALAN MD PROCEDURE: - CT HEAD/BRAIN W/O CONT COMPARISON: FINDINGS: CT images of the brain were obtained without IV contrast. Dose modulation, iterative reconstruction, and/or we ight based adjustment of the MA/KV was utilized to reduce the radiation do se to as low as reasonably achievable. The brain parenchyma is within normal limits. The lucero-white matter delineation is unremarkabl e. The ventricles, cisterns, and sulci are unremarkable. There is no evide nce of hemorrhage, mass, mass effect. There is no evidence of acute or ol d infarct. The calvarium is intact. IMPRESSION: Unremarka ble brain. Electronically Signed by Sarah Marie on 2018 at 1957 Reported and signed by: Omid Marie M.D. CC: Anastacio Vences MD; AMALIA ALAN MD Technologis t:Connie Zuñiga RT(R); DANIELITO Quezada CTDI: DLP: Trnscb Date/Time: (1956) Brigida.[email or web address] Orig Print D/T: S: 10/19/2018 (2 001) PAGE 1 Signed Report CBC W/O [id number] 19:47:00* Test Item Value Reference Range Interpretation Comments WHITE BLOOD CELL (test code = WBC) 6.6 K/mm3 4.5-12.5 N RED BLOOD CELL (test code = RBC) 3.88 mill/mm3 3.7-5.2 N HEMOGLOBIN (test code = HGB) 12.2 gram/dL 11.5-15.5 N HEMATOCRIT (test code = HCT) 38.5 % 36.0-46.0 N MEAN CELL VOLUME (test code = MCV) 99.2 fL 80-98 H MEAN CELL HGB (test code = MCH) 31.4 picogram 27.0-33.0 N MEAN CELL HGB CONCETRATION (test code = MCHC) 31.7 gram/dL 33.0-36. 0 L RED CELL DISTRIBUTION WIDTH (test code = RDW) 19.7 % 11.6-16. 2 H PLATELET COUNT (test code = PLT) 156 K/mm3 150-450 N MEAN PLATELET VOLUME (test code = MPV) 10.2 fL 6.7-11.0 N - XR CHEST 1 [id number] 19:25:00 FAX: Anastacio Puckett MD [phone] [place]: B St: PRE FAX: AMALIA ALAN MD Name: JIGNESH WAYNE [facility] : 1970 Age/S: 48/F [address] [facility] Unit #: [id number] Loc: [place] [address] Phys: AMALIA ALAN MD Acct: [id number] Dis Date: Status: PRE ER PHONE #: [phone] Exam Date: 10/19/20181923 FAX #: [phone] Reason: SYNCOPE EXAMS: CPT CODE: [id number] XR CHEST 1 V [id number] REASON FOR EXAM: SYNCOPE EXAM ORDER DATE: 10/19/2018 7:09 PM Ordering Sarah: AMALIA ALAN MD PROCEDURE: - XR CHEST 1 V COMPARISON: FINDINGS: Portable AP frontal view of the chest obtained at 7:24 PM shows diffuse airspace opacities. There is no evidence of effusion. The heart size is minimally enlarged. Pulmonary vasculatures are mildly congested. Stable appearance of the left subclavian pacemaker. IMPRESSION: Congestive heart failure with pulmonary edema at 1924 Reported and signed by: Omid Marie M.D. CC: Anastacio Vences MD; AMALIA ALAN MD Technologist: HELEN MARTINEZ; Reyna Lorenz Trnscrd Date/Time/By: 10/19/2018 (1924) : By: LanaVTL Orig Print D/T: S: 0 10/19/2018 (1928) PAGE 1 Signed Re port Prothrombin [id number] 20:01:00* Test Item Value Reference Range Interpretation Comments Prothrombin Time (test code = 5902-2) 14.0 11.9-14.5 [facility] CenterProthromb Time International Ratio 2018-09-20 20:01:00* Test Item Value Reference Range Interpretation Comments Prothromb Time International Ratio (test code = 6301-6) 1.03 Oral Anticoagulant Therapy INR Values:1. Low Intensity Therapy 1.5 - 2.02 . Moderate Intensity Therapy 2.0 - 3.03. High Intensity Therapy(1) 2.5 - 3. 54. High Intensity Therapy(2) 3.0 - 4.05. Panic Value INR > 5.0 [facility] CenterActivated Partial Thromboplast Time 2018-09-20 20:01:00* Test Item Value Reference Range Interpretation Comments Activated Partial Thromboplast Time (test code = 17896-8) 31.1 23.8-35.5 [facility] [id number] 19:54:00* Test Item Value Reference Range Interpretation Comments Sodium Level (test code = 2951-2) 139 136-145 [facility] CenterPotassium [id number] 19:54:00* Test Item Value Reference Range Interpretation Comments Potassium Level (test code = 2823-3) 3.0 3.5-5.[address] [facility] CenterChloride [id number] 19:54:00* Test Item Value Reference Range Interpretation Comments Chloride Level (test code = 2075-0) 93 98-[address] [facility] CenterCarbon Dioxide [id number] 19:54:00* Test Item Value Reference Range Interpretation Comments Carbon Dioxide Level (test code = 2028-9) 33 22-[address] [facility] CenterAnion [id number] 19:54:00* Test Item Value Reference Range Interpretation Comments Anion Gap (test code = 61410-2) 16.0 8-16 [facility] CenterBlood Urea [id number] 19:54:00* Test Item Value Reference Range Interpretation Comments Blood Urea Nitrogen (test code = 3094-0) 16 7-26 [facility] CenterCreatinine2019-04-29 19:54:00* Test Item Value Reference Range Interpretation Comments Creatinine (test code = 2160-0) 1.29 0.57-1.[address] [facility] CenterBUN/Creatinine [id number] 19:54:00* Test Item Value Reference Range Interpretation Comments BUN/Creatinine Ratio (test code = 3097-3) 12 6-25 [facility] CenterEstimat Glomerular Filtration Rate 2018-09-20 19:54:00* Test Item Value Reference Range Interpretation Comments Estimat Glomerular Filtration Rate (test code = 110721668) 44 >60 L Ranges were taken from the National Kidney Disease Education Program and the [facility] [employer] literature.Reference ranges:60 or greater: Cdadkl51-05 ( for 3 consecutive months): Chronic kidney disease 15 or less: Kidney failureSt. David's [facility] Medical CenterGlucose [id number] 19:54:00* Test Item Value Reference Range Interpretation Comments Glucose Level (test code = AIS9249) 104 74-118 [facility] CenterCalcium [id number] 19:54:00* Test Item Value Reference Range Interpretation Comments Calcium Level (test code = 77966-6) 9.1 8.4-10.2 [facility] CenterTotal [id number] 19:54:00* Test Item Value Reference Range Interpretation Comments Total Bilirubin (test code = 1975-2) 1.4 0.2-1.[address] [facility] CenterAspartate Amino Transf (AST/SGOT) 2018-09-20 19:54:00* Test Item Value Reference Range Interpretation Comments Aspartate Amino Transf (AST/SGOT) (test code = Aspartate Amino Transf (AST/SGOT)) 17 5-34 [facility] CenterAlanine Aminotransferase (ALT/SGPT) 2018-09-20 19:54:00* Test Item Value Reference Range Interpretation Comments Alanine Aminotransferase (ALT/SGPT) (test code = 1742-6) 11 0-55 [facility] CenterTotal [id number] 19:54:00* Test Item Value Reference Range Interpretation Comments Total Protein (test code = 2885-2) 7.9 6.5-8.1 [facility] CenterAlbumin2019-04-29 19:54:00* Test Item Value Reference Range Interpretation Comments Albumin (test code = 1751-7) 2.5 3.5-5.[address] [facility] CenterGlobulin2019-04-29 19:54:00* Test Item Value Reference Range Interpretation Comments Globulin (test code = 58260-9) 5.4 2.3-3.[address] [facility] CenterAlbumin/Globulin [id number] 19:54:00 * Test Item Value Reference Range Interpretation Comments Albumin/Globulin Ratio (test code = 1759-0) 0.5 0.8-2.[address] [facility] CenterAlkaline Mncluesumeh8995-00-38 19:54:00* Test Item Value Reference Range Interpretation Comments Alkaline Phosphatase (test code = 6768-6) 193 40-[address] [facility] CenterWhite Blood [id number] 19:33:00* Test Item Value Reference Range Interpretation Comments White Blood Count (test code = 6690-2) 8.17 4.8-10.8 [facility] CenterRed Blood [id number] 19:33:00* Test Item Value Reference Range Interpretation Comments Red Blood Count (test code = 789-8) 4.68 3.6-5.1 [facility] CenterHemoglobin2019-04-29 19:33:00* Test Item Value Reference Range Interpretation Comments Hemoglobin (test code = 99007-5) 14.6 12.0-16.0 [facility] CenterHematocrit2019-04-29 19:33:00* Test Item Value Reference Range Interpretation Comments Hematocrit (test code = 4544-3) 43.0 34.2-44.1 [facility] CenterMean Corpuscular [id number] 19:33:00* Test Item Value Reference Range Interpretation Comments Mean Corpuscular Volume (test code = 787-2) 91.9 81-99 [facility] CenterMean Corpuscular Qmzgtdkxld0175-60-55 19:33:00* Test Item Value Reference Range Interpretation Comments Mean Corpuscular Hemoglobin (test code = 785-6) 31.2 28-32 [facility] CenterMean Corpuscular Hemoglobin Concent 2018-09-20 19:33:00* Test Item Value Reference Range Interpretation Comments Mean Corpuscular Hemoglobin Concent (test code = 786-4) 34.0 31-35 [facility] CenterRed Cell Distribution [id number] 19:33:00* Test Item Value Reference Range Interpretation Comments Red Cell Distribution Width (test code = 77102-5) 18.1 11.7 -14.[address] [facility] CenterPlatelet Vzdug1285-46-59 19:33:00* Test Item Value Reference Range Interpretation Comments Platelet Count (test code = 777-3) 101 140-[address] [facility] CenterNeutrophils (%) (Auto)2018-09-20 19:33:00 * Test Item Value Reference Range Interpretation Comments Neutrophils (%) (Auto) (test code = 87932-2) 81.3 38.7-80.[address] [facility] CenterLymphocytes (%) (Auto)2018-09-20 19:33:00 * Test Item Value Reference Range Interpretation Comments Lymphocytes (%) (Auto) (test code = 736-9) 9.2 18.0-39.[address] [facility] CenterMonocytes (%) (Auto)2018-09-20 19:33:00* Test Item Value Reference Range Interpretation Comments Monocytes (%) (Auto) (test code = 5905-5) 8.3 4.4-11.3 [facility] CenterEosinophils (%) (Auto)2018-09-20 19:33:00 * Test Item Value Reference Range Interpretation Comments Eosinophils (%) (Auto) (test code = 713-8) 0.2 0.0-6.0 [facility] CenterBasophils (%) (Auto)2018-09-20 19:33:00* Test Item Value Reference Range Interpretation Comments Basophils (%) (Auto) (test code = 706-2) 0.6 0.0-1.0 [facility] CenterIM GRANULOCYTES %2018-09-20 19:33:00* Test Item Value Reference Range Interpretation Comments IM GRANULOCYTES % (test code = IM GRANULOCYTES %) 0.4 0.0- 1.0 [facility] CenterNeutrophils # (Auto)2018-09-20 19:33:00* Test Item Value Reference Range Interpretation Comments Neutrophils # (Auto) (test code = 751-8) 6.6 2.1-6.9 [facility] CenterLymphocytes # (Auto)2018-09-20 19:33:00* Test Item Value Reference Range Interpretation Comments Lymphocytes # (Auto) (test code = 70544-3) 0.8 1.0-3.[address] [facility] CenterMonocytes # (Auto)2018-09-20 19:33:00* Test Item Value Reference Range Interpretation Comments Monocytes # (Auto) (test code = 742-7) 0.7 0.2-0.8 [facility] CenterEosinophils # (Auto)2018-09-20 19:33:00* Test Item Value Reference Range Interpretation Comments Eosinophils # (Auto) (test code = 711-2) 0.0 0.0-0.4 [facility] CenterBasophils # (Auto)2018-09-20 19:33:00* Test Item Value Reference Range Interpretation Comments Basophils # (Auto) (test code = 704-7) 0.1 0.0-0.1 [facility] CenterAbsolute Immature Granulocyte (auto 2018-09-20 19:33:00* Test Item Value Reference Range Interpretation Comments Absolute Immature Granulocyte (auto (eduar t code = Absolute Immature Granulocyte (auto) 0.03 0-0.1 [facility] CenterCHEST 2 [id number] 13:20:00 [facility] [address] [address] Patient Name: JIGNESH WAYNE MR #: [id number] : 1970 Age/Sex: 48/F Req #: [id number] Adm Physician: Ordered by: ANASTACIO VENCES MD Report #: [id number] Location: [facility] Room/Bed: Procedure: [id number] DX/CHEST 2 VIEWS Exam Date: 09/20/18 Exam Time: 1030 REPORT STATUS: Signed EXAM: CHEST 2 VIE WS, PA and lateral DATE: 09/20/2018 Time stamp on exam: 10:21 AM INDICATION: Cough COMPARISON: 03/09/2018 FINDINGS: LINES/TUBES: Left chest wall saima l lead cardiac device unchanged. There is also an epicardial lead from a gener ator situated over the anterior abdominal wall. LUNGS: Mild pulmonary vascu lar congestion is present but improved compared to the prior study PLEUR A: No effusions or pneumothorax. HEART AND MEDIASTINUM: Cardiomegaly with diffuse left atrial enlargement. BONES AND SOFT TISSUES: Vertebroplasty ofelia ent within a compressed vertebral body segment IMPRESSION: Cardiac enl argement with pulmonary vascular congestion. Signed by: Dr. Alda Garg DO on 09/20/2018 1:26 PM Dictated By: MAHESH GARG DO Electr onically Signed By: MAHESH GARG DO on 09/20/18 1326 Transcribed By: BRETT dobbins 09/20/18 1326 COPY TO: ANASTACIO VENCES MD SINUSES (PARANASAL)MIN [id number] 12:30:00 [place] [address] Patient Name: JIGNESH WAYNE MR #: [id number] : 1970 Age/Sex: 48/F Req #: [id number] Adm Physician: Ordered by: ANASTACIO VENCES MD Report #: [id number] Location: [facility] Room/Bed: Procedure: [id number] DX/SINUS ES (PARANASAL)MIN 3VIEWS Exam Date: 09/20/18 Exam Ti me: 1030 REPORT STATUS: Signed E XAM: SINUSES (PARANASAL)MIN 3VIEWS DATE: 09/20/2018 9:47 AM INDICATI ON:Cough COMPARISON: None FINDINGS: 6 views of the paranasal sinuses shows no opacification or fluid level in the maxillary antra, sphenoid sinus or ethmoid sinuses. Frontal sinuses are hypoplastic. Evaluation is some what compromised by inability to position fully. No evidence for bony destruct ion. IMPRESSION: No sinus opacification or fluid level on the views obtai ondina. Positioning was apparently difficult. If more detailed evaluation is requ ired, CT of the sinuses may be helpful. Signed by: Sommer Culp on 09/20/2018 12:37 PM Dictated By: MICHAEL AMARO MD Electronically Sig ondina By: MICHAEL AMARO MD on 09/20/18 1237 Transcribed By: BRETT on 09/20/18 5 963 COPY TO: ANASTACIO VENCES MD Blood Zrylsay6143-46-59 09:04:00* Test Item Value Reference Range Interpretation Comments Blood Culture (test code = 37462222) NO GROWTH AFTER 5 DAYS, FINAL REPORT [facility] [id number] 16:52:00 [facility] [address] [place] [address] Patient Name: JIGNESH WAYNE MR #: [id number] : 1970 Age/Sex: 48/F Req #: [id number] Adm Physician: ANASTACIO VENCES MD Ordered by: DEISY CEBALLOS MD Report #: [id number] Location: [facility] Room/Bed: [place] [address] Procedure: [id number] CT/CT EST WO Exam Date: 03/09/18 Exam Time: 1615 REPORT STATUS: Signed EXAM: CT Chest with out contrast 03/09/2018 5:00 AM INDICATION: Pneumonia versus CHF COMPARISON : Chest radiograph 03/09/18 and lumbar spine radiographs 10/18/17. TECHNIQUE: Chest was scanned utilizing a multidetector helical scanner from the lung apex through the level of the adrenal glands without administration of IV contrast. Coronal and sagittal reformations were obtained. Routine protocol was perfo rmed. IV CONTRAST: None. RADIATION DOSE: Total DLP: 3 72.9 mGy*cm Estimated effective dose: (DLP x 0.014 x size factor) mSv COMPLICATIONS: None FINDINGS: LINES/ TUBES: Left side d pacemaker with leads in the right atrium and right ventricle. Epicardial carol d is partially seen from an intra-abdominal device. LUNGS AND AIRWAYS: The central airways are patent. Diffuse mild bronchial wall thickening. There are diffuse bilateral groundglass opacities with areas of intralobular septal thi ckening. Scattered areas are spared from the ground glass opacities. There may be mosaic attenuation. Linear opacities in the middle lobe, likely atelectasi s. No evidence of lobar consolidation. Diffuse opacities, streak artifact from pacemaker, and motion artifact limits evaluation for lung nodule. PLEURA: The pleural spaces are clear. HEART AND MEDIASTINUM: The thyroid gland is not well visualized. Subcentimeter mediastinal lymph nodes, without lymphaden opathy. Four chamber cardiomegaly. No pericardial effusion. 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 UPPER ABDOMEN: Limited non-contrast views of the up per abdomen were performed demonstrating post cholecystectomy changes and an u pper abdominal pacer device. The partially visualized liver, spleen, adrenal g lands and kidneys are unremarkable. BONES: Severe T12 compression deform ity with loss of greater than 75 percent of vertebral body height with finding s of interval vertebral augmentation at this level. The vertebral body height loss at this level has increased compared to lumbar spine radiograph on 8 when there was mild height loss. Degenerative changes of the visualized spin e. Status post median sternotomy. IMPRESSION: Diffuse ground glass opac ities with interlobular septal thickening, suggestive of pulmonary edema in th e setting of cardiomegaly. However atypical infection can have a similar appea brandon. No evidence of lobar pneumonia. Consider follow-up imaging to assess fo r resolution. Progression of vertebral body height loss at T12 (currently greater than 75% of vertebral body height loss), compared to radiograph on 09/23 12/09, with interval vertebral augmentation at this level. 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 Signed by: Dr. Brigette Ortega MD on 03/09/2018 5:12 PM Dictated By: BRIGETTE ORTEGA MD Electronically Sign ed By: BRIGETTE ORTEGA MD on 03/09/181711 Transcribed By: BRETT on 03/09/181711 COPY TO: DEISY CEBALLOS MD Creatine Kinase [id number] 16:40:00* Test Item Value Reference Range Interpretation Comments Creatine Kinase MB (test code = 91672-1) 1.20 0-5.0 [facility] CenterTroponin [id number] 16:40:00* Test Item Value Reference Range Interpretation Comments Troponin I (test code = UGN5563) 0.068 0-0.300 [facility] CenterCreatine Dpizue1691-94-61 16:36:00* Test Item Value Reference Range Interpretation Comments Creatine Kinase (test code = 2157-6) 42 29-168 [facility] CenterDifferential Total Cells Counted 2018-03-09 10:04:00* Test Item Value Reference Range Interpretation Comments Differential Total Cells Counted (test code = Differen tial Total Cells Counted) 100 [facility] CenterNeutrophils % (Manual)2018-03-09 10:04:00 * Test Item Value Reference Range Interpretation Comments Neutrophils % (Manual) (test code = 76219-7) 75 40-[address] [facility] CenterLymphocytes % (Manual)2018-03-09 10:04:00 * Test Item Value Reference Range Interpretation Comments Lymphocytes % (Manual) (test code = 737-7) 13 19-[address] [facility] CenterMonocytes % (Manual)2018-03-09 10:04:00* Test Item Value Reference Range Interpretation Comments Monocytes % (Manual) (test code = 744-3) 10 3.4-9.[address] [facility] CenterReactive Bvsjcychnhf5999-19-69 10:04:00* Test Item Value Reference Range Interpretation Comments Reactive Lymphocytes (test code = 12166-2) 2 [facility] CenterPlatelet Dojzmvwu4220-61-30 10:04:00* Test Item Value Reference Range Interpretation Comments Platelet Estimate (test code = 06332-9) SLIGHTLY DECREASED [facility] CenterPlatelet Morphology Jbbtxgt4840-08-63 10:04:00* Test Item Value Reference Range Interpretation Comments Platelet Morphology Comment (test code = 55959-1) NORMAL [facility] CenterRed Cell Morphology Nocclep6070-72-00 10:04:00* Test Item Value Reference Range Interpretation Comments Red Cell Morphology Comment (test code = 6742-1) NORMAL [facility] SINGLE (PORTABLE)2018-03-09 06:32:00 [facility] [address] [place] [address] Patient Name: JIGNESH WAYNE MR #: [id number] : 1970 Age/Sex: 48/F Req #: [id number] Adm Physician: ANASTACIO VENCES MD Ordered by: MICHAEL GIL MD Report #: [id number] Location: [facility] Room/Bed: [place] [address] Procedure: [id number] DX/C HEST SINGLE (PORTABLE) Exam Date: Exam Time: REPORT STATUS: Signed EXAMINATION: C HEST SINGLE (PORTABLE) INDICATION: Congestive heart failure COMPARISON: 03/08/2018 FINDINGS: TUBES and LINES: The pacemak er is intact. LUNGS: Lungs are not well inflated. There is perihila r interstitial opacities, consistent with interstitial edema. PLEURA: No pleural effusion or pneumothorax. HEART AND MEDIASTINUM: Cardiac size is moderately enlarged. Midline sternotomy wires are stable BONES AND SOFT T ISSUES: No acute osseous lesion. Soft tissues are unremarkable. UPPER A BDOMEN: No free air under the diaphragm. IMPRESSION: Findings compat ible with cardiogenic pulmonary edema Signed by: Sarah Winter 03/09/2018 6:34 AM Dictated By: CLAUDIA SANCHEZ MD 3 Transcribed By: BRETT on 03/09/18633 COPY TO: MICHAEL GIL MD B-Type Natriuretic Nwiqcdo0036-08-48 09:55:00* Test Item Value Reference Range Interpretation Comments B-Type Natriuretic Peptide (test code = 94162-3) 827.3 0-[address] [facility] CenterLactic Acid Mfhzu2958-19-31 09:50:00* Test Item Value Reference Range Interpretation Comments Lactic Acid Level (test code = Lactic Acid Level) 12.9 4.5- 19.8 [facility] CenterUrine KBN7211-66-09 09:48:00* Test Item Value Reference Range Interpretation Comments Urine WBC (test code = 5821-4) 6-10 0-[address] [facility] CenterUrine PDJ0657-91-92 09:48:00* Test Item Value Reference Range Interpretation Comments Urine RBC (test code = 40637-2) >50 0-[address] [facility] CenterUrine Slwovavy1296-66-99 09:48:00* Test Item Value Reference Range Interpretation Comments Urine Bacteria (test code = 79831-5) MODERATE NONE H [facility] CenterUrine Epithelial Ucqzv3618-16-60 09:48:00 * Test Item Value Reference Range Interpretation Comments Urine Epithelial Cells (test code = 73394-7) MODERATE NONE [facility] CenterUrine Hyaline Mxepj8956-96-32 09:48:00* Test Item Value Reference Range Interpretation Comments Urine Hyaline Casts (test code = 80952-1) 6-10 0-[address] [facility] CenterUrine Coarse Granular Rzdso2802-57-42 09:48:00* Test Item Value Reference Range Interpretation Comments Urine Coarse Granular Casts (test code = 30764-2) 11-[address] [facility] CenterCHEST 2 KGDND7889-40-08 09:46:00 [place] [address] Patient Name: JIGNESH WAYNE MR #: [id number] : Age/Sex: 48/F Req #: [id number] Adm Physician: Ordered by: MICHAEL GLI MD Report #: [id number] Location: ER Room/Bed: Procedure: [id number] DX/CHEST 2 VIEWS Exam Date: Exam Time: 909 REPORT STATUS: Signed PROCEDURE: X-RAY CHEST, TWO VIEWS COMPARISON: Abdominal radiograph 10/19/2017. INDICATIONS: HEART PALPITATIONS, COUGH FINDINGS: The lungs are reasonably well inflated. Patchy perihilar predominant opacities bilaterally. No large pleural effusion or pneumothorax. Left subclavian approach and p liable cardiac device projects over the left lower chest wall. Leads project over the expected regions of the right atrium and right ventricle. Additional coronary device lead is partially visualized. Median sternotomy wires. Borde rline cardiomegaly. No acute osseous abnormality. Interval T12 vertebropla sty with cement. CONCLUSION: Cardiomegaly with perihilar predominant interstitial and alveolar opacities likely reflective of edema, though the di fferential diagnosis includes multifocal pneumonia in the appropriate clinica l setting. Dictated by: Deisy Wong M.D. on 03/08/2018 at 9:46 El ectronically approved by: Deisy Wong M.D. on 03/08/2018 at 9:46 Dictated By: DEISY WONG MD 5 COPY TO: EILEEN GIL RD, MD Urine Axaoy5990-12-22 09:27:00* Test Item Value Reference Range Interpretation Comments Urine Color (test code = 5778-6) SAROJ YELLOW H [facility] CenterUrine Bauiuxj6934-00-44 09:27:00* Test Item Value Reference Range Interpretation Comments Urine Clarity (test code = 10143-9) HAZY CLEAR [facility] CenterUrine Specific Ftgaluo1079-42-79 09:27:00 * Test Item Value Reference Range Interpretation Comments Urine Specific [employer] [facility] (test code = 5811-5) 1.030 1.010-1.[address] [facility] CenterUrine zH3683-69-29 09:27:00* Test Item Value Reference Range Interpretation Comments Urine pH (test code = 99874-8) 6 5-7 [facility] CenterUrine Leukocyte Vrjhbpto1232-50-62 09:27:00* Test Item Value Reference Range Interpretation Comments Urine Leukocyte Esterase (test code = 5799-2) NEGATIVE NEGATIVE [facility] Uqtoegd8713-88-09 09:27:00* Test Item Value Reference Range Interpretation Comments Urine Nitrite (test code = 66665-8) NEGATIVE NEGATIVE [facility] Krngcgz2820-72-93 09:27:00* Test Item Value Reference Range Interpretation Comments Urine Protein (test code = 5804-0) 3+ NEGATIVE H [facility] Glucose (UA)2018-03-08 09:27:00* Test Item Value Reference Range Interpretation Comments Urine Glucose (UA) (test code = 2349-9) NEGATIVE NEGATIVE [facility] Zosgqfh4026-67-85 09:27:00* Test Item Value Reference Range Interpretation Comments Urine Ketones (test code = 67884-3) NEGATIVE NEGATIVE [facility] Gffkqgsebyyv8713-44-05 09:27:00* Test Item Value Reference Range Interpretation Comments Urine Urobilinogen (test code = 80222-9) 1 0.2-1 [facility] Napnxmoat9223-77-97 09:27:00* Test Item Value Reference Range Interpretation Comments Urine Bilirubin (test code = 1978-6) 1+ NEGATIVE H [facility] Zejop3708-40-43 09:27:00* Test Item Value Reference Range Interpretation Comments Urine Blood (test code = 19587-3) 3+ [facility]GATIVE [facility] Bzzgn5864-79-39 07:26:00* Test Item Value Reference Range Interpretation Comments Sodium Level (test code = 2951-2) 130 136-[address] [facility] CenterPotassium Tzack2398-45-62 07:26:00* Test Item Value Reference Range Interpretation Comments Potassium Level (test code = 2823-3) 3.9 3.5-5.1 [facility] CenterChloride Oymdd3383-53-07 07:26:00* Test Item Value Reference Range Interpretation Comments Chloride Level (test code = 2075-0) 91 98-[address] [facility] CenterCarbon Dioxide Jvjzl7614-64-10 07:26:00* Test Item Value Reference Range Interpretation Comments Carbon Dioxide Level (test code = 2028-9) 27 22-29 [facility] CenterAnion Bfi3346-56-48 07:26:00* Test Item Value Reference Range Interpretation Comments Anion Gap (test code = 47159-4) 15.9 8-16 [facility] CenterBlood Urea Ifdorrcb1113-47-30 07:26:00* Test Item Value Reference Range Interpretation Comments Blood Urea Nitrogen (test code = 3094-0) 23 7-26 [facility] CenterCreatinine2018-05-30 07:26:00* Test Item Value Reference Range Interpretation Comments Creatinine (test code = 2160-0) 1.54 0.57-1.[address] [facility] CenterBUN/Creatinine Oztae1101-87-85 07:26:00* Test Item Value Reference Range Interpretation Comments BUN/Creatinine Ratio (test code = 3097-3) 15 6-25 [facility] CenterEstimat Glomerular Filtration Rate 2017-10-21 07:26:00* Test Item Value Reference Range Interpretation Comments Estimat Glomerular Filtration Rate (test code = 10294-9) 36 >60 L Ranges were taken from the National Kidney Disease Education Program and the [facility] [employer] literature.Reference ranges:60 or greater: Nyomcz27-50 ( for 3 consecutive months): Chronic kidney disease 15 or less: Kidney failureSt. David's [facility] Medical CenterGlucose Bnezp5525-41-89 07:26:00* Test Item Value Reference Range Interpretation Comments Glucose Level (test code = IYR6099) 117 74-118 [facility] CenterCalcium Asckg4414-50-24 07:26:00* Test Item Value Reference Range Interpretation Comments Calcium Level (test code = 11573-4) 9.4 8.4-10.2 [facility] CenterBlood Aqhkzpx5777-86-11 15:25:00* Test Item Value Reference Range Interpretation Comments Blood Culture (test code = 49376530) NO GROWTH AFTER [address] [facility] CenterToamerican fork hospital Aebjhbcvq3214-29-73 07:49:00* Test Item Value Reference Range Interpretation Comments Total Bilirubin (test code = 1975-2) 0.7 0.2-1.2 [facility] CenterAspartate Amino Transf (AST/SGOT) 2017-10-20 07:49:00* Test Item Value Reference Range Interpretation Comments Aspartate Amino Transf (AST/SGOT) (test code = Aspartate Amino Transf (AST/SGOT)) 15 5-34 [facility] CenterAlanine Aminotransferase (ALT/SGPT) 2017-10-20 07:49:00* Test Item Value Reference Range Interpretation Comments Alanine Aminotransferase (ALT/SGPT) (test code = 1742-6) 9 0-55 [facility] CenterTotal Lelvpns1094-19-45 07:49:00* Test Item Value Reference Range Interpretation Comments Total Protein (test code = 2885-2) 7.9 6.5-8.1 [facility] CenterAlbumin2018-05-29 07:49:00* Test Item Value Reference Range Interpretation Comments Albumin (test code = 1751-7) 2.9 3.5-5.[address] [facility] CenterGlobulin2018-05-29 07:49:00* Test Item Value Reference Range Interpretation Comments Globulin (test code = 13120-0) 5.0 2.3-3.[address] [facility] CenterAlbumin/Globulin Cfffr3461-13-04 07:49:00 * Test Item Value Reference Range Interpretation Comments Albumin/Globulin Ratio (test code = 1759-0) 0.6 0.8-2.[address] [facility] CenterAlkaline Gnziymwgbfw3907-87-21 07:49:00* Test Item Value Reference Range Interpretation Comments Alkaline Phosphatase (test code = 6768-6) 127 40-150 [facility] CenterWhite Blood Ttvtm2971-85-20 07:21:00* Test Item Value Reference Range Interpretation Comments White Blood Count (test code = 6690-2) 8.37 4.8-10.8 [facility] CenterRed Blood Xtabs4453-65-93 07:21:00* Test Item Value Reference Range Interpretation Comments Red Blood Count (test code = 789-8) 5.12 3.6-5.[address] [facility] CenterHemoglobin2018-05-29 07:21:00* Test Item Value Reference Range Interpretation Comments Hemoglobin (test code = 13380-6) 16.0 12.0-16.0 [facility] CenterHematocrit2018-05-29 07:21:00* Test Item Value Reference Range Interpretation Comments Hematocrit (test code = 4544-3) 48.0 34.2-44.[address] [facility] CenterMean Corpuscular Chitit4344-28-98 07:21:00* Test Item Value Reference Range Interpretation Comments Mean Corpuscular Volume (test code = 787-2) 93.8 81-99 [facility] CenterMean Corpuscular Agxrewcizn8238-21-61 07:21:00* Test Item Value Reference Range Interpretation Comments Mean Corpuscular Hemoglobin (test code = 785-6) 31.3 28-32 [facility] CenterMean Corpuscular Hemoglobin Concent 2017-10-20 07:21:00* Test Item Value Reference Range Interpretation Comments Mean Corpuscular Hemoglobin Concent (test code = 786-4) 33.3 31-35 [facility] CenterRed Cell Distribution Uivys5663-71-15 07:21:00* Test Item Value Reference Range Interpretation Comments Red Cell Distribution Width (test code = 26966-3) 14.6 11.7 -14.[address] [facility] CenterPlatelet Pnxis6960-88-12 07:21:00* Test Item Value Reference Range Interpretation Comments Platelet Count (test code = 777-3) 210 140-360 [facility] CenterNeutrophils (%) (Auto)2017-10-20 07:21:00 * Test Item Value Reference Range Interpretation Comments Neutrophils (%) (Auto) (test code = 58131-4) 81.1 38.7-80.[address] [facility] CenterLymphocytes (%) (Auto)2017-10-20 07:21:00 * Test Item Value Reference Range Interpretation Comments Lymphocytes (%) (Auto) (test code = 736-9) 8.7 18.0-39.[address] [facility] CenterMonocytes (%) (Auto)2017-10-20 07:21:00* Test Item Value Reference Range Interpretation Comments Monocytes (%) (Auto) (test code = 5905-5) 7.3 4.4-11.3 [facility] CenterEosinophils (%) (Auto)2017-10-20 07:21:00 * Test Item Value Reference Range Interpretation Comments Eosinophils (%) (Auto) (test code = 713-8) 1.3 0.0-6.0 [facility] CenterBasophils (%) (Auto)2017-10-20 07:21:00* Test Item Value Reference Range Interpretation Comments Basophils (%) (Auto) (test code = 706-2) 1.1 0.0-1.[address] [facility] CenterIM GRANULOCYTES %2017-10-20 07:21:00* Test Item Value Reference Range Interpretation Comments IM GRANULOCYTES % (test code = IM GRANULOCYTES %) 0.5 0.0- 1.0 [facility] CenterNeutrophils # (Auto)2017-10-20 07:21:00* Test Item Value Reference Range Interpretation Comments Neutrophils # (Auto) (test code = 751-8) 6.8 2.1-6.9 [facility] CenterLymphocytes # (Auto)2017-10-20 07:21:00* Test Item Value Reference Range Interpretation Comments Lymphocytes # (Auto) (test code = 98605-8) 0.7 1.0-3.[address] [facility] CenterMonocytes # (Auto)2017-10-20 07:21:00* Test Item Value Reference Range Interpretation Comments Monocytes # (Auto) (test code = 742-7) 0.6 0.2-0.8 [facility] CenterEosinophils # (Auto)2017-10-20 07:21:00* Test Item Value Reference Range Interpretation Comments Eosinophils # (Auto) (test code = 711-2) 0.1 0.0-0.4 [facility] CenterBasophils # (Auto)2017-10-20 07:21:00* Test Item Value Reference Range Interpretation Comments Basophils # (Auto) (test code = 704-7) 0.1 0.0-0.1 [facility] CenterAbsolute Immature Granulocyte (auto 2017-10-20 07:21:00* Test Item Value Reference Range Interpretation Comments Absolute Immature Granulocyte (auto (eduar t code = Absolute Immature Granulocyte (auto) 0.04 0-0.1 [facility] CenterUrine Gjwwjmt9662-58-89 08:47:00* Test Item Value Reference Range Interpretation Comments Urine Culture (test code = 630-4) Organism: YEAST SPECIES [facility] CenterCreatine Kinase MO4683-81-41 14:02:00* Test Item Value Reference Range Interpretation Comments Creatine Kinase MB (test code = 36903-7) 1.70 0-5.0 [facility] CenterTroponin S6612-65-78 14:02:00* Test Item Value Reference Range Interpretation Comments Troponin I (test code = HFA4056) 0.056 0-0.300 [facility] CenterCreatine Qbkcsx2073-45-31 13:57:00* Test Item Value Reference Range Interpretation Comments Creatine Kinase (test code = 2157-6) 49 29-168 [facility] CenterBedside Rmutzxo6168-16-32 11:14:00* Test Item Value Reference Range Interpretation Comments Bedside Glucose (test code = 95437-2) 120 70-120 Meter ID: [id number]. [facility]'s [facility] Medical CenterHuman Chorionic Gonadotropin, Grnfb9113-93-84 11:02:00* Test Item Value Reference Range Interpretation Comments Human Chorionic Gonadotropin, Quant (test code = 38133-7) -1.20 0-10 [facility] CenterUrine DSX9791-23-61 16:45:00* Test Item Value Reference Range Interpretation Comments Urine WBC (test code = 5821-4) 11-20 0-[address] [facility] CenterUrine IOK9345-41-96 16:45:00* Test Item Value Reference Range Interpretation Comments Urine RBC (test code = 39522-9) 21-50 0-[address] [facility] CenterUrine Cailntuo5408-46-77 16:45:00* Test Item Value Reference Range Interpretation Comments Urine Bacteria (test code = 16065-3) FEW NONE [facility] CenterUrine Epithelial Zrzyt4790-74-35 16:45:00 * Test Item Value Reference Range Interpretation Comments Urine Epithelial Cells (test code = 90891-9) MODERATE NONE [facility] Amorphous Qilzkcpn3596-43-36 16:45:00* Test Item Value Reference Range Interpretation Comments Urine Amorphous Sediment (test code = 8246-1) FEW FEW [facility] CenterUrine Coarse Granular Rusvn8143-05-33 16:45:00* Test Item Value Reference Range Interpretation Comments Urine Coarse Granular Casts (test code = 01934-3) 1-[address] [facility] CenterUrine Xdwla4643-86-80 16:40:00* Test Item Value Reference Range Interpretation Comments Urine Color (test code = 5778-6) YELLOW YELLOW [facility] CenterUrine Mvqnojv1128-86-99 16:40:00* Test Item Value Reference Range Interpretation Comments Urine Clarity (test code = 99438-3) SL CLOUDY CLEAR [facility] CenterUrine Specific Gjumogv4369-94-19 16:40:00 * Test Item Value Reference Range Interpretation Comments Urine Specific [facility] (test code = 5811-5) 1.030 1.010-1.[address] [facility] [facility] eV7416-05-61 16:40:00* Test Item Value Reference Range Interpretation Comments Urine pH (test code = 42980-6) 5 5-7 [facility] Center[facility] Leukocyte Zfmgkkje2597-85-41 16:40:00* Test Item Value Reference Range Interpretation Comments Urine Leukocyte Esterase (test code = 5799-2) NEGATIVE NEGATIVE [facility] CenterUrine Zjobnsn1676-72-81 16:40:00* Test Item Value Reference Range Interpretation Comments Urine Nitrite (test code = 48583-4) NEGATIVE NEGATIVE [facility] CenterUrine Javehhg8728-42-08 16:40:00* Test Item Value Reference Range Interpretation Comments Urine Protein (test code = 5804-0) 3+ NEGATIVE H [facility] CenterUrine Glucose (UA)2017-10-17 16:40:00* Test Item Value Reference Range Interpretation Comments Urine Glucose (UA) (test code = 2349-9) NEGATIVE NEGATIVE [facility] CenterUrine Aewrrrp6242-96-56 16:40:00* Test Item Value Reference Range Interpretation Comments Urine Ketones (test code = 31952-3) NEGATIVE NEGATIVE [facility] CenterUrine Mzgzvctxjuwj7874-31-63 16:40:00* Test Item Value Reference Range Interpretation Comments Urine Urobilinogen (test code = 22139-5) 4 0.2-[address] [facility] CenterUrine Hyikxlege6652-55-39 16:40:00* Test Item Value Reference Range Interpretation Comments Urine Bilirubin (test code = 1978-6) 1+ NEGATIVE H [facility] CenterUrine Kyonp7529-10-64 16:40:00* Test Item Value Reference Range Interpretation Comments Urine Blood (test code = 95461-8) 4+ NEGATIVE H [facility] CenterB-Type Natriuretic Bunhxkn1112-50-06 16:07:00* Test Item Value Reference Range Interpretation Comments B-Type Natriuretic Peptide (test code = 10436-3) 741.5 0-[address] [facility] CenterLactic Acid Xdqjp8449-95-77 15:44:00* Test Item Value Reference Range Interpretation Comments Lactic Acid Level (test code = Lactic Acid Level) 28.2 4.5- 19.[address] [facility] CenterBlood Hpjdcmn6947-24-11 21:51:00* Test Item Value Reference Range Interpretation Comments Blood Culture (test code = 12890618) NO GROWTH AFTER 5 DAYS, FINAL [facility]PORT [facility] Wlqfl3040-17-73 22:32:00* Test Item Value Reference Range Interpretation Comments Sodium Level (test code = 2951-2) 139 136-145 [facility] CenterPotassium Wlwvr6281-66-68 22:32:00* Test Item Value Reference Range Interpretation Comments Potassium Level (test code = 2823-3) 4.1 3.5-5.1 [facility] CenterChloride Fflnd8490-59-17 22:32:00* Test Item Value Reference Range Interpretation Comments Chloride Level (test code = 2075-0) 105 98-107 [facility] CenterCarbon Dioxide Xyabm3979-45-72 22:32:00* Test Item Value Reference Range Interpretation Comments Carbon Dioxide Level (test code = 2028-9) 23 22-29 [facility] CenterAnion Enu1551-48-73 22:32:00* Test Item Value Reference Range Interpretation Comments Anion Gap (test code = 77916-2) 15.1 8-16 [facility] CenterBlood Urea Fmykmfok9867-18-38 22:32:00* Test Item Value Reference Range Interpretation Comments Blood Urea Nitrogen (test code = 3094-0) 16 7-26 [facility] CenterCreatinine2017-11-14 22:32:00* Test Item Value Reference Range Interpretation Comments Creatinine (test code = 2160-0) 1.54 0.57-1.[address] [facility] CenterBUN/Creatinine Ngwwb5449-84-56 22:32:00* Test Item Value Reference Range Interpretation Comments BUN/Creatinine Ratio (test code = 3097-3) 10 6-25 [facility] CenterEstimat Glomerular Filtration Rate 2017-04-07 22:32:00* Test Item Value Reference Range Interpretation Comments Estimat Glomerular Filtration Rate (test code = 77853-2) 36 >60 L Ranges were taken from the National Kidney Disease Education Program and the [facility] [employer] literature.Reference ranges:60 or greater: Cvjdsd59-56 ( for 3 consecutive months): Chronic kidney disease 15 or less: Kidney failureSt. [facility]'s [facility] CenterGlucose Nfwyp2831-82-13 22:32:00* Test Item Value Reference Range Interpretation Comments Glucose Level (test code = WUI9103) 128 74-[address] [facility] CenterCalcium Laegt7182-98-56 22:32:00* Test Item Value Reference Range Interpretation Comments Calcium Level (test code = 09400-3) 9.2 8.4-10.2 [facility] CenterMagnesium Csaar9671-43-66 22:32:00* Test Item Value Reference Range Interpretation Comments Magnesium Level (test code = 95815-9) 2.0 1.3-2.1 [facility] CenterTotal Vadlrpmtb9195-25-68 22:32:00* Test Item Value Reference Range Interpretation Comments Total Bilirubin (test code = 1975-2) 0.5 0.2-1.2 [facility] CenterAspartate Amino Transf (AST/SGOT) 2017-04-07 22:32:00* Test Item Value Reference Range Interpretation Comments Aspartate Amino Transf (AST/SGOT) (test code = Aspartate Amino Transf (AST/SGOT)) 21 5-34 [facility] CenterAlanine Aminotransferase (ALT/SGPT) 2017-04-07 22:32:00* Test Item Value Reference Range Interpretation Comments Alanine Aminotransferase (ALT/SGPT) (test code = 1742-6) 17 0-55 [facility] CenterTotal Urzmdna4493-16-09 22:32:00* Test Item Value Reference Range Interpretation Comments Total Protein (test code = 2885-2) 8.8 6.5-8.[address] [facility] CenterAlbumin2017-11-14 22:32:00* Test Item Value Reference Range Interpretation Comments Albumin (test code = 1751-7) 3.5 3.5-5.0 [facility] CenterGlobulin2017-11-14 22:32:00* Test Item Value Reference Range Interpretation Comments Globulin (test code = 13636-2) 5.3 2.3-3.[address] [facility] CenterAlbumin/Globulin Xdeko1672-24-88 22:32:00 * Test Item Value Reference Range Interpretation Comments Albumin/Globulin Ratio (test code = 1759-0) 0.7 0.8-2.[address] [facility] CenterAlkaline Cudgvmplgoe1188-87-21 22:32:00* Test Item Value Reference Range Interpretation Comments Alkaline Phosphatase (test code = 6768-6) 146 40-150 [facility] CenterB-Type Natriuretic Ulnkkqk5887-98-46 22:32:00* Test Item Value Reference Range Interpretation Comments B-Type Natriuretic Peptide (test code = 34856-2) 418.1 0-[address] [facility] CenterCreatine Kbqagk2750-61-54 22:32:00* Test Item Value Reference Range Interpretation Comments Creatine Kinase (test code = 2157-6) 25 29-[address] [facility] CenterCreatine Kinase RB9729-64-50 22:32:00* Test Item Value Reference Range Interpretation Comments Creatine Kinase MB (test code = 87536-2) 1.50 0.00-5.00 [facility] CenterTroponin D8991-67-24 22:32:00* Test Item Value Reference Range Interpretation Comments Troponin I (test code = FTQ9129) 0.047 0-0.300 [facility] CenterLipase2017-11-14 22:32:00* Test Item Value Reference Range Interpretation Comments Lipase (test code = 3040-3) [facility] CenterMagnesium Uzbnv6601-50-56 22:32:00* Test Item Value Reference Range Interpretation Comments Magnesium Level (test code = 11803-6) 2.0 1.3-2.1 [facility] CenterLipase2017-11-14 22:32:00* Test Item Value Reference Range Interpretation Comments Lipase (test code = 3040-3) [facility] CenterHuman Chorionic Gonadotropin, Qual 2017-04-07 22:09:00* Test Item Value Reference Range Interpretation Comments Human Chorionic Gonadotropin, Qual (test code = 2118-8) NEGATIVE NEGATIVE [facility]erman Chorionic Gonadotropin, Qual 2017-04-07 22:09:00* Test Item Value Reference Range Interpretation Comments Human Chorionic Gonadotropin, Qual (test code = 2118-8) NEGATIVE NEGATIVE [facility] CenterActivated Partial Thromboplast Time 2017-04-07 22:06:00* Test Item Value Reference Range Interpretation Comments Activated Partial Thromboplast Time (test code = 28587-0) 27.7 23.8-35.5 [facility] CenterActivated Partial Thromboplast Time 2017-04-07 22:06:00* Test Item Value Reference Range Interpretation Comments Activated Partial Thromboplast Time (test code = 55038-2) 27.7 23.8-35.5 [facility] CenterProthrombin Qvgx9986-57-23 22:05:00* Test Item Value Reference Range Interpretation Comments Prothrombin Time (test code = 5902-2) 12.9 11.9-14.5 [facility] CenterProthromb Time International Ratio 2017-04-07 22:05:00* Test Item Value Reference Range Interpretation Comments Prothromb Time International Ratio (test code = 6301-6) 0.93 Oral Anticoagulant Therapy INR Values:1. Low Intensity Therapy 1.5 - 2.02 . Moderate Intensity Therapy 2.0 - 3.03. High Intensity Therapy(1) 2.5 - 3. 54. High Intensity Therapy(2) 3.0 - 4.05. Panic Value INR > 5.0 [facility] CenterProthrombin Smiv3975-61-36 22:05:00* Test Item Value Reference Range Interpretation Comments Prothrombin Time (test code = 5902-2) 12.9 11.9-14.5 [facility] CenterProthromb Time International Ratio 2017-04-07 22:05:00* Test Item Value Reference Range Interpretation Comments Prothromb Time International Ratio (test code = 6301-6) 0.93 Oral Anticoagulant Therapy INR Values:1. Low Intensity Therapy 1.5 - 2.02 . Moderate Intensity Therapy 2.0 - 3.03. High Intensity Therapy(1) 2.5 - 3. 54. High Intensity Therapy(2) 3.0 - 4.05. Panic Value INR > 5.0 [facility] CenterWhite Blood Tonkz9369-93-06 21:58:00* Test Item Value Reference Range Interpretation Comments White Blood Count (test code = 6690-2) 7.44 4.8-10.8 [facility] CenterRed Blood Oklve5850-92-89 21:58:00* Test Item Value Reference Range Interpretation Comments Red Blood Count (test code = 789-8) 5.04 3.6-5.1 [facility] CenterHemoglobin2017-11-14 21:58:00* Test Item Value Reference Range Interpretation Comments Hemoglobin (test code = 36267-4) 16.1 12.0-16.[address] [facility] CenterHematocrit2017-11-14 21:58:00* Test Item Value Reference Range Interpretation Comments Hematocrit (test code = 4544-3) 47.2 34.2-44.[address] [facility] CenterMean Corpuscular Fmuaah9988-20-37 21:58:00* Test Item Value Reference Range Interpretation Comments Mean Corpuscular Volume (test code = 787-2) 93.7 81-99 [facility] CenterMean Corpuscular Lvsqtmmmye5022-11-34 21:58:00* Test Item Value Reference Range Interpretation Comments Mean Corpuscular Hemoglobin (test code = 785-6) 31.9 28-32 [facility] CenterMean Corpuscular Hemoglobin Concent 2017-04-07 21:58:00* Test Item Value Reference Range Interpretation Comments Mean Corpuscular Hemoglobin Concent (test code = 786-4) 34.1 31-35 [facility] CenterRed Cell Distribution Afoui2985-84-03 21:58:00* Test Item Value Reference Range Interpretation Comments Red Cell Distribution Width (test code = 05422-4) 17.0 11.7 -14.[address] [facility] CenterPlatelet Ekpmv2842-99-35 21:58:00* Test Item Value Reference Range Interpretation Comments Platelet Count (test code = 777-3) 182 140-360 [facility] CenterNeutrophils (%) (Auto)2017-04-07 21:58:00 * Test Item Value Reference Range Interpretation Comments Neutrophils (%) (Auto) (test code = 77168-3) 83.0 38.7-80.[address] [facility] CenterLymphocytes (%) (Auto)2017-04-07 21:58:00 * Test Item Value Reference Range Interpretation Comments Lymphocytes (%) (Auto) (test code = 736-9) 9.7 18.0-39.[address] [facility] CenterMonocytes (%) (Auto)2017-04-07 21:58:00* Test Item Value Reference Range Interpretation Comments Monocytes (%) (Auto) (test code = 5905-5) 5.5 4.4-11.3 [facility] CenterEosinophils (%) (Auto)2017-04-07 21:58:00 * Test Item Value Reference Range Interpretation Comments Eosinophils (%) (Auto) (test code = 713-8) 0.3 0.0-6.0 [facility] CenterBasophils (%) (Auto)2017-04-07 21:58:00* Test Item Value Reference Range Interpretation Comments Basophils (%) (Auto) (test code = 706-2) 1.2 0.0-1.[address] [facility] CenterIM GRANULOCYTES %2017-04-07 21:58:00* Test Item Value Reference Range Interpretation Comments IM GRANULOCYTES % (test code = IM GRANULOCYTES %) 0.3 0.0- 1.0 [facility] CenterNeutrophils # (Auto)2017-04-07 21:58:00* Test Item Value Reference Range Interpretation Comments Neutrophils # (Auto) (test code = 751-8) 6.2 2.1-6.9 [facility] CenterLymphocytes # (Auto)2017-04-07 21:58:00* Test Item Value Reference Range Interpretation Comments Lymphocytes # (Auto) (test code = 34472-8) 0.7 1.0-3.[address] [facility] CenterMonocytes # (Auto)2017-04-07 21:58:00* Test Item Value Reference Range Interpretation Comments Monocytes # (Auto) (test code = 742-7) 0.4 0.2-0.8 [facility] CenterEosinophils # (Auto)2017-04-07 21:58:00* Test Item Value Reference Range Interpretation Comments Eosinophils # (Auto) (test code = 711-2) 0.0 0.0-0.4 [facility] CenterBasophils # (Auto)2017-04-07 21:58:00* Test Item Value Reference Range Interpretation Comments Basophils # (Auto) (test code = 704-7) 0.1 0.0-0.1 [facility] CenterAbsolute Immature Granulocyte (auto 2017-04-07 21:58:00* Test Item Value Reference Range Interpretation Comments Absolute Immature Granulocyte (auto (eduar t code = Absolute Immature Granulocyte (auto) 0.02 0-0.1 [facility] CenterUrine ZEF6987-30-99 21:42:00* Test Item Value Reference Range Interpretation Comments Urine WBC (test code = 5821-4) 6-10 0-[address] [facility] CenterUrine EYV9543-18-98 21:42:00* Test Item Value Reference Range Interpretation Comments Urine RBC (test code = 69003-1) 50- 0-[address] [facility] CenterUrine Bwbgneio3565-31-32 21:42:00* Test Item Value Reference Range Interpretation Comments Urine Bacteria (test code = 05453-1) MODERATE NONE H [facility] CenterUrine Epithelial Lswyv3859-78-81 21:42:00 * Test Item Value Reference Range Interpretation Comments Urine Epithelial Cells (test code = 16755-1) FEW NONE [facility] CenterUrine Qtiro0904-70-97 21:42:00* Test Item Value Reference Range Interpretation Comments Urine Yeast (test code = 63235-7) FEW NONE H [facility] CenterUrine Mulyf5962-51-85 21:42:00* Test Item Value Reference Range Interpretation Comments Urine Yeast (test code = 15693-4) FEW NONE H [facility] CenterUrine Swkof2077-61-97 21:39:00* Test Item Value Reference Range Interpretation Comments Urine Color (test code = 5778-6) YELLOW YELLOW [facility] CenterUrine Dpzlysl7419-15-05 21:39:00* Test Item Value Reference Range Interpretation Comments Urine Clarity (test code = 61776-7) HAZY CLEAR [facility] CenterUrine Specific Rfxtycu6382-18-44 21:39:00 * Test Item Value Reference Range Interpretation Comments Urine Specific [employer] (test code = 5811-5) 1.025 1.010-1.[address] [facility] CenterUrine xN5682-67-19 21:39:00* Test Item Value Reference Range Interpretation Comments Urine pH (test code = 03069-6) 5 5-7 [facility] CenterUrine Leukocyte Pleiipxm1939-12-67 21:39:00* Test Item Value Reference Range Interpretation Comments Urine Leukocyte Esterase (test code = 5799-2) TRACE NEGATIVE H [facility] Pvuvvum0177-31-59 21:39:00* Test Item Value Reference Range Interpretation Comments Urine Nitrite (test code = 54520-6) NEGATIVE NEGATIVE [facility] Xhdekcx2146-36-83 21:39:00* Test Item Value Reference Range Interpretation Comments Urine Protein (test code = 5804-0) 2+ NEGATIVE H [facility] Glucose (UA)2017-04-07 21:39:00* Test Item Value Reference Range Interpretation Comments Urine Glucose (UA) (test code = 2349-9) NEGATIVE NEGATIVE [facility] Blabyac2108-84-20 21:39:00* Test Item Value Reference Range Interpretation Comments Urine Ketones (test code = 96198-9) NEGATIVE NEGATIVE [facility] Qhzvbferjzqy3053-25-28 21:39:00* Test Item Value Reference Range Interpretation Comments Urine Urobilinogen (test code = 66469-6) 1 0.2-1 [facility] CenterUrine Ycqibhcrn4394-57-45 21:39:00* Test Item Value Reference Range Interpretation Comments Urine Bilirubin (test code = 1978-6) 1+ NEGATIVE H [facility] Dbopz7561-68-23 21:39:00* Test Item Value Reference Range Interpretation Comments Urine Blood (test code = 88781-5) 4+ NEGATIVE H [facility] [address] [place] [address] Patient Name: JIGNESH WAYNE MR #: [id number] : 1970 Age/Sex: 47/F Req #: [id number] Adm Physician: ANASTACIO VENCES MD Ordered by: CLAY BEASLEY M.D. Report #: [id number] Location: MED/SURG Room/Bed: [facility] Procedure: [id number] C T/CT BRAIN WO Exam Date: 10/19/17 Exam Time: 1515 REPORT STATUS: Signed Exam: Head CT without contrast History: Leg weak ness, possible seizure Comparison studies: None Technique: Axial image s were obtained from the skull base to the vertex. Coronal and sagittal images reconstructed from the axial data. Intravenous contrast: None Findings: Scalp: No abnormalities. Bones: No fractures, blastic or lytic lesions. Brain sulci: Mildly prominent. Ventricles: Mild compensatory dilatation. No hydrocephalus. Extra-axial spaces: No masses, no fluid collection. Par enchyma: No mass, acute hemorrhage or acute cortical vascular insults. 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 Sellar/s uprasellar region: No abnormalities. Craniocervical junction: Patent foramen m agnum. No Chiari one malformation. Incidental findings: Nonspecific secr etions in the left maxillary sinus. Chronic inflammatory changes in the right mastoids. IMPRESSION: 1. No acute intracranial abnormalities. 2. Mild generalized volume loss. 3. 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 4. Secretions in the left maxillary sinus could be correla valerie for sinusitis. Signed by: Dr. Deisy Cortez M.D. on 10/19/2017 3:46 PM Dictated By: DEISY CORTEZ MD 45 Transcribed By: BRETT on 10/19/171545 COPY TO: CLAY BEASLEY M.D. ABDOMEN-1VIEW (KUB) [place] [address] Patient Name: JIGNESH WAYNE MR #: [id number] : 1970 Age/Sex: 47/F Req #: [id number] Adm Physician: ANASTACIO VENCES MD Ordered by: ANASTACIO VENCES MD Report #: [id number] Location: MED/SURG Room/Bed: [facility] Procedure: [id number] DX/ABDOMEN -1VIEW (KUB) Exam Date: 10/19/17 Exam Time: 1515 REPORT STATUS: Signed PROCEDURE: X-RAY ABDOMEN - KUB COMPARISON: [facility], CT, CT ABDOMEN/PELVIS WO, 04/07/2017, 23:30. INDICATIONS: CONSTIPATION/COUGH/BACK PAIN FINDINGS: There are no di lated small bowel loops. There is a moderate volume of stool within the rectu m. There is moderate dilatation of the descending colon and sigmoid. There ar e no calcifications projected over the renal shadows, expected course of the ureters or bladder. There are no acute osseous abnormalities. Left-sided pace maker partially visualized. A battery pack also projected on the midabdomen. CONCLUSION: Moderate dilatation of descending colon and sigmoid may be related to fecal impaction. Christel Jenkins M.D. Dictated by: Christel Jenkins M.D. on 10/21/2017 at 15:49 Electronically appr madi by: Christel Jenkins M.D. on 10/21/2017 at 15:49 Dic tated By: TABBY JENKINS MD, MD 48 COPY TO: Jorge VENCES MD ECHO COMPLETE (ECHOCARDIOGRAM) [place] [address] Patient Name : JIGNESH WAYNE MR #: [id number] : 1970 Age/Sex: 47/F Adm Physician : ANASTACIO VENCES MD Admit Date : 10/19/17 Location : MED/SURG Room/Bed : [facility] REPORT: Cardiology Report DATE OF STUDY: October 18, 2017 ECHOCARDIOGRAM M-MODE: Dilated left atrium. Normal left ventricular wall thickness and contractility. Sclerosis of the mitral valve annulus. Normal aortic valve. Pacemaker. No pericard ial effusion. SECTOR SCAN: Moderately dilated left atrium. Normal left ve ntricular wall thickness and contractility. Ejection fraction is approximate ly 60%. Mitral annulus is moderately sclerotic. Pacemaker is present. Norm al tricuspid and aortic valves. No pericardial effusion. CARDIAC DOPPLE R STUDY WITH COLOR: There is 2+ pulmonic and mitral regurgitation. Trace tr icuspid regurgitation. Pulmonary artery systolic pressure estimated at 33 mm Hg. CONCLUSIONS 1. Left ventricular ejection fraction is approximately 60 %. 2. Moderate mitral regurgitation with dilated left atrium. 3. Pacemaker w ith trace tricuspid regurgitation and moderate pulmonic regurgitation. 4. S clerosis of the mitral valve annulus. Job#: [id number] MH cc: ANASTACIO VENCES M.D. Sign ature Date Dictated By: TYREL GUZMAN MD Transcribed By: SMEDS on <Electronically signed by TYREL GUZMAN MD><<Signature on File>>10/21/17 0926 COPY TO: SP LUMBAR AP LATERAL 2-3VWS [place] [address] Patient Name: JIGNESH WAYNE MR #: [id number] : 1970 Age/Sex: 47/F Req #: [id number] Adm Physician: ANASTACIO VENCES MD Ordered by: ANASTACIO VENCES MD Report #: [id number] Location: [facility] Room/Bed: [place] [address] Procedure: [id number] DX/SP LUM BAR AP LATERAL 2-3VWS Exam Date: 10/18/17 Exam Junior e: 1320 REPORT STATUS: Signed Lumbar Spine Radiographs: 3 views HISTORY: Low back pain. COMPARISON: CT abdomen and pelvis 03/28/2017 DISCUSSION: Some of the osseous structures are partially obscured by stool and bowel gas. L2 and L3 are partially obscured by the device pack on the fron patria view. There are five non-rib bearing lumbar vertebral bodies. The ali gnment of the spine is within normal limits. Age-indeterminate mild T12 compre ssion deformity with approximately 15-20% loss of height. No displaced frac ture or additional compression deformity is identified. Moderate to large a mount stool in the ascending colon. Gaseous distention of colon with the dista l transverse colon measuring 8.5 cm in diameter. No abnormally distended air f illed loops of small bowel. Cholecystectomy clips. Epicardial lead with int ra-abdominal device. A surgical clip projects over the pelvis. Disc Space s: The disc spaces are well maintained. Facets: The facet joints are un remarkable. IMPRESSION: Age-indeterminate mild T12 compression deformity with approximately 15-20% loss of height. Gaseous distention of colon. Moder ate to large amount of stool in the ascending colon. Signed by: DR. Judd Virk MD on 10/18/2017 1:58 PM Dictated By: RAYMUNDO VIRK MD Electron ically Signed By: RAYMUNDO VIRK MD on 10/18/17 1357 Transcribed By: BRETT on 10/18/17 6502 COPY TO: ANASTACIO VENCES MD CHEST SINGLE (PORTABLE) [place] [address] Patient Name: JIGNESH WAYNE MR #: [id number] : Age/Sex: 47/F Req #: [id number] Adm Physician: ANASTACIO CARRILLO MD Ordered by: SUDHAKAR VIEYRA DO Report #: [id number] Location: [facility] Room/Bed: [place] [address] Procedure: [id number] DX/RAVEN ST SINGLE (PORTABLE) Exam Date: 10/18/17 Exam Time: 519 REPORT STATUS: Signed EXAM: CHEST SINGLE (PORTABLE), AP 1 view I NDICATION: Congestive heart failure COMPARISON: AP view of the chest October 17, 2 018 FINDINGS: LINES/TUBES: Stable position of left approach cardiac devic e. Partially visualized subxiphoid pacer. LUNGS: Pulmonary edema. P LEURA: No effusions or pneumothorax. HEART AND MEDIASTINUM: Stable cardiome maddy and vascular congestion. BONES AND SOFT TISSUES: No acute findings. St able median sternotomy wires. IMPRESSION: No interval change. Signed by: Dr. Renetta Cervantes M.D. on 10/18/2017 6:29 AM Dictated By: RENETTA CERVANTES MD 8 T ranscribed By: BRETT on 10/18/17628 COPY TO: SUDHAKAR VIEYRA DO CHEST 2 VIEWS [place] [address] Patient Name: JIGNESH WAYNE MR #: [id number] : 1970 Age/Sex: 47/F Req #: [id number] Adm Physician: Ordered by: SUDHAKAR VIEYRA DO Report #: [id number] Location: ER Room/Bed: Procedure: [id number] DX/CHEST 2 VIEWS Exam Date: Exam Time: 1545 REPORT STATUS: Signed EXAMINATION: CHEST 2 VIEWS INDICATION: COMPARISON: Chest radiograph 04/07/2017 FINDINGS: PA and lateral views TUB ES and LINES: Left chest wall cardiac pacer with lead tips overlying the righ t atrium and right ventricle. Partially visualized epicardial lead. LUNGS: Lungs are moderately inflated. Interstitial edema. PLEURA: No pleural eff usion or pneumothorax. HEART AND MEDIASTINUM: Stable enlargement of the ca rdiac silhouette. BONES AND SOFT TISSUES: No acute osseous lesion. Me jose j sternotomy wires. The inferior most wire is broken. Soft tissues are unre markable. UPPER ABDOMEN: No free air under the diaphragm. Cholecystectomy c lips. IMPRESSION: Cardiogenic interstitial edema. Signed by: DR. Felicia Virk MD on 10/17/2017 4:30 PM Dictated By: RAYMUNDO VIRK MD Elect ronically Signed By: RAYMUNDO VIRK MD on 10/17/171629 Transcribed By: BRETT on 05/26/18 1630 COPY TO: SUDHAKAR VIEYRA DO CHEST 2 VIEWS [place] [id number] [place] [address] Patient Name: JIGNESH WAYNE MR #: [id number] : Age/Sex: 47/F Req #: [id number] Adm Physician: Ordered by: MELODY HASSAN MD Report #: [id number] Location: ER Room/Bed: Procedure: [id number] DX/CHEST 2 VIEWS Exam Date: Exam Time: REPORT STATUS: Signed CHEST 2 VIEWS, Technique: CHEST 2 VIEWS Comparison: 11/24/2016 Clinical history: S H/O DOWN'S W/MARTHA DEFECTS REPAIRED, CHF SOB DISCUSSION: See below IMPRESSION: 1. Lines/tubes: Stable left chest wall dual-lead pacer, upper abdominal epicardial device. 2. Stable enlarged cardiomediastinal silhouette post sternotomy. 3. Diffuse opacities, likely edema. No significant effusion. Signed by: Dr Ghada James MD on 04/08/2017 12:02 AM Dictated By: GHADA JAMES MD 0 002 Transcribed By: BRETT on 04/08/17 0002 COPY TO: MELODY HASSAN MD CT ABDOMEN/PELVIS WO [place] [address] Patient Name: JIGNESH WAYNE MR #: [id number] : 1970 Age/Sex: 47/F Req #: [id number] Adm Physician: Ordered by: MELODY HASSAN MD Report #: [id number] Location: ER Room/Bed: Procedure: [id number] CT/CT ABDOMEN/PELVIS WO Exam Toni e: 04/08/17 Exam Time: 2330 REPORT STATUS: Sign ed EXAM: CT ABDOMEN/PELVIS WO DATE: 04/07/2017 9:42 PM INDICATION: S ABD PAIN LLQ H/O CROHN'S/DOWN'S SYND COMPARISON: 09/22/2016 contrast enhanced s tudy TECHNIQUE: The abdomen and pelvis were scanned using a multidetector destiny marlys scanner. Coronal and sagittal reformations were obtained. Routine protocol performed. IV Contrast: None FINDINGS: Lack of IV contrast decre ases sensitivity in evaluating abdominal and pelvic organs. In addition, image quality mildly degraded by streak artifact from electronic abdominal device. LOWER THORAX: Cardiomegaly with right ventricular lead seen and epicardial lead from intra-abdominal device. Nonspecific groundglass opacity which could be due to edema. Possible mosaic attenuation. LIVER/BILIARY: No masses. No ductal dilatation. GALLBLADDER: Surgically absent SPLEEN: Unremarkable PANCREAS: Unremarkable ADRENALS: No nodules KIDNEYS: No hydronephrosis or stone disease. GI TRACT: No distention, wall thickening or evidence of ob struction. Moderate stool is seen throughout the colon and rectum. VESSE LS: No significant atherosclerotic calcification PERITONEUM/RETROPERITONEUM: N o free air or fluid LYMPH NODES: No lymphadenopathy REPRODUCTIVE ORGANS/B LADDER: Unremarkable BONES: No suspicious bone lesions. IMPRESSION: Moderate stool burden. Otherwise negative for acute abnormality to explain sym ptoms. Signed by: Dr Ghada James MD on 04/08/2017 12:20 AM Dictat ed By: GHADA JAMES MD COPY TO: MELODY HASSAN MD
--- NOTE | 2019-12-23 22:28 | Emergency Department Note ---
History of Present Illnes History of Present Illness Chief Complaint: COVID PUI History of Present Illness This is a 49 year old female on home oxygen for heart problems from Down syndrome who presents with nonproductive cough general malaise decreased appetite and mild sore throat for 3 days. She is on home oxygen at her baseline saturation on room air is around 90%. Baseline oxygen saturation on 2 L is 95%. Mother is in the hospital at [facility] for COVID. Her mother has similar symptoms. The patient and her mother were seen at symptom onset 2 days ago and had a negative bed antibody Covid test via blood. They also had a nasal swab for PCR testing and these results are pending. Historian: Family Member Arrival Mode: Car History limited by: developmental delay (Down syndrome) Onset (how long ago): day(s) (3 days) Severity: unable to specify Duration (how long): day(s) (3 Days) Progression: worsening Chronicity: new Context: Denies recent immobilization, Denies recent travel, Denies trauma/ injury Relieving factors: none Exacerbating factors: none Past Medical/Family History Physician Review I have reviewed the patient's past medical and family history. Any updates have been documented here. Past Medical History Recent Fever: Yes Clinical Suspicion of Infectio: No New/Unexplained Change in Ment: No Past Medical History: Hypothyroidism, GERD Other Medical History: downs syndrome, pacemaker 1976, pt is on home o2 Past Surgical History: Cholecysctectomy, Pacer/AICD Other Surgery: CATARACT SURGERY RIGHT FOOT SURGERY OPEN HEART SURGERY Social History Smoking Cessation: Never Smoker Counseling Performed: No Alcohol Use: None Any Illegal Drug Use: No Physically hurt or threatened: No Other Last Tetanus: over 10 years Any Pre-Existing Lines (PICC,: No Review of Systems Review of Systems Constitutional: Reports fever, Reports malaise, Reports weakness EENTM: Reports throat pain; Denies ear pain, Denies nose congestion Cardiovascular: Reports no symptoms Respiratory: Reports as per HPI, Reports cough; Denies hemoptysis, Denies dyspnea, Denies dyspnea on exertion, Denies wheezing Gastrointestinal: Denies diarrhea, Denies nausea Genitourinary: Reports no symptoms Musculoskeletal: Reports muscle pain (generalized) Integumentary: Denies rash Neurological: Reports headache; Denies seizure Psychological: Reports other (developmentally delayed due to Down syndrome) Physical Exam Related Data Allergies: Coded Allergies: No Known Allergies (Unverified , 03/08/18) Triage Vital Signs Vital Signs Date Time Temp Pulse Resp B/P (MAP) Pulse Ox O2 Delivery O2 Flow Rate FiO2 12/23/19 18:40 101.3 90 20 104/74 90 Physical Exam CONSTITUTIONAL Constitutional: Present other (Down syndrome) HENT HENT: Present oropharynx clear/moist, Present oropharynx normal, Present pharynx abnormal; Absent erythema HENT L/R: Present left TM normal, Present right TM normal, Present left canal normal, Present right canal normal, Present left ext ear normal, Present right ext ear normal EYES Eyes: Reports conjunctivae normal NECK Neck: Present ROM normal, Present supple PULMONARY Pulmonary: Present effort normal, Present breath sounds normal; Absent respiratory distress, Absent chest tenderness CARDIOVASCULAR Cardiovascular: Present regular rhythm, Present heart sounds normal, Present intact distal pulses, Present capillary refill normal, Present normal rate GASTROINTESTINAL Abdominal: Present soft, Present nontender GENITOURINARY SKIN Skin: Present warm, Present dry; Absent rash MUSCULOSKELETAL Musculoskeletal: Present ROM normal; Absent edema NEUROLOGICAL PSYCHOLOGICAL Assessment & Plan Medical Decision Making MDM Differential diagnosis limited to CHF, COPD, acute coronary syndrome, pneumothorax, bronchitis, Covid, pneumonia. Given the fact of a fever and a cough with the father is in the hospital with Covid 19 and the mom with similar symptoms, COVID is suspected despite the negative antibody test which was taken on the day of symptom onset. Given APAP here for fever. Concern for this patient with congenital heart defect on home O2 if covid positive. Patient at baseline O2 sat. Mom declined admission. Aware of risks. Will d/c. Will treat with Z-pack and decadron. Instructed mom to monitor O2 sats with home pulse ox which they own. Return for low sats or worsen. Assessment & Plan Final Impression: (1) Bronchitis (2) Person under investigation for COVID-19 Depart Disposition: HOME, SELF-CARE Last Vital Signs Date Time Temp Pulse Resp B/P (MAP) Pulse Ox O2 Delivery O2 Flow Rate FiO2 12/23/19 18:40 101.3 90 20 104/74 90 Home Meds Active Scripts Dexamethasone (Decadron) 6 Mg Tablet, 1 TAB PO DAILY for 7 Days Prov:MICHAEL SEVILLA MD 12/23/19 Azithromycin (Z-VINAYAK) 250 Mg Tablet, 250 MG PO UD, #1 UDPKT Z-Pack Prov:MICHAEL SEVILLA MD 12/23/19 Reported Medications Furosemide (LASIX) 20 Mg Tablet, 20 MG PO DAILY, #30 TAB 04/02/19 Cholecalciferol (Vitamin D3) (VITAMIN D) 400 Unit Capsule, 400 UNITS PO DAILY, #30 CAP 03/08/18 Omeprazole (OMEPRAZOLE) 40 Mg Capsule.dr, 40 MG PO DAILY 03/08/18 Levothyroxine Sodium (LEVOTHYROXINE SODIUM) 88 Mcg Tablet, 100 MCG PO DAILY, #30 TAB 11/24/16 Lamotrigine (LAMOTRIGINE) 100 Mg Tablet, 100 MG PO DAILY, #30 TAB 11/24/16 Medications in the ED Acetaminophen 650 mg ONCE ONCE PO Last administered on 12/23/19at 19:31; Admin Dose 650 MG; Start 12/23/19 at 19:30; Stop 12/23/19 at 19:31; Status UNV MICHAEL SEVILLA MD Dec 23, 2019 19:34
== END 2019-12-23 20:33 | disposition home or self-care (01) ==
LOC: FSED 18:56
DX: J40 Bronchitis, not specified as acute or chronic (principal); R50.9 Fever, unspecified; R05 Cough; Q90.9 Down syndrome, unspecified; Z20.828 Contact with and (suspected) exposure to other viral communicable diseases
CPT/HCPCS: 99283